=== PATIENT | female | born 1990 | race Caucasian/White ===

== ENCOUNTER 2018-05-17 14:36 | Inpatient (IN) ==
--- NOTE | 2018-05-17 14:59 | Emergency Department Note ---
ED Disposition Clinical Impression: Dental infection, Facial cellulitis Disposition: Still a Patient Condition on Discharge: Fair Referrals: Mathew Cisneros MD [Primary Care Provider] - - Critical Care Critical Care Time: No Attestation: On , the high probability of a clinically significant, sudden or life threatening deterioration of the following system(s) required my full and direct attention, intervention and personal management. The time I documented below is in addition to time spent performing reported procedures but includes the following listed in this critical care notation. Medical Decision Making - Brad Inquiry Pt receiving controlled substance: Yes Brad was queried for this patient: Yes Reference #:: [id number] Risks and benefits of using a controlled substance: were not discussed with pt by me Comment: 0 rxs. Vital Signs: 05/17/18 14:40 05/17/18 14:49 05/17/18 15:07 Temperature 99.4 F 99.4 F Temperature Source Oral Oral Pulse Rate [Right Brachial] 67 67 68 Respiratory Rate 20 20 18 Blood Pressure [Right Arm] 135/83 135/83 131/82 Blood Pressure Mean [Right Arm] 100 100 98 Blood Pressure Source [Right Arm] Automatic Cuff Automatic Cuff Automatic Cuff Blood Pressure Position [Right Arm] Sitting Supine Supine 02 Sat by Pulse Oximetry 96 96 96 Oxygen Delivery Method Room Air Room Air Room Air 05/17/18 15:53 05/17/18 16:00 05/17/18 16:47 Temperature Temperature Source Pulse Rate [Right Brachial] 72 72 82 Respiratory Rate 18 18 18 Blood Pressure [Right Arm] 129/77 127/78 135/74 Blood Pressure Mean [Right Arm] 94 94 94 Blood Pressure Source [Right Arm] Manual Cuff/ Auscultation Automatic Cuff Automatic Cuff Blood Pressure Position [Right Arm] Supine Supine Supine 02 Sat by Pulse Oximetry 97 97 98 Oxygen Delivery Method Room Air Room Air 05/17/18 17:30 Temperature Temperature Source Pulse Rate [Right Brachial] 96 H Respiratory Rate 18 Blood Pressure [Right Arm] 142/88 Blood Pressure Mean [Right Arm] 106 Blood Pressure Source [Right Arm] Automatic Cuff Blood Pressure Position [Right Arm] Sitting 02 Sat by Pulse Oximetry 97 Oxygen Delivery Method Room Air - Lab Data Lab Results 05/17/18 15:15: WBC 23.5 H*, RBC 4.98, Hgb 14.6, Hct 44.3, MCV 89.0, MCH 29.3, MCHC 32.9, RDW 13.2, Plt Count 400, MPV 7.3 L, Neut % (Auto) 80.5 H, Lymph % ( Auto) 13.9, [place] % (Auto) 4.5, Eos % (Auto) 0.9, Baso % (Auto) 0.2, Neut # (Auto ) 18.9 H, Lymph # (Auto) 3.3, [place] # (Auto) 1.0, Eos # (Auto) 0.2, Baso # (Auto ) 0.1, Total Counted 100, Neutrophils % (Manual) 87 H, Lymphocytes % (Manual) 8 L, Monocytes % (Manual) 5, Platelet Estimate Normal, RBC Morphology Normal 05/17/18 15:15: Sodium 140, Potassium 3.5, Chloride 105, Carbon Dioxide 26, Anion Gap 12.5, BUN 7, Creatinine 0.76, Estimated Creat Clear 178, Estimated GFR 91, Est GFR ( Amer) 110, Glucose 119 H, Calcium 8.7 05/17/18 15:20: Lactic Acid 0.9 Result diagrams: 05/17/18 15:15 05/17/18 15:15 Orders (Tests/Meds): ED MEDICATIONS Generic Name Dose Route Start Last Admin Trade Name Freq PRN Reason Stop Dose Admin Clindamycin Phosphate 900 mg/ 106 mls @ 100 mls/hr 05/17/18 15:15 05/17/18 15 :38 Sodium Chloride IV 05/31/18 15:14 100 mls/hr Q6H AMALIA Administration Protocol Discontinued Medications Generic Name Dose Route Start Last Admin Trade Name Freq PRN Reason Stop Dose Admin Hydromorphone HCl 1 mg 05/17/18 15:06 05/17/18 15:31 Dilaudid 2mg/Ml Syringe IV 05/17/18 15:07 1 mg ONCE ONE Administration Iopamidol 75 ml 05/17/18 16:39 05/17/18 16:43 [id number]; 50ml Vial IV 05/17/18 16:40 75 ml ONCE ONE Administration Iopamidol 75 ml 05/17/18 16:39 05/17/18 16:43 [id number]; 50ml Vial IV 05/17/18 16:40 75 ml ONCE ONE Administration Ketorolac Tromethamine 30 mg 05/17/18 15:07 05/17/18 15:31 Toradol 30mg/Ml Vial IV 05/17/18 15:08 30 mg ONCE ONE Administration Ondansetron HCl 4 mg 05/17/18 15:06 05/17/18 15:31 Zofran 4mg/2ml Vial IV 05/17/18 15:07 4 mg ONCE ONE Administration Sodium Chloride 10 ml 05/17/18 16:39 05/17/18 16:43 Rad-Saline Flush 10ml Syringe IV 05/17/18 16:40 10 ml ONCE ONE Administration ORDERS Category Date Time Status CT sinus w con Stat Cat Scan 05/17/18 16:00 Taken Blood Culture Stat Micro 05/17/18 15:15 Received - CT Data CT Scan: Sinus Time Received: 17:[address] Reviewed: Yes: I have viewed the radiologist's interpretation Findings Narrative: CT scan interpreted by [facility] radiologist. Faxed report received and reviewed: Some right anterior and donovan-lateral maxillary/buccal soft tissue cellulitis is present. Possible contiguous extension of the inflammatory process into the anterior right parotid salivary gland with associated sialadenitis. - Physician Consults Physician Consulted: jj Time: 17:46 Reason -: Admission Comment/Response: Agrees to admit the patient to the hospital. We discussed the patient's clinical information, including history, exam, laboratory and radiology results and ED course. Per hospital procedure, I will write temporary bridge inpatient orders on the patient. Specific orders requested by the admitting physician: Continue clindamycin. 1 dose of Decadron. General Adult HPI - General Chief complaint: Dental/Oral Stated complaint: Infected tooth, swollen face Time Seen by Provider: 05/17/18 14:59 Mode of Arrival: Family Vehicle Limitations: No Limitations Description of Symptoms (Recalled from ER Triage Doc. by RN): C/O DENTAL INFECTION WITH PAIN AND FACIAL EDEMA. DR KEENAN SENT HER HERE FOR INJECTABLE ANTIBIOTICS. SEEN BY YOSELIN THIS AM AND STARTED ON CLINDAMYCIN 150 MG PO QID AND HYDROCODONE 7.5 MG PO Q 4-6 HOURS PRN. MORE SWELLING OF FACE NOTED AFTER MEDICATIONS STARTED. RETURNED TO DENTIST OFFICE AND WAS INSTRUCTED TO COME TO ER - History of Present Illness HPI narrative: Complains of toothache and facial swelling that began yesterday. Pain started in the right maxillary first premolar. Pain and swelling has worsened today. She saw her dentist today and was started on Clindamycin and Percocet. Afterwards the swelling and pain increased and she was sent to the emergency room for intravenous antibiotics. Denies fever. Able to swallow and breathe well. - Related Data Home Medications Medication Instructions Recorded Confirmed Clindamycin HCl [Cleocin HCl] 150 mg PO QID 05/17/18 05/17/18 Hydrocodone/Acetaminophen 1 each PO Q4HP PRN 05/17/18 05/17/18 [Hydrocodon-Acetaminoph 7.5-325] Allergies Allergy/AdvReac Type Severity Reaction Status Date / Time No Known Allergies Allergy Verified 02/25/18 15:14 [facility] History I have reviewed the patient's past medical history: Yes Medical History: Denies:: Cancer, Diabetes Mellitus Type 1, Diabetes Mellitus Type 2, MRSA Laterality Cases: Left: Other Other Surgeries: Yes: Cholecystectomy Amputation: No Fractures: No - Social History Smoking Status: Current every day smoker Tobacco Type: cigarettes Alcohol Intake: never Household Members: family - Psychiatric History Expresses thoughts of harming self/others: None Suicide Plan Description: No Plan Family Hx:: Cancer, Diabetes, Hypertension ROS Obtained: Yes Systems reviewed as appropriate & no additional complaints - Constitutional Constitutional: Denies fever(s) - Eyes Eyes: Reports other (Swelling of the right eyelids and periorbital tissues) - ENT Ears, Nose, Mouth, and Throat: Reports as per HPI, Reports dental pain, Reports facial pain Physical Exam - General General appearance: alert, in distress (Pain. Tearful.) - Head Head exam: atraumatic, normocephalic - Eye Eye exam: Present: normal appearance, PERRL, EOMI - Expanded ENT Exam Comment: Right facial edema, maxillary and periorbital with moderate edema of right eyelids. Extraocular movements intact. Pupils equal and reactive to light. No proptosis. Tenderness of right maxillary first premolar. No visible dental caries. No visible intraoral abscess or swelling. No sublingual swelling or tongue elevation. Uvula midline. No stridor or drooling. No submandibular swelling. - Neck Neck exam: Present: normal inspection, full ROM, trachea midline. Absent: meningismus, lymphadenopathy - Chest Chest inspection: Present: normal inspection, symmetric chest wall rise. Absent : tenderness - Respiratory Respiratory exam: Present: normal lung sounds bilaterally. Absent: respiratory distress - Cardiovascular Cardiovascular exam: Present: regular rate, normal rhythm. Absent: JVD - Abdominal Exam Abdominal exam: Present: soft, normal bowel sounds. Absent: distention, tenderness, guarding - Extremities Exam Extremities exam: Present: normal inspection - Back Exam Back exam: Absent: tenderness - Neurological Exam Neurological exam: Present: alert, oriented X3, CN II-XII intact - Psychiatric Psychiatric exam: Present: anxious - Skin Skin exam: Present: warm, dry, intact, normal color
[2018-05-17 15:34] LABS: Basophils # 0.1 K/mm3 (0-0.2); Basophils % 0.2 % (0.1-2.0); Eosinophils # 0.2 K/mm3 (0.0-0.4); Eosinophils % 0.9 % (0.1-12.0); Hematocrit 44.3 % (37.0-47.0); Hemoglobin 14.6 g/dL (12.2-16.2); Lymphocytes # 3.3 K/mm3 (0.7-4.5); Lymphocytes % 13.9 K/mm3 (10-50); Mean Corpuscular HGB Conc 32.9 g/dL (31.8-35.4); Mean Corpuscular Hemoglobin 29.3 pg (27.0-31.2); Mean Platelet Volume 7.3 fl (7.4-10.4); Monocytes % 4.5 % (1.7-9.3); Neutrophils # 18.9 K/mm3 (1.8-7.8); Neutrophils % 80.5 % (37.0-80.0); Platelet Count 400 K/mm3 (142-424); Red Blood Count 4.98 M/mm3 (4.20-5.40); Red Cell Distribution Width 13.2 % (11.5-17.5); White Blood Count 23.5 K/mm3 (4.8-10.8)
[2018-05-17 15:38] LABS: Anion Gap 12.5 mEq/L (5-15); Calcium 8.7 mg/dL (8.5-10.1); Potassium 3.5 mmoL/L (3.5-5.1)
[2018-05-17 16:02] LABS: Lymphocytes % 8 % (10-50); Monocytes % 5 % (2-9); Neutrophils % 87 % (42-76); Total Cells Counted 100
[2018-05-17 16:05] LABS: RBC Morphology Normal
[2018-05-18 06:59] LABS: Basophils % 0.1 % (0.1-2.0); Hematocrit 42.6 % (37.0-47.0); Hemoglobin 13.7 g/dL (12.2-16.2); Lymphocytes # 1.2 K/mm3 (0.7-4.5); Lymphocytes % 8.2 K/mm3 (10-50); Mean Corpuscular HGB Conc 32.1 g/dL (31.8-35.4); Mean Corpuscular Volume 90.2 fl (81-99); Mean Platelet Volume 7.6 fl (7.4-10.4); Monocytes # 0.5 K/mm3 (0.1-1.0); Monocytes % 3.1 % (1.7-9.3); Neutrophils # 13.3 K/mm3 (1.8-7.8); Neutrophils % 88.6 % (37.0-80.0); Platelet Count 363 K/mm3 (142-424); Red Blood Count 4.72 M/mm3 (4.20-5.40); Red Cell Distribution Width 13.3 % (11.5-17.5)
--- NOTE | 2018-05-18 07:57 | Pharmacy Consult Notes ---
[facility] Pharmacy VTE Monitoring - Patient Demographics Admission date: 05/17/18 Report Date: 05/18/18 Time: 07:57 Allergies/Adverse Reactions: Patient Allergies No Known Allergies Allergy (Verified 02/25/18 15:14) Height: 1.65 m Weight: 98.94 kg Patient Problems: Current Active Problems Dental infection (Acute) Facial cellulitis (Acute) - VTE Risk Labs: VTE Related Lab Results Hgb 13.7 g/dL (12.2-16.2) 05/18/18 06:15 Hct 42.6 % (37.0-47.0) 05/18/18 06:15 Plt Count 363 K/mm3 (142-424) 05/18/18 06:15 BUN 7 mg/dL (7-18) 05/17/18 15:15 Creatinine 0.76 mg/dL (0.55-1.02) 05/17/18 15:15 Estimated Creat Clear 178 mL/min (0-300) 05/17/18 15:15 Was VTE Risk Assessment Performed: No VTE Score: 1 VTE Risk Level: Very Low Risk Clinical Trial Participant: No - Prophylaxis VTE Prophylaxis Ordered?: Yes Types of VTE Prophylaxis: TEDS Knee High Location of Applied Device: Bilateral Lower Extremeties
--- NOTE | 2018-05-18 09:45 | History & Physical Report ---
*Admission Date: 05/17/18 *Chief complaint: Left facial swelling *History of present illness: 27-year-old white female with no significant visit her dentist a couple times with infected tooth in the right upper molar. She saw her dentist yesterday morning with significant swelling, and was placed on antibiotics which initially seemed to help her along with some ibuprofen swelling return and she reported back to the dentist office who asked her to come to the ER because of possible need for imaging and she reported to the ER on day of admission with swollen maxillary area, significant pain and swelling in the lower right orbital area. CT scan of sinuses was nondiagnostic of her left tissue swelling, patient was given a dose of intravenous clindamycin and felt somewhat better but given the significant swelling, port/or robotics, she admitted to hospital for IV antibiotics and further diagnostic testing. [facility] History I have reviewed the patient's past medical history: Yes Medical History: Denies:: Cancer, Diabetes Mellitus Type 1, Diabetes Mellitus Type 2, MRSA Laterality Cases: Left: Other Other Surgeries: Yes: Cholecystectomy Amputation: No Fractures: No - *Social History Educational Level: Completed High School Smoking Status: Never smoker Tobacco Type: cigarettes Alcohol Intake: never Occupational Status: employed Housing: house Household Members: family - Psychiatric History Expresses thoughts of harming self/others: None Suicide Plan Description: No Plan *Family Hx:: Cancer, Diabetes, Hypertension Review of Systems - Review of Systems Review of systems:: pertinent systems reviewed and negative unless documented below Review of systems negative for cardiac or pulmonary issues as noted below. Negative for GI distress, diarrhea or constipation. Negative for sore throat, ear pain or other issues other than poor dentition/ problems as noted in the HPI. Meds Home Medications Medication Instructions Recorded Confirmed Type Hydrocodone/Acetaminophen 1 each PO Q4HP PRN 05/17/18 05/18/18 History [Hydrocodon-Acetaminoph 7.5-325] Clindamycin HCl 300 mg PO TID 05/18/18 05/18/18 History Allergies Allergy/AdvReac Type Severity Reaction Status Date / Time No Known Allergies Allergy Verified 02/25/18 15:14 Exam Vital signs and Labs for Last 24 Hours: Temp Pulse Resp BP Pulse Ox 98.8 F 74 16 134/86 95 05/18/18 07:49 05/18/18 07:49 05/18/18 07:49 05/18/18 07:49 05/18/18 08:00 Laboratory Results - last 24 hr 05/17/18 15:15: WBC 23.5 H*, RBC 4.98, Hgb 14.6, Hct 44.3, MCV 89.0, MCH 29.3, MCHC 32.9, RDW 13.2, Plt Count 400, MPV 7.3 L, Neut % (Auto) 80.5 H, Lymph % ( Auto) 13.9, [place] % (Auto) 4.5, Eos % (Auto) 0.9, Baso % (Auto) 0.2, Neut # (Auto ) 18.9 H, Lymph # (Auto) 3.3, [place] # (Auto) 1.0, Eos # (Auto) 0.2, Baso # (Auto ) 0.1, Total Counted 100, Neutrophils % (Manual) 87 H, Lymphocytes % (Manual) 8 L, Monocytes % (Manual) 5, Platelet Estimate Normal, RBC Morphology Normal 05/17/18 15:15: Sodium 140, Potassium 3.5, Chloride 105, Carbon Dioxide 26, Anion Gap 12.5, BUN 7, Creatinine 0.76, Estimated Creat Clear 178, Estimated GFR 91, Est GFR ( Amer) 110, Glucose 119 H, Calcium 8.7 05/17/18 15:20: Lactic Acid 0.9 05/18/18 06:15: WBC 15.0 H D, RBC 4.72, Hgb 13.7, Hct 42.6, MCV 90.2, MCH 29.0, MCHC 32.1, RDW 13.3, Plt Count 363, MPV 7.6, Neut % (Auto) 88.6 H, Lymph % (Auto ) 8.2 L, [place] % (Auto) 3.1, Eos % (Auto) 0.0 L, Baso % (Auto) 0.1, Neut # (Auto ) 13.3 H, Lymph # (Auto) 1.2, [place] # (Auto) 0.5, Eos # (Auto) 0.0, Baso # (Auto ) 0.0 I & O for Last 24 hours: Intake & Output 05/15/18 05/16/18 05/17/18 05/18/18 11:59 11:59 11:59 11:59 Intake Total 560 / 560 Balance 560 / 560 Weight 218 lb 2 oz Narrative: Patient is in no distress, obvious just on the right maxillary area extending into the right lower orbital region. Extraocular motions are intact and she reports pain when she was laterally. Pupils are equal and reactive. Tympanic membranes are clear bilaterally. Oropharynx is slightly irritated but no significant drainage or petechiae in the posterior pharynx. There is tenderness and diffuse soft tissue swelling the maxillary region. I cannot palpate any discrete abscess or lymph but her pain limits the accuracy of the examination. She has no cervical lymph node swelling. Lungs have smoker's rhonchi but was clear heart rate regular. Abdomen is soft, she millimeter cyanosis or edema. H&P: Result - Labs Labs: Short CBC 05/17/18 05/18/18 Range/Units 15:15 06:15 WBC 23.5 H* 15.0 H D (4.8-10.8) K/mm3 Hgb 14.6 13.7 (12.2-16.2) g/dL Hct 44.3 42.6 (37.0-47.0) % Plt Count 400 363 (142-424) K/mm3 BMP 05/17/18 15:15 Sodium 140 Potassium 3.5 Chloride 105 Carbon Dioxide 26 BUN 7 Creatinine 0.76 Glucose 119 H Calcium 8.7 Assessment and Plan (1) Dental infection Current visit: Yes Status: Acute Category: Medical Code(s): K04.7 - Periapical abscess without sinus Agree with admission. IV antibiotics Consider change to gram-negative coverage if needed. We will consider further imaging in the future. (2) Facial cellulitis Current visit: Yes Status: Acute Category: Medical Code(s): L03.211 - Cellulitis of face
[2018-05-18 10:16] LABS: Lymphocytes % 8 % (10-50); Monocytes % 3 % (2-9); Neutrophils % 89 % (42-76); Total Cells Counted 100
[2018-05-18 10:17] LABS: RBC Morphology Normal
--- NOTE | 2018-05-18 11:22 | Consult Report ---
*Admission Date: 05/17/18 *Chief complaint: Right facial cellulitis *History of present illness: 27-year-old white female with no significant visit her dentist a couple times with infected tooth in the right upper molar. She saw her dentist yesterday morning with significant swelling, and was placed on antibiotics which initially seemed to help her along with some ibuprofen swelling return and she reported back to the dentist office who asked her to come to the ER because of possible need for imaging and she reported to the ER on day of admission with swollen maxillary area, significant pain and swelling in the lower right orbital area. CT scan of sinuses was nondiagnostic of her left tissue swelling, patient was given a dose of intravenous clindamycin and felt somewhat better but given the significant swelling, port/or robotics, she admitted to hospital for IV antibiotics and further diagnostic testing. Review of Systems - Eyes Reports other Comments: right side ricarda orbital swelling - ENT Reports dental pain, Reports facial pain [facility] History Medical History: Denies:: Cancer, Diabetes Mellitus Type 1, Diabetes Mellitus Type 2, MRSA Laterality Cases: Left: Other Other Surgeries: Yes: Cholecystectomy Amputation: No Fractures: No - *Social History Educational Level: Completed High School Smoking Status: Never smoker Tobacco Type: cigarettes Alcohol Intake: never Occupational Status: employed Housing: house Household Members: family - Psychiatric History Expresses thoughts of harming self/others: None Suicide Plan Description: No Plan *Family Hx:: Cancer, Diabetes, Hypertension Meds Home Medications Medication Instructions Recorded Confirmed Type Hydrocodone/Acetaminophen 1 each PO Q4HP PRN 05/17/18 05/18/18 History [Hydrocodon-Acetaminoph 7.5-325] Clindamycin HCl 300 mg PO TID 05/18/18 05/18/18 History Allergies Allergy/AdvReac Type Severity Reaction Status Date / Time No Known Allergies Allergy Verified 02/25/18 15:14 Exam Vital signs and Labs for Last 24 Hours: Temp Pulse Resp BP Pulse Ox 98.8 F 74 16 134/86 95 05/18/18 07:49 05/18/18 07:49 05/18/18 07:49 05/18/18 07:49 05/18/18 08:00 Laboratory Results - last 24 hr 05/17/18 15:15: WBC 23.5 H*, RBC 4.98, Hgb 14.6, Hct 44.3, MCV 89.0, MCH 29.3, MCHC 32.9, RDW 13.2, Plt Count 400, MPV 7.3 L, Neut % (Auto) 80.5 H, Lymph % ( Auto) 13.9, [place] % (Auto) 4.5, Eos % (Auto) 0.9, Baso % (Auto) 0.2, Neut # (Auto ) 18.9 H, Lymph # (Auto) 3.3, [place] # (Auto) 1.0, Eos # (Auto) 0.2, Baso # (Auto ) 0.1, Total Counted 100, Neutrophils % (Manual) 87 H, Lymphocytes % (Manual) 8 L, Monocytes % (Manual) 5, Platelet Estimate Normal, RBC Morphology Normal 05/17/18 15:15: Sodium 140, Potassium 3.5, Chloride 105, Carbon Dioxide 26, Anion Gap 12.5, BUN 7, Creatinine 0.76, Estimated Creat Clear 178, Estimated GFR 91, Est GFR ( Amer) 110, Glucose 119 H, Calcium 8.7 05/17/18 15:20: Lactic Acid 0.9 05/18/18 06:15: WBC 15.0 H D, RBC 4.72, Hgb 13.7, Hct 42.6, MCV 90.2, MCH 29.0, MCHC 32.1, RDW 13.3, Plt Count 363, MPV 7.6, Neut % (Auto) 88.6 H, Lymph % (Auto ) 8.2 L, [place] % (Auto) 3.1, Eos % (Auto) 0.0 L, Baso % (Auto) 0.1, Neut # (Auto ) 13.3 H, Lymph # (Auto) 1.2, [place] # (Auto) 0.5, Eos # (Auto) 0.0, Baso # (Auto ) 0.0, Total Counted 100, Neutrophils % (Manual) 89 H, Lymphocytes % (Manual) 8 L, Monocytes % (Manual) 3, Platelet Estimate Normal, RBC Morphology Normal I & O for Last 24 hours: Intake & Output 05/15/18 05/16/18 05/17/18 05/18/18 23:59 23:59 23:59 23:59 Intake Total 560 / 560 Balance 560 / 560 Weight 218 lb 2 oz 218 lb 2 oz - *Routine HEENT Exam Eye: Present: periorbital swelling, periorbital tenderness ENT: Present: sinus tenderness, external ear normal Comments: This patient was consulted on May 18, 2018 because of right facial cellulitis which presented about 4 days ago. She does have a carious right maxillary premolar tooth and her dentist did recommend an extraction of that tooth. She was admitted to hospital the right facial cellulitis 24 hours ago and started on clindamycin. When I examined her the swelling was beginning to recede and she was feeling slightly better. She will had been changed to Unasyn, examination confirmed the presence of a right facial cellulitis in the middle third of the right side of the face. There was no abscess. Eye movements were normal. She does have a deviation of the nasal septum to the left and evidence of acute right maxillary sinusitis. That finding was confirmed on the CT scan of the sinuses which showed moderately extensive mucosal thickening of the right maxillary sinus as well as a periapical abscess of the affected carious premolar maxillary to. The remainder of the head and neck examination was normal. What I did recommend is that she continue on the Unasyn and I also added Flagyl 500 mg every 8 hours while she is receiving IV medication. And may be prudent to keep her on the Flagyl for 5 days once she switches over to oral medication. She most likely will need to follow through with the dentist' s recommendations on a tooth extraction, and given the inflammatory process in the right maxillary sinus I would be inclined to keep her on antibiotics for a full 10 days. I would recommend a follow-up at my clinic on June 02, 2018 provided she does not develop a soft tissue facial abscess, but given the fact that she is already responding I think that is highly unlikely. Results - Labs 05/18/18 06:15 05/17/18 15:15 Laboratory Results - last 24 hr 05/17/18 15:15: WBC 23.5 H*, RBC 4.98, Hgb 14.6, Hct 44.3, MCV 89.0, MCH 29.3, MCHC 32.9, RDW 13.2, Plt Count 400, MPV 7.3 L, Neut % (Auto) 80.5 H, Lymph % ( Auto) 13.9, [place] % (Auto) 4.5, Eos % (Auto) 0.9, Baso % (Auto) 0.2, Neut # (Auto ) 18.9 H, Lymph # (Auto) 3.3, [place] # (Auto) 1.0, Eos # (Auto) 0.2, Baso # (Auto ) 0.1, Total Counted 100, Neutrophils % (Manual) 87 H, Lymphocytes % (Manual) 8 L, Monocytes % (Manual) 5, Platelet Estimate Normal, RBC Morphology Normal 05/17/18 15:15: Sodium 140, Potassium 3.5, Chloride 105, Carbon Dioxide 26, Anion Gap 12.5, BUN 7, Creatinine 0.76, Estimated Creat Clear 178, Estimated GFR 91, Est GFR ( Amer) 110, Glucose 119 H, Calcium 8.7 05/17/18 15:20: Lactic Acid 0.9 05/18/18 06:15: WBC 15.0 H D, RBC 4.72, Hgb 13.7, Hct 42.6, MCV 90.2, MCH 29.0, MCHC 32.1, RDW 13.3, Plt Count 363, MPV 7.6, Neut % (Auto) 88.6 H, Lymph % (Auto ) 8.2 L, [place] % (Auto) 3.1, Eos % (Auto) 0.0 L, Baso % (Auto) 0.1, Neut # (Auto ) 13.3 H, Lymph # (Auto) 1.2, [place] # (Auto) 0.5, Eos # (Auto) 0.0, Baso # (Auto ) 0.0, Total Counted 100, Neutrophils % (Manual) 89 H, Lymphocytes % (Manual) 8 L, Monocytes % (Manual) 3, Platelet Estimate Normal, RBC Morphology Normal Assessment and Plan (1) Dental infection Current visit: Yes Status: Acute Category: Medical Code(s): K04.7 - Periapical abscess without sinus (2) Facial cellulitis Current visit: Yes Status: Acute Category: Medical Code(s): L03.211 - Cellulitis of face
--- NOTE | 2018-05-19 07:29 | Progress Note ---
Internal Medicine - PN: Subj *Date: 05/19/18 *Time: 14:22 Interval history: Overnight patient had no acute events, remains afebrile, hemodynamically stable. This morning she complains of increased pain in the right side of her face, swelling prominent, pivoting mouth, tenderness all the way to the parotid. States she is gotten worse over the past day since switching from clindamycin to you. Review of systems: Denies any nausea, vomiting, fevers, chills. Denies headaches, changes in vision Exam Vital signs and Labs for Last 24 Hours: Temp Pulse Resp BP Pulse Ox 97.8 F 60 16 121/61 95 05/19/18 04:00 05/19/18 04:00 05/19/18 04:00 05/19/18 04:00 05/19/18 04:00 Laboratory Results - last 24 hr 05/18/18 06:15: Total Counted 100, Neutrophils % (Manual) 89 H, Lymphocytes % ( Manual) 8 L, Monocytes % (Manual) 3, Platelet Estimate Normal, RBC Morphology Normal I & O for Last 24 hours: Intake & Output 05/16/18 05/17/18 05/18/18 05/19/18 11:59 11:59 11:59 11:59 Intake Total 560 / 560 740 / 740 Balance 560 / 560 740 / 740 Weight 98.94 kg - *Routine HEENT Exam Head: Present: normocephalic, atraumatic, facial swelling (Swelling of her face prominent from parotid to right periorbital region. No significant erythema compared to left side of face. Tender to palpation along entire right maxillary region.) Eye: Present: EOMI, PERRL, periorbital swelling. Absent: conjunctival icterus, scleral injection ENT: Present: mucous membranes moist - *Routine Neck Exam Present: supple. Absent: lymphadenopathy - *Routine Respiratory Exam Present: CTA bilaterally. Absent: wheezes, crackles - *Routine Cardiovascular Exam Present: RRR, Normal S1, Normal S2. Absent: murmur - *Routine Abdominal Exam Present: soft, normoactive bowel sounds Comments: Obese - *Routine Rectal Exam Patient deferred: visual exam - *Routine Exam Patient deferred: external exam - *Routine Extremities Exam Present: normal capillary refill. Absent: clubbing, edema - *Routine Skin Exam Present: intact. Absent: erythema, pallor - *Routine Neurological Exam Present: alert, oriented X3. Absent: sensory deficit Assessment and Plan (1) Dental infection Current visit: Yes Status: Acute Category: Medical Code(s): K04.7 - Periapical abscess without sinus (2) Facial cellulitis Current visit: Yes Status: Acute Category: Medical Code(s): L03.211 - Cellulitis of face - Assessment and plan all Dx Assessment and Plan for all problems:: Patient is in mild distress due to pain. Swelling obvious on the right maxillary area extending into the right lower orbital region, puffiness causing eye to be closed.. Extraocular motions are intact and she reports pain when she looks laterally. Pupils are equal and reactive. Given interval worsening per patient in pain on right side, transition antibiotics. -Discontinue Unasyn -Initiate vancomycin and Zosyn to broaden coverage for staph and oral gildardo -Monitor for clinical improvement -Continue pain control with morphine -If clinically improved in the next 24-36 hrs., transition to oral antibiotics with plan to discharge home and follow-up with dentistry in the outpatient setting
--- NOTE | 2018-05-19 09:12 | Pharmacy Consult Notes ---
- Pharmacy Consult Date: 05/19/18 Time: 09:09 Referring provider: DR. PAIGE Reason for Consult:: VANCOMYCIN DOSING Allergies and ADEs:: Allergies Allergy/AdvReac Type Severity Reaction Status Date / Time No Known Allergies Allergy Verified 02/25/18 15:14 Home Medications:: Home Medications Medication Instructions Recorded Confirmed Type Hydrocodone/Acetaminophen 1 each PO Q4HP PRN 05/17/18 05/18/18 History [Hydrocodon-Acetaminoph 7.5-325] Clindamycin HCl 300 mg PO TID 05/18/18 05/18/18 History Height: 1.65 m Weight: 100.017 kg Laboratory Results:: Laboratory Results - last 24 hr 05/18/18 06:15: Total Counted 100, Neutrophils % (Manual) 89 H, Lymphocytes % ( Manual) 8 L, Monocytes % (Manual) 3, Platelet Estimate Normal, RBC Morphology Normal Medical History: Denies:: Cancer, Diabetes Mellitus Type 1, Diabetes Mellitus Type 2, MRSA Assessment and Plan (1) Dental infection Current visit: Yes Status: Acute Category: Medical Code(s): K04.7 - Periapical abscess without sinus (2) Facial cellulitis Current visit: Yes Status: Acute Category: Medical Code(s): L03.211 - Cellulitis of face - Assessment and plan all Dx Assessment and Plan for all problems:: BASED ON PATIENT FACTORS, RECOMMEND VANCOMYCIN 2 GM IV Q12H. PHARMACY WILL FOLLOW DAILY AND ADJUST APPROPRIATE.
--- NOTE | 2018-05-19 10:26 | Consult Report ---
*Admission Date: 05/17/18 *Chief complaint: right facial cellulitis *History of present illness: 27-year-old white female with no significant visit her dentist a couple times with infected tooth in the right upper molar. She saw her dentist yesterday morning with significant swelling, and was placed on antibiotics which initially seemed to help her along with some ibuprofen swelling return and she reported back to the dentist office who asked her to come to the ER because of possible need for imaging and she reported to the ER on day of admission with swollen maxillary area, significant pain and swelling in the lower right orbital area. CT scan of sinuses was nondiagnostic of her left tissue swelling, patient was given a dose of intravenous clindamycin and felt somewhat better but given the significant swelling, port/or robotics, she admitted to hospital for IV antibiotics and further diagnostic testing. Review of Systems - ENT Reports other Comments: Patient was doing better when examined last on May 19, 2018. The right facial cellulitis was resolving. The patient continued to have pain in her right premolar maxillary tooth which is awaiting excision once the dentist is ready to remove it. The CT scan did show a periapical abscess as well as some mucosal thickening in the right maxillary sinus. I recommended that she continue on IV antibiotics for another day or 2, and then be discharged on oral antibiotics. She will follow-up in my clinic on June 02, 2018. Dr. Edwin Kelsey [facility] History Medical History: Denies:: Cancer, Diabetes Mellitus Type 1, Diabetes Mellitus Type 2, MRSA Laterality Cases: Left: Other Other Surgeries: Yes: Cholecystectomy Amputation: No Fractures: No - *Social History Educational Level: Completed High School Smoking Status: Never smoker Tobacco Type: cigarettes Alcohol Intake: never Occupational Status: employed Housing: house Household Members: family - Psychiatric History Expresses thoughts of harming self/others: None Suicide Plan Description: No Plan *Family Hx:: Cancer, Diabetes, Hypertension Meds Home Medications Medication Instructions Recorded Confirmed Type Hydrocodone/Acetaminophen 1 each PO Q4HP PRN 05/17/18 05/18/18 History [Hydrocodon-Acetaminoph 7.5-325] Clindamycin HCl 300 mg PO TID 05/18/18 05/18/18 History Allergies Allergy/AdvReac Type Severity Reaction Status Date / Time No Known Allergies Allergy Verified 02/25/18 15:14 Exam Vital signs and Labs for Last 24 Hours: Temp Pulse Resp BP Pulse Ox 97.6 F 79 18 113/70 95 05/19/18 07:47 05/19/18 07:47 05/19/18 07:47 05/19/18 07:47 05/19/18 07:47 I & O for Last 24 hours: Intake & Output 05/16/18 05/17/18 05/18/18 05/19/18 23:59 23:59 23:59 23:59 Intake Total 1300 / 1300 380 / 380 Balance 1300 / 1300 380 / 380 Weight 218 lb 2 oz 218 lb 2 oz 220 lb 8 oz - *Routine HEENT Exam Comments: follow up to consult, see above. Results - Labs 05/18/18 06:15 05/17/18 15:15 Assessment and Plan (1) Dental infection Current visit: Yes Status: Acute Category: Medical Code(s): K04.7 - Periapical abscess without sinus (2) Facial cellulitis Current visit: Yes Status: Acute Category: Medical Code(s): L03.211 - Cellulitis of face
--- NOTE | 2018-05-20 12:52 | Progress Note ---
Internal Medicine - PN: Subj *Date: 05/20/18 *Time: 12:49 Interval history: Patient says slight improvement in pain and swelling in face, swelling around eye improving and no longer having pain with movement of I. Still has pain with opening mouth. Has not gotten out of bed since yesterday. Tolerating small amounts of oral intake. Denies fevers, nausea, vomiting, neck pain Still has pain in right side of face, pain with opening mouth Exam Vital signs and Labs for Last 24 Hours: Temp Pulse Resp BP Pulse Ox 98.2 F 68 20 128/83 96 05/20/18 07:59 05/20/18 07:59 05/20/18 07:59 05/20/18 07:59 05/20/18 07:59 I & O for Last 24 hours: Intake & Output 05/17/18 05/18/18 05/19/18 05/20/18 23:59 23:59 23:59 23:59 Intake Total 1300 / 1300 1671 / 1671 605 / 605 Output Total 300 / 300 Balance 1300 / 1300 1371 / 1371 605 / 605 Weight 98.94 kg 98.94 kg 100.017 kg Microbiology Reports for the Last 24 Hours: Microbiology 05/17/18 15:15 Blood Blood Culture - Preliminary NO GROWTH AFTER 48 HOURS 05/17/18 15:15 Blood Blood Culture - Preliminary NO GROWTH AFTER 48 HOURS - *Routine HEENT Exam Comments: Swelling in right side of face tender to palpation from right parotid to right maxilla, decreased swelling periorbital region, will decrease in erythema. - *Routine Neck Exam Present: supple. Absent: lymphadenopathy - *Routine Respiratory Exam Present: CTA bilaterally. Absent: wheezes, crackles - *Routine Cardiovascular Exam Present: RRR, Normal S1, Normal S2. Absent: murmur - *Routine Abdominal Exam Present: soft Comments: Obese, nontender - *Routine Rectal Exam Patient deferred: visual exam - *Routine Exam Patient deferred: external exam - *Routine Extremities Exam Absent: cyanosis, clubbing, edema - *Routine Skin Exam Present: intact. Absent: cyanosis, erythema - *Routine Neurological Exam Present: alert, oriented X3, CN II-XII intact Assessment and Plan (1) Dental infection Current visit: Yes Status: Acute Category: Medical Code(s): K04.7 - Periapical abscess without sinus (2) Facial cellulitis Current visit: Yes Status: Acute Category: Medical Code(s): L03.211 - Cellulitis of face - Assessment and plan all Dx Assessment and Plan for all problems:: Periapical abscess with right-sided cellulitis -Continue vancomycin and Zosyn, interval improvement -Continues to respond well transition to oral antibiotics in the morning -Instructed to get out of bed multiple times today -P.o. as tolerated -Continue pain control with morphine
--- NOTE | 2018-05-21 07:58 | Discharge Summary ---
General - General Admission date:: 05/17/18 Discharge date: 05/21/18 HPI HPI: 27-year-old white female with no significant visit her dentist a couple times with infected tooth in the right upper molar. She saw her dentist yesterday morning with significant swelling, and was placed on antibiotics which initially seemed to help her along with some ibuprofen swelling return and she reported back to the dentist office who asked her to come to the ER because of possible need for imaging and she reported to the ER on day of admission with swollen maxillary area, significant pain and swelling in the lower right orbital area. CT scan of sinuses was nondiagnostic of her left tissue swelling, patient was given a dose of intravenous clindamycin and felt somewhat better but given the significant swelling, port/or robotics, she admitted to hospital for IV antibiotics and further diagnostic testing. Hospital Course Hospital Course: Ms. Nagy was admitted on the for worsening right-sided facial edema, periorbital swelling, and pain. Imaging and exam consistent with preseptal cellulitis. Broad-spectrum antibiotics initiated with vancomycin and Zosyn after receiving an initial dose of clindamycin in the ER. Has had improvement during hospitalization with decreased swelling around her eye and interval decrease in tenderness of the right maxillary region. She is able to tolerate p.o. intake. Transitioned to oral antibiotics to complete 14 day course. Will need to follow-up with dentistry for extraction of tooth with abscess that is suspected to be the cause of her facial cellulitis. Surgery was consulted during admission, no acute intervention recommended. Of note, patient afebrile, hemodynamically stable, feeling improvement in pain and swelling on day of discharge. States she feels able to take oral medication and eat. Denies nausea or vomiting, pain with eye movement, changes in vision. Objective Vital signs: Temp Pulse Resp BP Pulse Ox 98.5 F 83 16 105/67 100 05/21/18 04:00 05/21/18 04:00 05/21/18 04:00 05/21/18 04:00 05/21/18 04:00 - *Routine HEENT Exam Head: Present: atraumatic Eye: Present: EOMI, PERRL. Absent: conjunctival icterus ENT: Present: mucous membranes moist Comments: Interval improvement in right-sided maxillary swelling, decreased tenderness over parotid, minimal swelling of lower eyelid (significantly improved), no appreciable erythema - *Routine Neck Exam Present: supple. Absent: lymphadenopathy - *Routine Respiratory Exam Present: CTA bilaterally. Absent: prolonged expiratory phase, rales, wheezes, crackles - *Routine Cardiovascular Exam Present: RRR, Normal S1, Normal S2. Absent: murmur - *Routine Abdominal Exam Present: soft, normoactive bowel sounds. Absent: tenderness - *Routine Rectal Exam Patient deferred: visual exam - *Routine Exam Patient deferred: external exam - *Routine Extremities Exam Absent: cyanosis, clubbing, edema - *Routine Skin Exam Present: intact. Absent: cyanosis, erythema - *Routine Neurological Exam Present: alert, oriented X3, CN II-XII intact. Absent: sensory deficit - Routine Psychiatric Exam Present: normal affect, normal thought process, cooperative Results Labs on day of discharge: Labs from last 24 hours 05/20/18 21:30 Vancomycin Trough 19.3 Preliminary micro results at discharge 05/17/18 15:15 Blood Culture - Preliminary Blood NO GROWTH AFTER 48 HOURS 05/17/18 15:15 Blood Culture - Preliminary Blood NO GROWTH AFTER 48 HOURS DS: Diagnosis - Discharge Diagnosis (1) Dental infection Status: Acute (2) Facial cellulitis Status: Acute Discharge Plan - Patient Discharge Instructions ACTIVITY: Continue current activity DIET: continue same diet - Follow up Plan Follow up with: Ewdin Kelsey MD [Staff Physician] - 2 weeks (June 02) Unknown provider or service follow up:: 05/21/18 08:17 Dentist Disposition: Home, Self-Longterm Medications: Home Medications Medication Instructions Recorded Confirmed Type Hydrocodone/Acetaminophen 1 each PO Q4HP PRN 05/17/18 05/18/18 History [Hydrocodon-Acetaminoph 7.5-325] Prescriptions/Medication Reconciliation: New Acetaminophen [Acetaminophen 325mg tab] 650 mg PO Q4HP PRN tablet PRN Reason: As Needed For Fever Or Pain Continue Hydrocodone/Acetaminophen [Hydrocodon-Acetaminoph 7.5-325] 1 each PO Q4HP PRN PRN Reason: PAIN Changed Clindamycin HCl 300 mg PO QID 7 Days #28 cap
--- NOTE | 2018-05-21 09:25 | Pharmacy Consult Notes ---
- Pharmacy Consult Date: 05/21/18 Time: 09:23 Referring provider: DR. PAIGE Reason for Consult:: VANCOMYCIN LEVEL Allergies and ADEs:: Allergies Allergy/AdvReac Type Severity Reaction Status Date / Time No Known Allergies Allergy Verified 02/25/18 15:14 Home Medications:: Home Medications Medication Instructions Recorded Confirmed Type Hydrocodone/Acetaminophen 1 each PO Q4HP PRN 05/17/18 05/18/18 History [Hydrocodone-Acetamin 7.5-325] Height: 1.65 m Weight: 100.017 kg Laboratory Results:: Laboratory Results - last 24 hr 05/20/18 21:30: Vancomycin Trough 19.3 Medical History: Denies:: Cancer, Diabetes Mellitus Type 1, Diabetes Mellitus Type 2, MRSA Assessment and Plan (1) Dental infection Current visit: Yes Status: Acute Category: Medical Code(s): K04.7 - Periapical abscess without sinus (2) Facial cellulitis Current visit: Yes Status: Acute Category: Medical Code(s): L03.211 - Cellulitis of face - Assessment and plan all Dx Assessment and Plan for all problems:: BASED ON PATIENT'S VANCOMYCIN TROUGH OF 19.3 MCG/ML OVERNIGHT, RECOMMEND CONTINUING WITH CURRENT DOSE AND INTERVAL OF VANCOMYCIN 2000 MG Q12H AT THIS TIME. PATIENT IS IN THE PROCESS OF D/C AT THIS TIME BUT WILL RECEIVE ONE MORE DOSE PRIOR TO D/C. BALDEMAR MEJIA, PHARMD
== END 2018-05-21 12:30 | disposition home or self-care (01) ==
LOC: ER 14:36 → 2ND 14:36 → OBSVTOIN 18:23 → 2ND 18:24
PROVIDERS: ADMIT Internal Medicine Adolescent Medicine; ATTEND Internal Medicine Adolescent Medicine
CPT/HCPCS: 36415; 70487; 80048; 80202; 83605; 85007; 85025; 87040; 96365; 96366; 99285; J2405; J2543; J3370; Q9967

== ENCOUNTER 2019-08-20 07:48 | Outpatient (RCR) | payer BC, MEDICAID, SELFPAY ==
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
== END 2019-08-20 07:50 | disposition home or self-care (01) ==
LOC: PT 07:48
PROVIDERS: Visit Provider Nurse Practitioner Family
DX: S13.9XXA Sprain of joints and ligaments of unspecified parts of neck, initial encounter (principal)
CPT/HCPCS: 97010; 97014; 97110; 97163; G0283

== ENCOUNTER → 2019-08-20 09:55 | Outpatient (POV) | payer BC, MEDICAID, SELFPAY ==
[2019-08-20 10:37] VITALS: BP 132/81; PULSE 83; RESP 18; O2SAT 98; BMI 33.6
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
== END ==
PROVIDERS: PCP Nurse Practitioner Family; Visit Provider Clinical Nurse Specialist Family Health
DX: M54.81 Occipital neuralgia (principal); V89.2XXA Person injured in unspecified motor-vehicle accident, traffic, initial encounter
CPT/HCPCS: 99202

== ENCOUNTER → 2019-11-06 09:50 | Outpatient (CLI) | payer BC, SELFPAY ==
[2019-11-06 10:47] LABS: Basophils # 0.1 K/mm3 (0-0.2); Basophils % 0.7 % (0.1-2.0); Eosinophils # 0.4 K/mm3 (0.0-0.4); Eosinophils % 2.7 % (0.1-12.0); Hemoglobin 13.7 g/dL (12.2-16.2); Lymphocytes # 4.1 K/mm3 (0.7-4.5); Lymphocytes % 29.9 % (10-50); Mean Corpuscular HGB Conc 31.9 g/dL (31.8-35.4); Mean Corpuscular Volume 90.9 fl (81-99); Mean Platelet Volume 8.1 fl (7.4-10.4); Monocytes # 0.9 K/mm3 (0.1-1.0); Monocytes % 6.6 % (1.7-9.3); Neutrophils # 8.3 K/mm3 (1.8-7.8); Platelet Count 418 K/mm3 (142-424); Red Blood Count 4.73 M/mm3 (4.20-5.40); Red Cell Distribution Width 12.8 % (11.5-17.5); White Blood Count 13.8 K/mm3 (4.8-10.8)
[2019-11-06 13:22] LABS: Alanine Aminotransferase 32 U/L (12-78); Albumin Level 3.9 gm/dL (3.4-5.0); Albumin/Globulin Ratio 1.2 (1.1-1.8); Alkaline Phosphatase 80 U/L (46-116); Anion Gap 12.7 mEq/L (5-15); Aspartate Amino Transferase 17 U/L (15-37); Bilirubin,Total 0.7 mg/dL (0.2-1.0); Blood Urea Nitrogen 8 mg/dL (7-18); Calcium 8.9 mg/dL (8.5-10.1); Carbon Dioxide 28 mmol/L (21.0-32.0); Chloride 102 mmol/L (98-107); Creatinine,Serum 0.68 mg/dL (0.55-1.02); Estimated Glomerular Filt Rate 102 ml/min (>60); GFR (African American) 123 ML/MIN (>60); Globulin 3.2 gm/dl (1.3-3.2); Glucose 80 mg/dL (74-106); HCG,Quantitative 0 mIU/mL; Potassium 4.7 mmoL/L (3.5-5.1); Sodium 138 mmol/L (136-145); Total Protein,Serum 7.1 gm/dL (6.4-8.2)
== END ==
PROVIDERS: Visit Provider Nurse Practitioner Family
DX: R10.30 Lower abdominal pain, unspecified (principal)
CPT/HCPCS: 36415; 80053; 84702; 85025

== ENCOUNTER 2020-07-05 18:13 | Emergency (ER) | payer BC, SELFPAY ==
[2020-07-05 18:21] VITALS: BP 141/89; PULSE 81; RESP 17; TEMP 37.1; O2SAT 98; BMI 28.0
--- NOTE | 2020-07-05 18:36 | HMH.EDHA ---
ED Disposition Clinical Impression: Migraine Qualifiers: Migraine type: without aura Status migrainosus presence: without status migrainosus Intractability: not intractable Qualified Code(s): G43.009 - Migraine without aura, not intractable, without status migrainosus Disposition: Home, Self-Care Condition on Discharge: Good Referrals: Mathew Cisneros MD [Primary Care Provider] - - Critical Care Critical Care Time: No Attestation: On 07/05/20, the high probability of a clinically significant, sudden or life threatening deterioration of the following system(s) required my full and direct attention, intervention and personal management. The time I documented below is in addition to time spent performing reported procedures but includes the following listed in this critical care notation. Medical Decision Making - Medical Records Medical records reviewed: Yes: I reviewed the patient's medical records. - Brad Inquiry Pt receiving controlled substance: No Vital Signs: 07/05/20 18:21 Temperature 98.8 F Temperature Source Oral Pulse Rate [Right Radial] 81 Respiratory Rate 17 Blood Pressure [Right Arm] 141/89 H Blood Pressure Mean [Right Arm] 106 02 Sat by Pulse Oximetry 98 Oxygen Delivery Method Room Air Headache HPI - General Chief Complaint: Headache Stated Complaint: Weakness, vomiting 2 days Time Seen by Provider: 07/05/20 18:30 Mode of Arrival: Ambulatory Source of Information: Patient Limitations: No Limitations Description of Symptoms (Recalled from ER Triage Doc. by RN): pt presents to ed with c/o vomiting and headache that is off and on x 2 weeks. pt states she feels hot all over. - History of Present Illness HPI Narrative: This 30-year-old female that presents with chief complaint of headache. Pain ongoing x4 days and is global and tension-like fashion around the head. Pain is dull and throbbing but does not radiate to the neck. No fever no chills no photophobia or nuchal rigidity. Pain rated at 7 out of 10 in intensity. Patient also reports nausea without vomiting. Patient does have history of migraine headaches in similar fashion. No aura. - Related Data Home Medications Medication Instructions Recorded Confirmed No Known Home Medications 08/09/19 08/21/19 Allergies Allergy/AdvReac Type Severity Reaction Status Date / Time No Known Allergies Allergy Verified 07/05/20 18:25 [facility] History - Hepatitis A Screen Drug use history?: No High risk sexual behaviors?: No History of sexually transmitted infection?: No Currently employed?: No Childcare worker?: No Do you have indoor plumbing?: Yes Do you have electricity?: Yes Attestation statement:: This patient has been screened for Hepatitis A risk factors. I have reviewed the patient's past medical history: Yes Medical History: Reports:: Hypertension Denies:: Cancer, Diabetes Mellitus Type 1, Diabetes Mellitus Type 2, MRSA, Seizures Laterality Cases: Left: Other Other Surgeries: Yes: No Previous Surgery, Cholecystectomy, Amputation: No Fractures: No - Social History Smoking Status: Current every day smoker Tobacco Type: cigarettes # Packs/Day (cigarettes): 1 Alcohol Intake: current Alcohol Intake Frequency:: a few times a month Occupational Status: other Housing: house Household Members: family Family Hx:: Cancer, Diabetes, Hypertension ROS Obtained: Yes All systems reviewed & no additional complaints Physical Exam - General General appearance: alert, in no apparent distress - Head Head exam: atraumatic, normocephalic - Eye Eye exam: Present: normal appearance, PERRL, EOMI - ENT ENT exam: Present: normal exam, normal oropharynx, mucous membranes moist - Neck Neck exam: Present: normal inspection (She has a follow-up with her primary to see about getting an echo at some point time and 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
[2020-07-05 18:53] VITALS: BP 135/74; PULSE 79; RESP 17; TEMP 37.1; O2SAT 98
== END 2020-07-05 19:04 | disposition home or self-care (01) ==
PROVIDERS: Emergency Provider Emergency Medicine; PCP Internal Medicine Adolescent Medicine
DX: G43.009 Migraine without aura, not intractable, without status migrainosus (principal); I10 Essential (primary) hypertension; F17.210 Nicotine dependence, cigarettes, uncomplicated; Z90.49 Acquired absence of other specified parts of digestive tract
CPT/HCPCS: 96374; 96375; 99281

== ENCOUNTER 2020-12-25 14:57 | Emergency (ER) | payer MEDICAID, SELFPAY ==
--- NOTE | 2020-12-25 14:52 | ECG_ITS ---
APPROVED REPORT Exam: Resting ECG HR:96 bpm ECG Measurements Heart Rate 96 AXES PA 134 P 57 QRSd 76 QRS 84 QT 342 T 12 QTc 432 Conclusion Normal sinus rhythm Nonspecific T wave abnormality Abnormal ECG Electronically signed by : Mathew Cisneros, 12/26/2020 20:36:31
[2020-12-25 14:57] VITALS: BP 148/75; PULSE 95; RESP 21; TEMP 37.2; O2SAT 97; BMI 39.8
--- NOTE | 2020-12-25 14:59 | XR_ITS ---
PROCEDURE: XR CHEST PORTABLE CLINICAL HISTORY: CP Chest pain, smoker COMPARISON: CR CXR CHEST(2 VIEWS-NOT PORTABLE) from 04/28/2015 CR CXR CHEST(2 VIEWS-NOT PORTABLE) from 12/07/[address] [address] CHEST W/ CONTRAST from 12/29/2016 CR XR CHEST AP from 08/09/2019 FINDINGS: The cardiomediastinal silhouette and pulmonary vascularity are within normal limits. There is some increased density in the right paratracheal region consistent with calcified paratracheal lymph nodes. No acute bony abnormalities. IMPRESSION: No acute findings. Dictated by: Carlos Garcia MD 12/25/2020 16:47 Carlos Garcia MD in [place] 12/25/2020 16:47
[2020-12-25 15:13] LABS: Basophils # 0.1 K/mm3 (0-0.2); Basophils % 0.6 % (0.1-2.0); Eosinophils # 0.4 K/mm3 (0.0-0.4); Eosinophils % 2.9 % (0.1-12.0); Hematocrit 43.9 % (37.0-47.0); Hemoglobin 14.2 g/dL (12.2-16.2); Lymphocytes # 4.1 K/mm3 (0.7-4.5); Lymphocytes % 27.3 % (10-50); Mean Corpuscular HGB Conc 32.3 g/dL (31.8-35.4); Mean Corpuscular Hemoglobin 29.8 pg (27.0-31.2); Mean Corpuscular Volume 92.3 fl (81-99); Mean Platelet Volume 7.4 fl (7.4-10.4); Monocytes # 0.8 K/mm3 (0.1-1.0); Neutrophils # 9.7 K/mm3 (1.8-7.8); Neutrophils % 64.2 % (37.0-80.0); Platelet Count 396 K/mm3 (142-424); Red Blood Count 4.75 M/mm3 (4.20-5.40); Red Cell Distribution Width 13.6 % (11.5-17.5); White Blood Count 15.1 K/mm3 (4.8-10.8)
[2020-12-25 15:17] LABS: MANUAL DIFFERENTIAL MANUAL DIFFERENTIAL (MANUAL DIFF)
[2020-12-25 15:19] VITALS: BP 123/71; PULSE 97; O2SAT 95
[2020-12-25 15:22] LABS: Eosinophils % 3 % (0-3); Lymphocytes % 36 % (10-50); Monocytes % 4 % (2-9); Neutrophils % 57 % (42-76); Platelet Estimate Normal; RBC Morphology Normal; Total Cells Counted 100
[2020-12-25 15:23] LABS: Chloride 106 mmol/L (98-107); Sodium 142 mmol/L (136-145)
[2020-12-25 15:24] LABS: Potassium 3.7 mmoL/L (3.5-5.1)
[2020-12-25 15:27] LABS: Anion Gap 11.7 mEq/L (5-15); Blood Urea Nitrogen 11 mg/dl (7-17); Calcium 9.6 mg/dl (8.4-10.2); Carbon Dioxide 28 mmol/L (22.0-30.0); Creatinine Clearance Estimated 164 mL/min (50-200); Estimated Glomerular Filt Rate 84 ml/min (>60); GFR (African American) 101 ML/MIN (>60); Glucose 120 mg/dl (74-100)
[2020-12-25 15:32] LABS: D-Dimer 0.88 ug/mL (0.0-0.5)
[2020-12-25 15:40] LABS: Troponin I < 0.01 ng/ml (0.00-0.034)
--- NOTE | 2020-12-25 15:48 | CT_ITS ---
PROCEDURE: CT ANGIO CHEST CLINCIAL INDICATION: chest pain, ddimer elevated COMPARISON: CT [facility] CT CHEST W/ CONTRAST from 12/29/2016 TECHNIQUE: IV Contrast: 70ML Isovue 370 Axial images obtained with sagittal and coronal reformats. All CT scans at the facility use one or more dose reduction, viz: automated exposure control, ma/kV adjustment per patient size (including targeted exams where dose is matched to indication, i.e. head), or iterative reconstruction technique. FINDINGS: HEART AND MEDIASTINAL STRUCTURES: No evidence of pulmonary embolus or aortic aneurysm. No evidence of aortic dissection. No mediastinal or hilar mass LUNGS AND PLEURAL SPACES: There are numerous bilateral pulmonary nodules. The largest is in the right upper lobe centrally measuring 2 cm previously measuring 1.8 cm. 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 Daughter lesions are present anterior laterally. These are approximately 4 mm each. A complex lesion in is present in the superior segment of the right lower lobe measuring 1.6 cm cephalad caudad with a solid component inferiorly and a cystic component superiorly. Previously this measured 1.3 cm. There is some alveolar opacification along the posterior aspect of this lesion. There are scattered calcified nodules as well. Small cystic lesion is present in the right lower lobe anteriorly at 8 mm. A complex cystic and solid lesion is present in the right lower lobe posterior medially at 9 mm. These nodules contains small foci of calcification. BONY STRUCTURES: No acute bony abnormalities apparent. UPPER ABDOMEN: Unremarkable. ADDITIONAL FINDINGS: No other significant abnormalities. IMPRESSION: 1. No evidence of pulmonary embolus or aortic aneurysm or dissection. 2. Numerous complex cavitary lesions as described above with the largest lesion in the right upper lobe at 2 cm. 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 These lesions are slightly larger than when compared to the previous exam. Dictated by: Carlos Garcia MD 12/25/2020 16:38 Carlos Garcia MD in [place] 12/25/2020 16:38
--- NOTE | 2020-12-25 15:49 | HMH.EDCP ---
ED Disposition Clinical Impression: Nonspecific chest pain Disposition: Home, Self-Care Condition on Discharge: Good Instructions: DI for Atypical Chest Pain Referrals: PCP,No [Primary Care Provider] - Justin Canada MD [Physician] - - Critical Care Critical Care Time: No Attestation: On 12/25/20, the high probability of a clinically significant, sudden or life threatening deterioration of the following system(s) required my full and direct attention, intervention and personal management. The time I documented below is in addition to time spent performing reported procedures but includes the following listed in this critical care notation. Medical Decision Making - Medical Records Medical records reviewed: Yes: I reviewed the patient's medical records. - Brad Inquiry Pt receiving controlled substance: No Vital Signs: 12/25/20 14:57 12/25/20 15:19 12/25/20 15:58 Temperature 98.9 F Temperature Source Oral Pulse Rate [Left Radial] 95 H 97 H 91 H Respiratory Rate 21 Blood Pressure [Right Arm] 148/75 H 123/71 122/68 Blood Pressure Mean [Right Arm] 99 88 86 Blood Pressure Source [Right Arm] Automatic Cuff Automatic Cuff Automatic Cuff Blood Pressure Position [Right Arm] Sitting Sitting Sitting 02 Sat by Pulse Oximetry 97 95 96 Oxygen Delivery Method Room Air Room Air Nasal Cannula 12/25/20 16:23 12/25/20 18:04 Temperature Temperature Source Pulse Rate [Left Radial] 87 84 Respiratory Rate Blood Pressure [Right Arm] 132/86 122/98 H Blood Pressure Mean [Right Arm] 101 106 Blood Pressure Source [Right Arm] Automatic Cuff Automatic Cuff Blood Pressure Position [Right Arm] Sitting Sitting 02 Sat by Pulse Oximetry 97 97 Oxygen Delivery Method Room Air Room Air - Lab Data Lab Results 12/25/20 15:05: WBC 15.1 H, RBC 4.75, Hgb 14.2, Hct 43.9, MCV 92.3, MCH 29.8, MCHC 32.3, RDW 13.6, Plt Count 396, MPV 7.4, Neut % (Auto) 64.2, Lymph % (Auto) 27.3, [place] % (Auto) 5.0, Eos % (Auto) 2.9, Baso % (Auto) 0.6, Neut # (Auto) 9.7 H, Lymph # (Auto) 4.1, [place] # (Auto) 0.8, Eos # (Auto) 0.4, Baso # (Auto) 0.1, Total Counted 100, Neutrophils % (Manual) 57, Lymphocytes % (Manual) 36, Monocytes % (Manual) 4, Eosinophils % (Manual) 3, Platelet Estimate Normal, RBC Morphology Normal 12/25/20 15:05: Sodium 142, Potassium 3.7, Chloride 106, Carbon Dioxide 28, Anion Gap 11.7, BUN 11, Creatinine 0.80, Estimated Creat Clear 164, Estimated GFR 84, Est GFR ( Amer) 101, Glucose 120 H, Calcium 9.6, Troponin I < 0.01 12/25/20 15:05: D-Dimer 0.88 H 12/25/20 18:22: Troponin I < 0.01 Result diagrams: 12/25/20 15:05 12/25/20 15:05 Orders (Tests/Meds): ED MEDICATIONS Discontinued Medications Generic Name Dose Route Start Last Admin Trade Name Freq PRN Reason Stop Dose Admin Iopamidol 70 ml 12/25/20 16:13 12/25/20 16:14 Iopamidol-370 (76%);100ml Bottle IV 12/25/20 16:14 70 ml ONCE ONE Administration Sodium Chloride 50 ml 12/25/20 16:13 12/25/20 16:14 0.9 % Sodium Chloride 50 Ml Vial IV 12/25/20 16:14 50 ml ONCE ONE Administration Sodium Chloride 10 ml 12/25/20 16:13 12/25/20 16:14 Sodium Chloride 0.9% 10ml Syr (Rad Only) IV 12/25/20 16:14 10 ml ONCE ONE Administration ORDERS Category Date Time Status Troponin I Q3H Lab 12/25/20 21:15 Ordered - CT Data CT Scan: Chest Time Received: 19:[address] Reviewed: Yes: I have reviewed the patient's CT results, I have viewed the radiologist's interpretation Findings Narrative: IMPRESSION: 1. No evidence of pulmonary embolus or aortic aneurysm or dissection. 2. Numerous complex cavitary lesions as described above with the largest lesion in the right upper lobe at 2 cm. 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 These lesions are slightly larger than when compared to the previous exam. - ECG Data Tracing #1 ECG initial impression date: 12/25
[2020-12-25 15:58] VITALS: BP 122/68; PULSE 91; O2SAT 96
--- NOTE | 2020-12-25 16:20 | PC.NURSE ---
Pt returned from rad
[2020-12-25 16:23] VITALS: BP 132/86; PULSE 87; O2SAT 97
[2020-12-25 18:04] VITALS: BP 122/98; PULSE 84; O2SAT 97
[2020-12-25 18:48] LABS: Troponin I < 0.01 ng/ml (0.00-0.034)
[2020-12-25 19:09] VITALS: BP 124/71; PULSE 80; RESP 20; TEMP 36.7; O2SAT 96
== END 2020-12-25 19:12 | disposition home or self-care (01) ==
PROVIDERS: Emergency Provider Emergency Medicine
DX: R07.89 Other chest pain (principal); I10 Essential (primary) hypertension; F17.210 Nicotine dependence, cigarettes, uncomplicated
CPT/HCPCS: 71045; 71275; 80048; 84484; 85007; 85025; 85378; 93005; 99283; Q9967

== ENCOUNTER → 2021-04-15 18:31 | Outpatient (CLI) | payer MEDICAID, SELFPAY | PROVIDERS: Visit Provider Nurse Practitioner Family | DX: Z20.822 Contact with and (suspected) exposure to COVID-19 (principal) | CPT/HCPCS: U0003 ==

== ENCOUNTER → 2021-05-15 17:28 | Outpatient (CLI) | payer MEDICAID, SELFPAY | PROVIDERS: Visit Provider Nurse Practitioner Family | DX: Z11.52 Encounter for screening for COVID-19 (principal) | CPT/HCPCS: U0003 ==

== ENCOUNTER 2021-06-17 10:54 | Emergency (ER) | payer MEDICAID, SELFPAY ==
[2021-06-17 12:38] VITALS: BP 116/70; PULSE 85; RESP 14; TEMP 36.4; O2SAT 98; BMI 42.0
--- NOTE | 2021-06-17 12:51 | HMH.EDUTC ---
[facility] Disposition Clinical Impression: Viral syndrome, Encounter for laboratory testing for COVID-19 virus Disposition: Home, Self-Care Condition on Discharge: Good Instructions: DI for Viral Syndrome, Nausea and Vomiting-Adult, Ondansetron Additional Instructions: Drink extra fluids with and between meals. If you have difficulty drinking, try very small amounts of water or suck on ice chips. ? Avoid fruit juices, as these do not replace minerals and can actually increase diarrhea. ? Children and adults can use sports drinks to replenish electrolytes. Younger children and infants should use products formulated for children, like oral rehydration solutions. ? Eat food in small amounts and let your stomach recover. ? Get lots of rest. You may feel tired or weak. ? No greasy or fried foods for the next 24-48 hours BRAT diet Bananas Rice Apples and [place] ? Make sure to drink plenty of liquids ? Return if needed ? Straight to ER if any life threatening symptoms ? Zofran as prescribed ? Follow up with family doctor in the next 48-72 hours if no improvement or any worsening of symptoms Prescriptions: Ondansetron [Zofran 4mg ODT] 4 mg PO TIDP PRN #10 tab PRN Reason: Nausea Transmission Status: Pending to [id number] Referrals: Provider,Referral, MD [Primary Care Provider] - As needed Forms: Work/School Release Time of Disposition: 12:58 Medical Decision Making - Brad Inquiry Pt receiving controlled substance: No Brad was queried for this patient: No Vital Signs: 06/17/21 12:38 Temperature 97.6 F Temperature Source Oral Pulse Rate [Left] 85 Respiratory Rate 14 Blood Pressure [Right Arm] 116/70 Blood Pressure Mean [Right Arm] 85 02 Sat by Pulse Oximetry 98 Orders (Tests/Meds): ORDERS Category Date Time Status Covid-19 Nasal PCR ([facility]) Routine Lab 06/17/21 12:41 Ordered [facility] HPI - General Stated complaint: covid test Time Seen by Provider: 06/17/21 12:51 Mode of Arrival: Ambulatory Source of Information: Patient Limitations: No Limitations Description of Symptoms (Recalled from Triage Doc. by RN): pt c/o of severe body aches. 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 and she wanted to get tested for COVID - Related Data Home Medications Medication Instructions Recorded Confirmed ibuprofen 800 mg tablet 800 mg PO tab 04/15/21 05/15/21 tiotropium bromide 2.5 2 puff INHALATION g 04/15/21 05/15/21 mcg/actuation mist for inhalation Previous Rx's Medication Instructions Recorded zifbsqwpwcqwaac-pkehcbmeaefohog-TC 7.5 ml PO Q4-6H PRN 7 Days #118 ml 05/15/21 2 mg-30 mg-10 mg/5 mL oral syrup Ondansetron [Zofran 4mg ODT] 4 mg PO TIDP PRN #10 tab 06/17/21 Allergies Allergy/AdvReac Type Severity Reaction Status Date / Time No Known Allergies Allergy Verified 05/15/21 14:11 - Worker's Comp Is this a Worker's Comp case?: No [facility] History - Hepatitis A Screen Drug use history?: No High risk sexual behaviors?: No History of sexually transmitted infection?: No Currently employed?: No Childcare worker?: No Do you have indoor plumbing?: Yes Do you have electricity?: Yes Attestation statement:: This patient has been screened for Hepatitis A risk factors. I have reviewed the patient's past medical history: Yes Medical History: Reports:: Hypertension Denies:: Cancer, Diabetes Mellitus Type 1, Diabetes Mellitus Type 2, MRSA, Seizures Laterality Cases: Left: Other Other Surgeries: Yes: No Previous Surgery, Cholecystectomy, , Hysterectomy-Total Amputation: No Fractures: No -
[2021-06-17 13:07] VITALS: BP 115/72; PULSE 83; RESP 14; TEMP 36.7
== END 2021-06-17 13:08 | disposition home or self-care (01) ==
PROVIDERS: Emergency Provider Nurse Practitioner
DX: B34.9 Viral infection, unspecified (principal); Z20.822 Contact with and (suspected) exposure to COVID-19; I10 Essential (primary) hypertension; F17.210 Nicotine dependence, cigarettes, uncomplicated
CPT/HCPCS: 99202; G0463; U0003

== ENCOUNTER 2021-12-04 13:47 | Emergency (ER) | payer MEDICAID, SELFPAY ==
[2021-12-04 13:49] VITALS: BP 123/75; PULSE 86; RESP 18; TEMP 36.9; O2SAT 98; BMI 38.2
[2021-12-04 14:42] LABS: Coronavirus 19, PCR Not Detected (NotDetected); Influenza A, PCR Not Detected (NotDetected); Influenza B, PCR Not Detected (NotDetected)
[2021-12-04 14:45] LABS: Chloride 105 mmol/L (98-107); Sodium 137 mmol/L (136-145)
[2021-12-04 14:48] LABS: Alanine Aminotransferase 30 U/L (12-78); Albumin Level 5.1 g/dl (3.5-5.0); Albumin/Globulin Ratio 1.5 (1.1-1.8); Alkaline Phosphatase 84 U/L (38-126); Aspartate Amino Transferase 32 U/L (14-36); Basophils # 0.3 K/mm3 (0-0.2); Basophils % 1.5 % (0.1-2.0); Bilirubin,Total 0.7 mg/dl (0.2-1.3); Blood Urea Nitrogen 8 mg/dl (7-17); Carbon Dioxide 26 mmol/L (22.0-30.0); Creatinine Clearance Estimated 190 mL/min (50-200); Eosinophils # 0.6 K/mm3 (0.0-0.4); Eosinophils % 3.4 % (0.1-12.0); Estimated Glomerular Filt Rate 97 ml/min (>60); GFR (African American) 117 ML/MIN (>60); Globulin 3.3 g/dL (1.3-3.2); Hematocrit 44.2 % (37.0-47.0); Hemoglobin 14.3 g/dL (12.2-16.2); Lymphocytes # 4.9 K/mm3 (0.7-4.5); Lymphocytes % 28.2 % (10-50); Mean Corpuscular HGB Conc 32.3 g/dL (31.8-35.4); Mean Corpuscular Hemoglobin 30.2 pg (27.0-31.2); Mean Corpuscular Volume 93.6 fl (81-99); Mean Platelet Volume 8.8 fl (7.4-10.4); Monocytes # 0.9 K/mm3 (0.1-1.0); Neutrophils # 10.7 K/mm3 (1.8-7.8); Neutrophils % 61.8 % (37.0-80.0); Platelet Count 451 K/mm3 (142-424); Red Blood Count 4.72 M/mm3 (4.20-5.40); Red Cell Distribution Width 13.4 % (11.5-17.5); Total Protein,Serum 8.4 g/dl (6.3-8.2); White Blood Count 17.2 K/mm3 (4.8-10.8)
[2021-12-04 14:49] LABS: Calcium 8.6 mg/dl (8.4-10.2); Glucose 88 mg/dl (74-100)
[2021-12-04 14:54] LABS: Microscopic, Urine URINE MICROSCOPIC (MICROSCOPIC)
[2021-12-04 15:00] VITALS: BP 124/70; PULSE 80; O2SAT 98
[2021-12-04 15:03] LABS: Appearance,Urine CLEAR (Clear); Bilirubin,Urine Negative (Negative); Blood, Urine Negative (Negative); Color,Urine YELLOW (Yellow); Glucose,Urine (UA) Negative (Negative); Ketones,Urine Negative (Negative); Leukocyte Esterase,Urine Negative (Negative); Nitrate,Urine Negative (Negative); PH,Urine 5.5 (5.0-8.5); Protein,Urine Negative (Negative); Specific Gravity, Urine >= 1.030 (1.005-1.030)
[2021-12-04 15:20] LABS: MANUAL DIFFERENTIAL MANUAL DIFFERENTIAL (MANUAL DIFF)
[2021-12-04 15:27] LABS: Bacteria,Urine Trace /lpf
[2021-12-04 15:31] VITALS: BP 114/76; PULSE 60; O2SAT 100
[2021-12-04 15:32] LABS: Eosinophils % 2 % (0-3); Lymphocytes % 26 % (10-50); Monocytes % 6 % (2-9); Neutrophils % 65 % (42-76); Platelet Estimate Normal; RBC Morphology Normal; Total Cells Counted 100
--- NOTE | 2021-12-04 16:00 | HMH.EDGENADL ---
ED Disposition Clinical Impression: Migraine with aura Qualifiers: Status migrainosus presence: without status migrainosus Intractability: not intractable Qualified Code(s): G43.109 - Migraine with aura, not intractable, without status migrainosus Clinical Impression: (Ruled Out): Migraine aura without headache Disposition: Home, Self-Care Condition on Discharge: Good Referrals: Provider,Referral, [Primary Care Provider] - - Critical Care Critical Care Time: No Attestation: On 12/04/21, the high probability of a clinically significant, sudden or life threatening deterioration of the following system(s) required my full and direct attention, intervention and personal management. The time I documented below is in addition to time spent performing reported procedures but includes the following listed in this critical care notation. Medical Decision Making - Medical Records Medical records reviewed: Yes: I reviewed the patient's medical records. - Brad Inquiry Pt receiving controlled substance: No Vital Signs: 12/04/21 13:49 12/04/21 15:00 12/04/21 15:31 Temperature 98.5 F Temperature Source Oral Pulse Rate 80 60 Pulse Rate [Right] 86 Respiratory Rate 18 Blood Pressure 124/70 114/76 Blood Pressure [Right Arm] 123/75 Blood Pressure Mean [Right Arm] 91 Blood Pressure Source [Right Arm] Automatic Cuff Blood Pressure Position [Right Arm] Sitting 02 Sat by Pulse Oximetry 98 98 100 Oxygen Delivery Method Room Air Room Air Room Air - Lab Data Lab Results 12/04/21 14:00: WBC 17.2 H, RBC 4.72, Hgb 14.3, Hct 44.2, MCV 93.6, MCH 30.2, MCHC 32.3, RDW 13.4, Plt Count 451 H, MPV 8.8, Neut % (Auto) 61.8, Lymph % (Auto) 28.2, [place] % (Auto) 5.0, Eos % (Auto) 3.4, Baso % (Auto) 1.5, Neut # (Auto) 10.7 H, Lymph # (Auto) 4.9 H, [place] # (Auto) 0.9, Eos # (Auto) 0.6 H, Baso # (Auto) 0.3 H, Total Counted 100, Neutrophils % (Manual) 65, Lymphocytes % (Manual) 26, Monocytes % (Manual) 6, Eosinophils % (Manual) 2, Basophils % (Manual) 1.0, Platelet Estimate Normal, RBC Morphology Normal 12/04/21 14:00: Sodium 137, Potassium 4.0, Chloride 105, Carbon Dioxide 26, Anion Gap 10.0, BUN 8, Creatinine 0.70, Estimated Creat Clear 190, Estimated GFR 97, Est GFR ( Amer) 117, Glucose 88, Calcium 8.6, Total Bilirubin 0.7, AST 32, ALT 30, Alkaline Phosphatase 84, Total Protein 8.4 H, Albumin 5.1 H, Globulin 3.3 H, Albumin/Globulin Ratio 1.5 12/04/21 14:00: SARS-CoV-2 (PCR) Not detected, Influenza A Untype (PCR) Not detected, Influenza Type B (PCR) Not detected 12/04/21 14:49: Urine Color Yellow, Urine Appearance Clear, Urine pH 5.5, Ur Specific [place] >= 1.030, Urine Protein Negative, Urine Glucose (UA) Negative, Urine Ketones Negative, Urine Blood Negative, Urine Nitrate Negative, Urine Bilirubin Negative, Urine Urobilinogen 1.0, Ur Leukocyte Esterase Negative, Urine RBC None, Urine WBC None, Ur Squamous Epith Cells 5-10, Urine Bacteria Trace Result diagrams: 12/04/21 14:00 12/04/21 14:00 Orders (Tests/Meds): ED MEDICATIONS Discontinued Medications Generic Name Dose Route Start Last Admin Trade Name Darenq PRN Reason Stop Dose Admin Lactated Ringer's 500 mls @ 999 mls/hr 12/04/21 15:00 12/04/21 15:15 Lactated Ringer's 1000 Ml Bag IV 12/04/21 15:30 999 mls/hr .Q31M AMALIA Administration Ketorolac Tromethamine 15 mg 12/04/21 14:57 12/04/21 15:15 Ketorolac 30mg/Ml Vial IV 12/04/21 14:58 15 mg ONCE ONE Administration Prochlorperazine Edisylate 10 mg 12/04/21 14:48 12/04/21 14:49 Prochlorperazine 10mg/2ml Vial IV 12/04/21 14:49 10 mg ONCE ONE Administration Medical Decision Narrative: Patient is a healthy 31-year-old female presenting with a chief complaint of headache, upper respiratory symptoms, nausea and vomiting and increased frequency with hematuria. Differential diagnosis includes, but is not limited to, viral upper respiratory infection, COVID-19, urinary tract infect
[2021-12-04 16:20] VITALS: BP 119/80; PULSE 77; RESP 16; TEMP 36.9; O2SAT 100
== END 2021-12-04 16:27 | disposition home or self-care (01) ==
PROVIDERS: Emergency Provider Emergency Medicine
DX: G43.109 Migraine with aura, not intractable, without status migrainosus (principal); I10 Essential (primary) hypertension; F17.210 Nicotine dependence, cigarettes, uncomplicated
CPT/HCPCS: 80053; 81001; 85007; 85025; 96365; 96375; 99283; C9803; U0003; U0005

== ENCOUNTER 2022-05-04 09:18 | Emergency (ER) | payer MEDICAID, SELFPAY ==
--- NOTE | 2022-05-04 09:51 | HMH.EDUTC ---
[facility] [place] Disposition Clinical Impression: Viral syndrome, Exposure to COVID-19 virus Sinusitis Qualifiers: Sinusitis location: unspecified location Chronicity: acute Recurrence: non-recurrent Qualified Code(s): J01.90 - Acute sinusitis, unspecified Disposition: Home, Self-Care Condition on Discharge: Good Instructions: DI for Sinusitis, DI for COVID-19 (Suspected or Confirmed ), Preventing the Spread of Coronavirus Discharge Instructions Additional Instructions: Drink plenty of fluids. Take tylenol or ibuprofen for pain or fever. Take the medications as directed. Follow up with your regular doctor. GO TO THE ER FOR ANY WORSENING SYMPTOMS Quarantine until you know the results of your covid-19 test. Notify your school or workplace of your results and follow their instructions regarding return to work/school. Prescriptions: Brompheniramine/Pseudoephed/Dm [Bromfed Dm Cough Syrup] 5 ml PO Q6HP PRN #240 ml PRN Reason: Cough Transmission Status: Received by [facility] Ondansetron [Zofran 4mg ODT] 4 mg PO Q8HP PRN #12 tab PRN Reason: Nausea Transmission Status: Received by [facility] methylPREDNISolone [Medrol] 4 mg PO DIRECTED 6 Days #21 packet Transmission Status: Received by [facility] Azithromycin [Z-Skyler 250mg Tab*] 250 mg PO UD DOSE PK #6 tab Transmission Status: Received by [id number] Referrals: Mathew Cisneros MD [Primary Care Provider] - Forms: Work/School Release Time of Disposition: 10:32 Medical Decision Making - Medical Records Medical records reviewed: No: I reviewed the patient's medical records. - Brad Inquiry Pt receiving controlled substance: No Vital Signs: 05/04/22 09:58 05/04/22 10:43 Temperature 98.0 F 98.0 F Temperature Source Oral Pulse Rate 82 Pulse Rate [Left] 82 Respiratory Rate 16 16 Blood Pressure 120/58 L Blood Pressure [Right Arm] 120/58 L Blood Pressure Mean [Right Arm] 78 02 Sat by Pulse Oximetry 95 [facility] [place] HPI - General Stated complaint: vomiting, bodyaches, fever Time Seen by Provider: 05/04/22 09:51 - History of Present Illness Provider Complaint: She states that for the past 2 days she has had sinus congestion, sore throat, cough, chest congestion and chest tightness. She has been coughing up yellowish sputum. - Related Data Home Medications Medication Instructions Recorded Confirmed ibuprofen 800 mg tablet 800 mg PO tab 04/15/21 06/22/21 tiotropium bromide 2.5 2 puff INHALATION g 04/15/21 06/22/21 mcg/actuation mist for inhalation Previous Rx's Medication Instructions Recorded Azithromycin [Z-Skyler 250mg Tab*] 250 mg PO UD DOSE PK #6 tab 05/04/22 Brompheniramine/Pseudoephed/Dm 5 ml PO Q6HP PRN #240 ml 05/04/22 [Bromfed Dm Cough Syrup] Ondansetron [Zofran 4mg ODT] 4 mg PO Q8HP PRN #12 tab 05/04/22 methylPREDNISolone [Medrol] 4 mg PO DIRECTED 6 Days #21 05/04/22 packet Allergies Allergy/AdvReac Type Severity Reaction Status Date / Time No Known Allergies Allergy Verified 05/04/22 10:02 [facility] History - Hepatitis A Screen Attestation statement:: This patient has been screened for Hepatitis A risk factors. I have reviewed the patient's past medical history: Yes Medical History: Reports:: Hypertension Denies:: Cancer, Diabetes Mellitus Type 1, Diabetes Mellitus Type 2, MRSA, Seizures Laterality Cases: Left: Other Other Surgeries: Yes: No Previous Surgery, Cholecystectomy, , Hysterectomy-Total Amputation: No Fractures: No - Social History Smoking Status: Current every day smoker Tobacco Type: cigarettes # Packs/Day (cigarettes): 1 Alcohol Intake: current Alcohol Intake Frequency:: a few times a month Occupational Status: other Housing: house Household Members: family Family Hx:: Cancer, Diabetes, Hypertension ROS Obtained: Yes All systems reviewed & no additional complaints - Constitutional Constitutional: Reports as per HPI
[2022-05-04 09:58] VITALS: BP 120/58; PULSE 82; RESP 16; TEMP 36.7; O2SAT 95; BMI 39.9
[2022-05-04 10:43] VITALS: BP 120/58; PULSE 82; RESP 16; TEMP 36.7
== END 2022-05-04 10:44 | disposition home or self-care (01) ==
PROVIDERS: Emergency Provider Nurse Practitioner Family; PCP Internal Medicine Adolescent Medicine
DX: J01.90 Acute sinusitis, unspecified (principal); J02.9 Acute pharyngitis, unspecified; R11.0 Nausea; I10 Essential (primary) hypertension; M79.10 Myalgia, unspecified site; F17.210 Nicotine dependence, cigarettes, uncomplicated; Z79.1 Long term (current) use of non-steroidal anti-inflammatories (NSAID); Z20.822 Contact with and (suspected) exposure to COVID-19; Z82.49 Family history of ischemic heart disease and other diseases of the circulatory system; Z83.3 Family history of diabetes mellitus; Z80.9 Family history of malignant neoplasm, unspecified
CPT/HCPCS: 99213; C9803; G0463; U0003; U0005

== ENCOUNTER 2022-06-08 16:51 | Emergency (ER) | payer MEDICAID, SELFPAY ==
[2022-06-08 16:51] VITALS: BP 122/78; PULSE 79; RESP 22; TEMP 36.8; O2SAT 99; BMI 34.4
--- NOTE | 2022-06-08 16:51 | ECG_ITS ---
APPROVED REPORT Exam: Resting ECG HR:74 bpm ECG Measurements Heart Rate 74 AXES TN 136 P 50 QRSd 89 QRS 70 QT 374 T 28 QTc 401 Conclusion SINUS RHYTHM NONSPECIFIC T-WAVE ABNORMALITY BORDERLINE ECG UNCONFIRMED REPORT Electronically signed by : Mathew Cisneros MD 06/09/2022 17:36:38
--- NOTE | 2022-06-08 17:06 | XR_ITS ---
PROCEDURE INFORMATION: Exam: XR Chest Exam date and time: 06/08/2022 5:22 PM Age: 32 years old Clinical indication: Left-sided; Patient HX: SOB, left sided chest pain; Additional info: Cp TECHNIQUE: Imaging protocol: Radiologic exam of the chest. Views: 1 view. Portable AP exam 5:26 p.m. COMPARISON: CR XR CHEST PORTABLE 12/25/2020 3:01 PM FINDINGS: Tubes, catheters and devices: Overlying pvc monitor electrodes. Lungs: Calcified granulomas again noted scattered through the lungs. Hazy 1.2 cm nodular opacity projected over the lateral right chest interposed between the anterior 3rd and 4th ribs, and superimposed on posterior right 7th rib, possibly corresponding with residual aspergilloma or granuloma seen on the previous CT from 12/25/2020. Other small cavitary lesions and nodules are not clearly delineated on this exam and may have resolved in the interval, or are just not well seen on this portable exam. No definite consolidation. Normal lung volumes. Pleural spaces: Unremarkable. No significant pleural effusion. No pneumothorax. Heart/Mediastinum: The cardiac silhouette is normal. Chronic calcified mediastinal and hilar lymph nodes. Bones/joints: There are spinal degenerative changes, with multilevel disc narrrowing and spondylosis. IMPRESSION: 1. Chronic granulomatous changes. Ill-defined 1.2 cm right pulmonary nodule which could be residual noncalcified granuloma or aspergilloma as reported on the previous chest CTA from 12/25/2020. Multiple other noncalcified pulmonary nodules and cavitary lesions seen on the prior CT are not well demonstrated today, and may have resolved in the interval, or may be poorly seen due to limited portable exam. 2. Chronic calcified mediastinal and hilar lymphadenopathy. 3. No new, acute findings in the interval.
[2022-06-08 17:30] VITALS: BP 151/87; PULSE 86; O2SAT 99
--- NOTE | 2022-06-08 17:30 | PC.NURSE ---
KENZIE DENNY at for patient eval at this time
--- NOTE | 2022-06-08 17:36 | CT_ITS ---
PROCEDURE INFORMATION: Exam: CTA Chest With Contrast Exam date and time: 06/08/2022 5:54 PM Age: 32 years old Clinical indication: Pain; Angina pectoris; Additional info: Tearing chest pain, lue pain, lle pain TECHNIQUE: Imaging protocol: Computed tomographic angiography of the chest with contrast. 3D rendering (Not supervised by radiologist): MIP and/or 3D reconstructed images were created by the technologist. Radiation optimization: All CT scans at this facility use at least one of these dose optimization techniques: automated exposure control; mA and/or kV adjustment per patient size (includes targeted exams where dose is matched to clinical indication); or iterative reconstruction. Contrast material: ISOVUE 370; Contrast volume: 64 ml; Contrast route: INTRAVENOUS (IV); COMPARISON: CT ANGIO CHEST 12/25/2020 4:09 PM FINDINGS: Pulmonary arteries: Normal. No pulmonary emboli. Aorta: Unremarkable. No aortic aneurysm. No aortic dissection. Lungs: Again noted are several nodular lesions scattered throughout both lungs. The largest lesion is in the right pulmonary apex measuring 2.2 cm. This compares to 2.4 cm on the previous study. All of the other nodules are also slightly smaller compared to the previous study. No new pulmonary nodules or masses. Pleural spaces: Unremarkable. No pneumothorax. No pleural effusion. Heart: Unremarkable. No cardiomegaly. No pericardial effusion. Mediastinal space: Calcified granulomas in the mediastinum measuring up to 1.9 cm again noted. Small calcified hilar granulomas. Lymph nodes: Unremarkable. No enlarged lymph nodes. Bones/joints: Unremarkable. No acute fracture. Soft tissues: Unremarkable. IMPRESSION: 1. Granulomatous process in the chest as described, somewhat improved compared to previously. 2. No other acute changes in the chest. No pulmonary embolus.
--- NOTE | 2022-06-08 17:36 | CT_ITS ---
PROCEDURE INFORMATION: Exam: CTA Head With Contrast, Arteriography Exam date and time: 06/08/2022 5:46 PM Age: 32 years old Clinical indication: Weakness; Additional info: Tearing chest pain, lue pain, lle pain TECHNIQUE: Imaging protocol: Computed tomographic angiography of the head with contrast. Exam focused on the arteries. 3D rendering (Not supervised by radiologist): MIP and/or 3D reconstructed images were created by the technologist. Radiation optimization: All CT scans at this facility use at least one of these dose optimization techniques: automated exposure control; mA and/or kV adjustment per patient size (includes targeted exams where dose is matched to clinical indication); or iterative reconstruction. Contrast material: ISOVUE 370; Contrast volume: 80 ml; Contrast route: INTRAVENOUS (IV); COMPARISON: CT HEAD/BRAIN WO CON 08/09/2019 9:20 PM FINDINGS: ANTERIOR CIRCULATION: Right internal carotid artery: Unremarkable. Intracranial segment is patent with no significant stenosis. No aneurysm. Right middle cerebral artery: Unremarkable. No occlusion or significant stenosis. No aneurysm. Right anterior cerebral artery: Unremarkable. No occlusion or significant stenosis. No aneurysm. Left internal carotid artery: Unremarkable. Intracranial segment is patent with no significant stenosis. No aneurysm. Left middle cerebral artery: Unremarkable. No occlusion or significant stenosis. No aneurysm. Left anterior cerebral artery: Unremarkable. No occlusion or significant stenosis. No aneurysm. POSTERIOR CIRCULATION: Right vertebral artery: Unremarkable. No occlusion or significant stenosis. No aneurysm. Left vertebral artery: Unremarkable. No occlusion or significant stenosis. No aneurysm. Basilar artery: Unremarkable. No occlusion or significant stenosis. No aneurysm. Right posterior cerebral artery: No acute findings. No occlusion or significant stenosis. No aneurysm. The right P1 segment appears developmentally slightly small, and there is a prominent patent right posterior communicating artery partially supplying the right posterior circulation. Left posterior cerebral artery: Unremarkable. No occlusion or significant stenosis. No aneurysm. Brain: No definite mass, mass effect, or midline shift. Cerebral ventricles: No ventriculomegaly. Bones/joints: Unremarkable. No acute fracture. Soft tissues: Unremarkable. IMPRESSION: No large vessel stenosis or occlusion.
--- NOTE | 2022-06-08 17:36 | CT_ITS ---
PROCEDURE INFORMATION: Exam: CTA Neck With Contrast Exam date and time: 06/08/2022 5:46 PM Age: 32 years old Clinical indication: Weakness; Additional info: Tearing chest pain, lue pain, lle pain TECHNIQUE: Imaging protocol: Computed tomographic angiography of the neck with contrast. 3D rendering (Not supervised by radiologist): MIP and/or 3D reconstructed images were created by the technologist. Radiation optimization: All CT scans at this facility use at least one of these dose optimization techniques: automated exposure control; mA and/or kV adjustment per patient size (includes targeted exams where dose is matched to clinical indication); or iterative reconstruction. Contrast material: ISOVUE 370; Contrast volume: 80 ml; Contrast route: INTRAVENOUS (IV); COMPARISON: CT CERVICAL SPINE WO CON 08/09/2019 9:24 PM FINDINGS: Right common carotid artery: No stenosis. No dissection or occlusion. Right internal carotid artery: No stenosis of the extracranial segment. No dissection or occlusion. Right external carotid artery: No occlusion or stenosis of the origin. Left common carotid artery: No stenosis. No dissection or occlusion. Left internal carotid artery: No stenosis of the extracranial segment. No dissection or occlusion. Left external carotid artery: No occlusion or stenosis of the origin. Right vertebral artery: No stenosis. No dissection or occlusion. Relatively small right vertebral artery. Left vertebral artery: No stenosis. No dissection or occlusion. Dominant left vertebral artery. Lymph nodes: Mild cervical lymphadenopathy, a slightly prominent number and size of bilateral internal jugular chain nodes and submandibular nodes visualized. Soft tissues: There are no soft tissue masses or fluid collections. Bones/joints: No acute fracture. Degenerative cervical spondylosis and disc disease greatest C5-C6. Other findings: Note that the left subclavian artery is grossly patent but poorly evaluated due to very dense injected venous contrast in the adjacent subclavian vein, which creates streak artifacts. IMPRESSION: No stenosis or occlusion. REFERENCES: NASCET CRITERIA. The degree of internal carotid artery stenosis is based on NASCET criteria. Normal is no stenosis. Mild is less than 50% stenosis. Moderate is 50-69% stenosis. Severe is 70% to 99% stenosis. Total occlusion is no detectable patent lumen.
--- NOTE | 2022-06-08 17:36 | CT_ITS ---
PROCEDURE INFORMATION: Exam: CTA Abdomen and Pelvis With Contrast Exam date and time: 06/08/2022 5:54 PM Age: 32 years old Clinical indication: Other: Lower extremity pain; Additional info: Tearing chest pain, lue pain, lle pain TECHNIQUE: Imaging protocol: Computed tomographic angiography of the abdomen and pelvis with contrast. 3D rendering (Not supervised by radiologist): MIP and/or 3D reconstructed images were created by the technologist. Radiation optimization: All CT scans at this facility use at least one of these dose optimization techniques: automated exposure control; mA and/or kV adjustment per patient size (includes targeted exams where dose is matched to clinical indication); or iterative reconstruction. Contrast material: ISOVUE 370; Contrast volume: 64 ml; Contrast route: INTRAVENOUS (IV); COMPARISON: ABDPELW CT ABD PELVIS W/ CONTRAST 12/29/2016 8:59 AM FINDINGS: Aorta: No aortic aneurysm. No aortic dissection. Celiac trunk and mesenteric arteries: No occlusion or significant stenosis. Renal arteries: No occlusion or significant stenosis. Right iliac arteries: No occlusion or significant stenosis. Left iliac arteries: No occlusion or significant stenosis. Liver: No mass. Gallbladder and bile ducts: Prior cholecystectomy again noted. Normal bile ducts. Pancreas: Unremarkable. No mass. No ductal dilation. Spleen: Unremarkable. No splenomegaly. Adrenal glands: Unremarkable. No mass. Kidneys and ureters: Unremarkable. No solid mass. No hydronephrosis. Stomach and bowel: Unremarkable. No obstruction. No mucosal thickening. Appendix: No evidence of appendicitis. Intraperitoneal space: Unremarkable. No free air. No significant fluid collection. Lymph nodes: Unremarkable. No enlarged lymph nodes. Urinary bladder: Unremarkable. No mass. Reproductive: The uterus has been removed since the previous study. No adnexal masses or fluid collections. Bones/joints: No acute fracture. Soft tissues: There is enlargement of the right rectus muscle. The enlarged area measures 3.7 cm in the craniocaudad dimension by 5.4 cm transversely by up to 2.7 cm in depth. This compares to 1.1 cm in depth for the normal left rectus muscle. The remaining soft tissues of the body wall are normal. IMPRESSION: 1. Right rectus muscle hematoma. 2. No other acute changes in the abdomen or pelvis.
--- NOTE | 2022-06-08 17:37 | CT_ITS ---
PROCEDURE INFORMATION: Exam: CT Head Without Contrast Exam date and time: 06/08/2022 5:46 PM Age: 32 years old Clinical indication: Weakness, extremity; Left; Additional info: L body pain w/ L neck pain TECHNIQUE: Imaging protocol: Computed tomography of the head without contrast. Radiation optimization: All CT scans at this facility use at least one of these dose optimization techniques: automated exposure control; mA and/or kV adjustment per patient size (includes targeted exams where dose is matched to clinical indication); or iterative reconstruction. COMPARISON: CT HEAD/BRAIN WO CON 08/09/2019 9:20 PM FINDINGS: Brain: No acute intracranial findings. No significant change compared with exam of 08/09/2019. No intracranial hemorrhage. No edema, swelling or mass-effect. No significant white matter disease. Minimal cerebral cortical atrophy/volume loss. Cerebral ventricles: The ventricles are normal for age. No hydrocephalus. Paranasal sinuses: No acute findings in the visualized sinuses. No significant sinus opacification or air-fluid levels. Minimal ethmoid mucosal thickening. The frontal sinuses are developmentally hypoplastic. Mastoid air cells: Mastoids are unremarkable as visualized, no effusions. Bones/joints: No acute skull fracture. No lytic lesions. Soft tissues: There are no soft tissue masses or fluid collections. IMPRESSION: 1. No acute findings. 2. There is no CT evidence of intracranial mass, intracranial hemorrhage, or acute infarct. 3. Additional nonemergency and chronic findings as above.
--- NOTE | 2022-06-08 17:39 | HMH.EDGENADL ---
ED Disposition Clinical Impression: Diffuse pain in left upper extremity, Acute pain of left lower extremity Disposition: Home, Self-Care Condition on Discharge: Good Additional Instructions: At this time was felt you are safe to be discharged home. If new or worsening symptoms please do not hesitate to return to the emergency department. Please follow-up with your primary care doctor for your lung nodules and continued evaluation of your left upper extremity left lower extremity pain. Please call orthopedics for continued evaluation. Referrals: Teresita De Leon [Primary Care Provider] - Bipin Manzanares MD [Staff Physician] - - Critical Care Critical Care Time: No Attestation: On , the high probability of a clinically significant, sudden or life threatening deterioration of the following system(s) required my full and direct attention, intervention and personal management. The time I documented below is in addition to time spent performing reported procedures but includes the following listed in this critical care notation. Medical Decision Making - Brad Inquiry Pt receiving controlled substance: No Vital Signs: 06/08/22 16:51 06/08/22 17:30 Temperature 98.3 F Temperature Source Oral Pulse Rate 86 Pulse Rate [Right Radial] 79 Respiratory Rate 22 Blood Pressure 151/87 H Blood Pressure [Right Arm] 122/78 Blood Pressure Mean [Right Arm] 92 Blood Pressure Source Automatic Cuff Blood Pressure Source [Right Arm] Automatic Cuff Blood Pressure Position Sitting Blood Pressure Position [Right Arm] Sitting 02 Sat by Pulse Oximetry 99 99 Oxygen Delivery Method Room Air Room Air - Lab Data Lab Results 06/08/22 17:45: WBC 18.6 H, RBC 4.80, Hgb 14.5, Hct 45.1, MCV 93.9, MCH 30.1, MCHC 32.1, RDW 13.6, Plt Count 385, MPV 8.3, Neut % (Auto) 62.8, Lymph % (Auto) 23.8, Flagler % (Auto) 6.2, Eos % (Auto) 5.4, Baso % (Auto) 1.8, Neut # (Auto) 11.7 H, Lymph # (Auto) 4.4, Flagler # (Auto) 1.2 H, Eos # (Auto) 1.0 H, Baso # (Auto) 0.3 H, Total Counted 100, Neutrophils % (Manual) 69, Lymphocytes % (Manual) 29, Monocytes % (Manual) 1 L, Eosinophils % (Manual) 1, Platelet Estimate Normal, Tear Drop Cells 1+ 06/08/22 17:45: Sodium 140, Potassium 4.1, Chloride 106, Carbon Dioxide 30, Anion Gap 8.1, BUN 13, Creatinine 0.70, Estimated Creat Clear 169, Estimated GFR 96, Est GFR ( Amer) 117, Glucose 109 H, Calcium 9.2, Troponin I < 0.01 06/08/22 17:45: Serum HCG, Qual Negative Result diagrams: 06/08/22 17:45 06/08/22 17:45 Orders (Tests/Meds): ED MEDICATIONS Generic Name Dose Route Start Last Admin Trade Name Freq PRN Reason Stop Dose Admin Sodium Chloride 10 ml 06/08/22 17:06 Sodium Chloride 0.9% 10ml Flush Syringe IV 07/08/22 17:05 NEEDED PRN Maintain IV Site Discontinued Medications Generic Name Dose Route Start Last Admin Trade Name Freq PRN Reason Stop Dose Admin Acetaminophen 1,000 mg 06/08/22 17:38 06/08/22 18:10 Acetaminophen 500mg Tab PO 06/08/22 17:39 1,000 mg ONCE ONE Administration Iopamidol 143 ml 06/08/22 18:05 06/08/22 18:06 Iopamidol-370 (76%);100ml Bottle IV 06/08/22 18:06 143 ml ONCE ONE Administration Morphine Sulfate 4 mg 06/08/22 17:38 06/08/22 18:10 Morphine 4mg/Ml Syringe IV 06/08/22 17:39 4 mg ONCE ONE Administration Ondansetron HCl 4 mg 06/08/22 17:52 06/08/22 18:10 Ondansetron 4mg/2ml Vial IV 06/08/22 17:53 4 mg ONCE ONE Administration Sodium Chloride 10 ml 06/08/22 18:05 06/08/22 18:06 Sodium Chloride 0.9% 10ml Syr (Rad Only) IV 06/08/22 18:06 10 ml ONCE ONE Administration Sodium Chloride 50 ml 06/08/22 18:05 06/08/22 18:06 0.9 % Sodium Chloride 50 Ml Vial IV 06/08/22 18:06 50 ml ONCE ONE Administration ORDERS Category Date Time Status Troponin I Q3H Lab 06/08/22 20:15 Ordered Troponin I Q3H Lab 06/08/22 23:15 Ordered - ECG Data Tracing #1 Independently interpreted b
--- NOTE | 2022-06-08 17:45 | PC.NURSE ---
pt to CT with [employer] dean via [facility]
[2022-06-08 17:59] LABS: Basophils # 0.3 K/mm3 (0-0.2); Basophils % 1.8 % (0.1-2.0); Eosinophils % 5.4 % (0.1-12.0); Hematocrit 45.1 % (37.0-47.0); Hemoglobin 14.5 g/dL (12.2-16.2); Lymphocytes # 4.4 K/mm3 (0.7-4.5); Lymphocytes % 23.8 % (10-50); Mean Corpuscular HGB Conc 32.1 g/dL (31.8-35.4); Mean Corpuscular Hemoglobin 30.1 pg (27.0-31.2); Mean Corpuscular Volume 93.9 fl (81-99); Mean Platelet Volume 8.3 fl (7.4-10.4); Monocytes # 1.2 K/mm3 (0.1-1.0); Monocytes % 6.2 % (1.7-9.3); Neutrophils # 11.7 K/mm3 (1.8-7.8); Neutrophils % 62.8 % (37.0-80.0); Platelet Count 385 K/mm3 (142-424); Red Cell Distribution Width 13.6 % (11.5-17.5); White Blood Count 18.6 K/mm3 (4.8-10.8)
[2022-06-08 18:00] LABS: MANUAL DIFFERENTIAL MANUAL DIFFERENTIAL (MANUAL DIFF)
--- NOTE | 2022-06-08 18:05 | PC.NURSE ---
pt returned from radiology via
--- NOTE | 2022-06-08 18:11 | PC.NURSE ---
pt back from CT , pain meds given pt resting with no new needs , i explained to her we now was waitrng on ct readings and labs
[2022-06-08 18:12] LABS: Chloride 106 mmol/L (98-107)
[2022-06-08 18:13] LABS: Potassium 4.1 mmoL/L (3.5-5.1); Sodium 140 mmol/L (136-145)
[2022-06-08 18:15] LABS: Blood Urea Nitrogen 13 mg/dl (7-17); Creatinine Clearance Estimated 169 mL/min (50-200); Estimated Glomerular Filt Rate 96 ml/min (>60); GFR (African American) 117 ML/MIN (>60)
[2022-06-08 18:16] LABS: Anion Gap 8.1 mEq/L (5-15); Calcium 9.2 mg/dl (8.4-10.2); Carbon Dioxide 30 mmol/L (22.0-30.0); Glucose 109 mg/dl (74-100)
[2022-06-08 18:17] LABS: Eosinophils % 1 % (0-3); Lymphocytes % 29 % (10-50); Monocytes % 1 % (2-9); Neutrophils % 69 % (42-76); Tear Drop Cells 1+; Total Cells Counted 100
[2022-06-08 18:18] LABS: Platelet Estimate Normal
[2022-06-08 18:28] LABS: Troponin I < 0.01 ng/ml (0.00-0.034)
[2022-06-08 18:31] LABS: HCG Qualitative, Serum Negative (Negative)
[2022-06-08 20:28] VITALS: BP 150/85; PULSE 85; RESP 16; TEMP 36.6; O2SAT 99
== END 2022-06-08 20:31 | disposition home or self-care (01) ==
PROVIDERS: Emergency Provider Emergency Medicine; PCP Family Medicine
DX: M79.602 Pain in left arm (principal); M79.605 Pain in left leg; R07.9 Chest pain, unspecified; Z72.0 Tobacco use; I10 Essential (primary) hypertension
CPT/HCPCS: 70450; 70496; 70498; 71045; 71275; 74174; 80048; 84484; 84703; 85007; 85025; 93005; 96374; 96375; 99285; J2405; Q9967

== ENCOUNTER → 2022-06-11 14:03 | Outpatient (CLI) | payer MEDICAID, SELFPAY ==
--- NOTE | 2022-06-11 14:09 | XR_ITS ---
FINAL REPORT CLINICAL HISTORY: shoulder pain since last ..shielded FINDINGS: LEFT SHOULDER Two views demonstrate no acute fracture or dislocation. There is mild acromioclavicular joint degenerative change. The visualized bony structures are well aligned. No soft tissue abnormality is seen. IMPRESSION: Degenerative changes with no acute bony abnormality. Reviewed, Interpreted and Dictated by Duane El III, MD Transcribed by Damari Gomez Authenticated and [facility]
== END ==
PROVIDERS: PCP Family Medicine; Visit Provider Orthopaedic Surgery
DX: M25.512 Pain in left shoulder (principal)
CPT/HCPCS: 73030

== ENCOUNTER → 2022-07-20 09:55 | Outpatient (CLI) | payer MEDICAID, SELFPAY ==
--- NOTE | 2022-07-20 09:57 | CA_ITS ---
APPROVED REPORT EXAM: Comprehensive 2D, Doppler, and color-flow Echocardiogram Facilities Maintenance Worker: Tracie Mcdonald CRT Ht: 5 ft 5 in Wt: 213lbs BSA: 2.03 BP: 130/90 mmHg Indications: Abnormal ECG, Chest Pain, Shortness of Breath, Hypertension/HDD 2D Dimensions LVOT 2.06 cm (M/F) 1.5-2.5 LA Volume 32.00 mL LA Volume Index 15.80 mL/m2 (M/F) 16-34 M-Mode Dimensions RVDd 2.72 cm (0.9-2.6) LA Diam 3.01 cm (1.9-4.0) LVDd 4.12 cm (3.5-5.7) Ao Diam 3.45 cm (2.0-3.7) LVDs 2.75 cm (3.5-5.7) IVSd 1.09 cm (0.6-1.1) PWd 1.22 cm (0.6-1.1) EF (Teich) 62.30% FS 33.30% EDV (Teich) 75.10 mL TAPSE 1.60 (<1.7) ESV (Teich) 28.30 mL LV Diastology E Decel Time 213.00 (160-240 msec) E/A Ratio 1.09 MED E' 9.10 (< 7 cm/sec) MED A' 7.40 cm/s E'/MED E' Ratio 7.56 (>14) LAT E' 11.20 (<10 cm/sec) LAT A' 7.30 cm/s E/LAT E' Ratio 6.14 (>14) Aortic Valve AO Peak GR. 4.40 mmHg Mitral Valve MV A Velocity 63.00 (40-130 cm/s) E/A Ratio 1.09 MV Decel. Time 213.00 (160-240 ms) Pulmonary Valve PV Peak Velocity 114.00 (50-150 cm/s) Tricuspid Valve TR P. Velocity 147.00 cm/s RAP Estimate 10.00 mmHg RVSP 18.70 mmHg Left Ventricle Left atrium normal size, left ventricle normal size, there is no concentric left ventricular hypertrophy, estimated ejection fraction 55% with no regional wall motion abnormality, diastolic parameters are within normal range. Right Ventricle Right atrium and right ventricle are normal size and contractility. Aortic Valve Aortic valve is grossly normal there is no aortic stenosis or aortic insufficiency. Mitral Valve Mitral valve is grossly normal, there is no significant mitral regurgitation. Tricuspid Valve Tricuspid valve grossly normal, there is no significant tricuspid regurgitation. Pulmonic Valve Pulmonic valve is poorly visualized. Great Vessels Aortic root is normal size. Inferior vena cava is normal size with normal inspiratory collapse. Pericardium No significant pericardial effusion noted. Conclusion 1. Normal left ventricular size, preserved left ventricular systolic function, estimated ejection fraction 55% with no regional wall motion abnormality, diastolic parameters are within normal range. 2. No significant pericardial effusion noted. 3. Inferior vena cava is normal size with normal inspiratory collapse. Electronically signed by : Matthew Flynn MD 07/21/2022 07:11:59
== END ==
PROVIDERS: PCP Family Medicine; Visit Provider Internal Medicine
DX: R06.09 Other forms of dyspnea (principal); R07.9 Chest pain, unspecified; R20.0 Anesthesia of skin; R94.31 Abnormal electrocardiogram [ECG] [EKG]; F17.200 Nicotine dependence, unspecified, uncomplicated
CPT/HCPCS: 93306

== ENCOUNTER → 2022-07-23 09:42 | Outpatient (CLI) | payer MEDICAID, SELFPAY ==
--- NOTE | 2022-07-23 09:47 | XR_ITS ---
FINAL REPORT TECHNIQUE: 5 views CLINICAL HISTORY: pain FINDINGS: There is no fracture present. There is no malalignment. There are no significant degenerative changes. IMPRESSION: No acute process. Reviewed, Interpreted and Dictated by Danielle Montano MD Transcribed by Darryl Hardy Authenticated and [facility]
--- NOTE | 2022-07-23 09:47 | XR_ITS ---
FINAL REPORT CLINICAL HISTORY: lt shoulder pain FINDINGS: 3 views of the left shoulder were obtained. There is no acute fracture or dislocation. The joint spaces are intact. There are no soft tissue abnormalities. IMPRESSION: No acute process. Reviewed, Interpreted and Dictated by Danielle Montano MD Transcribed by Darryl Hardy Authenticated and [facility]
== END ==
PROVIDERS: Visit Provider Orthopaedic Surgery
DX: S16.1XXA Strain of muscle, fascia and tendon at neck level, initial encounter (principal); M25.512 Pain in left shoulder
CPT/HCPCS: 72050; 73030

== ENCOUNTER → 2022-07-27 07:17 | Outpatient (CLI) | payer MEDICAID, SELFPAY ==
--- NOTE | 2022-07-27 | CA_ITS ---
APPROVED REPORT Exam: Exercise Treadmill Technologist: Rosaura Wiseman Ht: 5 ft 5 in Wt: 211 lbs BSA: 2.02 m2 HR: 64 bpm BP: 109/62 mmHg Indications: Shortness of Breath, CHest pain, Ischemia Medical History Medications: Omeprazole,,,,, Tiotropium [place],,,,, ONdansetron,,,,, Stress Test Details Test: Ejre HR Resting HR: 88 bpm Max Heart Rate (APMHR): 187.136125 bpm Max HR Achieved: 165 bpm Target HR (85% APMHR): 158.011465 bpm % of APMHR: 88.24 Recovery HR: 87 bpm BP Resting BP: 109.0/62.0 mmHg Max BP: 146.0/80.0 mmHg Recovery BP: 122.0/78.0 mmHg ECG Resting ECG: Sinus arrhythmia, otherwise normal Clinical Exercise duration: 07:30 min Highest Stage Achieved: Exercise capacity: 10.1 METs Stress ECG Conclusion Patient exercised 7:30 into stage 3 of Jere Protocol. Test stopped due to shortness of air. Symptoms: Dyspnea, mild chest tightness. Arrhythmias/Ectopy: None ST-T Changes: Normal ST response to exercise Conclusion: Normal GXT. Myoview images reported separately. Test Summary REST . . . . . . . Sitting REST . . . . . . . Standing REST 03:25 0.0 0.0 88 . 109/ 62 . . Stage 1 01:00 10.0 1.7 114 . . . . Stage 1 02:00 10.0 1.7 138 . . . . Stage 1 03:00 10.0 1.7 134 . 146/ 80 . . Stage 2 01:00 12.0 2.5 144 . . . . Stage 2 02:00 12.0 2.5 144 . . . . Stage 2 . . . . . . . Myoview Injected Stage 2 03:00 12.0 2.5 152 . 146/ 78 . . Stage 3 01:00 14.0 3.4 161 . . . . Stage 3 01:30 14.0 3.4 164 . . . Stop exercise at 07:30 RECOVERY 01:00 0.0 0.0 130 . . . . RECOVERY 02:00 0.0 0.0 112 . . . . RECOVERY 03:00 0.0 0.0 97 . 133/ 78 . . RECOVERY 04:00 0.0 0.0 87 . 145/ 73 . . RECOVERY 05:00 0.0 0.0 87 . 122/ 78 . . RECOVERY 05:18 0.0 0.0 86 . 122/ 78 . . Electronically signed by : Matthew Flynn MD 07/28/2022 06:39:04
--- NOTE | 2022-07-27 07:17 | NM_ITS ---
APPROVED REPORT Exam: Nuclear Stress Test Indication: Chest pain, SOB, Palpitations, Syncope, Fatigue, Tobacco use, Family history Patient Location: Outpatient Stress Tech: Rosaura Wiseman OR Tech:Lenore Mitchell, ARRT, RT (R)(N) Ht: 5 ft 5 in Wt: 211 lbs Bra Size: D HR: 88 bpm BP: 109/62 mmHg BSA: 2.02 m2 TID: 1.33 BMI: 35.1 History: Chest pain, SOB, Palpitations, Syncope, Fatigue, Tobacco use, Family history Procedure: Patient exercised on Ejre protocol 7:30 minutes and sec, resting heart rate 88 bpm, resting blood pressure 109/62 mmHg, with exercise maximum heart rate achived was 165 bpm which is 88 % of the maximum predicted heart rate and blood pressure was 146/80 mmHg. Test was stopped due to SOB. Patient denied any complaint of chest pain. Patient has good exercise capacity, achieved 10.1 METs of workload on treadmill, the blood pressure response to exercise was Adequate. Electrocardiogram Resting electrocardiogram showed sinus rhythm, with exercise there is less than 1.[address] segment depression noted from the baseline EKG. The EKG portion of the exercise Myoview is negative for ischemia. Cardiac Stress and Resting SPECT Images: Cardiac Stress and Resting SPECT images were obtained using technetium 99m Myoview 32.7 mCi stress and 10.92 mCi at rest. Gated SPECT analysis of segmental wall motion and calculation of the ejection fraction also done. Prone images were also obtained. Cardiac stress and rest SPECT may show uniform myocardial activity without segmental perfusion abnormality, computer derived ejection fraction is 59% with no regional wall motion abnormality, right ventricle is normal size and contractility. Conclusion: 1. The EKG portion of the exercise Myoview is negative for ischemia, patient has good exercise capacity achieved 10.1 METs of workload on treadmill, the blood pressure response to exercise was adequate, there was no exercise-induced chest discomfort. 2. No scintigraphic evidence of reversible ischemia seen, computer derived ejection fraction 59% with no regional wall motion abnormality, right ventricle is normal size and contractility. 3. Normal exercise Myoview study. Electronically signed by : Matthew Flynn MD 07/28/2022 06:41:43
--- NOTE | 2022-07-27 09:15 | HMH.ITSHM ---
Current Home Medications as stated by this patient Shawnee Nagy or self pay representative. []TIOTROPIUM ONDANSETRON OMEPRAZOLE
== END ==
PROVIDERS: Visit Provider Internal Medicine Cardiovascular Disease
DX: R06.09 Other forms of dyspnea (principal)
CPT/HCPCS: 78452; 93017; A9502

== ENCOUNTER 2022-07-30 09:35 | Emergency (ER) | payer MEDICAID, SELFPAY ==
--- NOTE | 2022-07-30 09:59 | EXP.UTC ---
Discharge Plan Disposition Patient Disposition: Home, Self-Care Condition: Good Prescriptions Prescriptions: New azithromycin [Zithromax] 250 mg tablet 250 mg PO UD DOSE PK Qty: 6 0RF Rx Instructions: Take two (2) tablets today, then one (1) tablet days #2 thru #5 benzonatate [benzonatate] 100 mg capsule 100 mg PO TIDP PRN (Reason: Cough) Qty: 30 0RF methylprednisolone 4 mg Tablets,Dose Pack 4 mg PO DIRECTED Qty: 21 0RF No Action omeprazole 20 mg capsule,delayed release(DR/EC) 20 mg PO DAILY Qty: 30 2RF tiotropium bromide 2.5 mcg/actuation mist 2 puff INHALATION Label Comments: inhale 2 puffs by MOUTH EVERY DAY ondansetron 4 MG tablet,disintegrating 4 mg PO Q8HP PRN (Reason: Nausea) Qty: 12 0RF Referrals Follow up/Referrals: Provider,Referral, MD [Primary Care Provider] - See instructions Activity Restrictions/Add. Instructions Additional Instructions/Restrictions: Drink plenty of fluids. Take tylenol or ibuprofen for pain or fever. Take the medications as directed. Follow up with your regular doctor. GO TO THE ER FOR ANY WORSENING SYMPTOMS Quarantine until you know the results of your covid-19 test. Notify your school or workplace of your results and follow their instructions regarding return to work/school. Clinical Impressions Clinical Impression: Acute bronchitis Stand Alone Forms Stand Alone Forms: Work/School Release Instructions Patient Instructions: DI for Acute Bronchitis, Preventing the Spread of Coronavirus Discharge Instructions Discharge ED Provider: Jadiel Whitten [facility] General Stated complaint: Congestion, loss of voice, lung pain Time Seen by Provider: 07/30/22 09:59 History of Present Illness Provider Complaint: She states that for the past 3 days she has had chest congestion, chills, low grade fever and scratchy sore throat. Related Data Home Medications Medication Instructions Recorded Confirmed tiotropium bromide 2.5 2 puff inhalation 04/15/21 07/23/22 mcg/actuation mist for inhalation Previous Rx's Medication Instructions Recorded ondansetron 4 mg disintegrating 4 mg PO Q8HP PRN Nausea #12 tabs 05/04/22 tablet omeprazole 20 mg capsule,delayed 20 mg PO DAILY #30 caps 07/22/22 release azithromycin 250 mg tablet 250 mg PO UD DOSE PK #6 tabs 07/30/22 (Zithromax) benzonatate 100 mg capsule 100 mg PO TIDP PRN Cough #30 caps 07/30/22 methylprednisolone 4 mg tablets in 4 mg PO DIRECTED #21 tabs 07/30/22 a dose pack Allergies Allergy/AdvReac Type Severity Reaction Status Date / Time No Known Allergies Allergy Verified 07/30/22 10:07 [facility] Medical History Abnormal electrocardiography Dyspnea Left arm numbness Tobacco dependence syndrome Social History Smoking Status: Current every day smoker tobacco type: cigarettes packs per day: 1 alcohol intake: current current occupational status: other Travel in the last 8 weeks: None household members: family housing: house current occupational exposures/hazards: No caffeine: No ROS Obtained: Yes All systems reviewed & no additional complaints except as documented Constitutional Constitutional: Reports chills and Reports fever(s) Eyes Eyes: Denies eye discharge ENT Ears, Nose, Mouth, and Throat: Reports as per HPI Cardiovascular Cardiovascular: Denies chest pain Respiratory Respiratory: Denies chest congestion and Reports cough Gastrointestinal Gastrointestingal: Reports nausea; Denies abdominal pain, constipation, cramping, diarrhea or vomiting Musculoskeletal Musculoskeletal: Denies arthralgias Integumentary/Breasts Skin/Breast: Denies rash Neurologic Neurologic: Denies paresthesias Physical Exam General General appearance: alert and in no apparent distress Head Head exam: atraumatic, normocephalic
[2022-07-30 10:03] VITALS: BP 127/72; PULSE 89; RESP 16; TEMP 37.1; O2SAT 99; BMI 35.1
[2022-07-30 10:11] LABS: UTC Strep Screen (Rapid) Negative (Negative)
[2022-07-30 10:40] VITALS: BP 127/72; PULSE 89; RESP 16; TEMP 37.1
== END 2022-07-30 10:41 | disposition home or self-care (01) ==
PROVIDERS: Emergency Provider Nurse Practitioner Family
DX: J20.9 Acute bronchitis, unspecified (principal)
CPT/HCPCS: 87880; 99212; C9803; G0463; U0003; U0005

== ENCOUNTER 2022-09-25 08:31 | Emergency (ER) | payer MEDICAID, SELFPAY ==
[2022-09-25] VITALS (9 sets, daily range): BP systolic 112–139; BP diastolic 61–82; PULSE 67–86; RESP 18; TEMP 36.7–36.8; O2SAT 96–99; BMI 33.9
[2022-09-25 08:47] LABS: Coronavirus 19, PCR Not Detected (NotDetected); Influenza A, PCR Not Detected (NotDetected); Influenza B, PCR Not Detected (NotDetected)
--- NOTE | 2022-09-25 09:00 | HMH.EDGENADL ---
Discharge Plan Disposition Patient Disposition: Home, Self-Care Condition: Good Chief Complaint: Upper Respiratory Infection Prescriptions Prescriptions: No Action omeprazole 20 mg capsule,delayed release(DR/EC) 20 mg PO DAILY Qty: 30 2RF tiotropium bromide 2.5 mcg/actuation mist 2 puff INHALATION Label Comments: inhale 2 puffs by MOUTH EVERY DAY ondansetron 4 MG tablet,disintegrating 4 mg PO Q8HP PRN (Reason: Nausea) Qty: 12 0RF Referrals Follow up/Referrals: Mathew Cisneros MD [Primary Care Provider] - See instructions Justin Canada MD [Physician] - See instructions (Concern for chronic aspergillosis. Repeat evaluation needed) Clinical Impressions Clinical Impression: Shortness of breath, Pulmonary nodule Discharge ED Provider: Hansel Fernandez General Adult HPI General Chief complaint: Upper Respiratory Infection Stated complaint: Cough,Sore throat,Fever,Chills Time Seen by Provider: 09/25/22 08:35 Mode of Arrival: Ambulatory Source of Information: Patient Limitations: No Limitations Description of Symptoms (Recalled from ER Triage Doc. by RN): PT REPORTS COUGH, FEVER, CONGESTION, BODYACHES AND HEADACHE THAT STARTED ON TUESDAY. 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 Patient states that she has also had associated shortness of breath and nonbloody diarrhea. Symptoms started 2 days prior to arrival. She has taken Motrin with mild symptomatic relief. Fevers T-max 104 ?F. Multiple sick contacts. No chest pain, cough, vomiting, abdominal pain, flank pain, dysuria, hematuria, or any other concerning history. Denies any other relevant history concerning for PE. Related Data Home Medications Medication Instructions Recorded Confirmed tiotropium bromide 2.5 2 puff inhalation 04/15/21 08/12/22 mcg/actuation mist for inhalation Previous Rx's Medication Instructions Recorded ondansetron 4 mg disintegrating 4 mg PO Q8HP PRN Nausea #12 tabs 05/04/22 tablet omeprazole 20 mg capsule,delayed 20 mg PO DAILY #30 caps 07/22/22 release Allergies Allergy/AdvReac Type Severity Reaction Status Date / Time No Known Allergies Allergy Verified 08/12/22 11:20 [facility] Disclaimer: The information contained in this section may have been updated after the patient was seen, as this information can be updated by other users. Medical History (Updated 09/25/22 @ 12:34 by Hansel Fernandez MD) Abnormal electrocardiography Dyspnea Left arm numbness Tobacco dependence syndrome Surgical History (Updated 09/25/22 @ 08:48 by Queenie Lacey RN) H/O section H/O wisdom tooth extraction History of foot surgery History of hysterectomy Hx of cholecystectomy Family History (Updated 09/25/22 @ 08:48 by Queenie Lacey RN) Other No significant family history Social History (Updated 09/25/22 @ 08:48 by Queenie Lacey RN) Smoking Status: Current every day smoker tobacco type: cigarettes packs per day: 1 alcohol intake: current current occupational status: other Travel in the last 8 weeks: None household members: family housing: house current occupational exposures/hazards: No caffeine: No ROS Obtained: Yes All systems reviewed & no additional complaints except as documented Physical Exam General General appearance: alert and in no apparent distress Head Head exam: atraumatic, normocephalic and normal inspection Eye Eye exam: Present normal appearance, PERRL and EOMI ENT ENT exam: Present normal exam, normal oropharynx, mucous membranes moist, TM's normal bilaterally and normal external ear exam Neck Neck exam: Present normal inspection, full ROM and trachea midline; Absent meningismus or lymphadenopathy Chest Chest inspection: Present no
[2022-09-25 09:33] LABS: Basophils # 0.2 K/mm3 (0-0.2); Basophils % 1.5 % (0.1-2.0); Eosinophils # 0.7 K/mm3 (0.0-0.4); Eosinophils % 6.3 % (0.1-12.0); Hematocrit 41.2 % (37.0-47.0); Hemoglobin 13.5 g/dL (12.2-16.2); Lymphocytes % 34.3 % (10-50); Mean Corpuscular HGB Conc 32.8 g/dL (31.8-35.4); Mean Corpuscular Hemoglobin 30.3 pg (27.0-31.2); Mean Corpuscular Volume 92.5 fl (81-99); Mean Platelet Volume 8.3 fl (7.4-10.4); Monocytes # 0.7 K/mm3 (0.1-1.0); Monocytes % 5.7 % (1.7-9.3); Neutrophils % 52.3 % (37.0-80.0); Platelet Count 365 K/mm3 (142-424); Red Blood Count 4.46 M/mm3 (4.20-5.40); Red Cell Distribution Width 13.4 % (11.5-17.5); White Blood Count 11.6 K/mm3 (4.8-10.8)
[2022-09-25 09:47] LABS: Anion Gap 9.3 mEq/L (5-15); Blood Urea Nitrogen 17 mg/dl (7-17); Calcium 9.3 mg/dl (8.4-10.2); Carbon Dioxide 27 mmol/L (22.0-30.0); Chloride 109 mmol/L (98-107); Creatinine Clearance Estimated 201 mL/min (50-200); Estimated Glomerular Filt Rate 115 ml/min (>60); GFR (African American) 139 ML/MIN (>60); Glucose 115 mg/dl (74-100); Potassium 3.3 mmoL/L (3.5-5.1); Sodium 142 mmol/L (136-145)
[2022-09-25 09:52] LABS: D-Dimer 0.74 ug/mL (0.0-0.5)
--- NOTE | 2022-09-25 10:05 | PC.NURSE ---
Lydia Bennett rounded on patient and patient reports no needs at this time. Call light within reach.
--- NOTE | 2022-09-25 10:13 | PC.NURSE ---
DR. ROGERS AT BEDSIDE TO REEVALUATE PT
--- NOTE | 2022-09-25 10:15 | CT_ITS ---
PROCEDURE INFORMATION: Exam: CTA Chest With Contrast Exam date and time: 09/25/2022 11:01 AM Age: 32 years old Clinical indication: Shortness of breath; Additional info: SOB, fever, elevated dimer and negative swab TECHNIQUE: Imaging protocol: Computed tomographic angiography of the chest with contrast. 3D rendering (Not supervised by radiologist): MIP and/or 3D reconstructed images were created by the technologist. Radiation optimization: All CT scans at this facility use at least one of these dose optimization techniques: automated exposure control; mA and/or kV adjustment per patient size (includes targeted exams where dose is matched to clinical indication); or iterative reconstruction. Contrast material: ISOVUE; Contrast volume: 70 ml; Contrast route: INTRAVENOUS (IV); COMPARISON: CT ANGIO CHEST 06/08/2022 5:54 PM, 12/25/2020 CT angio chest FINDINGS: Pulmonary arteries: There is suboptimal opacification of pulmonary arteries due to contrast bolus timing. There is no large or central pulmonary embolus. Evaluation of the peripheral pulmonary arteries is limited. Aorta: Unremarkable. No aortic aneurysm. No aortic dissection. Lungs: Persistent 2.2 cm nodule right lung apex with solitary dense focus of calcification . Findings stable dating back to available study dated 12/25/2020. Persistent nodular focus with associated calcification within a focus of cystic change posteriorly in the right upper lobe. Findings suggestive of aspergilloma. Findings stable since 12/25/2020 . Pleural spaces: Unremarkable. No pneumothorax. No pleural effusion. Heart: No evidence of coronary artery calcification. Lymph nodes: Calcified prominent mediastinal and hilar lymph nodes. Bones/joints: Unremarkable. No acute fracture. Soft tissues: Unremarkable. Other findings: Calcified granulomas again demonstrated bilaterally. . IMPRESSION: 1. Evidence of prior granulomatous disease with persistent stable 2.2 cm pulmonary nodule right lung apex. 2. No evidence of large or central pulmonary embolus. Interpretation limited secondary to suboptimal contrast bolus timing. 3. Persistent nodular focus with associated calcification within a focus of cystic change posteriorly in the right upper lobe. Findings suggestive of aspergilloma. Clinically correlate. Findings stable since .
--- NOTE | 2022-09-25 11:00 | PC.NURSE ---
PT TO CT AT THIS TIME
--- NOTE | 2022-09-25 11:07 | PC.NURSE ---
PT RETURNED FROM CT
--- NOTE | 2022-09-25 12:39 | PC.NURSE ---
DR. ROGERS AT BEDSIDE TO UPDATE PT ON POC
== END 2022-09-25 12:55 | disposition home or self-care (01) ==
PROVIDERS: Emergency Provider Emergency Medicine; PCP Internal Medicine Adolescent Medicine
DX: J02.9 Acute pharyngitis, unspecified (principal); R50.9 Fever, unspecified; R06.02 Shortness of breath; M79.10 Myalgia, unspecified site; R94.31 Abnormal electrocardiogram [ECG] [EKG]; R20.2 Paresthesia of skin; Z20.822 Contact with and (suspected) exposure to COVID-19; R11.0 Nausea; R19.7 Diarrhea, unspecified; R91.1 Solitary pulmonary nodule; R51.9 Headache, unspecified; F17.210 Nicotine dependence, cigarettes, uncomplicated; Z79.52 Long term (current) use of systemic steroids; Z79.899 Other long term (current) drug therapy
CPT/HCPCS: 71275; 80048; 85025; 85378; 99285; C9803; Q9967; U0003; U0005

== ENCOUNTER 2022-09-30 12:14 | Emergency (ER) | payer MEDICAID, SELFPAY ==
--- NOTE | 2022-09-30 12:16 | ECG_ITS ---
APPROVED REPORT Exam: Resting ECG HR:92 bpm ECG Measurements Heart Rate 92 AXES [place] 151 P 62 QRSd 88 QRS 76 QT 340 T 36 QTc 390 Conclusion SINUS RHYTHM NORMAL ECG UNCONFIRMED REPORT Electronically signed by : Mathew Cisneros MD 09/30/2022 20:15:45
[2022-09-30 12:22] VITALS: BMI 33.9
--- NOTE | 2022-09-30 12:22 | XR_ITS ---
FINAL REPORT TECHNIQUE: Chest PA & Lateral CLINICAL HISTORY: chest pain, left sided, smoker COMPARISON: September 25, 2022 CT semi: Chest x-ray May 2022 FINDINGS: 2 views of the chest were performed. The heart size is normal. Right paratracheal fullness is consistent with calcified lymph nodes seen on the recent CT. There are multiple bilateral nodules with the largest measuring 19 mm in the right upper lobe corresponding to a nodule seen on the recent CT. There are no pleural effusions. There is no pneumothorax. The bony thorax appears intact. IMPRESSION: Bilateral pulmonary nodules. Recommend follow-up radiographs or [address] Reviewed, Interpreted and Dictated by Duane El III, MD Transcribed by Darryl Hardy Authenticated and [facility]
--- NOTE | 2022-09-30 12:25 | HMH.EDGENADL ---
Discharge Plan Disposition Patient Disposition: Home, Self-Care Condition: Good Prescriptions Prescriptions: No Action omeprazole 20 mg capsule,delayed release(DR/EC) 20 mg PO DAILY Qty: 30 2RF tiotropium bromide 2.5 mcg/actuation mist 2 puff INHALATION Label Comments: inhale 2 puffs by MOUTH EVERY DAY ondansetron 4 MG tablet,disintegrating 4 mg PO Q8HP PRN (Reason: Nausea) Qty: 12 0RF Referrals Follow up/Referrals: Provider,Referral, [Primary Care Provider] - See instructions Activity Restrictions/Add. Instructions Additional Instructions/Restrictions: Tylenol s needed for pain. You may return to work tomorrow. Follow-up with primary care provider, call for appointment. A pulmonary nodule (spot on the lung) was discovered during your evaluation today. It is recommended that you follow-up with a primary care provider for further evaluation. Radiologist recommends follow-up x-ray or CT scan in 6 months. See your primary care provider to schedule this. Clinical Impressions Clinical Impression: Influenza A, Atypical chest pain Instructions Patient Instructions: DI for Atypical Chest Pain, DI for Influenza -- Adult Discharge ED Provider: Marvin Ashford General Adult HPI General Chief complaint: Chest Pain Stated complaint: chest pain Time Seen by Provider: 09/30/22 12:40 History of Present Illness HPI narrative: Patient states that she feels congested in the chest for 1 week, and also has chest pain in her anterior chest that feels like it thousand needles for the past 2 to 3 days. However, states that the real reason she is here is because she has been passing blood in her stool and had in her urine for the past couple of days and then last night vomited blood as well. States she has had some diarrhea. No history of hemoptysis, hematemesis, melena or hematochezia, or hematuria in the past. She is not on any blood thinners. She is a nondrinker, non-smoker, denies drug use. Denies prior history of any gastrointestinal problems such as gastrointestinal bleeding, ulcer disease. States she has never had an upper endoscopy or colonoscopy. Related Data Home Medications Medication Instructions Recorded Confirmed tiotropium bromide 2.5 2 puff inhalation 04/15/21 08/12/22 mcg/actuation mist for inhalation Previous Rx's Medication Instructions Recorded ondansetron 4 mg disintegrating 4 mg PO Q8HP PRN Nausea #12 tabs 05/04/22 tablet omeprazole 20 mg capsule,delayed 20 mg PO DAILY #30 caps 07/22/22 release Allergies Allergy/AdvReac Type Severity Reaction Status Date / Time No Known Allergies Allergy Verified 08/12/22 11:20 [facility] Disclaimer: The information contained in this section may have been updated after the patient was seen, as this information can be updated by other users. Medical History (Updated 09/30/22 @ 14:01 by Marvin Ashford MD) Abnormal electrocardiography Dyspnea Left arm numbness Tobacco dependence syndrome Surgical History (Updated 09/25/22 @ 08:48 by Queenie Lacey RN) H/O section H/O wisdom tooth extraction History of foot surgery History of hysterectomy Hx of cholecystectomy Family History (Updated 09/25/22 @ 08:48 by Queenie Lacey RN) Other No significant family history Social History (Updated 09/25/22 @ 08:48 by Queenie Lacey RN) Smoking Status: Never smoker alcohol intake: current current occupational status: other Travel in the last 8 weeks: None household members: family housing: house current occupational exposures/hazards: No caffeine: No ROS Obtained: Yes Systems reviewed as appropriate & no additional complaints except as documented Constitutional Constitutional: Denies fever(s), Denies headache(s) and Denies weakness ENT Ears, Nose, Mouth, and Throat: Denies headache(s), Denies nasal discharge and Denies sore throat Cardiovascular Cardiovascular: Rep
[2022-09-30 12:26] VITALS: BP 121/75; PULSE 100; RESP 23; TEMP 36.8; O2SAT 100; BMI 33.9
[2022-09-30 12:30] VITALS: BP 132/84; PULSE 89; RESP 20; O2SAT 100
--- NOTE | 2022-09-30 12:30 | PC.NURSE ---
Pt returned from radiology via wheelchair.
[2022-09-30 12:32] LABS: Basophils # 0.1 K/mm3 (0-0.2); Basophils % 1.2 % (0.1-2.0); Eosinophils # 0.3 K/mm3 (0.0-0.4); Eosinophils % 3.7 % (0.1-12.0); Hematocrit 42.6 % (37.0-47.0); Hemoglobin 13.6 g/dL (12.2-16.2); Lymphocytes # 1.1 K/mm3 (0.7-4.5); Lymphocytes % 12.8 % (10-50); Mean Corpuscular Hemoglobin 29.8 pg (27.0-31.2); Mean Corpuscular Volume 93.1 fl (81-99); Mean Platelet Volume 7.9 fl (7.4-10.4); Monocytes # 0.8 K/mm3 (0.1-1.0); Monocytes % 8.7 % (1.7-9.3); Neutrophils # 6.6 K/mm3 (1.8-7.8); Neutrophils % 73.7 % (37.0-80.0); Platelet Count 374 K/mm3 (142-424); Red Blood Count 4.58 M/mm3 (4.20-5.40); Red Cell Distribution Width 13.4 % (11.5-17.5); White Blood Count 8.9 K/mm3 (4.8-10.8)
[2022-09-30 12:34] LABS: Chloride 105 mmol/L (98-107)
[2022-09-30 12:35] LABS: Coronavirus 19, PCR Not Detected (NotDetected); Influenza B, PCR Not Detected (NotDetected); Potassium 3.7 mmoL/L (3.5-5.1); Sodium 141 mmol/L (136-145)
[2022-09-30 12:37] LABS: Blood Urea Nitrogen 9 mg/dl (7-17); Creatinine Clearance Estimated 172 mL/min (50-200); Estimated Glomerular Filt Rate 96 ml/min (>60); GFR (African American) 117 ML/MIN (>60)
[2022-09-30 12:38] LABS: Anion Gap 11.7 mEq/L (5-15); Calcium 9.3 mg/dl (8.4-10.2); Carbon Dioxide 28 mmol/L (22.0-30.0); Glucose 63 mg/dl (74-100)
[2022-09-30 12:52] LABS: Troponin I < 0.01 ng/ml (0.00-0.034)
[2022-09-30 13:00] VITALS: BP 128/72; PULSE 82; RESP 20; O2SAT 100
[2022-09-30 13:02] LABS: Influenza A, PCR Detected (NotDetected)
--- NOTE | 2022-09-30 13:12 | PC.NURSE ---
chaperoned at the bedside for rectal exam
[2022-09-30 13:24] VITALS: BP 122/86; PULSE 80; O2SAT 100
--- NOTE | 2022-09-30 13:26 | PC.NURSE ---
Pt updated on care. Pt resting in bed. Provided with warm blanket. Call light within reach. No questions or concerns voiced.
--- NOTE | 2022-09-30 13:27 | PC.NURSE ---
Pt aware of need for urine and stool sample. States she doesn't need to go at this time.
[2022-09-30 13:28] LABS: Activated Partial Thrombo Time 26.5 seconds (22.8-30.6); INR 0.94 (0.9-1.1); Prothrombin Time 10.2 seconds (10.1-12.5)
[2022-09-30 13:28] LABS: Occult Blood,Stool Negative (Negative)
[2022-09-30 13:45] LABS: Microscopic, Urine URINE MICROSCOPIC (MICROSCOPIC)
[2022-09-30 13:46] LABS: Appearance,Urine CLEAR (Clear); Bilirubin,Urine Negative (Negative); Blood, Urine Negative (Negative); Color,Urine YELLOW (Yellow); Glucose,Urine (UA) Negative (Negative); Ketones,Urine Negative (Negative); Leukocyte Esterase,Urine Negative (Negative); Nitrate,Urine Negative (Negative); Protein,Urine Negative (Negative); Specific Gravity, Urine 1.015 (1.005-1.030); Urobilinogen,Urine 0.2 EU/dl (0.2)
[2022-09-30 14:07] VITALS: BP 124/84; PULSE 80; RESP 20; TEMP 36.8; O2SAT 100
[2022-09-30 14:08] LABS: Bacteria,Urine Trace /lpf; WBC,Urine Occasional #/hpf (0-3)
== END 2022-09-30 14:14 | disposition home or self-care (01) ==
PROVIDERS: Emergency Provider Emergency Medicine
DX: J10.1 Influenza due to other identified influenza virus with other respiratory manifestations (principal); R07.9 Chest pain, unspecified; R94.31 Abnormal electrocardiogram [ECG] [EKG]; R20.2 Paresthesia of skin; K92.1 Melena; R19.7 Diarrhea, unspecified; Z20.822 Contact with and (suspected) exposure to COVID-19; R11.0 Nausea; F17.200 Nicotine dependence, unspecified, uncomplicated; Z79.52 Long term (current) use of systemic steroids; Z79.899 Other long term (current) drug therapy
CPT/HCPCS: 71046; 80048; 81001; 82272; 84484; 85025; 85610; 85730; 93005; 99284; C9803; G0328; U0003; U0005

== ENCOUNTER 2022-10-04 15:49 | Emergency (ER) | payer MEDICAID, SELFPAY ==
--- NOTE | 2022-10-04 17:44 | EXP.UTC ---
Discharge Plan Disposition Patient Disposition: Home, Self-Care Condition: Good Prescriptions Prescriptions: New nwwiiphisqxyfpo-pukimbmuw-GA [Bromfed DM] 2-30-10 mg/5 mL Syrup 5 ml PO Q6H PRN (Reason: Cough) Qty: 240 0RF methylprednisolone 4 mg Tablets,Dose Pack 4 mg PO DIRECTED Qty: 21 0RF amoxicillin-pot clavulanate 875-125 mg Tablet 1 tab PO Q12H Qty: 20 0RF No Action omeprazole 20 mg capsule,delayed release(DR/EC) 20 mg PO DAILY Qty: 30 2RF tiotropium bromide 2.5 mcg/actuation mist 2 puff INHALATION Label Comments: inhale 2 puffs by MOUTH EVERY DAY ondansetron 4 MG tablet,disintegrating 4 mg PO Q8HP PRN (Reason: Nausea) Qty: 12 0RF Referrals Follow up/Referrals: Provider,Referral, MD [Primary Care Provider] - See instructions Activity Restrictions/Add. Instructions Additional Instructions/Restrictions: Drink plenty of fluids. Take tylenol or ibuprofen for pain or fever. Take the medications as directed. Follow up with your regular doctor. GO TO THE ER FOR ANY WORSENING SYMPTOMS Don't start the oral steroids until tomorrow, since you had the shot here today. Clinical Impressions Clinical Impression: Acute bronchitis Stand Alone Forms Stand Alone Forms: Work/School Release Instructions Patient Instructions: DI for Acute Bronchitis Discharge ED Provider: Jadiel Whitten [facility] General Stated complaint: flu pos 09/30, body aches, soa, cough Time Seen by Provider: 10/04/22 17:44 History of Present Illness Provider Complaint: She tested positive for influenza A on 09/30. Since then she states that she feels like she is getting better, but her cough and sinus congestion is getting worse instead of better. She is no longer running a fever for the past 2 days. Related Data Home Medications Medication Instructions Recorded Confirmed tiotropium bromide 2.5 2 puff inhalation 04/15/21 08/12/22 mcg/actuation mist for inhalation Previous Rx's Medication Instructions Recorded ondansetron 4 mg disintegrating 4 mg PO Q8HP PRN Nausea #12 tabs 05/04/22 tablet omeprazole 20 mg capsule,delayed 20 mg PO DAILY #30 caps 07/22/22 release amoxicillin 875 mg-potassium 1 tab PO Q12H #20 tabs 10/04/22 clavulanate 125 mg tablet mcachmkvfyjpgqj-dkzjaiasodjdask-DJ 5 ml PO Q6H PRN Cough #240 mL 10/04/22 2 mg-30 mg-10 mg/5 mL oral syrup (Bromfed DM) methylprednisolone 4 mg tablets in 4 mg PO DIRECTED #21 tabs 10/04/22 a dose pack Allergies Allergy/AdvReac Type Severity Reaction Status Date / Time No Known Allergies Allergy Verified 10/04/22 17:59 PFSH PFS Disclaimer: The information contained in this section may have been updated after the patient was seen, as this information can be updated by other users. Medical History Abnormal electrocardiography Dyspnea Left arm numbness Tobacco dependence syndrome Surgical History H/O section H/O wisdom tooth extraction History of foot surgery History of hysterectomy Hx of cholecystectomy Family History Other No significant family history Social History Smoking Status: Never smoker alcohol intake: current current occupational status: other Travel in the last 8 weeks: None household members: family housing: house current occupational exposures/hazards: No caffeine: No ROS Obtained: Yes All systems reviewed & no additional complaints except as documented Constitutional Constitutional: Reports chills and Denies fever(s) Eyes Eyes: Denies eye discharge ENT Ears, Nose, Mouth, and Throat: Reports as per HPI Cardiovascular Cardiovascular: Denies chest pain Respiratory Respiratory: Denies chest congestion and Reports cough Gastrointest
--- NOTE | 2022-10-04 17:46 | XR_ITS ---
PROCEDURE INFORMATION: Exam: XR Chest Exam date and time: 10/04/2022 5:44 PM Age: 32 years old Clinical indication: Condition or disease; Patient HX: Flu, positive swab in utc; Additional info: Cough TECHNIQUE: Imaging protocol: Radiologic exam of the chest. Views: 2 views. COMPARISON: CR XR CHEST 2V 09/30/2022 12:19 PM FINDINGS: Lungs: There are multiple small pulmonary nodules both lung muniz and numerous mediastinal, hilar calcifications again noted consistent with prior granulomatous disease. There are no infiltrates or significant interval changes detected. Pleural spaces: Unremarkable. No pleural effusion. No pneumothorax. Heart/Mediastinum: Cardiac silhouette is not enlarged. Bones/joints: Unremarkable. IMPRESSION: Stable chronic granulomatous changes. No active disease.
[2022-10-04 17:55] VITALS: BP 115/77; PULSE 95; RESP 16; TEMP 37.2; O2SAT 97; BMI 33.9
[2022-10-04 18:51] VITALS: BP 115/77; PULSE 95; RESP 16; TEMP 37.2
== END 2022-10-04 18:58 | disposition home or self-care (01) ==
PROVIDERS: Emergency Provider Nurse Practitioner Family
DX: J20.9 Acute bronchitis, unspecified (principal)
CPT/HCPCS: 71046; 96372; 99212; G0463; J0696

== ENCOUNTER 2024-02-13 18:00 | Outpatient (CLI) | payer MEDICAID, SELFPAY ==
[2024-02-13 17:56] LABS: Adenovirus,PCR Not Detected (NotDetected); Coronavirus 19, PCR Not Detected (NotDetected); Coronavirus 229E Not Detected (NotDetected); Coronavirus NL63 Not Detected (NotDetected); Coronavirus OC43 Not Detected (NotDetected); Coronovirus HKU1,PCR Not Detected (NotDetected); Human Metapneumovirus Not Detected (NotDetected); Influenza A, PCR Not Detected (NotDetected); Influenza AH1, 2009 Not Detected (NotDetected); Influenza AH1, PCR Not Detected (NotDetected); Influenza AH3,PCR Not Detected (NotDetected); Influenza B, PCR Not Detected (NotDetected); Parainfluenza 1, PCR Not Detected (NotDetected); Parainfluenza 2, PCR Not Detected (NotDetected); Parainfluenza 3, PCR Not Detected (NotDetected); Parainfluenza 4, PCR Not Detected (NotDetected); Respiratory Syncytial Virus Not Detected (NotDetected); Rhinovirus/Enterovirus Not Detected (NotDetected)
== END 2024-02-13 23:59 | disposition home or self-care (01) ==
LOC: LAB.DROPOF 02-14 10:43
PROVIDERS: PCP Student in an Organized Health Care Education/Training Program; Visit Provider Student in an Organized Health Care Education/Training Program
DX: J02.9 Acute pharyngitis, unspecified (principal); R05.9 Cough, unspecified; R09.89 Other specified symptoms and signs involving the circulatory and respiratory systems; Z20.828 Contact with and (suspected) exposure to other viral communicable diseases
CPT/HCPCS: 87581; 87632; 87635; 87798

== ENCOUNTER 2024-03-31 21:44 | Emergency (ER) | payer SELFPAY ==
[2024-03-31 21:44] VITALS: BP 125/60; PULSE 87; RESP 20; TEMP 36.5; O2SAT 100; BMI 39.4
--- NOTE | 2024-03-31 21:45 | ECG_ITS ---
APPROVED REPORT Exam: Resting ECG HR:82 bpm ECG Measurements Heart Rate 82 AXES WI 146 P 70 QRSd 91 QRS 84 QT 365 T 54 QTc 403 Conclusion SINUS RHYTHM NORMAL ECG Electronically signed by : MARCO MEDINA, 04/01/2024 12:23:52
[2024-03-31 22:01] VITALS: BP 115/66; PULSE 81; O2SAT 96
[2024-03-31 22:30] VITALS: BP 114/69; PULSE 85; O2SAT 97
--- NOTE | 2024-03-31 22:35 | XR_ITS ---
PROCEDURE INFORMATION: Exam: XR Chest Exam date and time: 03/31/2024 11:03 PM Age: 33 years old Clinical indication: Shortness of breath; Additional info: SOA, cp to L shoulder TECHNIQUE: Imaging protocol: Radiologic exam of the chest. Views: 1 view. COMPARISON: CR XR CHEST 2V 10/04/2022 5:44 PM FINDINGS: Lungs: No consolidation. Stable pulmonary nodules and calcified granulomas. Pleural spaces: No pleural effusion. No pneumothorax. Heart/Mediastinum: No cardiomegaly. Calcified mediastinal and hilar lymph nodes. Bones/joints: Unremarkable. IMPRESSION: No acute pulmonary findings.
[2024-03-31 22:41] LABS: Basophils # 0.2 K/mm3 (0-0.2); Eosinophils # 0.7 K/mm3 (0.0-0.4); Eosinophils % 3.9 % (0.1-12.0); Hematocrit 41.4 % (37.0-47.0); Hemoglobin 13.6 g/dL (12.2-16.2); Lymphocytes # 5.6 K/mm3 (0.7-4.5); Lymphocytes % 30.5 % (10-50); Mean Corpuscular HGB Conc 32.9 g/dL (31.8-35.4); Mean Corpuscular Hemoglobin 30.4 pg (27.0-31.2); Mean Corpuscular Volume 92.4 fl (81-99); Mean Platelet Volume 8.3 fl (7.4-10.4); Monocytes # 1.2 K/mm3 (0.1-1.0); Monocytes % 6.5 % (1.7-9.3); Neutrophils # 10.7 K/mm3 (1.8-7.8); Neutrophils % 58.1 % (37.0-80.0); Platelet Count 383 K/mm3 (142-424); Red Blood Count 4.48 M/mm3 (4.20-5.40); Red Cell Distribution Width 13.6 % (11.5-17.5); White Blood Count 18.4 K/mm3 (4.8-10.8)
[2024-03-31 22:46] LABS: MANUAL DIFFERENTIAL MANUAL DIFFERENTIAL (MANUAL DIFF)
[2024-03-31 22:48] LABS: Chloride 106 mmol/L (98-107)
[2024-03-31 22:49] LABS: Sodium 139 mmol/L (136-145)
[2024-03-31 22:51] LABS: Alanine Aminotransferase 28 U/L (12-78); Alkaline Phosphatase 74 U/L (38-126); Aspartate Amino Transferase 30 U/L (14-36); Bilirubin,Total 0.3 mg/dl (0.2-1.3); Blood Urea Nitrogen 13 mg/dl (7-17); Carbon Dioxide 26 mmol/L (22.0-30.0); Creatinine Clearance Estimated 187 mL/min (50-200); Estimated Glomerular Filt Rate 96 ml/min (>60); GFR (African American) 116 ML/MIN (>60)
[2024-03-31 22:52] LABS: Albumin Level 4.1 g/dl (3.5-5.0); Albumin/Globulin Ratio 1.2 (1.1-1.8); Calcium 9.3 mg/dl (8.4-10.2); Globulin 3.3 g/dL (1.3-3.2); Glucose 122 mg/dl (74-100); Lipase 86 U/L (23-300); Total Protein,Serum 7.4 g/dl (6.3-8.2)
[2024-03-31 22:54] LABS: Eosinophils % 7 % (0-3); Lymphocytes % 34 % (10-50); Monocytes % 8 % (2-9); Neutrophils % 51 % (42-76); Platelet Estimate Normal; RBC Morphology Normal; Total Cells Counted 100
[2024-03-31 23:00] VITALS: BP 98/64; PULSE 83; O2SAT 96
[2024-03-31] MEDS: BELLADONNA ALKALOIDS 60 ML ML PO (23:00)
[2024-03-31 23:01] VITALS: BP 98/64; PULSE 81; RESP 20; O2SAT 96
[2024-03-31 23:05] LABS: Troponin I < 0.01 ng/ml (0.00-0.034)
--- NOTE | 2024-03-31 23:07 | [facility].EDCP ---
Discharge Plan Disposition Patient Disposition: Home, Self-Care Prescriptions Prescriptions: New prazosin 1 mg capsule 1 mg PO DAILY Qty: 7 0RF sertraline 150 mg capsule 150 mg PO .nightly Qty: 7 0RF No Action omeprazole 20 mg capsule,delayed release(DR/EC) 20 mg PO DAILY Qty: 30 2RF tiotropium bromide 2.5 mcg/actuation mist 2 puff INHALATION Patient Comments: inhale 2 puffs by MOUTH EVERY DAY hydroxyzine HCl 25 mg tablet 25 mg PO Patient Comments: TAKE 1 TABLET BY MOUTH EVERY 12 HOURS NEEDED FOR ANXIETY prazosin 1 mg capsule 1 mg PO HS Patient Comments: TAKE 1 CAPSULE BY MOUTH AT BEDTIME sertraline 100 mg tablet 100 mg PO Patient Comments: TAKE 1 TABLET BY MOUTH ONCE DAILY DIRECTED FOR ANXIETY/DEPRESSION ibuprofen 600 mg tablet 600 mg PO PRN Patient Comments: TAKE 1 TABLET BY MOUTH EVERY 8 HOURS NEEDED FOR MIGRAINE HEADACHE fluticasone propionate [Allergy Relief (fluticasone)] 50 mcg/actuation spray,suspension 1 spray intranasal DAILY Qty: 16 2RF Rx Instructions: administer into each nostril methylprednisolone 4 mg tablets,dose pack See Rx Instructions PO PER PKG DIR Qty: 21 0RF Rx Instructions: PO PER PKG DIR pvvcpiluuturdqx-jmkgcbmqw-JU [Bromfed DM] 2-30-10 mg/5 mL syrup 5 ml PO Q4-6H PRN (Reason: cold symptoms) Qty: 118 0RF albuterol sulfate 90 mcg/actuation HFA aerosol inhaler 1 inh inhalation QID Qty: 6.7 2RF Referrals Follow up/Referrals: Judy Dasilva APRN [Primary Care Provider] - See instructions Activity Restrictions/Add. Instructions Additional Instructions/Restrictions: Please follow-up with your primary care provider. Please return to the emergency department if you develop any new or worsening symptoms or become concerned for your health. Clinical Impressions Clinical Impression: Chest pain Discharge ED Provider: Sherwin Oquendo <Hansel Fernandez MD - Last Filed: 03/31/24 23:54> General Chief Complaint: Chest Pain Stated Complaint: Chest pain Time Seen by Provider: 03/31/24 21:56 Mode of Arrival: Ambulatory Source of Information: Patient Limitations: No Limitations Description of Symptoms (Recalled from ER Triage Doc. by RN): Pt. presented to ED with c/o chest pain and shortness of breath. Symptoms started this afternoon around 1300. started with shorness of breath than had some chest pain and numbness to left arm. Pt. has a history of anxiety and panic attacks. History of Present Illness HPI narrative: Please note that above description of symptoms, in this electronic medical record under categorization of recalled from ER triage doctor by RN are reflective of an initial nursing assessment, however, is not reflective of my full history and physical exam that was personally taken and clarified. Consequentially, this preceding description of symptoms, which may include the patient's categorized chief complaint in the EMR, do not reflect my personal clinical impression, and the ultimate description of history of present illness and patient stated complaints should be deferred to this section of the note. Unless stated otherwise or congruent with this section of the note, additional signs, symptoms, or incongruence should be interpreted as inaccurate with my clinical impression. Related Data Home Medications Medication Instructions Recorded Confirmed tiotropium bromide 2.5 2 puff inhalation 04/15/21 02/13/24 mcg/actuation mist for inhalation hydroxyzine HCl 25 mg tablet 25 mg PO 02/13/24 02/13/24 ibuprofen 600 mg tablet 600 mg PO PRN 02/13/24 02/13/24 prazosin 1 mg capsule 1 mg PO HS 02/13/24 02/13/24 sertraline 100 mg tablet 100 mg PO 02/13/24 02/13/24 Previous Rx's Medication Instructions Recorded omeprazole 20 mg capsule,delayed 20 mg PO DAILY #30 caps 07/22/22 release albuterol sulfate 90 mcg/actuation 1 inh inhalation QID #6.7 grams 02/13/24 aerosol inhaler odkbpuluasdfmlz-djjqexnevnodiwn-SB 5 ml PO Q4-6H PRN cold symptoms 02/13/24 2 mg-30 mg-10 mg/5 mL oral syrup #118 mL (Bromfed DM) fluticasone propionate 50 1 spray intranasal DAILY #16 grams 02/13/24 mcg/actuation nasal spray,suspension (Allergy Relief (fluticasone)) methylprednisolone 4 mg tablets in See Rx Instructions PO PER PKG DIR 02/13/24 a dose pack #21 tabs prazosin 1 mg capsule 1 mg PO DAILY #7 caps 03/31/24 sertraline 150 mg capsule 150 mg PO .nightly #7 caps 03/31/24 Allergies Allergy/AdvReac Type Severity Reaction Status Date / Time No Known Allergies Allergy Verified 02/13/24 10:16 [facility] <Hansel Fernandez MD - Last Filed: 03/31/24 23:54> [facility] Disclaimer: The information contained in this section may have been updated after the patient was seen, as this information can be updated by other users. Medical History Tobacco dependence syndrome Dyspnea Abnormal electrocardiography Left arm numbness Surgical History History of hysterectomy Hx of cholecystectomy History of foot surgery H/O wisdom tooth extraction H/O section Family History Other No significant family history Social History Smoking Status: Current every day smoker tobacco type: cigarettes packs per day: 1 alcohol intake: current alcohol intake frequency: a few times a month current occupational status: other Travel in the last 8 weeks: None household members: family housing: house current occupational exposures/hazards: No caffeine: No <Hansel Fernandez MD - Last Filed: 03/31/24 23:54> ROS Obtained: Yes All systems reviewed & no additional complaints except as documented Physical Exam <Hansel Fernandez MD - Last Filed: 03/31/24 23:54> General General appearance: alert Neck Neck exam: Present trachea midline Chest Chest inspection: Present normal inspection and symmetric chest wall rise Respiratory Respiratory exam: Present normal lung sounds bilaterally; Absent respiratory distress, wheezes, stridor, accessory muscle use or prolonged expiratory phase Cardiovascular Cardiovascular exam: Present regular rate and normal rhythm Extremities Exam Extremities exam: Absent edema Neurological Exam Neurological exam: Present alert, oriented X3 and CN II-XII intact Skin Skin exam: Present warm and dry; Absent cyanosis, diaphoresis or pallor HEART Score <Hansel Fernandez MD - Last Filed: 03/31/24 23:54> HEART Score HEART Score assessment performed?: Yes HEART Score: 0 <Sherwin Oquendo MD - Last Filed: 04/01/24 00:53> HEART Score History (anamnesis): Slightly suspicious ECG: Normal Age: <45 years Risk factors: No known risk factors Troponin: </= normal limit HEART Score: 0 Critical Care <Hansel Fernandez MD - Last Filed: 03/31/24 23:54> Critical Care Time Critical Care Time: No Medical Decision Making <Hansel Fernandez MD - Last Filed: 03/31/24 23:54> Medical Records Medical records reviewed: Yes I reviewed the patient's medical records. Brad Inquiry Pt receiving controlled substance: No Brad was queried for this patient: No Vital Signs Vital Signs: 03/31/24 21:44 03/31/24 22:01 03/31/24 22:30 Temperature 97.7 F Temperature Source Oral Pulse Rate 81 85 Pulse Rate [Right Radial] 87 Respiratory Rate 20 Blood Pressure 115/66 114/69 Blood Pressure [Right Arm] 125/60 Blood Pressure Mean 80 80 Blood Pressure Mean [Right Arm] 81 Blood Pressure Source Blood Pressure Source [Right Arm] Automatic Cuff Blood Pressure Position Blood Pressure Position [Right Arm] Sitting 02 Sat by Pulse Oximetry 100 96 97 Oxygen Delivery Method Room Air Room Air Room Air 03/31/24 23:00 03/31/24 23:01 03/31/24 23:30 Temperature Temperature Source Pulse Rate 83 81 83 Pulse Rate [Right Radial] Respiratory Rate 20 Blood Pressure 98/64 L 98/64 L 111/63 Blood Pressure [Right Arm] Blood Pressure Mean 74 78 Blood Pressure Mean [Right Arm] Blood Pressure Source Automatic Cuff Blood Pressure Source [Right Arm] Blood Pressure Position Sitting Blood Pressure Position [Right Arm] 02 Sat by Pulse Oximetry 96 96 96 Oxygen Delivery Method Room Air Room Air Room Air Lab Data Labs: Lab Results 03/31/24 21:48: WBC 18.4 H, RBC 4.48, Hgb 13.6, Hct 41.4, MCV 92.4, MCH 30.4, MCHC 32.9, RDW 13.6, Plt Count 383, MPV 8.3, Neut % (Auto) 58.1, Lymph % (Auto) 30.5, Hodgeman % (Auto) 6.5, Eos % (Auto) 3.9, Baso % (Auto) 1.0, Neut # (Auto) 10.7 H, Lymph # (Auto) 5.6 H, Hodgeman # (Auto) 1.2 H, Eos # (Auto) 0.7 H, Baso # (Auto) 0.2, Total Counted 100, Neutrophils % (Manual) 51, Lymphocytes % (Manual) 34, Monocytes % (Manual) 8, Eosinophils % (Manual) 7 H, Platelet Estimate Normal, RBC Morphology Normal, Sodium 139, Potassium 4.0, Chloride 106, Carbon Dioxide 26, Anion Gap 11.0, BUN 13, Creatinine 0.70, Estimated Creat Clear 187, Estimated GFR 96, Est GFR ( Amer) 116, Glucose 122 H, Calcium 9.3, Total Bilirubin 0.3, AST 30, ALT 28, Alkaline Phosphatase 74, Troponin I < 0.01, Total Protein 7.4, Albumin 4.1, Globulin 3.3 H, Albumin/Globulin Ratio 1.2, Lipase 86 04/01/24 00:13: Troponin I < 0.01 03/31/24 21:48 03/31/24 21:48 Response Orders (Tests/Meds): ED MEDICATIONS Discontinued Medications Generic Name Dose Route Start Last Admin Trade Name Freq PRN Reason Stop Dose Admin Belladonna Alkaloids 60 ml 03/31/24 22:35 03/31/24 23:00 Belladonna Alkaloids 60 Ml Ml PO 03/31/24 22:36 60 ml ONCE ONE Administration ORDERS Category Date Time Status CXR --portable [XR chest portable] Stat Exams 03/31/24 22:35 Completed CBC w/Auto Diff [Complete Blood Count Auto Diff] Stat Lab 03/31/24 21:48 Completed CMP [Comprehensive Metabolic Panel] Stat Lab 03/31/24 21:48 Completed Lipase Stat Lab 03/31/24 21:48 Completed Trop I [Troponin I] Stat Lab 03/31/24 21:48 Completed Troponin I Q3H Lab 04/01/24 00:13 Completed Troponin I Q3H Lab 04/01/24 00:45 Received MDM Narrative Medical Decision Narrative: 33-year-old female history of anxiety, panic, PTSD, smoking 1/2 pack/day presenting with chest pain and shortness of breath. States that it started just before arrival. Substernal, did not radiate, associated left upper extremity numbness. Never had anything like this in the past before. Family at bedside stating that patient has strong history of anxiety and panic attacks. Both of them state that this was similar, but worse. They also state the patient has not had a prazosin or her sertraline in about 2 weeks and has been unable to get follow-up with mental health provider because they have been on vacation. Patient denies shortness of breath, nausea, vomiting, syncope, abdominal pain, urinary symptoms, sick symptoms, or any other concerns. History was obtained via conversation with patient and family. On arrival, patient hemodynamically stable, alert, oriented x4, appropriate, GCS 15, moving all extremities spontaneously, pupils equal and reactive to light. Full physical exam performed and significant for anxious appearing female no acute distress. Cardiopulmonary exam within normal limits. Lower extremities nonedematous. Pulses are equal and symmetric.. Differential includes gastritis, esophagitis, pancreatitis, anxiety, panic, pneumothorax, patient is, [place], among others. Patient was given GI cocktail for symptomatic management and correction of underlying abnormalities. Workup independently interpreted and significant for leukocytosis 18.4 with neutrophilia. Nonactionable chemistry. Initial troponin negative. Low risk Wells, PERC negative. EKG independently interpreted 82 bpm sinus rhythm without ST or T wave changes concerning for acute ischemia. MS 146, QRS 91, QTc 4 3. Arnegard normal. Chest x-ray without acute cardiopulmonary airspace disease. Patient was placed in observation beginning at 10 PM in order to minimize delta troponins and determine need for admission versus home-going. The patient was provided serial exams, cardiac monitoring, meds while awaiting results. Independent interpretation of results demonstrated findings as above. Final troponin disposition pending at time of handoff to oncoming physician. Patient also on medications, has follow-up appointment this coming week, medications until that time were sent to patient's pharmacy of choice. Sales Service Technician disclaimer Much of this encounter note is an electronic special systems technician spoken language to printed text. Electronic special systems technician of the spoken language may permit errors. Although I have reviewed the note, some errors may still exist. <Sherwin Oquendo MD - Last Filed: 04/01/24 00:53> Vital Signs Vital Signs: 03/31/24 21:44 03/31/24 22:01 03/31/24 22:30 Temperature 97.7 F Temperature Source Oral Pulse Rate 81 85 Pulse Rate [Right Radial] 87 Respiratory Rate 20 Blood Pressure 115/66 114/69 Blood Pressure [Right Arm] 125/60 Blood Pressure Mean 80 80 Blood Pressure Mean [Right Arm] 81 Blood Pressure Source Blood Pressure Source [Right Arm] Automatic Cuff Blood Pressure Position Blood Pressure Position [Right Arm] Sitting 02 Sat by Pulse Oximetry 100 96 97 Oxygen Delivery Method Room Air Room Air Room Air 03/31/24 23:00 03/31/24 23:01 03/31/24 23:30 Temperature Temperature Source Pulse Rate 83 81 83 Pulse Rate [Right Radial] Respiratory Rate 20 Blood Pressure 98/64 L 98/64 L 111/63 Blood Pressure [Right Arm] Blood Pressure Mean 74 78 Blood Pressure Mean [Right Arm] Blood Pressure Source Automatic Cuff Blood Pressure Source [Right Arm] Blood Pressure Position Sitting Blood Pressure Position [Right Arm] 02 Sat by Pulse Oximetry 96 96 96 Oxygen Delivery Method Room Air Room Air Room Air Lab Data Labs: Lab Results 03/31/24 21:48: WBC 18.4 H, RBC 4.48, Hgb 13.6, Hct 41.4, MCV 92.4, MCH 30.4, MCHC 32.9, RDW 13.6, Plt Count 383, MPV 8.3, Neut % (Auto) 58.1, Lymph % (Auto) 30.5, Hodgeman % (Auto) 6.5, Eos % (Auto) 3.9, Baso % (Auto) 1.0, Neut # (Auto) 10.7 H, Lymph # (Auto) 5.6 H, Hodgeman # (Auto) 1.2 H, Eos # (Auto) 0.7 H, Baso # (Auto) 0.2, Total Counted 100, Neutrophils % (Manual) 51, Lymphocytes % (Manual) 34, Monocytes % (Manual) 8, Eosinophils % (Manual) 7 H, Platelet Estimate Normal, RBC Morphology Normal, Sodium 139, Potassium 4.0, Chloride 106, Carbon Dioxide 26, Anion Gap 11.0, BUN 13, Creatinine 0.70, Estimated Creat Clear 187, Estimated GFR 96, Est GFR ( Amer) 116, Glucose 122 H, Calcium 9.3, Total Bilirubin 0.3, AST 30, ALT 28, Alkaline Phosphatase 74, Troponin I < 0.01, Total Protein 7.4, Albumin 4.1, Globulin 3.3 H, Albumin/Globulin Ratio 1.2, Lipase 86 04/01/24 00:13: Troponin I < 0.01 Response Orders (Tests/Meds): ED MEDICATIONS Discontinued Medications Generic Name Dose Route Start Last Admin Trade Name Freq PRN Reason Stop Dose Admin Belladonna Alkaloids 60 ml 03/31/24 22:35 03/31/24 23:00 Belladonna Alkaloids 60 Ml Ml PO 03/31/24 22:36 60 ml ONCE ONE Administration ORDERS Category Date Time Status CXR --portable [XR chest portable] Stat Exams 03/31/24 22:35 Completed CBC w/Auto Diff [Complete Blood Count Auto Diff] Stat Lab 03/31/24 21:48 Completed CMP [Comprehensive Metabolic Panel] Stat Lab 03/31/24 21:48 Completed Lipase Stat Lab 03/31/24 21:48 Completed Trop I [Troponin I] Stat Lab 03/31/24 21:48 Completed Troponin I Q3H Lab 04/01/24 00:13 Completed Troponin I Q3H Lab 04/01/24 00:45 Received MDM Narrative Medical Decision Narrative: 33-year-old female history of anxiety, panic, PTSD, smoking 1/2 pack/day presenting with chest pain and shortness of breath. States that it started just before arrival. Substernal, did not radiate, associated left upper extremity numbness. Never had anything like this in the past before. Family at bedside stating that patient has strong history of anxiety and panic attacks. Both of them state that this was similar, but worse. They also state the patient has not had a prazosin or her sertraline in about 2 weeks and has been unable to get follow-up with mental health provider because they have been on vacation. Patient denies shortness of breath, nausea, vomiting, syncope, abdominal pain, urinary symptoms, sick symptoms, or any other concerns. History was obtained via conversation with patient and family. On arrival, patient hemodynamically stable, alert, oriented x4, appropriate, GCS 15, moving all extremities spontaneously, pupils equal and reactive to light. Full physical exam performed and significant for anxious appearing female no acute distress. Cardiopulmonary exam within normal limits. Lower extremities nonedematous. Pulses are equal and symmetric.. Differential includes gastritis, esophagitis, pancreatitis, anxiety, panic, pneumothorax, patient is, [place], among others. Patient was given GI cocktail for symptomatic management and correction of underlying abnormalities. Workup independently interpreted and significant for leukocytosis 18.4 with neutrophilia. Nonactionable chemistry. Initial troponin negative. Low risk Wells, PERC negative. EKG independently interpreted 82 bpm sinus rhythm without ST or T wave changes concerning for acute ischemia. MS 146, QRS 91, QTc 4 3. Arnegard normal. Chest x-ray without acute cardiopulmonary airspace disease. Patient was placed in observation beginning at 10 PM in order to minimize delta troponins and determine need for admission versus home-going. The patient was provided serial exams, cardiac monitoring, meds while awaiting results. Independent interpretation of results demonstrated findings as above. Final troponin disposition pending at time of handoff to oncoming physician. Patient also on medications, has follow-up appointment this coming week, medications until that time were sent to patient's pharmacy of choice. Sales Service Technician disclaimer Much of this encounter note is an electronic special systems technician spoken language to printed text. Electronic special systems technician of the spoken language may permit errors. Although I have reviewed the note, some errors may still exist. Azra DENNY: I assumed care of the patient at the time of handoff from the prior provider. On reassessment patient zane hemodynamically stable. Reports symptomatic resolution. Second troponin returns undetectably low. At this time no evidence of emergent pathology. These findings were communicated to patient and she was discharged in stable condition with return precautions.
[2024-03-31 23:30] VITALS: BP 111/63; PULSE 83; O2SAT 96
--- NOTE | 2024-03-31 23:47 | PC.NURSE ---
Pt family at bedside, pt states GI Cocktail has decreased her pain
--- NOTE | 2024-04-01 00:02 | PC.NURSE ---
First Troponin level normal, will do a repeat Troponin at 0100.
[2024-04-01 00:42] LABS: Troponin I < 0.01 ng/ml (0.00-0.034)
--- NOTE | 2024-04-01 00:47 | PC.NURSE ---
2nd trop sent to lab, pt provided drink, no other needs at this time
[2024-04-01 01:00] VITALS: BP 120/70; PULSE 76; RESP 20; TEMP 36.6; O2SAT 99
[2024-04-01 01:11] LABS: Troponin I < 0.01 ng/ml (0.00-0.034)
== END 2024-04-01 01:04 | disposition home or self-care (01) ==
PROVIDERS: Emergency Medicine; Emergency Provider Emergency Medicine; PCP Nurse Practitioner Family
DX: R07.9 Chest pain, unspecified (principal); R06.02 Shortness of breath; F41.1 Generalized anxiety disorder; F17.210 Nicotine dependence, cigarettes, uncomplicated; D72.829 Elevated white blood cell count, unspecified
CPT/HCPCS: 71045; 80053; 83690; 84484; 85007; 85025; 93005; 99284

== ENCOUNTER 2024-11-16 16:38 | Observation (INO) | payer SELFPAY ==
[2024-11-16 16:39] VITALS: BP 126/73; PULSE 83; RESP 16; TEMP 36.7; O2SAT 95; BMI 39.4
--- NOTE | 2024-11-16 16:54 | ED_ITS ---
<Statement entered by Jolene Burton DO - 11/16/24 23:02> I was consulted by the FINESSE, and we discussed the complexity of the problems being addressed. I approved the treatment and management plan for this patient's care in the emergency department, thus performing a substantive portion of the medical decision making. Jolene Burton DO Discharge Plan Disposition Patient Disposition: Admitted Condition: Fair Prescriptions Prescriptions: No Action omeprazole 20 mg capsule,delayed release(DR/EC) 20 mg PO DAILY Qty: 30 2RF tiotropium bromide 2.5 mcg/actuation mist 2 puff INHALATION Patient Comments: inhale 2 puffs by MOUTH EVERY DAY hydroxyzine HCl 25 mg tablet 25 mg PO Patient Comments: TAKE 1 TABLET BY MOUTH EVERY 12 HOURS NEEDED FOR ANXIETY prazosin 1 mg capsule 1 mg PO HS Patient Comments: TAKE 1 CAPSULE BY MOUTH AT BEDTIME sertraline 100 mg tablet 100 mg PO Patient Comments: TAKE 1 TABLET BY MOUTH ONCE DAILY DIRECTED FOR ANXIETY/DEPRESSION ibuprofen 600 mg tablet 600 mg PO PRN Patient Comments: TAKE 1 TABLET BY MOUTH EVERY 8 HOURS NEEDED FOR MIGRAINE HEADACHE fluticasone propionate [Allergy Relief (fluticasone)] 50 mcg/actuation spray,suspension 1 spray intranasal DAILY Qty: 16 2RF Rx Instructions: administer into each nostril methylprednisolone 4 mg tablets,dose pack See Rx Instructions PO PER PKG DIR Qty: 21 0RF Rx Instructions: PO PER PKG DIR [id number] [Bromfed DM] 2-30-10 mg/5 mL syrup 5 ml PO Q4-6H PRN (Reason: cold symptoms) Qty: 118 0RF albuterol sulfate 90 mcg/actuation HFA aerosol inhaler 1 inh inhalation QID Qty: 6.7 2RF prazosin 1 mg capsule 1 mg PO DAILY Qty: 7 0RF sertraline 150 mg capsule 150 mg PO .nightly Qty: 7 0RF Referrals Follow up/Referrals: Judy Dasilva APRN [Primary Care Provider] - See instructions Clinical Impressions Clinical Impression: Hematemesis Qualifiers: Nausea presence: with nausea Qualified Code(s): K92.0 - Hematemesis UTI (urinary tract infection) Qualifiers: Urinary tract infection type: site unspecified Hematuria presence: with hematuria Qualified Code(s): N39.0 - Urinary tract infection, site not specified Instructions Patient Instructions: DI for Acute Abdominal Pain Print Language Print Language: Irish Discharge ED Provider: Jolene Burton General Adult HPI General Chief complaint: Abdominal Pain Stated complaint: vomiting blood Time Seen by Provider: 11/16/24 18:54 Mode of Arrival: Ambulatory Source of Information: Patient Limitations: No Limitations Description of Symptoms (Recalled from ER Triage Doc. by RN): PT REPORTS INTERMITTENT BLOODY EMESIS X 4 DAYS, REPORTS HEARTBURN AND RELUX WITH LOWER ABDOMINAL PAIN History of Present Illness HPI narrative: Patient presents for evaluation of hematemesis and nausea. Patient gives a history of 4 days of emesis that has had intermittent blood associated. She denies any fever chills hemoptysis hematochezia melena. She denies any chest pain shortness of breath. She denies dysuria or vaginal discharge. She is still able to tolerate oral intake and still having bowel movements and passing flatus. She does report that she takes Aleve frequently at least once a day for body aches. Related Data Home Medications ?Medication ?Instructions ?Recorded ?Confirmed tiotropium bromide 2.5 2 puff inhalation 04/15/21 02/13/24 mcg/actuation mist for inhalation hydroxyzine HCl 25 mg tablet 25 mg PO 02/13/24 02/13/24 ibuprofen 600 mg tablet 600 mg PO PRN 02/13/24 02/13/24 prazosin 1 mg capsule 1 mg PO HS 02/13/24 02/13/24 sertraline 100 mg tablet 100 mg PO 02/13/24 02/13/24 Previous Rx's ?Medication ?Instructions ?Recorded omeprazole 20 mg capsule,delayed 20 mg PO DAILY #30 caps 07/22/22 release albuterol sulfate 90 mcg/actuation 1 inh inhalation QID #6.7 grams 02/13/24 aerosol inhaler zrapvyhqnfazayc-jrfzhvrbdhyrqmp-JK 5 ml PO Q4-6H PRN cold symptoms 02/13/24 2 mg-30 mg-10 mg/5 mL oral syrup #118 mL (Bromfed DM) fluticasone propionate 50 1 spray intranasal DAILY #16 grams 02/13/24 mcg/actuation nasal spray,suspension (Allergy Relief (fluticasone)) methylprednisolone 4 mg tablets in See Rx Instructions PO PER PKG DIR 02/13/24 a dose pack #21 tabs prazosin 1 mg capsule 1 mg PO DAILY #7 caps 03/31/24 sertraline 150 mg capsule 150 mg PO .nightly #7 caps 03/31/24 Allergies Allergy/AdvReac Type Severity Reaction Status Date / Time No Known Allergies Allergy Verified 02/13/24 10:16 [facility] Disclaimer: The information contained in this section may have been updated after the patient was seen, as this information can be updated by other users. Medical History Tobacco dependence syndrome Dyspnea Abnormal electrocardiography Left arm numbness Surgical History History of hysterectomy Hx of cholecystectomy History of foot surgery H/O wisdom tooth extraction H/O section Family History Other No significant family history Social History Smoking Status: Current every day smoker tobacco type: cigarettes packs per day: 1 alcohol intake: current alcohol intake frequency: a few times a month current occupational status: other Travel in the last 8 weeks: None household members: family housing: house current occupational exposures/hazards: No caffeine: No Have you lived/traveled outside [place] in past 30 days?: No Contact w/someone who lives/traveled outside US past 30 days?: No Exposure to someone with infectious disease in past 14 days?: No Do you have a fever (greater than 100.4 F or 38 C)?: No Have you tested positive for COVID-19: No Exposed to someone with COVID-19 in past 14 days?: No Do you have a sore throat?: No Do you have a cough?: No Do you have any weakness?: No Do you have any diarrhea?: No Are you experiencing any unusual bleeding?: No Do you have any muscle aches/pain?: No Do you have any abdominal pain?: No Are you experiencing loss of taste or smell?: No Other Medical History Have you received the Flu Vaccine for this season: No Have you received the Pneumonia Vaccine: No ROS Obtained: Yes Systems reviewed as appropriate & no additional complaints except as documented Physical Exam General General appearance: alert and in no apparent distress Respiratory Respiratory exam: Present normal lung sounds bilaterally Cardiovascular Cardiovascular exam: Present regular rate Neurological Exam Neurological exam: Present alert and oriented X3 Medical Decision Making Medical Records Medical records reviewed: Yes I reviewed the patient's medical records. Screening: Per USPSTF and CDC recommendations, given the prevalence of disease in our region, it is our hospital?s policy to screen for HIV and viral Hepatitis for all patients aged 18 and over and those with ongoing risk factors. Brad Inquiry Pt receiving controlled substance: No Vital Signs: 11/16/24 16:39 11/16/24 19:15 Temperature 98.0 F Temperature Source Oral Pulse Rate 83 Pulse Rate [Radial] 83 Respiratory Rate 16 Blood Pressure 133/83 Blood Pressure [Left Arm] 126/73 Blood Pressure Mean [Left Arm] 90 Blood Pressure Source [Left Arm] Automatic Cuff Blood Pressure Position [Left Arm] Sitting 02 Sat by Pulse Oximetry 95 97 Oxygen Delivery Method Room Air Lab Data Lab results reviewed: Yes I reviewed the patient's lab results. Lab Results 11/16/24 16:47: Urine Color Dark yellow, Urine Appearance Clear, Urine pH 6.0, Ur Specific [place] >= 1.030, Urine Protein Negative, Urine Glucose (UA) Negative, Urine Ketones Negative, Urine Blood Negative, Urine Nitrate Negative, Urine Bilirubin Negative, Urine Urobilinogen 1.0, Ur Leukocyte Esterase Negative, Urine RBC 3-5, Urine WBC Occasional, Ur Squamous Epith Cells 20-50, Calcium Oxalate Crystal 2+, Urine Bacteria 3+, Urine Mucus 3+ 11/16/24 18:54: WBC 18.0 H, RBC 4.85, Hgb 13.7, Hct 41.8, MCV 86.2, MCH 28.2, MCHC 32.8, RDW 13.5, Plt Count 461 H, MPV 10.1, Neut % (Auto) 57.5, Lymph % (Auto) 30.8, Gordon % (Auto) 6.6, Eos % (Auto) 4.0, Baso % (Auto) 0.6, Neut # (Auto) 10.3 H, Lymph # (Auto) 5.5 H, Gordon # (Auto) 1.2 H, Eos # (Auto) 0.7 H, Baso # (Auto) 0.1, PT 9.8, INR 0.88 L, APTT 27.0, Sodium 140, Potassium 3.9, Chloride 105, Carbon Dioxide 26, Anion Gap 12.9, BUN 13, Creatinine 0.80, Estimated Creat Clear 162, Estimated GFR 82, Est GFR ( Amer) 99, Glucose 104 H, Calcium 8.8, Total Bilirubin 0.3, AST 36, ALT 42, Alkaline Phosphatase 103, Total Protein 7.4, Albumin 4.5, Globulin 2.9, Albumin/Globulin Ratio 1.6, HCV Ab MANJU w/Rflx PCR Qn Negative, HIV Ag/Ab Combo Qual Negative 11/16/24 18:54 11/16/24 18:54 Orders (Tests/Meds): ED MEDICATIONS Generic Name Dose Route Start Last Admin Trade Name Freq PRN Reason Stop Dose Admin Pantoprazole Sodium 80 mg/ 100 mls @ 10 mls/hr 11/16/24 20:45 Sodium Chloride IV 11/19/24 20:44 .Q10H AMALIA Ceftriaxone Sodium 1 gm/ 50 mls @ 100 mls/hr 11/16/24 20:45 Sodium Chloride IV 11/26/24 20:44 Q24H AMALIA Sodium Chloride 10 ml 11/16/24 19:02 11/16/24 19:14 Sodium Chloride 0.9% 10ml Vial IV 12/16/24 19:01 10 ml NEEDED PRN Administration dilute protonix Discontinued Medications Generic Name Dose Route Start Last Admin Trade Name Freq PRN Reason Stop Dose Admin Sodium Chloride 1,000 mls @ 999 mls/hr 11/16/24 19:02 11/16/24 19:14 Sod Chlor 0.9% 1000ml Bag IV 11/16/24 20:02 999 mls/hr .Q1H1M ONE Administration Iopamidol 75 ml 11/16/24 19:42 11/16/24 19:43 Iopamidol-370 (76%);100ml Bottle IV 11/16/24 19:43 75 ml ONCE ONE Administration Ondansetron HCl 4 mg 11/16/24 19:02 11/16/24 19:15 Ondansetron 4mg/2ml Vial IV 11/16/24 19:03 4 mg ONCE ONE Administration Pantoprazole Sodium 40 mg 11/16/24 19:02 11/16/24 19:14 Pantoprazole 40mg Vial IV 11/16/24 19:03 40 mg ONCE ONE Administration Sodium Chloride 10 ml 11/16/24 19:42 11/16/24 19:43 Sodium Chloride 0.9% 10ml Syr (Rad Only) IV 11/16/24 19:43 10 ml ONCE ONE Administration ORDERS Category Date Time Status CT abdomen pelvis w con Stat Cat Scan 11/16/24 19:02 Completed CBC w/Auto Diff [Complete Blood Count Auto Diff] Stat Lab 11/16/24 18:54 Results CMP [Comprehensive Metabolic Panel] Stat Lab 11/16/24 18:54 Completed HIV Combo Stat Lab 11/16/24 18:54 Completed Hepatitis C Ab Qual. W/ RFX Stat Lab 11/16/24 18:54 Completed PT/PTT Stat Lab 11/16/24 18:54 Completed UA [Urinalysis and Microscopic] Stat Lab 11/16/24 16:47 Completed Urine Culture Stat Micro 11/16/24 16:47 Received Medical Decision Narrative: In summary patient is a 34-year-old female who presents to the emergency department for evaluation of nausea and hematemesis for 4 days. Patient is hemodynamically stable with a blood pressure 126/73 pulse 83 breathing 16 times a minute satting at 95% on room air upon arrival, with a temperature of 98.0. Physical exam is remarkable for mild abdominal tenderness in the epigastrium with no rebound or guarding or rigidity. Bowel sounds clear and equal bilaterally to the bases. Patient has no CVA tenderness to percussion.. Differential diagnosis includes Augustina-Pro tear versus gastritis versus ulcer versus gastroenteritis etc. Initial workup will be conducted with hematologic labs urinalysis CT scan abdomen pelvis. Initial interventions include crystalloid bolus Tylenol Zofran. Initial workup reviewed by me shows a white count of 18 with a normal H&H and absolute neutrophil count of 10.3 and the remainder of her hematologic labs nonactionable urinalysis shows however that it is negative for blood negative for nitrite leukocyte Estrace negative but microscopic exam shows 3-5 red cells with occasional white cells 3+ bacteria which indicates likely contamination but could be consistent with a urinary tract infection. My informal reputation of her CT scan abdomen pelvis shows no acute processes prior to radiology read. Given the possibility of possible ulcer versus worsening bleeding I had interact discussion with hospital medicine regarding patient CONNELL and findings and she will be admitted for further evaluation and care. She has been given a dose of Rocephin IV as well as started on a Protonix drip. Critical Care Critical Care Time Critical Care Time: Yes Attestation: On 11/16/24, the high probability of a clinically significant, sudden or life threatening deterioration of the following systems cardiovascular, gastrointestinal; required my full and direct attention, intervention and personal management. The time I documented below is in addition to time spent performing reported procedures but includes the following listed in this critical care notation. Total Time Total Critical Care Time: 35
[2024-11-16 18:01] LABS: Microscopic, Urine URINE MICROSCOPIC (MICROSCOPIC)
[2024-11-16 18:04] LABS: Appearance,Urine CLEAR (Clear); Blood, Urine Negative (Negative); Color,Urine DARK YELLOW (Yellow); Glucose,Urine (UA) Negative (Negative); Ketones,Urine Negative (Negative); Leukocyte Esterase,Urine Negative (Negative); Nitrate,Urine Negative (Negative); Protein,Urine Negative (Negative); Specific Gravity, Urine >= 1.030 (1.005-1.030)
[2024-11-16 18:18] LABS: Bilirubin,Urine Negative (Negative)
--- NOTE | 2024-11-16 19:02 | CT_ITS ---
PROCEDURE INFORMATION: Exam: CT Abdomen And Pelvis With Contrast Exam date and time: 11/16/2024 7:40 PM Age: 34 years old Clinical indication: Other: Hematemesis TECHNIQUE: Imaging protocol: Computed tomography of the abdomen and pelvis with contrast. Radiation optimization: All CT scans at this facility use at least one of these dose optimization techniques: automated exposure control; mA and/or kV adjustment per patient size (includes targeted exams where dose is matched to clinical indication); or iterative reconstruction. Contrast material: ISOVUE; Contrast volume: 75 ml; Contrast route: IV; COMPARISON: CT ANGIO ABDOMEN PELVIS 06/08/2022 5:54 PM FINDINGS: Lungs: Chronic granulomatous calcifications present within the mediastinum and visualized lung muniz unchanged. Lung bases otherwise aerated and clear. Liver: Liver is borderline enlarged with mild fatty infiltration. Gallbladder and biliary ducts: Gallbladder has been removed. Bile ducts are not appreciably dilated. Pancreas: Unremarkable. Main pancreatic duct is not significantly dilated. Spleen: Normal. No splenomegaly. Adrenal glands: Normal. No mass. Kidneys and ureters: Kidneys are unremarkable. No calculi or hydronephrosis detected. Stomach and bowel: Few scattered diverticuli large bowel.. No obstruction. No mucosal thickening. Appendix: No evidence of appendicitis. Intraperitoneal space: Unremarkable. No free air. No significant fluid collection. Vasculature: Unremarkable. No abdominal aortic aneurysm. Lymph nodes: Unremarkable. No enlarged lymph nodes. Urinary bladder: Unremarkable as visualized. Reproductive: Uterus has been removed. Bones/joints: Unremarkable. No acute fracture. Soft tissues: There is focal masslike enlargement within the lower aspect of the right rectus abdominis muscle just above the pubic symphysis with suggestion of a 3 cm isodense intramuscular mass best seen in the coronal plane similar in appearance to previous exam. It is unclear if this represents a recurrent intramuscular hematoma or stable benign intramuscular tumor such as a desmoid tumor or endometrioma. IMPRESSION: 1. No acute findings within the abdomen or pelvis. 2. Small intramuscular mass right lower rectus abdominis musculature similar in appearance to prior study as discussed above.
[2024-11-16 19:04] LABS: Bacteria,Urine 3+ /lpf; Calcium Oxalate Crystals,Urine 2+ /lpf; Mucus,Urine 3+ /lpf; Squamous Epithelial Cell,Urine 20-50 #/hpf (0-5); WBC,Urine Occasional #/hpf (0-3)
[2024-11-16 19:10] LABS: Basophils # 0.1 K/mm3 (0-0.2); Basophils % 0.6 % (0.1-2.0); Eosinophils # 0.7 K/mm3 (0.0-0.4); Hematocrit 41.8 % (37.0-47.0); Hemoglobin 13.7 g/dL (12.2-16.2); Lymphocytes # 5.5 K/mm3 (0.7-4.5); Lymphocytes % 30.8 % (10-50); Mean Corpuscular HGB Conc 32.8 g/dL (31.8-35.4); Mean Corpuscular Hemoglobin 28.2 pg (27.0-31.2); Mean Corpuscular Volume 86.2 fl (81-99); Mean Platelet Volume 10.1 fl (7.4-10.4); Monocytes # 1.2 K/mm3 (0.1-1.0); Monocytes % 6.6 % (1.7-9.3); Neutrophils # 10.3 K/mm3 (1.8-7.8); Neutrophils % 57.5 % (37.0-80.0); Platelet Count 461 K/mm3 (142-424); Red Blood Count 4.85 M/mm3 (4.20-5.40); Red Cell Distribution Width 13.5 % (11.5-17.5)
[2024-11-16] MEDS: SODIUM CHLORIDE 0.9% 10ML VIAL 10 ML IV (19:14)
[2024-11-16] MEDS: PANTOPRAZOLE 40MG VIAL 40 MG IV (19:14)
[2024-11-16] MEDS: 0.9 % SODIUM CHLORIDE 1000ML 1,000 ML 999 ML IV (19:14)
[2024-11-16 19:15] VITALS: BP 133/83; PULSE 83; O2SAT 97
[2024-11-16] MEDS: ONDANSETRON 4MG/2ML VIAL 4 MG IV (19:15)
[2024-11-16 19:18] LABS: Albumin Level 4.5 g/dl (3.5-5.0); Chloride 105 mmol/L (98-107); Potassium 3.9 mmoL/L (3.5-5.1); Sodium 140 mmol/L (136-145)
[2024-11-16 19:21] LABS: Alanine Aminotransferase 42 U/L (12-78); Albumin/Globulin Ratio 1.6 (1.1-1.8); Alkaline Phosphatase 103 U/L (38-126); Anion Gap 12.9 mEq/L (5-15); Aspartate Amino Transferase 36 U/L (14-36); Bilirubin,Total 0.3 mg/dl (0.2-1.3); Blood Urea Nitrogen 13 mg/dl (7-17); Calcium 8.8 mg/dl (8.4-10.2); Carbon Dioxide 26 mmol/L (22.0-30.0); Creatinine Clearance Estimated 162 mL/min (50-200); Estimated Glomerular Filt Rate 82 ml/min (>60); GFR (African American) 99 ML/MIN (>60); Globulin 2.9 g/dL (1.3-3.2); Glucose 104 mg/dl (74-100); Total Protein,Serum 7.4 g/dl (6.3-8.2)
[2024-11-16 19:22] LABS: MANUAL DIFFERENTIAL MANUAL DIFFERENTIAL (MANUAL DIFF)
[2024-11-16 19:25] LABS: INR 0.88 (0.9-1.1); Prothrombin Time 9.8 seconds (9.2-12.1)
--- NOTE | 2024-11-16 19:28 | PC.NURSE ---
Report received from Siddharth ROBERSON Pt awake and alert Skin pink warm and dry Resp full and easy Speech clear and appropriate.
[2024-11-16] MEDS: SODIUM CHLORIDE 0.9% 10ML SYR (RAD ONLY) 10 ML IV (19:43)
[2024-11-16] MEDS: IOPAMIDOL-370 (76%);100ML BOTTLE 75 ML IV (19:43)
[2024-11-16 19:56] LABS: HIV Combo NEGATIVE (Negative)
--- NOTE | 2024-11-16 20:00 | PC.NURSE ---
Pt back from CT scan
[2024-11-16 20:04] LABS: Hepatitis C Ab Qual. W/ RFX NEGATIVE (Negative)
[2024-11-16] MEDS: PANTOPRAZOLE SODIUM 80 MG in 0.9 % SODIUM CHLORIDE 100 ML 10 MG IV (20:39)
[2024-11-16] MEDS: CEFTRIAXONE 1 GM 1 GM in 0.9 % SODIUM CHLORIDE 50 ML IV (20:39)
[2024-11-16 20:41] LABS: Eosinophils % 5 % (0-3); Lymphocytes % 33 % (10-50); Microcytosis 2+; Monocytes % 7 % (2-9); Neutrophils % 55 % (42-76); Platelet Estimate Normal; Total Cells Counted 100
--- NOTE | 2024-11-16 20:46 | PC.NURSE ---
Pt aware of plans for admission
[2024-11-16 20:54] VITALS: BP 123/87; PULSE 78; RESP 16; TEMP 37; O2SAT 99
--- NOTE | 2024-11-16 20:58 | PC.NURSE ---
Patient arrived to floor via wheelchair from ED at 20:56.
[2024-11-16 21:00] VITALS: BP 131/88; PULSE 79; RESP 18; TEMP 36.4; O2SAT 99; BMI 39.4
[2024-11-16] MEDS: ACETAMINOPHEN 325MG TAB 650 MG PO (22:22)
[2024-11-16] MEDS: NICOTINE 21MG/24HR PATCH 21 MG TD (22:22)
--- NOTE | 2024-11-17 00:52 | P.HP_ITS ---
History of Present Illness *Admission Date: 11/16/24 *Reason for visit:: Hematemesis/abdominal pain *History of present illness: The patient is a 34-year-old female presenting with hematemesis and nausea for the past four days. She reports intermittent blood in her vomit during this time but denies fever, chills, hemoptysis, hematochezia, or melena. She denies chest pain, shortness of breath, dysuria, or vaginal discharge. She states that she has been able to tolerate oral intake and is still having bowel movements and passing flatus. However, she does endorse several weeks of dark, tarry stools and a history of frequent use of Aleve and ibuprofen, taking them at least once daily for body aches. 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 Upon arrival, the patient was hemodynamically stable with a blood pressure of 126/73 mmHg, a pulse of 83 beats per minute, a respiratory rate of 16 breaths per minute, oxygen saturation of 95% on room air, and a temperature of 98.0?F. On physical examination, she exhibited mild abdominal tenderness in the epigastrium without rebound, guarding, or rigidity. Bowel sounds were clear and equal bilaterally. There was no CVA tenderness to percussion. Given her symptoms and history, the differential diagnosis includes a [place]-Pro tear, gastritis, peptic ulcer disease, and gastroenteritis, among others. Initial laboratory evaluation revealed leukocytosis with a white blood cell count of 18, a normal hemoglobin and hematocrit, and an absolute neutrophil count of 10.3. Urinalysis was negative for blood, nitrites, and leukocyte esterase but showed 3-5 red blood cells, occasional white blood cells, and 3+ bacteria, suggestive of possible contamination but not ruling out a urinary tract infection. A CT scan of the abdomen and pelvis showed no acute findings. The patient was managed initially with a crystalloid bolus, Tylenol, and Zofran. Given her presentation and the possibility of an ulcer or worsening bleeding, she was admitted for further evaluation and management. She received a dose of Rocephin intravenously and was started on a proton pump inhibitor to address the potential for gastrointestinal bleeding. Further diagnostic evaluation and monitoring will be conducted during admission. [facility] Disclaimer: The information contained in this section may have been updated after the patient was seen, as this information can be updated by other users. Medical History Tobacco dependence syndrome Dyspnea Abnormal electrocardiography Left arm numbness Surgical History History of hysterectomy Hx of cholecystectomy History of foot surgery H/O wisdom tooth extraction H/O section Family History Other COPD (chronic obstructive pulmonary disease) Diabetes Diabetes 1.5, managed as type 2 Heart failure No significant family history Social History Smoking Status: Current every day smoker tobacco type: cigarettes packs per day: 1 alcohol intake: never current occupational status: disabled and other Travel in the last 8 weeks: None household members: family housing: house current occupational exposures/hazards: No caffeine: No Have you lived/traveled outside [place] in past 30 days?: No Contact w/someone who lives/traveled outside US past 30 days?: No Exposure to someone with infectious disease in past 14 days?: No Do you have a fever (greater than 100.4 F or 38 C)?: No Have you tested positive for COVID-19: No Exposed to someone with COVID-19 in past 14 days?: No Do you have a sore throat?: No Do you have a cough?: No Do you have any weakness?: No Are you experiencing any nausea/vomitting?: No Do you have any diarrhea?: No Are you experiencing any unusual bleeding?: No Do you have any muscle aches/pain?: No Do you have any abdominal pain?: No Are you experiencing loss of taste or smell?: No Other Medical History Have you received the Flu Vaccine for this season: No Have you received the Pneumonia Vaccine: No Review of Systems Review of Systems Review of systems (narrative): 14 point review of systems negative outside of [facility] Meds Home Medications and Allergies Home Medications ?Medication ?Instructions ?Recorded ?Confirmed ?Type albuterol sulfate 90 mcg/actuation 1 inh inhalation QID #6.7 grams 02/13/24 11/16/24 Rx aerosol inhaler prazosin 1 mg capsule 1 mg PO HS 02/13/24 11/16/24 History trazodone 50 mg tablet 50 mg PO HS 11/16/24 11/16/24 History cefdinir 300 mg capsule 300 mg PO BID 5 days #10 caps 11/17/24 Rx pantoprazole 40 mg tablet,delayed 40 mg PO DAILY #30 tabs 11/17/24 Rx release sertraline 150 mg capsule 150 mg PO HS 11/17/24 11/17/24 History New Prescriptions to Start Prescriptions: cefdinir Jadiel Bledsoe pantoprazole Jadiel Bledsoe Allergies Allergy/AdvReac Type Severity Reaction Status Date / Time No Known Allergies Allergy Verified 02/13/24 10:16 Exam Data for Last 24 hours Vital signs and Labs for Last 24 Hours: Temp Pulse Resp BP Pulse Ox O2 Del Method 97.6 F 79 18 131/88 99 Room Air 11/16/24 21:00 11/16/24 21:00 11/16/24 21:00 11/16/24 21:00 11/16/24 21:00 11/16/24 22:35 Laboratory Results - last 24 hr 11/16/24 16:47: Urine Color Dark yellow, Urine Appearance Clear, Urine pH 6.0, Ur Specific [place] >= 1.030, Urine Protein Negative, Urine Glucose (UA) Negative, Urine Ketones Negative, Urine Blood Negative, Urine Nitrate Negative, Urine Bilirubin Negative, Urine Urobilinogen 1.0, Ur Leukocyte Esterase Negative, Urine RBC 3-5, Urine WBC Occasional, Ur Squamous Epith Cells 20-50, Calcium Oxalate Crystal 2+, Urine Bacteria 3+, Urine Mucus 3+ 11/16/24 18:54: WBC 18.0 H, RBC 4.85, Hgb 13.7, Hct 41.8, MCV 86.2, MCH 28.2, MCHC 32.8, RDW 13.5, Plt Count 461 H, MPV 10.1, Neut % (Auto) 57.5, Lymph % (Auto) 30.8, [place] % (Auto) 6.6, Eos % (Auto) 4.0, Baso % (Auto) 0.6, Neut # (Auto) 10.3 H, Lymph # (Auto) 5.5 H, [place] # (Auto) 1.2 H, Eos # (Auto) 0.7 H, Baso # (Auto) 0.1, Total Counted 100, Neutrophils % (Manual) 55, Lymphocytes % (Manual) 33, Monocytes % (Manual) 7, Eosinophils % (Manual) 5 H, Platelet Estimate Normal, Microcytosis 2+, PT 9.8, INR 0.88 L, APTT 27.0, Sodium 140, Potassium 3.9, Chloride 105, Carbon Dioxide 26, Anion Gap 12.9, BUN 13, Creatinine 0.80, Estimated Creat Clear 162, Estimated GFR 82, Est GFR ( Amer) 99, Glucose 104 H, Calcium 8.8, Total Bilirubin 0.3, AST 36, ALT 42, Alkaline Phosphatase 103, Total Protein 7.4, Albumin 4.5, Globulin 2.9, Albumin/Globulin Ratio 1.6, HCV Ab MANJU w/Rflx PCR Qn Negative, HIV Ag/Ab Combo Qual Negative I & O for Last 24 hours: Intake & Output 11/14/24 11/15/24 11/16/24 11/17/24 23:59 23:59 23:59 23:59 Weight 104.326 kg Constitutional Constitutional: no acute distress *Routine HEENT Exam Head: Present normocephalic Eye: Present EOMI and PERRL ENT: Present mucous membranes moist *Routine Neck Exam Neck: Present supple; Absent lymphadenopathy *Routine Respiratory Exam Respiratory: Present CTA bilaterally *Routine Cardiovascular Exam Cardiovascular: Present RRR *Routine Abdominal Exam Abdominal: Present soft and normoactive bowel sounds; Absent tenderness *Routine Rectal Exam Rectal:: deferred *Routine Genitalia Exam Genitalia:: deferred *Routine Extremities Exam Extremities: Absent cyanosis, clubbing or edema *Routine Skin Exam Skin: Present warm; Absent rash *Routine Neurological Exam Neurological: Present alert and oriented X3 Assessment and Plan *Assessment and plan (1) Hematemesis: Status: Acute Qualifiers: Nausea presence: with nausea Qualified Code(s): K92.0 - Hematemesis Category: Medical Code(s): K92.0 - Hematemesis (2) UTI (urinary tract infection): Status: Acute Qualifiers: Hematuria presence: with hematuria Urinary tract infection type: site unspecified Qualified Code(s): N39.0 - Urinary tract infection, site not specified; R31.9 - Hematuria, unspecified Category: Medical Code(s): N39.0 - Urinary tract infection, site not specified (3) Tobacco dependence syndrome: Status: Acute Category: Medical Code(s): F17.200 - Nicotine dependence, unspecified, uncomplicated (4) Abdominal pain: Status: Acute Category: Medical Code(s): R10.9 - Unspecified abdominal pain Plan Medical Decision Making: The patient is a 34-year-old female presenting with hematemesis and nausea for four days, with a history of frequent NSAID use and weeks of dark, tarry stools, raising suspicion for a gastrointestinal bleed, likely due to an ulcer or NSAID- induced gastritis. Initial evaluation revealed leukocytosis without anemia and a normal abdominal CT scan. The urinalysis findings suggest possible contamination but no clear evidence of infection. Given her symptoms and risk factors, she was admitted for further evaluation, monitoring, and treatment, including IV proton pump inhibitors to address potential bleeding and prevent progression. Empiric antibiotic therapy was initiated to cover possible secondary infection. * Hematemesis and Possible Gastrointestinal Bleed (K92.0): * IV pantoprazole 40 mg twice daily * Zofran as needed * Test for occult blood if vomiting occurs or stool presents * Will likely need gastroenterology consultation for possible upper endoscopy to evaluate for peptic ulcer or gastritis. * Monitor hemoglobin and hematocrit trends closely. * Clear liquid diet no reds * NSAID-Induced Gastritis (K29.40): * Educate patient to avoid NSAID use moving forward. * Continue pantoprazole as part of management. * Leukocytosis (R82.1): * Monitor white blood cell count and differential daily to assess for resolution. * Continue IV Rocephin empirically * Has history of elevated white blood cell count * Rule out infection as a contributing factor. * Urinalysis with Bacteria and RBCs (R82.99): * Consider repeat urinalysis or urine culture to clarify findings. * No specific intervention unless clinical signs of infection develop. Follow-Up: * Serial CBCs to monitor for worsening anemia or active bleeding. * Coordinate with gastroenterology for diagnostic endoscopy. * Reassess symptoms and clinical status daily during admission. * GI prophylaxis with pantoprazole * Hold anticoagulant due to GI bleed * Recommend smoking cessation, continue nicotine patch Rounded on patient after nurse practitioner. Personally examined and interviewed patient. Agree with exam findings and care plan as documented.
[2024-11-17 04:00] VITALS: BP 104/59; PULSE 71; RESP 20; TEMP 36.5; O2SAT 100; BMI 42.5
[2024-11-17 07:21] LABS: Basophils # 0.1 K/mm3 (0-0.2); Basophils % 0.6 % (0.1-2.0); Eosinophils # 0.6 K/mm3 (0.0-0.4); Eosinophils % 4.2 % (0.1-12.0); Hematocrit 39.6 % (37.0-47.0); Hemoglobin 12.7 g/dL (12.2-16.2); Lymphocytes # 3.7 K/mm3 (0.7-4.5); Lymphocytes % 26.9 % (10-50); Mean Corpuscular HGB Conc 32.1 g/dL (31.8-35.4); Mean Corpuscular Hemoglobin 28.2 pg (27.0-31.2); Mean Corpuscular Volume 87.8 fl (81-99); Mean Platelet Volume 10.1 fl (7.4-10.4); Monocytes % 7.3 % (1.7-9.3); Neutrophils # 8.4 K/mm3 (1.8-7.8); Neutrophils % 60.7 % (37.0-80.0); Platelet Count 409 K/mm3 (142-424); Red Blood Count 4.51 M/mm3 (4.20-5.40); Red Cell Distribution Width 13.3 % (11.5-17.5); White Blood Count 13.9 K/mm3 (4.8-10.8)
[2024-11-17 07:26] LABS: Anion Gap 8.9 mEq/L (5-15); Blood Urea Nitrogen 9 mg/dl (7-17); Calcium 8.6 mg/dl (8.4-10.2); Carbon Dioxide 27 mmol/L (22.0-30.0); Chloride 107 mmol/L (98-107); Creatinine Clearance Estimated 85 mL/min (50-200); Estimated Glomerular Filt Rate 82 ml/min (>60); GFR (African American) 99 ML/MIN (>60); Glucose 101 mg/dl (74-100); Potassium 3.9 mmoL/L (3.5-5.1); Sodium 139 mmol/L (136-145)
--- NOTE | 2024-11-17 07:46 | P.DS_ITS ---
General Admission date:: 11/16/24 Discharge date: 11/17/24 HPI HPI HPI: The patient is a 34-year-old female presenting with hematemesis and nausea for the past four days. She reports intermittent blood in her vomit during this time but denies fever, chills, hemoptysis, hematochezia, or melena. She denies chest pain, shortness of breath, dysuria, or vaginal discharge. She states that she has been able to tolerate oral intake and is still having bowel movements and passing flatus. However, she does endorse several weeks of dark, tarry stools and a history of frequent use of Aleve and ibuprofen, taking them at least once daily for body aches. 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 Upon arrival, the patient was hemodynamically stable with a blood pressure of 126/73 mmHg, a pulse of 83 beats per minute, a respiratory rate of 16 breaths per minute, oxygen saturation of 95% on room air, and a temperature of 98.0?F. On physical examination, she exhibited mild abdominal tenderness in the epigastrium without rebound, guarding, or rigidity. Bowel sounds were clear and equal bilaterally. There was no CVA tenderness to percussion. Given her symptoms and history, the differential diagnosis includes a Augustina- Pro tear, gastritis, peptic ulcer disease, and gastroenteritis, among others. Initial laboratory evaluation revealed leukocytosis with a white blood cell count of 18, a normal hemoglobin and hematocrit, and an absolute neutrophil count of 10.3. Urinalysis was negative for blood, nitrites, and leukocyte esterase but showed 3-5 red blood cells, occasional white blood cells, and 3+ bacteria, suggestive of possible contamination but not ruling out a urinary tract infection. A CT scan of the abdomen and pelvis showed no acute findings. The patient was managed initially with a crystalloid bolus, Tylenol, and Zofran. Given her presentation and the possibility of an ulcer or worsening bleeding, she was admitted for further evaluation and management. She received a dose of Rocephin intravenously and was started on a proton pump inhibitor to address the potential for gastrointestinal bleeding. Further diagnostic evaluation and monitoring will be conducted during admission. Hospital Course Hospital Course Hospital Course: The patient is a 34-year-old female presenting with hematemesis and nausea for four days, with a history of frequent NSAID use and weeks of dark, tarry stools, raising suspicion for a gastrointestinal bleed, likely due to an ulcer or NSAID-induced gastritis. Initial evaluation revealed leukocytosis without anemia and a normal abdominal CT scan. The urinalysis findings suggest possible contamination but no clear evidence of infection. Given her symptoms and risk factors, she was admitted for further evaluation, monitoring, and treatment, including IV proton pump inhibitors to address potential bleeding and prevent progression. Empiric antibiotic therapy was initiated to cover possible secondary infection. Patient did well. Hemoglobin remained stable. No further hematemesis after admission. Tolerating p.o. intake. Found to have UTI. Initiate oral antibiotics. Stable to discharge home with further management as an outpatient. Problems addressed as follows: Hematemesis and Possible Gastrointestinal Bleed NSAID induced gastritis -Presented with complaint of hematemesis. Started on IV pantoprazole 40 mg twice daily. No further vomiting during admission. Hemoglobin remained stable. Approximately 13. No indication for transfusion. Tolerating p.o. intake without difficulty. Recommend continuing pantoprazole for GERD, advance to regular diet. Would benefit from outpatient eval. Referred to GI for further management. -Recommend discontinuing NSAIDs UTI Leukocytosis -Urine abnormal, white count elevated on admission. Improved by morning to 14. Patient remains afebrile. Initiate empiric antibiotics, transition to oral with cefdinir 300 mg twice daily to complete 5 days of antibiotic therapy. Continue to follow urine culture after discharge. Morbid obesity complicates all aspects of her care Continue home meds for mood disorder including Zoloft 150 mg nightly, trazodone 50 mg nightly, prazosin 1 mg nightly Total time spent on discharge 32 minutes in counseling, documentation, chart review, and direct care with patient. Exam Data for Last 24 hours Vital signs and Labs for Last 24 Hours: Temp Pulse Resp BP Pulse Ox O2 Del Method 97.7 F 71 20 104/59 L 100 Room Air 11/17/24 04:00 11/17/24 04:00 11/17/24 04:00 11/17/24 04:00 11/17/24 04:00 11/17/24 06:48 Laboratory Results - last 24 hr 11/16/24 16:47: Urine Color Dark yellow, Urine Appearance Clear, Urine pH 6.0, Ur Specific [place] >= 1.030, Urine Protein Negative, Urine Glucose (UA) Negative, Urine Ketones Negative, Urine Blood Negative, Urine Nitrate Negative, Urine Bilirubin Negative, Urine Urobilinogen 1.0, Ur Leukocyte Esterase Negative, Urine RBC 3-5, Urine WBC Occasional, Ur Squamous Epith Cells 20-50, Calcium Oxalate Crystal 2+, Urine Bacteria 3+, Urine Mucus 3+ 11/16/24 18:54: WBC 18.0 H, RBC 4.85, Hgb 13.7, Hct 41.8, MCV 86.2, MCH 28.2, MCHC 32.8, RDW 13.5, Plt Count 461 H, MPV 10.1, Neut % (Auto) 57.5, Lymph % (Auto) 30.8, [place] % (Auto) 6.6, Eos % (Auto) 4.0, Baso % (Auto) 0.6, Neut # (Auto) 10.3 H, Lymph # (Auto) 5.5 H, [place] # (Auto) 1.2 H, Eos # (Auto) 0.7 H, Baso # (Auto) 0.1, Total Counted 100, Neutrophils % (Manual) 55, Lymphocytes % (Manual) 33, Monocytes % (Manual) 7, Eosinophils % (Manual) 5 H, Platelet Estimate Normal, Microcytosis 2+, PT 9.8, INR 0.88 L, APTT 27.0, Sodium 140, Potassium 3.9, Chloride 105, Carbon Dioxide 26, Anion Gap 12.9, BUN 13, Creatinine 0.80, Estimated Creat Clear 162, Estimated GFR 82, Est GFR ( Amer) 99, Glucose 104 H, Calcium 8.8, Total Bilirubin 0.3, AST 36, ALT 42, Alkaline Phosphatase 103, Total Protein 7.4, Albumin 4.5, Globulin 2.9, Albumin/Globulin Ratio 1.6, HCV Ab MANJU w/Rflx PCR Qn Negative, HIV Ag/Ab Combo Qual Negative 11/17/24 06:33: WBC 13.9 H, RBC 4.51, Hgb 12.7, Hct 39.6, MCV 87.8, MCH 28.2, MCHC 32.1, RDW 13.3, Plt Count 409, MPV 10.1, Neut % (Auto) 60.7, Lymph % (Auto) 26.9, [place] % (Auto) 7.3, Eos % (Auto) 4.2, Baso % (Auto) 0.6, Neut # (Auto) 8.4 H, Lymph # (Auto) 3.7, [place] # (Auto) 1.0, Eos # (Auto) 0.6 H, Baso # (Auto) 0.1, Sodium 139, Potassium 3.9, Chloride 107, Carbon Dioxide 27, Anion Gap 8.9, BUN 9 D, Creatinine 0.80, Estimated Creat Clear 85, Estimated GFR 82, Est GFR ( Amer) 99, Glucose 101 H, Calcium 8.6, Magnesium 2.0 I & O for Last 24 hours: Intake & Output 11/14/24 11/15/24 11/16/24 11/17/24 23:59 23:59 23:59 23:59 Intake Total 480 / 480 Output Total 0 / 0 Balance 480 / 480 Weight 104.326 kg 113.081 kg Constitutional Constitutional: no acute distress, morbidly obese, disheveled and cooperative *Routine HEENT Exam Head: Present normocephalic Eye: Present EOMI and PERRL ENT: Present mucous membranes moist *Routine Neck Exam Neck: Present supple; Absent lymphadenopathy *Routine Respiratory Exam Respiratory: Present CTA bilaterally; Absent rhonchi, wheezes or crackles *Routine Cardiovascular Exam Cardiovascular: Present RRR *Routine Abdominal Exam Abdominal: Present soft, normoactive bowel sounds and tenderness (Mild epigastric) *Routine Rectal Exam Patient deferred: visual exam *Routine Exam Patient deferred: external exam *Routine Extremities Exam Extremities: Absent cyanosis, clubbing or edema *Routine Skin Exam Skin: Present intact and warm; Absent rash *Routine Neurological Exam Neurological: Present alert, oriented X3 and moving all extremities; Absent altered mental status Results Data Completed and Pending Labs on day of discharge: Labs from last 24 hours 11/17/24 11/16/24 11/16/24 06:33 18:54 16:47 WBC 13.9 H 18.0 H RBC 4.51 4.85 Hgb 12.7 13.7 Hct 39.6 41.8 MCV 87.8 86.2 MCH 28.2 28.2 MCHC 32.1 32.8 RDW 13.3 13.5 Plt Count 409 461 H MPV 10.1 10.1 Neut % (Auto) 60.7 57.5 Lymph % (Auto) 26.9 30.8 [place] % (Auto) 7.3 6.6 Eos % (Auto) 4.2 4.0 Baso % (Auto) 0.6 0.6 Neut # (Auto) 8.4 H 10.3 H Lymph # (Auto) 3.7 5.5 H [place] # (Auto) 1.0 1.2 H Eos # (Auto) 0.6 H 0.7 H Baso # (Auto) 0.1 0.1 Total Counted 100 Neutrophils % (Manual) 55 Lymphocytes % (Manual) 33 Monocytes % (Manual) 7 Eosinophils % (Manual) 5 H Platelet Estimate Normal Microcytosis 2+ PT 9.8 INR 0.88 L APTT 27.0 Sodium 139 140 Potassium 3.9 3.9 Chloride 107 105 Carbon Dioxide 27 26 Anion Gap 8.9 12.9 BUN 9 D 13 Creatinine 0.80 0.80 Estimated Creat Clear 85 162 Estimated GFR 82 82 Est GFR ( Amer) 99 99 Glucose 101 H 104 H Calcium 8.6 8.8 Magnesium 2.0 Total Bilirubin 0.3 AST 36 ALT 42 Alkaline Phosphatase 103 Total Protein 7.4 Albumin 4.5 Globulin 2.9 Albumin/Globulin Ratio 1.6 Urine Color Dark yellow Urine Appearance Clear Urine pH 6.0 Ur Specific [place] >= 1.030 Urine Protein Negative Urine Glucose (UA) Negative Urine Ketones Negative Urine Blood Negative Urine Nitrate Negative Urine Bilirubin Negative Urine Urobilinogen 1.0 Ur Leukocyte Esterase Negative Urine RBC 3-5 Urine WBC Occasional Ur Squamous Epith Cells 20-50 Calcium Oxalate Crystal 2+ Urine Bacteria 3+ Urine Mucus 3+ HCV Ab MANJU w/Rflx PCR Qn Negative HIV Ag/Ab Combo Qual Negative DS: Diagnosis Discharge Diagnosis (1) Hematemesis: Status: Acute Code(s): K92.0 - Hematemesis Qualifiers: Nausea presence: with nausea Qualified Code(s): K92.0 - Hematemesis (2) UTI (urinary tract infection): Status: Acute Code(s): N39.0 - Urinary tract infection, site not specified Qualifiers: Hematuria presence: with hematuria Urinary tract infection type: site unspecified Qualified Code(s): N39.0 - Urinary tract infection, site not specified; R31.9 - Hematuria, unspecified (3) Tobacco dependence syndrome: Status: Acute Code(s): F17.200 - Nicotine dependence, unspecified, uncomplicated (4) Abdominal pain: Status: Acute Code(s): R10.9 - Unspecified abdominal pain Meds Home Medications and Allergies Home Medications ?Medication ?Instructions ?Recorded ?Confirmed ?Type albuterol sulfate 90 mcg/actuation 1 inh inhalation QID #6.7 grams 02/13/24 11/16/24 Rx aerosol inhaler prazosin 1 mg capsule 1 mg PO HS 02/13/24 11/16/24 History trazodone 50 mg tablet 50 mg PO HS 11/16/24 11/16/24 History cefdinir 300 mg capsule 300 mg PO BID 5 days #10 caps 11/17/24 Rx pantoprazole 40 mg tablet,delayed 40 mg PO DAILY #30 tabs 11/17/24 Rx release sertraline 150 mg capsule 150 mg PO HS 11/17/24 11/17/24 History New Prescriptions to Start Prescriptions: Jadiel Sherwood James Allergies Allergy/AdvReac Type Severity Reaction Status Date / Time No Known Allergies Allergy Verified 02/13/24 10:16 Discharge Plan Disposition Patient Disposition: Home, Self-Care Condition: Fair Follow up Plan Follow up with: Judy Dasilva APRN [Primary Care Provider] - Enter time for follow up (Please call office for follow up.) Chasidy Miller APRN [Nurse Practitioner] - Enter time for follow up Prescriptions/Medication Reconciliation: New pantoprazole 40 mg tablet,delayed release (DR/EC) 40 mg PO DAILY Qty: 30 0RF cefdinir 300 mg capsule 300 mg PO BID 5 Days Qty: 10 0RF Continued prazosin 1 mg capsule 1 mg PO HS Patient Comments: TAKE 1 CAPSULE BY MOUTH AT BEDTIME albuterol sulfate 90 mcg/actuation HFA aerosol inhaler 1 inh inhalation QID Qty: 6.7 2RF trazodone 50 mg tablet 50 mg PO HS sertraline 150 mg capsule 150 mg PO HS Discontinued ibuprofen 600 mg tablet 600 mg PO NEEDED PRN (Reason: Migraine Headache) Patient Comments: TAKE 1 TABLET BY MOUTH EVERY 8 HOURS NEEDED FOR MIGRAINE HEADACHE Problem Reconciliation Problems Reviewed?: Yes Patient Discharge Instructions ACTIVITY: Continue current activity DIET: continue same diet Patient Instructions: DI for Urinary Tract Infection (UTI), DI for Abdominal Pain-Adult Print Language: [place] Providers Primary Care Provider: Judy Dasilva Admit Provider: Jadiel Bledsoe Attending Provider: Jadiel Bledsoe
[2024-11-17 08:00] VITALS: BP 127/84; PULSE 73; RESP 17; TEMP 36.5; O2SAT 99
[2024-11-17] MEDS: PANTOPRAZOLE 40MG VIAL 40 MG IV (09:27)
[2024-11-17] MEDS: CEFTRIAXONE SODIUM 1 GM in 0.9 % SODIUM CHLORIDE 50 ML IV (09:28)
[2024-11-17] MEDS: SODIUM CHLORIDE 0.9% 10ML VIAL 10 ML IV (09:28)
--- NOTE | 2024-11-20 10:26 | SW/DCPLANNER ---
Phoned patient x2. Patient phone has calling restrictions. Oumou Seth
== END 2024-11-17 14:43 | disposition home or self-care (01) ==
LOC: ER 20:31 → 2ND 21:13
PROVIDERS: Nurse Practitioner Family; Physician Assistant; Admitting Provider Internal Medicine Adolescent Medicine; Emergency Provider Emergency Medicine; PCP Nurse Practitioner Family; Visit Provider Internal Medicine Adolescent Medicine
DX: K29.01 Acute gastritis with bleeding (principal); K92.0 Hematemesis; F17.210 Nicotine dependence, cigarettes, uncomplicated; K21.9 Gastro-esophageal reflux disease without esophagitis; E66.01 Morbid (severe) obesity due to excess calories; Z68.41 Body mass index [BMI] 40.0-44.9, adult; Z71.6 Tobacco abuse counseling; Z79.1 Long term (current) use of non-steroidal anti-inflammatories (NSAID); Z79.51 Long term (current) use of inhaled steroids; Z79.899 Other long term (current) drug therapy; Z90.49 Acquired absence of other specified parts of digestive tract
CPT/HCPCS: 74177; 80048; 80053; 81001; 83735; 85007; 85025; 85610; 85730; 86803; 87086; 87389; 99291; G0378; J0696; J2405; J7030; Q9967

== ENCOUNTER 2025-03-05 08:47 | Emergency (ER) | payer MEDICAID, SELFPAY ==
--- NOTE | 2025-03-05 08:57 | ECG_ITS ---
APPROVED REPORT Exam: Resting ECG HR:85 bpm ECG Measurements Heart Rate 85 AXES IN 149 P 53 QRSd 78 QRS 65 QT 340 T 29 QTc 382 Conclusion Sinus rhythm Electronically signed by : ROCAEL ROGERS, 03/07/2025 11:40:47
[2025-03-05 08:58] VITALS: BP 137/85; PULSE 93; RESP 19; TEMP 36.5; O2SAT 97; BMI 36.8
--- NOTE | 2025-03-05 08:59 | XR_ITS ---
FINAL REPORT CLINICAL HISTORY: .PALPITATIONS, NEAR SYNCOPE COMPARISON: 03/31/2024 FINDINGS: The heart size is normal. Calcified right paratracheal lymph nodes are noted. There are mild chronic changes in the lung bases. There is no focal infiltrate or edema. There are no pleural effusions. There is no pneumothorax. There is no osseous abnormality. IMPRESSION: Chronic changes without acute cardiopulmonary process Reviewed, Interpreted and Dictated by Mariano Chan MD Transcribed by Yoon Koo Authenticated and [facility]
[2025-03-05 09:01] VITALS: BP 129/93; PULSE 91; O2SAT 97
--- OUTSIDE RECORDS SUMMARY | 2025-03-05 09:04 | XMS_ITS | Data Portability ---
Author Organization [facility] & JOSE M James ADMIN Address [address] [place] [id number] Care Team Providers Care General Office Dispatcher Name Role Phone CLAIRE BLAIR Primary Care Provider Assessment No assessment recorded. Plan of Treatment Reminders Order Date Submit Date Provider Last Modified By Organization Details Last Modified Time Details Appointments None recorded. Lab None recorded. Referral None recorded. Procedures None recorded. Surgeries None recorded. Imaging electroence phalogram 2023 024 [facility] (Centralized Scheduling), [address] [place], [address], 4 10:46:08 Medication Orders None recorded. Patient TargetsNo targets recorded. Patient InstructionsNo instructions recorded. Reason for Referral None Reported. Results Created Date Observation Date Name Description Value Unit Range Abnormal Flag Note LastModifiedBy Organization Detail LastModifiedTime 02/27/20 24 elect jake francisl ogram No observ ation record ed. [facility] (Centralized Scheduling) [address] [place], [address], 02/27/2024 10:46:08 Result Notes None recorded. Problems Name Problem SNOMED Code Status Onset Date Resolution Date Notes Provider Name and Address Organization Details Recorded Time Chronic obstructive pulmonary disease 66007754 Active Leigh Amandaa null, [place] - [facility] & [place] 4 11:44:32 Smoker 02965815 Active Leigh Dalla null, [place] - [facility] & [place] 4 11:44:32 Obstructive sleep apnea syndrome 04745594 Active Leigh Dalla null, TAMMY - [facility] - [place] & [place] 4 11:44:32 Syncope 253344102 Active 2023 TAMMY Faith - [facility] - [place] & [place] 11:46:11 Collapse 659251644 Active 2023 TAMMY Faith - [facility] - [place] & [place] 11:46:19 Problem Notes None recorded. Procedures Surgical History Date Name Laterality Status Provider Name and Address Organization Details Recorded Time Cholecystectomy completed Leigh MUNOZ - [facility] - [place] & [place] 02/14/2024 11:13:27 Hysterectomy completed Leigh MUNOZ - L [facility] - [place] & [place] 02/14/2024 11:14:08 Imaging Results Imaging Date Name Status LastModified by Organization Details LastModified Time 02/27/2024 electroencephalogram completed [facility] (Centralized Scheduling) [address] [facility], [place], [address], 02/27/2024 10:46:08 Procedure Notes None recorded. Medical Equipment None Reported. Medications Name Sig Start Date Stop Date Status Note LastModified by Organization Details LastModified Time azithromyci n 250 mg tablet TAKE 2 TABLETS BY MOUTH ON DAY 1, AND THEN TAKE 1 TABLET BY MOUTH ONCE A DAY ON DAY 2 THROUGH DAY 5 02/12 completed Not Available Not Available Not Available ibuprofen 800 mg tablet TAKE ONE TABLET BY MOUTH THREE TIMES DAILY NEEDED --TAKE WITH FOOD-- 02/12 completed Not Available Not Available Not Available prazosin 1 mg capsule TAKE 1 CAPSULE BY MOUTH AT BEDTIME 2023 active Not Available Not Available Not Avai lable sertraline 100 mg tablet Take 1 tablet every day by oral route. active Not Available Not Available No t Available metronidazo le 500 mg tablet TAKE ONE TABLET BY MOUTH TWICE DAILY FOR 7 DAYS --AVOID ANY PRODUCT(S ) CONTAININ G ALCOHOL WHILE TAKING THIS MEDICATIO N-- -- FINISH ALL MEDICINE -- 02/12 completed Not Available Not Available Not Available sulfamethox azole 800 mg-trimetho prim 160 mg tablet TAKE 1 TABLET BY MOUTH TWICE A DAY FOR 7 DAYS 02/12 completed Not Available Not Available Not Available cephalexin 500 mg capsule TAKE (1) CAPSULE BY MOUTH EVERY SIX HOURS. 02/12 completed Not Available Not Available Not Available naproxen sodium 550 mg tablet TAKE 1 TABLET BY MOUTH EVERY 12 HOURS NEEDED 2023 active Not Available Not Available Not Avai lable nicotine 21 mg/24 hr daily transdermal patch apply 1 PATCH topically EVERY DAY 02/13 completed Not Available Not Available Not Available omeprazole 20 mg capsule,del ayed release Take 1 capsule every day by oral route. 02/13 completed Not Available Not Available Not Available aspirin 81 mg chewable tablet Chew 1 {tablet} by oral route as needed. 2023 active Not Available Not Available Not Avai lable hydroxyzine HCl 25 mg tablet TAKE 1 TABLET BY MOUTH EVERY 12 HOURS NEEDED FOR ANXIETY 2023 active Not Available Not Available Not Avai lable ibuprofen 600 mg tablet TAKE 1 TABLET BY MOUTH EVERY 8 HOURS NEEDED FOR MIGRAINE HEADACHE 2023 active Not Available Not Available Not Avai lable methylpredn isolone 4 mg tablets in a dose pack TAKE BY MOUTH DIRECTED ON INSIDE OF PACKAGE FOR 6 DAYS 02/13 completed Not Available Not Available Not Available bromphenira mine-pseudo ephedrine-D M 2 mg-30 mg-10 mg/5 mL oral syrup TAKE 5 ML BY MOUTH EVERY 6 HOURS NEEDED FOR COUGH 02/13 completed Not Available Not Available Not Available ondansetron 4 mg disintegrat ing tablet DISSOLVE 1 TABLET IN MOUTH EVERY 8 HOURS NEEDED FOR NAUSEA 02/13 completed Not Available Not Available Not Available fluticasone propionate 50 mcg/actuati on nasal spray,suspe nsion [place] by nasal route as needed for 60 days. 2023 active Not Available Not Available Not Avai lable sertraline 50 mg tablet Take 1 mg every day by oral route. 2023 active Not Available Not Available Not Avai lable Ventolin HFA 90 mcg/actuati on aerosol inhaler 2023 active Not Available Not Available Not Avai lable Lo-Zumandim ine (28) 3 mg-0.02 mg tablet TAKE ONE TABLET BY MOUTH EVERY DAY 02/12 completed Not Available Not Available Not Available Vitals Date Recorded Body height Body mass index (BMI) Body weight Oxygen saturation Oxygen saturation in Arterial blood by Pulse oximetry Heart rate Systolic blood pressure Diastolic blood pressure Provider Name and Address Organization Details Last Updated DateTime 162.56 cm 40.7 kg/m2 555467. 11 g 97 % 97 % 85 /min 118 mm[Hg] 76 mm[Hg] Leigh MUNOZ [facility] & [place] 11:17:41 Social History Question Answer Notes LastModified by Organizat ion Details LastModified Time Tobacco Smoking Status Current Every Day Smoker Leigh stern, [facility] [place] 02/14/2024 11:12:03 What Is Your Level Of Caffeine Consumption? Occasional Information not available 02/14/2024 What Is Your Relationship Status? Lives With Fiance In A Mobile And 2 Kids Information not available 02/14/2024 How Much Tobacco Do You Smoke? 1 PPW Information not available 02/14/2024 How Many Years Have You Smoked Tobacco? 21 Information not available 02/14/2024 Are You Currently In School? No Diploma Information not available 02/14/2024 Sex: Unknown Functional Status Question Answer Note LastModified by Organizat ion Details LastModified Time Do you use any illicit or recreational drugs? No Information not available 02/14/2024 What is your level of alcohol consumption? None Information not available 02/14/2024 Are you currently employed? No Information not available 02/14/2024 Mental Status None recorded. Family History Relationship Description Onset Age of this Age Resolved Age Notes LastModified by Organization Details LastModified Time Mother Chronic obstructive pulmonary disease ldalla Not available 2023 11:10:27 Mother Hypertensive disorder ldalla Not available 2023 11:10:37 Mother Hyperlipidem ia ldalla Not available 2023 11:10:46 Father Chronic obstructive pulmonary disease ldalla Not available 2023 11:11:05 Medical History Condition Response Depression Y Obstructive Sleep Apnea Y Vision or Eye Problems Y PTSD Y Asthma Y Reflux/GERD Y Gynecological HistoryNo gynecological history recorded. Obstetrics History GPAL:G 0 P 0 0 0 0 Past Encounters Encounter ID Performer Location Encounter Start Date Encounter Closed Date Diagnosis/Indication Diagnosis SNOMED-CT Code Diagnosis ICD10 Code Diagnosis Note [id number] Sandi Bruno, DO ZZ [facility] [address] [place] [address] 02/14/2024 10:59:42 02/14/2024 12:05:48 Syncope [id number] R55 Recurrent syncopal episodes of unknown etiology. She has had associated urinary incontinen ce and observer reports of body jerks concerning for possible seizures.W ill order EEG. She is given a seizure log book to keep track of these events.Sei zure precaution s. She should not drive,oper ate heavy/be erous equipment, swim, climb heights. Health Concerns Section Related Observation LastModified by Organization Detai ls LastModified Time None Recorded Concern Status LastModified by Organization Details LastModified Time None Recorded Advance Directives Directive None Recorded Payers Insurance Date Sequence Insurance Name Policy Number Policy Valdes Covered Member ID Valdes Member ID Guarantor Name 02/29/2024 1 [employer] (MEDICAID REPLACEMENT - HMO) [id number] Shawnee Nagy [id number] Shawnee Nagy Notes Date Note Type Note Provider Name and Address Organization Details Recorded Time 02/14/2024 text/html 33 y/o right handed female here for neurologic consultation requested by Judy Dasilva regarding blacking out episodes. Shawnee is the primary historian for today's visit. Shawnee reports recently having episodes of passing out. She began noticing this about a year ago. She describes having an episode almost daily.She can have these occur when she is lying down or standing. She does feel funny just before. She will get very sweaty and then she will start feeling like the room spins. She will black out for seconds to up to a couple hours at a time. She has never sought medical attention for these spells.Observers have told her that they see her eyes roll back in her head and she shakes. She has had some associated incontinence. She feels tired afterwards. She reports a family history of seizures on her dad's side of the family. She denies any history of seizures as a child. She has no hx of any significant head injuries. Sandi Bruno, [address], [place], [address], [place] - [facility] - [place] & [place] 02/14/2024 11:44:15 OBGyn Episode No OBEpisode recorded.
--- NOTE | 2025-03-05 09:20 | ED_ITS ---
Discharge Plan Disposition Patient Disposition: Home, Self-Care Chief Complaint: Shortness of Breath/Dyspnea Prescriptions Prescriptions: No Action prazosin 1 mg capsule 1 mg PO HS Patient Comments: TAKE 1 CAPSULE BY MOUTH AT BEDTIME albuterol sulfate 90 mcg/actuation HFA aerosol inhaler 1 inh inhalation QID Qty: 6.7 2RF trazodone 50 mg tablet 50 mg PO HS pantoprazole 40 mg tablet,delayed release (DR/EC) 40 mg PO DAILY Qty: 30 0RF cefdinir 300 mg capsule 300 mg PO BID 5 Days Qty: 10 0RF sertraline 150 mg capsule 150 mg PO HS Referrals Follow up/Referrals: Provider,MD Messi [Primary Care Provider] - See instructions Bin Camara MD [Staff Physician] - See instructions Activity Restrictions/Add. Instructions Additional Instructions/Restrictions: Call your family doctor to establish care for this visit to the emergency department and schedule follow-up within 48 hours to ensure improvement. If you have any worsening of your condition or any other concerning signs or symptoms, return to the emergency department or your primary care doctor for further evaluation. Call cardiology to follow-up for them to evaluate Holter monitor. Be sure to record when you are having symptoms and keep a log so that they can further evaluate these times while looking at the monitor Clinical Impressions Clinical Impression: Near syncope Print Language Print Language: Turkmen Discharge ED Provider: Hansel Fernandez General Adult HPI General Chief complaint: Shortness of Breath/Dyspnea Stated complaint: soa sweats/chills L ear pain vomiting Time Seen by Provider: 03/05/25 08:52 Mode of Arrival: Ambulatory Source of Information: Patient Description of Symptoms (Recalled from ER Triage Doc. by RN): pt presents to ED with c/o shortness of breath, chills, fever, vomitting, dizziness, sweats. pt reports dizziness ongoing for the past 2 months. other symptoms began last night. History of Present Illness HPI narrative: Please note that above description of symptoms, in this electronic medical record under categorization of recalled from ER triage doctor by RN are reflective of an initial nursing assessment, however, is not reflective of my full history and physical exam that was personally taken and clarified. Consequentially, this preceding description of symptoms, which may include the patient's categorized chief complaint in the EMR, do not reflect my personal clinical impression, and the ultimate description of history of present illness and patient stated complaints should be deferred to this section of the note. Unless stated otherwise or congruent with this section of the note, additional signs, symptoms, or incongruence should be interpreted as inaccurate with my clinical impression. Related Data Home Medications ?Medication ?Instructions ?Recorded ?Confirmed prazosin 1 mg capsule 1 mg PO HS 02/13/24 11/16/24 trazodone 50 mg tablet 50 mg PO HS 11/16/24 11/16/24 sertraline 150 mg capsule 150 mg PO HS 11/17/24 11/17/24 Previous Rx's ?Medication ?Instructions ?Recorded albuterol sulfate 90 mcg/actuation 1 inh inhalation QID #6.7 grams 02/13/24 aerosol inhaler cefdinir 300 mg capsule 300 mg PO BID 5 days #10 caps 11/17/24 pantoprazole 40 mg tablet,delayed 40 mg PO DAILY #30 tabs 11/17/24 release Allergies Allergy/AdvReac Type Severity Reaction Status Date / Time No Known Allergies Allergy Verified 02/13/24 10:16 [facility] Disclaimer: The information contained in this section may have been updated after the patient was seen, as this information can be updated by other users. Medical History Tobacco dependence syndrome Dyspnea Abnormal electrocardiography Left arm numbness Surgical History History of hysterectomy Hx of cholecystectomy History of foot surgery H/O wisdom tooth extraction H/O section Family History Other COPD (chronic obstructive pulmonary disease) Diabetes Diabetes 1.5, managed as type 2 Heart failure No significant family history Social History Smoking Status: Current every day smoker tobacco type: cigarettes packs per day: 1 alcohol intake: never current occupational status: disabled and other Travel in the last 8 weeks?: None household members: family housing: house current occupational exposures/hazards: No caffeine: No Have you lived/traveled outside [place] in past 30 days?: No Contact w/someone who lives/traveled outside US past 30 days?: No Exposure to someone with infectious disease in past 14 days?: No Do you have a fever (greater than 100.4 F or 38 C)?: No Have you tested positive for COVID-19?: No Exposed to someone with COVID-19 in past 14 days?: No Do you have a sore throat?: No Do you have a cough?: No Do you have any weakness?: No Do you have any diarrhea?: No Are you experiencing any unusual bleeding?: No Do you have any muscle aches/pain?: No Do you have any abdominal pain?: No Are you experiencing loss of taste or smell?: No Other Medical History Have you received the Flu Vaccine for this season: No Have you received the Pneumonia Vaccine: No ROS Obtained: Yes All systems reviewed & no additional complaints except as documented Physical Exam General General appearance: alert, anxious and obese Head Head exam: atraumatic and normocephalic Eye Eye exam: Present normal appearance, PERRL and EOMI Neck Neck exam: Present normal inspection, full ROM and trachea midline Respiratory Respiratory exam: Absent respiratory distress, wheezes, stridor, accessory muscle use or prolonged expiratory phase Cardiovascular Cardiovascular exam: Present other (Pulses equal symmetric in upper and lower extremities) Abdominal Exam Abdominal exam: Present soft; Absent distention, tenderness or pulsatile mass Extremities Exam Extremities exam: Absent edema Neurological Exam Neurological exam: Present alert, oriented X3 and CN II-XII intact; Absent motor sensory deficit Skin Skin exam: Present warm and dry; Absent diaphoresis or erythema Medical Decision Making Medical Records Medical records reviewed: Yes I reviewed the patient's medical records. Screening: Per USPSTF and CDC recommendations, given the prevalence of disease in our region, it is our hospital?s policy to screen for HIV and viral Hepatitis for all patients aged 18 and over and those with ongoing risk factors. Brad Inquiry Pt receiving controlled substance: No Brad was queried for this patient: No Vital Signs: 03/05/25 08:58 03/05/25 09:01 03/05/25 09:35 Temperature 97.7 F Temperature Source Oral Pulse Rate 91 H Pulse Rate [Left Radial] 93 H Respiratory Rate 19 Blood Pressure 129/93 H Blood Pressure [Right Arm] 137/85 Blood Pressure Mean [Right Arm] 102 Blood Pressure Source [Right Arm] Automatic Cuff Blood Pressure Position [Right Arm] Supine 02 Sat by Pulse Oximetry 97 97 96 Oxygen Delivery Method Room Air Room Air Room Air 03/05/25 10:19 Temperature Temperature Source Pulse Rate 75 Pulse Rate [Left Radial] Respiratory Rate 21 Blood Pressure 124/80 Blood Pressure [Right Arm] Blood Pressure Mean [Right Arm] Blood Pressure Source [Right Arm] Blood Pressure Position [Right Arm] 02 Sat by Pulse Oximetry 97 Oxygen Delivery Method Room Air Lab Data Lab Results 03/05/25 09:15: WBC 14.8 H, RBC 5.07, Hgb 14.4, Hct 43.5, MCV 85.8, MCH 28.4, MCHC 33.1, RDW 13.8, Plt Count 407, MPV 10.0, Neut % (Auto) 60.1, Lymph % (Auto) 24.9, Routt % (Auto) 8.9, Eos % (Auto) 5.1, Baso % (Auto) 0.5, Neut # (Auto) 8.9 H, Lymph # (Auto) 3.7, Routt # (Auto) 1.3 H, Eos # (Auto) 0.8 H, Baso # (Auto) 0.1, APTT 28.2, Sodium 138, Potassium 4.0, Chloride 107, Carbon Dioxide 25, Anion Gap 10.0, BUN 10, Creatinine 0.60, Estimated Creat Clear 201, Estimated GFR 114, Est GFR ( Amer) 138, Glucose 109 H, Hemoglobin A1c 5.5, Calcium 9.3, Magnesium 2.0, Total Bilirubin 0.7, AST 32, ALT 34, Alkaline Phosphatase 102, Troponin I < 0.01, Total Protein 7.4, Albumin 4.4, Globulin 3.0, Albumin/Globulin Ratio 1.5, TSH 2.04, Thyroxine (T4) 10.5, HCG, Quant < 2 03/05/25 09:15 03/05/25 09:15 Orders (Tests/Meds): ED MEDICATIONS Discontinued Medications Generic Name Dose Route Start Last Admin Trade Name Freq PRN Reason Stop Dose Admin Sodium Chloride 1,000 mls @ 999 mls/hr 03/05/25 08:59 03/05/25 09:26 Sod Chlor 0.9% 1000ml Bag IV 03/05/25 09:59 999 mls/hr .Q1H1M ONE Administration ORDERS Category Date Time Status XR chest portable Stat Exams 03/05/25 08:59 Taken Complete Blood Count Auto Diff Stat Lab 03/05/25 09:15 Completed Comprehensive Metabolic Panel Stat Lab 03/05/25 09:15 Completed HCG,Quantitative Stat Lab 03/05/25 09:15 Completed Hemoglobin A1C Stat Lab 03/05/25 09:15 Completed Magnesium Stat Lab 03/05/25 09:15 Completed PTT [Activated Partial Thrombo Time] Stat Lab 03/05/25 09:15 Completed T4 (Thyroxine) Stat Lab 03/05/25 09:15 Completed TSH [Thyroid Stimulating Hormone] Stat Lab 03/05/25 09:15 Completed Troponin I Q3H Lab 03/05/25 12:00 Ordered Troponin I Q3H Lab 03/05/25 15:00 Ordered Troponin I Stat Lab 03/05/25 09:15 Completed Holter Monitor Req by Grabiel/ Stat Y 03/05/25 10:39 Ordered Medical Decision Narrative: 34-year-old female history of anxiety, depression, pseudoseizures presenting with multiple complaints, main complaint is dizziness. She states that she has been dizzy on and off for the past few months, gotten more more frequent over the past month. No nausea or vomiting, no syncopal episodes, but feels like she will probably syncopized. Made worse with changes in position including sitting to standing. She states that sometimes she is standing and walking and feels lightheaded, needs to sit down, this makes it better. No palpitations, nausea, vomiting, chest pain, abdominal pain, vomiting, diaphoresis, shortness of breath, or any other associated symptoms. No lower extremity swelling. Says that in the past she has worn loop recorder, but this was before these presyncopal symptoms started a couple years ago. History was obtained via conversation with patient. On arrival, patient hemodynamically stable, alert, oriented x4, appropriate, GCS 15, moving all extremities spontaneously, pupils equal and reactive to light. Full physical exam performed and significant for well-appearing female no acute distress. She is anxious, has bilateral upper extremity tics versus nervous tremor. Lungs are clear with no adventitious sounds. Cardiac exam with no murmurs, gallops, rubs. Pulses equal and symmetric in the extremities, no lower extremity swelling. She is grossly neurologically intact and ambulatory. Differential includes metabolic abnormality, hyperthyroidism, hypothyroidism, other endocrinologic abnormality, arrhythmia, dehydration, orthostatic versus vasovagal, among others. Patient placed on continuous cardiac monitoring and continuous pulse ox with initial blood pressure 137/85, heart rate 91, oxygen saturation 97% on room air. Independent interpretation of EKG shows sinus rhythm 85 bpm with no acute ischemic change. ND interval 149, QRS 78, QTc 382. Normal axis. Patient was given saline fluid bolus for symptomatic management and correction of underlying abnormalities. Workup independently interpreted and significant for nonactionable CBC or chemistry. LFTs normal, troponin negative, hCG and thyroid studies normal. On independent interpretation of imaging, no acute cardiopulmonary space disease on chest x-ray. See radiology read for full review of final results. Heart score 0. On reevaluation, patient resting comfortably. Given patient presentation, workup, history, this most likely represents orthostatic presyncope. Because they have been increasing in frequency, Holter monitor to be placed and cardiology follow-up recommended. She voiced understanding. Because patient at baseline without signs or symptoms of clinical decompensation, deemed appropriate for discharge. Results were relayed to patient who voiced understanding and were agreeable to outpatient management and follow up. I discussed my clinical impression with patient and answered all questions. At this time, the evidence for any other entities in the differential is insufficient to warrant any further testing or ED observation. This was explained as well. Advisory was given that persistent or worsening symptoms require further evaluation. I confirmed the understanding of this discussion. [employer] disclaimer Much of this encounter note is an electronic construction accountant spoken language to printed text. Electronic construction accountant of the spoken language may permit errors. Although I have reviewed the note, some errors may still exist. Critical Care Critical Care Time Critical Care Time: No
[2025-03-05 09:26] LABS: Basophils # 0.1 K/mm3 (0-0.2); Basophils % 0.5 % (0.1-2.0); Eosinophils # 0.8 Kmm3 (0.0-0.4); Eosinophils % 5.1 % (0.1-12.0); Hematocrit 43.5 % (37.0-47.0); Hemoglobin 14.4 g/dL (12.2-16.2); Immature Granulocytes # 0.07 10^3uL; Immature Granulocytes % 0.5 %; Lymphocytes # 3.7 K/mm3 (0.7-4.5); Lymphocytes % 24.9 % (10-50); Mean Corpuscular HGB Conc 33.1 g/dL (31.8-35.4); Mean Corpuscular Hemoglobin 28.4 pg (27.0-31.2); Mean Corpuscular Volume 85.8 fl (81-99); Monocytes # 1.3 K/mm3 (0.1-1.0); Monocytes % 8.9 % (1.7-9.3); Neutrophils # 8.9 K/mm3 (1.8-7.8); Neutrophils % 60.1 % (37.0-80.0); Nucleated Red Blood Cells # 0 10^3/uL; Nucleated Red Blood Cells % 0 %; Platelet Count 407 K/mm3 (142-424); Red Blood Count 5.07 M/mm3 (4.20-5.40); Red Cell Distribution Width 13.8 % (11.5-17.5); Red Cell Distribution Width-SD 42.9 fL; White Blood Count 14.8 K/mm3 (4.8-10.8)
[2025-03-05] MEDS: 0.9 % SODIUM CHLORIDE 1000ML 1,000 ML 999 ML IV (09:26)
--- NOTE | 2025-03-05 09:32 | PC.NURSE ---
Gave pt warm blanket.
[2025-03-05 09:35] VITALS: O2SAT 96
[2025-03-05 09:42] LABS: Albumin Level 4.4 g/dl (3.5-5.0); Chloride 107 mmol/L (98-107)
[2025-03-05 09:43] LABS: Sodium 138 mmol/L (136-145)
[2025-03-05 09:44] LABS: Activated Partial Thrombo Time 28.2 seconds (22.8-30.6)
[2025-03-05 09:45] LABS: Alanine Aminotransferase 34 U/L (12-78); Albumin/Globulin Ratio 1.5 (1.1-1.8); Aspartate Amino Transferase 32 U/L (14-36); Blood Urea Nitrogen 10 mg/dl (7-17); Carbon Dioxide 25 mmol/L (22.0-30.0); Creatinine Clearance Estimated 201 mL/min (50-200); Estimated Glomerular Filt Rate 114 ml/min (>60); GFR (African American) 138 ML/MIN (>60); Total Protein,Serum 7.4 g/dl (6.3-8.2)
[2025-03-05 09:46] LABS: Alkaline Phosphatase 102 U/L (38-126); Bilirubin,Total 0.7 mg/dl (0.2-1.3); Calcium 9.3 mg/dl (8.4-10.2); Glucose 109 mg/dl (74-100)
[2025-03-05 10:04] LABS: T4 (Thyroxine) 10.5 ug/dl (5.53-11.0)
[2025-03-05 10:08] LABS: HCG,Quantitative < 2 mIU/ml (0-5.42); Hemoglobin A1C 5.5 % (4.0-6.0); Troponin I < 0.01 ng/ml (0.00-0.034)
[2025-03-05 10:17] LABS: Thyroid Stimulating Hormone 2.04 uIU/mL (0.465-4.68)
[2025-03-05 10:19] VITALS: BP 124/80; PULSE 75; RESP 21; O2SAT 97
--- NOTE | 2025-03-05 10:39 | PC.NURSE ---
call made to resp for 48 hr holter monitor placement
[2025-03-05 10:57] VITALS: BP 132/87; PULSE 81; RESP 19; TEMP 37.1; O2SAT 97
== END 2025-03-05 10:58 | disposition home or self-care (01) ==
PROVIDERS: Emergency Provider Emergency Medicine
DX: R55 Syncope and collapse (principal); R06.02 Shortness of breath; R42 Dizziness and giddiness; R50.9 Fever, unspecified; R11.2 Nausea with vomiting, unspecified; F17.210 Nicotine dependence, cigarettes, uncomplicated
CPT/HCPCS: 71045; 80053; 83036; 83735; 84436; 84443; 84484; 84702; 85025; 85730; 93005; 93225; 93227; 96360; 99284; J7030

== ENCOUNTER 2025-03-31 00:24 | Observation (INO) | payer MEDICAID, SELFPAY ==
[2025-03-31] VITALS (13 sets, daily range): BP systolic 106–136; BP diastolic 52–84; PULSE 69–90; RESP 15–18; TEMP 36.5–36.7; O2SAT 96–98; BMI 39.4
--- NOTE | 2025-03-31 00:52 | CT_ITS ---
PROCEDURE INFORMATION: Exam: CT Abdomen And Pelvis With Contrast Exam date and time: 03/31/2025 2:46 AM Age: 34 years old Clinical indication: Pain; Other: Pelvic; Additional info: Pelvic pain TECHNIQUE: Imaging protocol: Computed tomography of the abdomen and pelvis with contrast. Total images: 354 Radiation optimization: All CT scans at this facility use at least one of these dose optimization techniques: automated exposure control; mA and/or kV adjustment per patient size (includes targeted exams where dose is matched to clinical indication); or iterative reconstruction. Contrast material: ISOVUE; Contrast volume: 75 ml; Contrast route: IV; COMPARISON: CT ABDOMEN PELVIS W CON 11/16/2024 7:40 PM FINDINGS: Lungs: Calcified bibasilar pulmonary granuloma. Heart: Normal heart size. Liver: Slight decreased liver attenuation from phase of contrast versus steatosis. Elongated left hepatic lobe is a normal variant. No liver mass. Gallbladder and biliary ducts: Status post cholecystectomy. No biliary ductal dilatation. Pancreas: Normal. No ductal dilation. Spleen: Calcified splenic granuloma. No splenomegaly. Adrenal glands: Normal. No mass. Kidneys and ureters: No hydronephrosis, nephrolithiasis, or renal mass. No perinephric fluid. Stomach and bowel: Unremarkable stomach and duodenum. No ileus or bowel obstruction. Small bowel appears within normal limits. Unremarkable terminal ileum. Fluid-filled nondilated loops of distal small bowel. Unremarkable colon and rectum. Appendix: Normal appendix. Intraperitoneal space: Unremarkable. No free air. No significant fluid collection. Vasculature: Nonaneurysmal abdominal aorta. Major abdominal vessels enhance appropriately. Lymph nodes: Calcified distal paraesophageal lymph nodes. Urinary bladder: Collapsed bladder. Reproductive: Status post hysterectomy. Unremarkable bilateral ovaries. Small right hydrosalpinx, unchanged. Air in the vagina is presumed physiologic. Bones/joints: Unremarkable. No acute fracture. Soft tissues: Extremely tiny fat containing umbilical hernia. Other findings: 4.5 cm macrolobulated enhancing mass in the inferior right rectus muscle, above the pelvis, increased in size from the prior study. IMPRESSION: 1. 4.5 cm enlarging macrolobulated mass in the inferior right rectus muscle, just above the pelvis. Leading differential of abdominal wall desmoid tumor or endometriosis. 2. Fluid-filled small bowel is likely physiologic. Could consider a nonspecific enteritis, however no bowel wall thickening. 3. Chronic small right hydrosalpinx. Status post hysterectomy. 4. Additional chronic and incidental findings.
--- NOTE | 2025-03-31 01:01 | PC.NURSE ---
pt ambulates with slow steady gait to restroom to attempt to provide urine for testing, pt also given gown and asked to change prior to pelvic exam.
[2025-03-31 01:07] LABS: Basophils # 0.1 K/mm3 (0-0.2); Basophils % 0.5 % (0.1-2.0); Eosinophils # 0.8 Kmm3 (0.0-0.4); Eosinophils % 3.9 % (0.1-12.0); Hematocrit 43.4 % (37.0-47.0); Hemoglobin 14.4 g/dL (12.2-16.2); Immature Granulocytes # 0.08 10^3uL; Immature Granulocytes % 0.4 %; Lymphocytes # 6.8 K/mm3 (0.7-4.5); Lymphocytes % 33.7 % (10-50); Mean Corpuscular HGB Conc 33.2 g/dL (31.8-35.4); Mean Corpuscular Hemoglobin 28.9 pg (27.0-31.2); Mean Platelet Volume 10.1 fl (7.4-10.4); Monocytes # 1.4 K/mm3 (0.1-1.0); Neutrophils % 54.5 % (37.0-80.0); Nucleated Red Blood Cells # 0 10^3/uL; Nucleated Red Blood Cells % 0 %; Platelet Count 468 K/mm3 (142-424); Red Blood Count 4.99 M/mm3 (4.20-5.40); Red Cell Distribution Width 13.7 % (11.5-17.5); Red Cell Distribution Width-SD 43.5 fL; White Blood Count 20.2 K/mm3 (4.8-10.8)
[2025-03-31] MEDS: KETOROLAC 30MG/ML VIAL 30 MG IV (01:07)
[2025-03-31 01:11] LABS: MANUAL DIFFERENTIAL MANUAL DIFFERENTIAL (MANUAL DIFF)
--- OUTSIDE RECORDS SUMMARY | 2025-03-31 01:11 | XMS_ITS | Data Portability ---
Author Organization [facility] Address [address] [place] [address] Assessment No assessment recorded. Plan of Treatment Reminders Order Date Submit Date Provider Last Modified By Organization Details Last Modified Time Details Appointments None recorded. Lab None recorded. Referral neurologist referral 2023 024 [place] Not available 4 05:01:20 city superintendent of schools referral 2023 024 [place] [address] Bear Adler OD, [address] , [place], [address], 4 09:24:21 psychiatris t referral [address], [address] [place] [address], [facility], [place], [address], 4 09:15:56 counseling referral 2022 023 [place] [address] [facility], [address] [facility], [place], [address], 4 17:03:38 Procedures None recorded. Surgeries None recorded. Imaging US, transvagina l 2021 022 [facility] Tax [employer]raiser, [address] [place] [address] , [place], [address], 2 10:10:53 Medication Orders ibuprofen 600 mg tablet [address] [facility], [address] [place], [address], 4 13:26:25 sertraline 100 mg tablet 2023 024 [facility], [address] [place], [address], 4 14:41:42 hydroxyzine HCl 25 mg tablet 2023 024 [facility], [address] [place], [address], 4 14:42:25 hydroxyzine HCl 25 mg tablet [address] [facility], [address] [place], [address], 4 14:35:03 sertraline 100 mg tablet 2023 024 [facility], [address] [place], [address], 4 14:24:30 ibuprofen 600 mg tablet 2023 024 [place] [facility], [address] [place], [address], 4 11:11:29 sertraline 50 mg tablet 2023 024 [email or web address] [facility], [address] [place], [address], 4 14:18:27 hydroxyzine HCl 25 mg tablet 2023 024 [place] [facility], [address] [place], [address], 4 12:06:23 ibuprofen 600 mg tablet 2022 023 [place] [facility], [address] [place], [address], 3 14:04:22 sertraline 50 mg tablet 2022 023 [email or web address] [facility], [address] [place], [address], 4 14:18:27 hydroxyzine HCl 25 mg tablet 2022 023 ED [facility], [address] [place], [address], 3 14:04:24 Medrol (Skyler) 4 mg tablets in a dose pack [email or web address] [facility] [address] [facility] [address], [id number], 3 12:54:11 Patient TargetsNo targets recorded. Patient Instructions Encounter Date Encounter Id Patient Instructions Last Modified By Organization Details Last Modified Time 08/30/2023 [id number] Follow up as needed. The patient will report any new or worsening symptoms. The patient will return to clinic if new or worsening symptoms are noted, or if if the symptoms do not resolve. If marked worsening of the symptoms is noted the patient will go to the emergency department of their choice. Not available 08/30/2023 13:25:27 10/27/2023 [id number] Follow up as needed. The patient will report any new or worsening symptoms. The patient will return to clinic if new or worsening symptoms are noted, or if if the symptoms do not resolve. If marked worsening of the symptoms is noted the patient will go to the emergency department of their choice. Not available 10/27/2023 11:11:28 11/28/2023 [id number] learning about healthy weight Not available 11/28/2023 14:24:24 body mass index: care instructions Not available 11/28/2023 14:24:24 Follow up as needed. The patient will report any new or worsening symptoms. The patient will return to clinic if new or worsening symptoms are noted, or if if the symptoms do not resolve. If marked worsening of the symptoms is noted the patient will go to the emergency department of their choice. Not available 11/28/2023 14:24:22 12/29/2023 [id number] Follow up as needed. The patient will report any new or worsening symptoms. The patient will return to clinic if new or worsening symptoms are noted, or if if the symptoms do not resolve. If marked worsening of the symptoms is noted the patient will go to the emergency department of their choice. Not available 12/30/2023 13:27:26 Reason for Referral Counseling Referral for Mixe d anxiety and depressive disorder Referring Physician: Judy Dasilva [facility], Encounter Date: 08/30/2023 Neurologist Referral for Syn cope Referring Physician: Judy Dasilva [facility], Encounter Date: 12/29/2023 Psychiatrist Referral for [place] xed anxiety and depressive disorder Referring Physician: Judy Dasilva [facility], Encounter Date: 12/29/2023 Financial Auditor Referral for Ext ernal chalazion Referring Physician: Judy Dasilva [facility], Encounter Date: 12/29/2023 Results Created Date Observation Date Name Description Value Unit Range Abnormal Flag Note LastModifiedBy Organization Detail LastModifiedTime 11/16/19 22 11/16/2021 , hailey gutierrez No observ ation record ed. osmani Napoles Tax [employer]raiser [address] [place] [address] , [place], [address], 11/27/2021 12:28:04 11/16/19 [place], hailey gutierrez No observ ation record edAbdelrahman keen Not Available 2021 20:59:11 12/08/19 22 11/16/2021 [place], trans andressa gutierrez No observ ation record ed. [email or web address] [place] [employer] [address] [place] [address] , [place], [address], 12/08/2021 10:10:53 04/01/20 24 03/31/2024 XR, chest , 1 view No observ ation record ed. [facility] [address], [place], [address], 04/02/2024 10:11:19 04/01/20 24 03/31/2024 elect gallito vernon am No observ ation record ed. [facility] [address], [place], [address], 04/02/2024 10:00:58 11/16/19 25 11/16/2024 CT, abdom en + pelvi s, w/ contr ast No observ ation record ed. [facility] [address], [place], [address], 11/19/2024 14:59:03 Result Notes None recorded. Problems Name Problem SNOMED Code Status Onset Date Resolution Date Notes Provider Name and Address Organization Details Recorded Time Asthma 366439312 Active 2019 Tavares Weiner null, [place] - [facility] 15:22:51 Hyperten sive disorder 30431414 Active 2019 Tavares We[place] - [facility] 15:22:51 Migraine 01210228 Active 2019 Tavares We[place] - [facility] 15:22:51 Sleep disorder 38245423 Active 2019 Tavares We[place] [facility] 15:22:51 Cyst of right ovary 31192271349 074017 Active 2020 Tavares We[place] [facility] 15:22:51 Pain in pelvis 60474702 Active 2020 Lou Sevilla [place] - [facility] 15:38:47 Dysmenor keshav 563496366 Completed 202003/02/2021 Jenniferfrancia Rogers null, [place] - [facility] 10:19:01 Menorrha oralia 910298450 Completed 202003/02/2021 Jennifer Stears [place] - [facility] 10:18:50 Leiomyom a 49631773477 9103 Active Tavares Weiner [place] - [facility] 15:22:51 Dyspareu ernesto 10610667 Active Tavares Husam [place] - [facility] 15:22:51 History of total hysterec brian 810594083 Active 2020 Total laparosc opic hysterec brian, bilatera l salpinge ctomy with ovarian conserva tion, cystosco py Jennifer Parrishs null[place] - [facility] 09:22:12 Mixed anxiety and depressi ve disorder 726672280 Active 2023 Jolene Anitasmiley null, [place] - [facility] 4 10:37:05 External chalazio n 342340932 Active 2023 Judy Dasilva, DOOR FITTER [address], [place], [address], [place] - [facility] 4 13:38:30 Syncope 851074038 Active 2023 Judy Dasilva, DOOR FITTER [address], [place], [address], [place] - [facility] 4 13:38:31 Problem Notes None recorded. Procedures Surgical History Date Name Laterality Status Provider Name and Address Organization Details Recorded Time 01/21/20 21 Hysterectomy, Total laparoscopic completed Jennifer Stears [place] - [facility] 03/02/2021 09:19:38 01/21/20 21 salpingectomy completed Jennifer Stears [place] - [facility] 03/02/2021 09:20:00 11/05/19 21 Date of Last Pap Smear completed Sandi Anton, DOOR [employer]TER [address], [place], [address], [place] - [facility] 11/10/2020 08:29:09 03/03/20 15 Caesarean Section completed Alexandra Webb [place] - [facility] 11/05/2020 10:55:00 03/03/20 15 Tubal Ligation completed Alexandra Webb [place] - [facility] 10:55:22 01/08/20 14 delivery completed Alexandra Webb [place] - [facility] 11/05/2020 10:54:42 04/01/20 09 delivery only completed Sandi Anton, DOOR FITTER [address], [place], [address], [place] [facility] 11/05/2020 11:34:23 Unlisted px foot/toes completed Kieran Mitchell [place] - [facility] 08/25/2020 09:59:59 Imaging Results None recorded. Procedure Notes None recorded. Medical Equipment None Reported. Allergies No known drug allergies Medications Name Sig Start Date Stop Date Status Note LastModified by Organization Details LastModified Time amoxicill in 500 mg capsule TAKE 1 CAPSULE BY MOUTH EVERY 12 HOURS FOR 10 DAYS FOR OTITIS MEDIA 08/13 completed Not Available Not Available Not Available Mirena 21 mcg/24 hr (up to 8 years) 52 mg intrauter ine device place 1 device by intraute rine route As needed q 5 yrs 06/21 completed Mirena Intraute rine IUD 20 mcg/24 hr;Recor ded Status: Recorded on: 05/14/20 09 9:04AM;D iscontin ued Status: Disconti nued on: 06/21/20 13 9:48AM;U ser: [email or web address]; Printed: 05/14/20 09 Not Available Not Available Not Available azithromy marlene 250 mg tablet TAKE TWO (2) TABLETS BY MOUTH THE FIRST DAY THEN TAKE ONE (1) TABLET DAILY FOR FOUR (4) DAYS 12/23 completed Not Available Not Available Not Available ibuprofen 800 mg tablet TAKE ONE TABLET BY MOUTH THREE TIMES DAILY NEEDED --TAKE WITH FOOD-- 11/16 completed Not Available Not Available Not Available prazosin 1 mg capsule TAKE 1 CAPSULE BY MOUTH AT BEDTIME active Not Available Not Available No t Available ondansetr on HCl 4 mg tablet TAKE 1 TABLET ONCE DAILY. 11/25 completed Not Available Not Available Not Available prednison e 20 mg tablet TAKE THREE (3) TABLETS BY ORAL ROUTE ONCE DAILY FOR FIVE (5) DAYS 12/23 completed Not Available Not Available Not Available sertralin e 100 mg tablet TAKE 1 TABLET BY MOUTH ONCE DAILY DIRECTED FOR ANXIETY/ DEPRESSI ON active Not Available Not Available No t Available metronida zole 500 mg tablet 1 po BID x 7 days 08/24 completed Not Available Not Available Not Available sulfameth oxazole 800 mg-trimet hoprim 160 mg tablet TAKE 1 TABLET BY MOUTH TWICE A DAY FOR 7 DAYS 08/30 completed Not Available Not Available Not Available ketorolac 10 mg tablet TAKE 1 TABLET BY ORAL ROUTE EVERY 4 HOURS NEEDED NOT TO EXCEED 40MG IN 24HRS-MA X 5 DAYS TOTAL USE 08/30 completed Not Available Not Available Not Available oxycodone -acetamin ophen 5 mg-325 mg tablet TAKE 1 TO 2 TABLET(S ) BY MOUTH EVERY 6 HOURS NEEDED FOR PAIN. max daily DOSE of 6 tablets PER DAY. MAY CAUSE DROWSINE SS 03/02 completed Not Available Not Available Not Available DOK 100 mg capsule TAKE ONE CAPSULE BY MOUTH TWICE DAILY. take with AT least 8 ounces of water. 08/13 completed Not Available Not Available Not Available gentamici n 0.3 % eye drops instill 1 TO 2 drops into LEFT eye EVERY TWELVE HOURS 08/13 completed Not Available Not Available Not Available cephalexi n 500 mg capsule TAKE (1) CAPSULE BY MOUTH EVERY SIX HOURS. 08/30 completed Not Available Not Available Not Available naproxen sodium 550 mg tablet TAKE 1 TABLET BY MOUTH EVERY 12 HOURS NEEDED active Not Available Not Available No t Available ferrous sulfate 325 mg (65 mg iron) tablet take 1 tablet by oral route daily for 30 days 05/13 completed Ferrous Sulfate Oral Tablet 325 mg (65 Iron);Re corded Status: Recorded on: 01/10/20 09 9:49AM;D iscontin ued Status: Disconti nued on: 05/13/20 09 2:27PM;U ser: [email or web address] Not Available Not Available Not Available promethaz ine 25 mg tablet TAKE ONE TABLET BY MOUTH EVERY 4 TO 6 HOURS 03/02 completed Not Available Not Available Not Available nicotine 21 mg/24 hr daily transderm al patch apply 1 PATCH topicall y EVERY DAY 11/16 completed Not Available Not Available Not Available omeprazol e 20 mg capsule,d elayed release TAKE ONE CAPSULE BY MOUTH EVERY DAY 03/02 completed Not Available Not Available Not Available hydroxyzi ne HCl 25 mg tablet TAKE 1 TABLET BY MOUTH EVERY 12 HOURS NEEDED FOR ANXIETY 2023 active Not Available Not Available Not Avai lable ibuprofen 600 mg tablet TAKE 1 TABLET BY MOUTH EVERY 8 HOURS NEEDED FOR MIGRAINE HEADACHE active Not Available Not Available No t Available methylpre dnisolone 4 mg tablets in a dose pack TAKE BY MOUTH DIRECTED ON INSIDE OF PACKAGE active Not Available Not Available No t Available brompheni ramine-ps eudoephed rine-DM 2 mg-30 mg-10 mg/5 mL oral syrup active Not Available Not Available Not Available ondansetr on 4 mg disintegr ating tablet TAKE 1 TABLET BY MOUTH EVERY 6 TO 8 HOURS NEEDED 08/30 completed Not Available Not Available Not Available fluticaso ne propionat e 50 mcg/actua tion nasal spray,dolores pension active Not Available Not Available Not Available sertralin e 50 mg tablet TAKE 1 & 1/2 (ONE & ONE-HALF ) TABLETS BY MOUTH ONCE DAILY FOR ANXIETY/ DEPRESSI ON 12/28 completed Not Available Not Available Not Available doxycycli ne hyclate 100 mg tablet 1 po bid x 1 week 09/02 completed Doxycycl ine Hyclate Oral Tablet 100 mg;Recor ded Status: Recorded on: 05/19/20 09 11:11AM; Disconti nued Status: Disconti nued on: 09/02/20 09 10:55AM; User: [email or web address] ;EstAbdelrahman Completjim on: 05/26/20 09;Print ed: 05/19/20 09 Not Available Not Available Not Available amoxicill in 875 mg-potass ium clavulana te 125 mg tablet TAKE 1 TABLET BY MOUTH EVERY 12 HOURS 08/30 completed Not Available Not Available Not Available Ventolin HFA 90 mcg/actua tion aerosol inhaler Inhale 2 puffs every 4 hours by inhalati on route for 30 days. active Not Available Not Available No t Available Vandazole 0.75 % (37.5 mg/5 gram) vaginal gel Insert 1 applicat orful every day by vaginal route. 03/02 completed Not Available Not Available Not Available Prenate DHA 27 mg iron-1 mg-300 mg-50 mg capsule take 1 capsule by oral route once daily for 30 days 05/13 completed Prenate DHA Oral Capsule 27-1-300 -50 mg;Recor ded Status: Recorded on: 01/10/20 09 9:49AM;D iscontin ued Status: Disconti nued on: 05/13/20 09 2:27PM;U ser: [email or web address];I ndicatio n: Pregnanc y - (18.V222 00) Not Available Not Available Not Available One Daily For Women daily active Not Available Not Available No t Available Spiriva Respimat 2.5 mcg/actua tion solution for inhalatio n 08/30 completed Not Available Not Available Not Available Larissia 0.1 mg-20 mcg tablet TAKE ONE (1) TABLET(S ) EVERY DAY BY ORAL ROUTE. 12/23 completed Not Available Not Available Not Available Lo-Zumand imine (28) 3 mg-0.02 mg tablet TAKE ONE TABLET BY MOUTH EVERY DAY active Not Available Not Available No t Available Vitals Date Recorded Body weight Respiratory rate Heart rate Oxygen saturation Oxygen saturation in Arterial blood by Pulse oximetry Systolic blood pressure Diastolic blood pressure Provider Name and Address Organization Details Last Updated DateTime 4 85753.5 4 g 18 /min 81 /min 98 % 98 % 122 mm[Hg] 86 mm[Hg] Jolene [place]itt [place] - [facility] 4 10:40:13 Date Recorded Body height Body mass index (BMI) Body weight Systolic blood pressure Diastolic blood pressure Provider Name and Address Organization Details Last Updated DateTime 11/16/2021 165.1 cm 38.6 kg/m2 919657.4 3 g 122 mm[Hg] 80 mm[Hg] Yanira [place] - [facility] 2 13:08:30 Date Recorded Heart rate Oxygen saturation Oxygen saturation in Arterial blood by Pulse oximetry Respiratory rate Body temperature Body weight Body mass index (BMI) Body height Systolic blood pressure Diastolic blood pressure Provider Name and Address Organization Details Last Updated DateTime 4 76 /min 97 % 97 % 18 /min 98.2 [degF] 20459.1 4 g 36.3 kg/m2 165.1 cm 118 mm[Hg] 76 mm[Hg] Jolene Howarditt [place] - [facility] 4 14:14:06 Date Recorded Body height Body mass index (BMI) Body weight Body temperature Respiratory rate Oxygen saturation Oxygen saturation in Arterial blood by Pulse oximetry Heart rate Systolic blood pressure Diastolic blood pressure Provider Name and Address Organization Details Last Updated DateTime 4 165.1 cm 38.3 kg/m2 848983. 35 g 98.7 [degF] 17 /min 98 % 98 % 95 /min 120 mm[Hg] 78 mm[Hg] Cristina Garcia [place] - [facility] 4 14:21:45 Date Recorded Body weight Respiratory rate Body temperature Heart rate Oxygen saturation Oxygen saturation in Arterial blood by Pulse oximetry Systolic blood pressure Diastolic blood pressure Provider Name and Address Organization Details Last Updated DateTime 3 57799.4 4 g 18 /min 98.2 [degF] 84 /min 98 % 98 % 120 mm[Hg] 86 mm[Hg] Jolene Diaz [place] - [facility] 3 13:04:13 Social History Question Answer Notes LastModified by MyNextRunat ion Details LastModified Time Tobacco Smoking Status Current Every Day Smoker Kieran stern [place] - [facility] 08/25/2020 09:59:22 Do You Have An Advance Directive? Yes Information not available 08/25/2020 Are You Blind Or Do You Have Difficulty Seeing? No [email or web address] Information not available 11/05/2020 Is Blood Transfusion Acceptable In An Emergency? Yes [email or web address] Information not available 11/05/2020 What Is Your Level Of Caffeine Consumption? Moderate Information not available 08/25/2020 How Much Tobacco Do You Chew? None [email or web address] Information not available 11/05/2020 Have You Been To An Area Known To Be High Risk For COVID-19? No Information not available 08/30/2023 Are You Deaf Or Do You Have Serious Difficulty Hearing? No [email or web address] Information not available 11/05/2020 What Type Of Diet Are You Following? REGULAR Information not available 08/25/2020 Which Illicit Or Recreational Drugs Have You Used? None Information not available 08/25/2020 What Is The Highest Grade Or Level Of School You Have Completed Or The Highest Degree You Have Received? [id number] [email or web address] Information not available 11/05/2020 How Many Days Of Moderate To Strenuous Exercise, Like A Brisk Walk, Did You Do In The Last 7 Days? 0 [email or web address] Information not available 11/05/2020 On Those Days That You Engage In Moderate To Strenuous Exercise, How Many Minutes, On Average, Do You Exercise? 0 Information not available 11/05/2020 Have There Been Any Changes To Your Family Or Social Situation? No Information not available 08/30/2023 How Hard Is It For You To Pay For The Very Basics Like Food, Housing, Medical Care, And Heating? [id number] [email or web address] Information not available 11/05/2020 What Is The Fluoride Status Of Your Home? Fluoridated Information not available 08/30/2023 Live Alone Or With Others? With Others Information not available 08/25/2020 Last Menstrual Period? 10/02/2020 [email or web address] Information not available 11/05/2020 What Was The Date Of Your Most Recent Tobacco Screening? 08/30/2023 Information not available 08/30/2023 How Many Children Do You Have? 3 [email or web address] Information not available 11/05/2020 Performs Monthly Self-breast Exam? Yes [email or web address] Information not available 11/05/2020 Do You Use Protection During Sex? Always [email or web address] Information not available 11/05/2020 What Is Your Relationship Status? [email or web address] Information not available 11/05/2020 Seat Belts Used Routinely Yes Information not available 11/05/2020 Are You Sexually Active? Yes [email or web address] Information not available 11/05/2020 Do You Have Smoke And Carbon Monoxide Detectors In Your Home? Yes Information not available 08/30/2023 Are You Passively Exposed To Smoke? No Information not available 08/30/2023 How Much Tobacco Do You Smoke? 1 PPW Information not available 08/25/2020 General Stress Level High Information not available 11/05/2020 Do You Use Sunscreen Routinely? Yes Information not available 11/05/2020 Has Tobacco Cessation Counseling Been Provided? Yes Information not available 08/30/2023 On What Date Was Tobacco Cessation Counseling Provided? 08/30/2023 Information not available 08/30/2023 Do You Have Difficulty Walking Or Climbing Stairs? No [email or web address] Information not available 11/05/2020 Sex: Female Functional Status Question Answer Note LastModified by Organizat ion Details LastModified Time Do you use any illicit or recreational drugs? No Information not available 08/30/2023 Do you or have you ever used any other forms of tobacco or nicotine? No Information not available 08/30/2023 What is your level of alcohol consumption? None Information not available 08/25/2020 Do you or have you ever used smokeless tobacco? Never used smokeless tobacco Information not available 08/25/2020 Are you currently employed? No Information not available 11/05/2020 Do you have transportation difficulties? No Information not available 08/30/2023 Are you able to walk? YESWOREST [email or web address] Information not available 11/05/2020 Do you have difficulty doing errands alone? No [email or web address] Information not available 11/05/2020 Are you able to care for yourself? Yes Information n ot available 08/30/2023 Do you have difficulty dressing or bathing? No [email or web address] Information not available 11/05/2020 Do you or have you ever used e-cigarettes or vape? Never used electronic cigarettes Information not available 08/25/2020 What is your exercise level? Occasional Information not available 11/05/2020 Mental Status Question Answer Note LastModified by Organizat ion Details LastModified Time Do you feel stressed (tense, restless, nervous, or anxious, or unable to sleep at night)? [id number] [email or web address] Information not available 11/05/2020 Do you have difficulty concentrating, remembering or making decisions? No [email or web address] Information no t available 11/05/2020 Family History Relationship Description Onset Age of this Age Resolved Age Notes LastModified by Organization Details LastModified Time Mother Diabetes mellitus Not available 2019 09:59:00 Mother Chronic obstructive pulmonary disease Not available 2019 09:59:06 Mother Hypertensive disorder Not available 2019 09:59:14 Medical History No medical history recorded. Gynecological History Statement/Question Response Abnormal Pap N Flow Heavy Date of LMP 12/07/2020 On BCP's at Conception? N STIs/STDs N Duration of Flow (days) Current Control Method Tubal Ligat ion Age at Menarche 11 Age at First Child 18 Last Annual Exam/Provider 11-05-20 Frequency of Cycle (Q days) 30 Sexually Active? N Menses Monthly N Date of Last Pap Smear 11/05/2020 Sexual Problems? N LMP Definite Obstetrics History GPAL:G 6 P 3 0 3 3 Type Value Full Term 3 Spontaneous 3 Living 3 Total 6 Past Encounters Encounter ID Performer Location Encounter Start Date Encounter Closed Date Diagnosis/Indication Diagnosis SNOMED-CT Code Diagnosis ICD10 Code Diagnosis Note [id number] BENJY Crowjames [facility] [address] [place] [address] 08/25/2020 09:43:11 08/25/2020 10:43:19 Body mass index 30+ - obesity 413415271 Z68.36 Cough 17805708 R05 Asthma 937305845 J45.90 9 Acute maxi llary sinusitis 35978579 J01.00 Nicotine dependence 5629 4008 F17.200 Upper resp iratory infection 17640968 J06.9 [id number] [facility] [address] [place] [address] 11/05/2020 10:39:22 11/05/2020 11:37:44 Pain in female pelvis 696346909 R10.2 Screening for malignant neoplasm of cervix 049755436 Z12.4 R87.619 Dysmenorrhea 177003281 N 94.6 History of tubal ligation 085796863 Z98.51 Cyst of right ovary 1223 802859 5063479 N83.201 1.5 cm Previous u terine surgical scar 010118086 N85.8 Cigarette smoker 2750448 7 F17.956 [id number] DO Yesika Breen GERMINATION WORKER [address] [facility] [place] [id number] 11/25/2020 15:27:10 11/25/2020 16:01:15 Pain in pelvis 63698353 R10.2 Dysmenorrhea 441302434 N 94.6 Menorrhagia 949704676 N9 2.0 [id number] DO Maryam [place] GERMINATION WORKER [address] [place] [address] [place] [id number] 12/23/2020 12:43:10 12/23/2020 14:33:08 Dysmenorrhea 010766142 N94.6 Menorrhagia 036692075 N9 2.0 Pain in pelvis 45038738 R10.2 Nausea and vomiting 1693 2000 R11.2 [id number] DO Maryam [place] GERMINATION WORKER [address] [place] [address] [place] [id number] 01/13/2021 10:03:01 01/13/2021 11:04:02 Pre-surgery evaluation 664723640 Z01.818 Dysmenorrhea 454638028 N 94.6 Hypertensive disorder 38 868847 I10 Pain in pelvis 21663906 R10.2 Uterine leiomyoma 531233 05 D25.9 [id number] DO Yesika Breen [employer] [address] [place] [address] B[place] Rodriguez 80341-260 7 01/26/2021 10:59:51 01/26/2021 11:58:34 Surgical follow-up [id number] Z09 [id number] DO Maryam [place] [employer]MINATION WORK[employer] [address] [place] [address] B[place] Rodriguez 14925-956 7 02/03/2021 14:15:36 02/03/2021 14:55:07 Surgical follow-up [id number] Z09 Given precaution s Vaginal discharge 954844 006 N89.8 Prophylact ically treating. Malodorous urine 5312692 01 R82.998 Encouraged to increase water intake [id number] DO Yesika Breen [employer]ERMINATION WORK[employer] [address] [place] [address] B[place] Rodriguez 57836-410 7 03/02/2021 10:10:18 03/02/2021 10:29:35 Surgical follow-up 063020244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
--- OUTSIDE RECORDS SUMMARY | 2025-03-31 01:11 | XMS_ITS | Data Portability ---
Author Organization [facility] & JOSE M James ADMIN Address [address] [place] [address] Care Team Providers Care Buncher Hand Name Role Phone CLAIRE BLAIR Primary Care Provider Assessment No assessment recorded. Plan of Treatment Reminders Order Date Submit Date Provider Last Modified By Organization Details Last Modified Time Details Appointments None recorded. Lab None recorded. Referral None recorded. Procedures None recorded. Surgeries None recorded. Imaging electroence phalogram 2023 024 [facility] (Centralized Scheduling), [address] [place], [address], 4 10:46:08 Medication Orders None recorded. Patient TargetsNo targets recorded. Patient InstructionsNo instructions recorded. Reason for Referral None Reported. Results Created Date Observation Date Name Description Value Unit Range Abnormal Flag Note LastModifiedBy Organization Detail LastModifiedTime 02/27/20 24 elect jake francisl ogram No observ ation record ed. [facility] (Centralized Scheduling) [address] [place], [address], 02/27/2024 10:46:08 Result Notes None recorded. Problems Name Problem SNOMED Code Status Onset Date Resolution Date Notes Provider Name and Address Organization Details Recorded Time Chronic obstructive pulmonary disease 24307489 Active Leigh Amandaa null, [facility] & [place] 4 11:44:32 Smoker 30567756 Active Leigh Dalla null, [facility] & [place] 4 11:44:32 Obstructive sleep apnea syndrome 31326758 Active Leigh Dalla null, TAMMY - [facility] - [place] & [place] 4 11:44:32 Syncope 606565325 Active 2023 TAMMY Faith - [facility] - [place] & [place] 11:46:11 Collapse 410896002 Active 2023 TAMMY Faith [facility] - [place] & [place] 11:46:19 Problem Notes None recorded. Procedures Surgical History Date Name Laterality Status Provider Name and Address Organization Details Recorded Time Cholecystectomy completed Leigh MUNOZ - [facility] - [place] & [place] 02/14/2024 11:13:27 Hysterectomy completed Leigh Thorpe L [facility] - [place] & [place] 02/14/2024 11:14:08 Imaging Results None recorded. Procedure Notes None [...] propionate 50 mcg/actuati on nasal spray,suspe nsion Irmo by nasal route as needed for 60 [...] Address Organization Details Last Updated DateTime 4 162.56 cm 40.7 kg/m2 403970. 11 g 97 % 97 % 85 /min 118 mm[Hg] 76 mm[Hg] Leigh MUNOZ [facility] & [place] 11:17:41 Social History Question Answer Notes LastModified by Organizat ion Details LastModified Time Tobacco Smoking Status Current Every Day Smoker [facility] [place] 02/14/2024 11:12:03 What Is Your [...] SNOMED-CT Code Diagnosis ICD10 Code Diagnosis Note [id number] DO MARCEL Aragon Neu[facility] [address] [facility],[address] [place] [address] 02/14/2024 10:59:42 02/14/2024 12:05:48 Syncope 319193670 R55 Recurrent syncopal episodes of unknown etiology. She has had associated urinary incontinen ce and observer reports of body jerks concerning for possible seizures.W ill order EEG. She is given a seizure log book to keep track of these events.Boris karimi precaution s. She should not drive,oper ate [...] ID Guarantor Name 02/29/2024 1 PASSPORT BY [employer] (MEDICAID REPLACEMENT - HMO) [id number] Shawnee Figueroa Lilo [id number] Shawnee Nagy Notes Date Note Type Note [...] of any significant head injuries. Sandi Bruno, DO [address], [place], [address], [facility] - NT - [place] & [place] 02/14/2024 11:44:15 OBGyn Episode No OBEpisode recorded.
--- OUTSIDE RECORDS SUMMARY | 2025-03-31 01:11 | XMS_ITS | Clinical Summary ---
Author Organization [facility] Address [facility] [place] [address] Phone Care Team Providers Care Mother Tester Name Role Phone Unavailable Primary Care Provider Unavailabl e Allergies No known active allergies Medications No known medications Surgical History Surgery Date Site/Laterality Comments CHOLECYSTECTOMY SECTION x 3 DENTAL SURGERY wisdom teeth extracted TUBAL LIGATION FOOT TENDON SURGERY 12/05/2019 Right POSTERIOR TIBIAL TENDON REPAIR WITH EXCISION BONE SPUR RIGHT ANKLE; Surgeon: Hernesto Winston DPM; Location: [facility] MAIN OR; Service: Podiatry Medical devices from this surgery are in the Medical Devices section. UT HALLUX RIGIDUS W/CHEILECT LORENZA 1ST MP JT W/O IMPLT 12/05/2019 Right Right Surgeon: Hernesto Winston DPM; Location: [facility] MAIN OR; Service: Podiatry Medical devices from this surgery are in the Medical Devices section. Medical History Medical History Date Comments Sleep apnea does not use cpa p Family History Medical History Relation Name Comments Anesth Problems Mother hard to wake Relation Name Status Comments Mother Social History Tobacco Use Types Packs/Day Years Used Date Smoking Tobacco: Every Day Cigarettes 0.3 4 Smokeless Tobacco: Never Alcohol Use Standard Drinks/Week Comments Never 0 (1 standard drink = 0.6 oz pur e alcohol) AUDIT-C Answer Date Recorded Frequency of Alcohol Consumption Never 12/05/2019 Average Number of Drinks Not on file 020 Frequency of Binge Drinking Not on file 11/24 Comments No Sex and Gender Information Value Date Recorded Sex Assigned at Not on file Legal Sex Female 3:15 PM EST Gender Identity Not on file Sexual Orientation Not on file Obstetrics History Last Filed Vital Signs Vital Sign Reading Time Taken Comments Blood Pressure 109/74 12/05/2019 3:07 PM EST Pulse 67 12/05/2019 3:07 PM EST Temperature 36.1 C (97 F) 12/05/2019 3:07 PM EST Respiratory Rate 16 12/05/2019 3:07 PM EST Oxygen Saturation 99% 12/05/2019 3:07 PM EST Inhaled Oxygen Concentration - - Weight 96.6 kg (213 lb) 12/05/2019 10:52 AM EST Height 167.6 cm (5' 6 ) 12/05/2019 10:52 AM EST Body Mass Index 34.38 12/05/2019 10:52 AM EST Plan of Treatment Health Maintenance Due Date Last Done Comments Annual Wellness Exam 1992 DTaP/TDaP/Td (1 - Tdap) 2008 Hepatitis B Vaccine (1 of 3 - 19+ 3-dose series) 2008 Cervical Cancer Screening 2010 Pap Smear 2010 HPV/Pap Cotest 2019 COVID-19 Vaccine ( - 2023-2 5 season) 2024 Influenza Vaccine (Season Ended) 2025 Meningococcal B Vaccine Aged Out No l onger eligible based on patient's age to complete this topic Pneumococcal Vaccine 0-49 Aged Out No longer eligible based on patient's age to complete this topic Medical Devices Implanted Type Area Trestleman Device Identifier Shelf Expiration Date Model / Serial / Lot Nellis Reelx Stt 4.5mm Knotless - [id number] Implanted:Qty: 1 on 12/05/2019 by Hernesto Winston DPM at [facility] Right: Foot NAVYA:ENDOSCO PY [id number] 02/01/2021 [id number] / / [id number] Graft Allogen Liquid Large 1.00ml - [id number] Implanted:Qty: 1 on 12/05/2019 by Hernesto Winston DPM at [facility] Right: [facility]:TISSUE BANK 12/19/2020 [id number] / / [id number] Graft Bone Intergro Demineralized Bone Matrix 5 Cc Paste - [id number] Implanted:Qty: 1 on 12/05/2019 by Hernesto Winston DPM at [facility] Right: [facility]:TISSUE BANK 07/30/2021 [id number] / / [id number] Insurance O
[2025-03-31 01:13] LABS: Microscopic, Urine URINE MICROSCOPIC (MICROSCOPIC)
[2025-03-31 01:13] LABS: Alanine Aminotransferase 28 U/L (12-78); Albumin Level 4.6 g/dl (3.5-5.0); Albumin/Globulin Ratio 1.3 (1.1-1.8); Alkaline Phosphatase 108 U/L (38-126); Anion Gap 9.8 mEq/L (5-15); Aspartate Amino Transferase 30 U/L (14-36); Bilirubin,Total 0.7 mg/dl (0.2-1.3); Blood Urea Nitrogen 15 mg/dl (7-17); Calcium 9.1 mg/dl (8.4-10.2); Carbon Dioxide 26 mmol/L (22.0-30.0); Chloride 104 mmol/L (98-107); Creatinine Clearance Estimated 162 mL/min (50-200); Estimated Glomerular Filt Rate 82 ml/min (>60); GFR (African American) 99 ML/MIN (>60); Globulin 3.5 g/dL (1.3-3.2); Glucose 109 mg/dl (74-100); Potassium 3.8 mmoL/L (3.5-5.1); Sodium 136 mmol/L (136-145); Total Protein,Serum 8.1 g/dl (6.3-8.2)
[2025-03-31 01:20] LABS: Appearance,Urine CLEAR (Clear); Blood, Urine Negative (Negative); Color,Urine YELLOW (Yellow); Glucose,Urine (UA) Negative (Negative); Ketones,Urine TRACE (Negative); Leukocyte Esterase,Urine Negative (Negative); Nitrate,Urine Negative (Negative); PH,Urine 6.5 (5.0-8.5); Protein,Urine Negative (Negative); Specific Gravity, Urine 1.025 (1.005-1.030)
[2025-03-31 01:36] LABS: Bilirubin,Urine 1+ (Negative)
[2025-03-31 01:41] LABS: Eosinophils % 4 % (0-3); Lymphocytes % 44 % (10-50); Monocytes % 1 % (2-9); Neutrophils % 51 % (42-76); Total Cells Counted 100
[2025-03-31 01:43] LABS: Platelet Estimate Slight Increase; RBC Morphology Normal
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
[2025-03-31] MEDS: ONDANSETRON 4MG/2ML VIAL 4 MG IV (01:59)
[2025-03-31] MEDS: MORPHINE 4MG/ML SYRINGE 4 MG IV ×3 (02:00→08:02)
[2025-03-31 02:25] LABS: Bacteria,Urine Trace /lpf; Mucus,Urine 2+ /lpf
[2025-03-31] MEDS: SODIUM CHLORIDE 0.9% 10ML SYR (RAD ONLY) 10 ML IV (02:47)
[2025-03-31] MEDS: IOPAMIDOL-370 (76%);100ML BOTTLE 75 ML IV (02:48)
[2025-03-31 03:32] LABS: Chlamydia trachomatis Negative (Negative); Neisseria gonorrhoeae Negative (Negative); Trichomonas vaginalis Negative (Negative)
--- NOTE | 2025-03-31 04:47 | EXP.HP ---
History of Present Illness *Admission Date: 03/31/25 *Reason for visit:: abdominal pain *History of present illness: 34-year-old female presents to the ER with complaints of low pelvic pain ongoing for the last 3 months without vaginal bleeding or abnormal discharge, no dysuria or hematuria. Patient saw Janine Tatykumar earlier this week and was going to get follow-up with OB but it has not yet been scheduled. She reports pain and demonstrates to her very low abdomen/anterior pelvic area. She states she has pain with intercourse and therefore is unable to have intercourse, no pain with defecation or urination. No nausea, vomiting, diarrhea, or constipation. She has had partial hysterectomy as well as 3 prior C-sections. CT abdomen pelvis says desmoid tumor or possible endometriosis. ER called OB on-call and general surgery on-call. Recommend higher level of care with surgical oncology availability due to uncertainty of the mass. Patient has been accepted at multiple facilities including [facility] and [facility] and she is waitlisted because there is a lack of availability. Due to persistent pain requiring IV analgesia patient was admitted to hospitalist service Independently interpreted diagnostics. Independently obtained history. Reviewed prior records. Discussed case with ER physician. [facility] Disclaimer: The information contained in this section may have been updated after the patient was seen, as this information can be updated by other users. Medical History Tobacco dependence syndrome Dyspnea Abnormal electrocardiography Left arm numbness Surgical History History of hysterectomy Hx of cholecystectomy History of foot surgery H/O wisdom tooth extraction H/O section Family History Other COPD (chronic obstructive pulmonary disease) Diabetes Diabetes 1.5, managed as type 2 Heart failure No significant family history Social History Smoking Status: Current every day smoker tobacco type: cigarettes packs per day: 1 alcohol intake: never current occupational status: disabled and other Travel in the last 8 weeks?: None household members: family housing: house current occupational exposures/hazards: No caffeine: No Have you lived/traveled outside US in past 30 days?: No Contact w/someone who lives/traveled outside US past 30 days?: No Exposure to someone with infectious disease in past 14 days?: No Do you have a fever (greater than 100.4 F or 38 C)?: No Have you tested positive for COVID-19?: No Exposed to someone with COVID-19 in past 14 days?: No Do you have a sore throat?: No Do you have a cough?: No Do you have any weakness?: No Do you have any diarrhea?: No Are you experiencing any unusual bleeding?: No Do you have any muscle aches/pain?: No Do you have any abdominal pain?: No Are you experiencing loss of taste or smell?: No Other Medical History Have you received the Flu Vaccine for this season: No Have you received the Pneumonia Vaccine: No Review of Systems Review of Systems Review of systems:: pertinent systems reviewed and negative unless documented below Meds Home Medications and Allergies Home Medications ?Medication ?Instructions ?Recorded ?Confirmed ?Type albuterol sulfate 90 mcg/actuation 1 inh inhalation QID #6.7 grams 02/13/24 11/16/24 Rx aerosol inhaler prazosin 1 mg capsule 1 mg PO HS 02/13/24 11/16/24 History trazodone 50 mg tablet 50 mg PO HS 11/16/24 11/16/24 History cefdinir 300 mg capsule 300 mg PO BID 5 days #10 caps 11/17/24 Rx pantoprazole 40 mg tablet,delayed 40 mg PO DAILY #30 tabs 11/17/24 Rx release sertraline 150 mg capsule 150 mg PO HS 11/17/24 11/17/24 History New Prescriptions to Start Prescriptions: Allergies Allergy/AdvReac Type Severity Reaction Status Date / Time No Known Allergies Allergy Verified 02/13/24 10:16 Exam Data for Last 24 hours Vital signs and Labs for Last 24 Hours: Temp Pulse Resp BP Pulse Ox O2 Del Method 98.1 F 69 16 106/77 L 98 Room Air 03/31/25 00:51 03/31/25 04:00 03/31/25 00:51 03/31/25 04:00 03/31/25 04:00 03/31/25 00:51 Laboratory Results - last 24 hr 03/31/25 00:53: WBC 20.2 H*, RBC 4.99, Hgb 14.4, Hct 43.4, MCV 87.0, MCH 28.9, MCHC 33.2, RDW 13.7, Plt Count 468 H, MPV 10.1, Neut % (Auto) 54.5, Lymph % (Auto) 33.7, [place] % (Auto) 7.0, Eos % (Auto) 3.9, Baso % (Auto) 0.5, Neut # (Auto) 11.0 H, Lymph # (Auto) 6.8 H, [place] # (Auto) 1.4 H, Eos # (Auto) 0.8 H, Baso # (Auto) 0.1, Total Counted 100, Neutrophils % (Manual) 51, Lymphocytes % (Manual) 44, Monocytes % (Manual) 1 L, Eosinophils % (Manual) 4 H, Platelet Estimate Slight increase, RBC Morphology Normal, Sodium 136, Potassium 3.8, Chloride 104, Carbon Dioxide 26, Anion Gap 9.8, BUN 15, Creatinine 0.80, Estimated Creat Clear 162, Estimated GFR 82, Est GFR ( Amer) 99, Glucose 109 H, Calcium 9.1, Total Bilirubin 0.7, AST 30, ALT 28, Alkaline Phosphatase 108, Total Protein 8.1, Albumin 4.6, Globulin 3.5 H, Albumin/Globulin Ratio 1.3 03/31/25 01:08: Urine Color Yellow, Urine Appearance Clear, Urine pH 6.5, Ur Specific [place] 1.025, Urine Protein Negative, Urine Glucose (UA) Negative, Urine Ketones Trace, Urine Blood Negative, Urine Nitrate Negative, Urine Bilirubin 1+ A, Urine Urobilinogen 1.0, Ur Leukocyte Esterase Negative, Urine RBC None, Urine WBC 3-5, Ur Squamous Epith Cells 5-10, Urine Bacteria Trace, Urine Mucus 2+, Ur C. trach DNA (PCR) Negative, U N.gonorrhoeae DNA PCR Negative, T. vaginalis (PCR) Negative I & O for Last 24 hours: Intake & Output 03/28/25 03/29/25 03/30/25 03/31/25 23:59 23:59 23:59 23:59 Weight 104.326 kg Constitutional Constitutional: no acute distress *Routine HEENT Exam Head: Present normocephalic Eye: Present EOMI and PERRL ENT: Present mucous membranes moist *Routine Neck Exam Neck: Present supple; Absent lymphadenopathy *Routine Respiratory Exam Respiratory: Present CTA bilaterally *Routine Cardiovascular Exam Cardiovascular: Present RRR *Routine Abdominal Exam Abdominal: Present soft and normoactive bowel sounds; Absent tenderness *Routine Rectal Exam Rectal:: deferred *Routine Genitalia Exam Genitalia:: deferred *Routine Extremities Exam Extremities: Absent cyanosis, clubbing or edema *Routine Skin Exam Skin: Present warm; Absent rash *Routine Neurological Exam Neurological: Present alert and oriented X3 Assessment and Plan *Assessment and plan (1) Leukocytosis: Status: Acute Category: Medical Code(s): D72.829 - Elevated white blood cell count, unspecified (2) Abdominal wall mass of suprapubic region: Status: Acute Category: Medical Code(s): R19.09 - Other intra-abdominal and pelvic swelling, mass and lump (3) Pelvic pain: Status: Acute Category: Medical Code(s): R10.2 - Pelvic and perineal pain Plan Pain management secondary to intra muscular mass -Undetermined etiology, possible desmoid tumor or endometriosis - Awaiting bed to transfer for evaluation by surgical oncology - No infectious symptoms or concern for abscess - Supportive management, increase analgesia and support as needed Anxiety depression - Home medications 4.5 cm enlarging macrolobulated mass in the inferior right rectus muscle, just above the pelvis. Leading differential of abdominal wall desmoid tumor or endometriosis.
--- NOTE | 2025-03-31 04:49 | PC.NURSE ---
repeat trop drawn and sent to the lab
--- NOTE | 2025-03-31 05:08 | PC.NURSE ---
Report received from Queenie (RN in the ED)
--- NOTE | 2025-03-31 05:12 | PC.NURSE ---
report called to Ashely ROBERSON
--- NOTE | 2025-03-31 05:19 | PC.NURSE ---
Pt arrived to the unit to room 279 via wheelchair at this time. pt A&Ox4, she denies any current pain. IV #20G to right AC flushed with saline at this time. Pt ambulates steady and denies any dizziness or weakness. Pt reports voiding WNL and has regular BMs. Pt has nurse call light within reach and is oriented to the room. Pt given water and crackers at this time.
[2025-03-31] MEDS: NICOTINE 21MG/24HR PATCH 21 MG TD (06:07)
--- NOTE | 2025-03-31 06:25 | INFXCTL.NOTE ---
Lucero from [facility] called at this time to inform us that the pt has a bed [address] Marcum is the accepting MD.
[2025-03-31 06:44] LABS: Albumin Level 4.2 g/dl (3.5-5.0); Chloride 106 mmol/L (98-107); Potassium 3.3 mmoL/L (3.5-5.1); Sodium 136 mmol/L (136-145)
[2025-03-31 06:46] LABS: Blood Urea Nitrogen 15 mg/dl (7-17); Creatinine Clearance Estimated 162 mL/min (50-200); Estimated Glomerular Filt Rate 82 ml/min (>60); GFR (African American) 99 ML/MIN (>60)
[2025-03-31 06:47] LABS: Alanine Aminotransferase 77 U/L (12-78); Albumin/Globulin Ratio 1.4 (1.1-1.8); Alkaline Phosphatase 116 U/L (38-126); Anion Gap 8.3 mEq/L (5-15); Aspartate Amino Transferase 158 U/L (14-36); Bilirubin,Total 1.3 mg/dl (0.2-1.3); Calcium 8.8 mg/dl (8.4-10.2); Carbon Dioxide 25 mmol/L (22.0-30.0); Globulin 2.9 g/dL (1.3-3.2); Glucose 137 mg/dl (74-100); Phosphorous 3.9 mg/dl (2.5-4.5); Total Protein,Serum 7.1 g/dl (6.3-8.2)
--- NOTE | 2025-03-31 06:50 | PC.NURSE ---
This RN attempted to call report to [facility] and was asked to call back in about 30 minutes to give report.
[2025-03-31 07:00] LABS: Basophils # 0.1 K/mm3 (0-0.2); Basophils % 0.6 % (0.1-2.0); Eosinophils # 0.6 Kmm3 (0.0-0.4); Eosinophils % 4.3 % (0.1-12.0); Hematocrit 40.8 % (37.0-47.0); Hemoglobin 13.2 g/dL (12.2-16.2); Immature Granulocytes # 0.06 10^3uL; Immature Granulocytes % 0.4 %; Lymphocytes # 4.7 K/mm3 (0.7-4.5); Lymphocytes % 32.7 % (10-50); Mean Corpuscular HGB Conc 32.4 g/dL (31.8-35.4); Mean Corpuscular Hemoglobin 28.3 pg (27.0-31.2); Mean Corpuscular Volume 87.4 fl (81-99); Mean Platelet Volume 10.1 fl (7.4-10.4); Monocytes # 1.5 K/mm3 (0.1-1.0); Monocytes % 10.2 % (1.7-9.3); Neutrophils # 7.4 K/mm3 (1.8-7.8); Neutrophils % 51.8 % (37.0-80.0); Nucleated Red Blood Cells # 0 10^3/uL; Nucleated Red Blood Cells % 0 %; Platelet Count 375 K/mm3 (142-424); Red Blood Count 4.67 M/mm3 (4.20-5.40); Red Cell Distribution Width 13.6 % (11.5-17.5); Red Cell Distribution Width-SD 43.3 fL; White Blood Count 14.3 K/mm3 (4.8-10.8)
--- NOTE | 2025-03-31 07:00 | PC.NURSE ---
Report given to Haylie Dickens RN. Pt also notified that she has a bed on [address] in [facility], pt reports mild pain and does request pain medication when she can.
--- NOTE | 2025-03-31 07:35 | PC.NURSE ---
ED MEDICATIONS Generic Name Dose Route Start Last Admin Trade Name Terrance PRN Reason Stop Dose Admin Acetaminophen 650 mg 03/31/25 04:45 Acetaminophen 325mg Tab PO 04/30/25 04:44 Q4HP PRN Fever or Mild Pain (1-3) Hydrocodone Bitart/Acetaminophen 1 tab 03/31/25 04:45 Hydrocodone/Apap 5/325 Mg Tablet PO 04/30/25 04:44 Q4HP PRN Mild to Moderate Pain (1-6) Enoxaparin Sodium 40 mg 03/31/25 09:00 Enoxaparin 40mg/0.4ml Syringe SUBCUT 04/30/25 08:59 DAILY AMALIA Morphine Sulfate 4 mg 03/31/25 04:45 Morphine 4mg/Ml Syringe IV 04/30/25 04:44 Q4HP PRN Severe Pain (7-10) Nicotine 21 mg 03/31/25 06:00 03/31/25 06:07 Nicotine 21mg/24hr Patch TD 04/30/25 05:59 21 mg DAILY AMALIA Administration Ondansetron HCl 4 mg 03/31/25 04:45 Ondansetron 4mg/2ml Vial IV 04/30/25 04:44 Q8HP PRN Nausea Discontinued Medications Generic Name Dose Route Start Last Admin Trade Name Terrance PRN Reason Stop Dose Admin Iopamidol 75 ml 03/31/25 02:46 03/31/25 02:48 Iopamidol-370 (76%);100ml Bottle IV 03/31/25 02:47 75 ml ONCE ONE Administration Ketorolac Tromethamine 30 mg 03/31/25 00:52 03/31/25 01:07 Ketorolac 30mg/Ml Vial IV 03/31/25 00:53 30 mg ONCE ONE Administration Morphine Sulfate 4 mg 03/31/25 01:51 03/31/25 02:00 Morphine 4mg/Ml Syringe IV 03/31/25 01:52 4 mg ONCE ONE Administration Morphine Sulfate 4 mg 03/31/25 04:35 03/31/25 04:44 Morphine 4mg/Ml Syringe IV 03/31/25 04:36 4 mg ONCE ONE Administration Ondansetron HCl 4 mg 03/31/25 01:51 03/31/25 01:59 Ondansetron 4mg/2ml Vial IV 03/31/25 01:52 4 mg ONCE ONE Administration Sodium Chloride 10 ml 03/31/25 02:46 03/31/25 02:47 Sodium Chloride 0.9% 10ml Syr (Rad Only) IV 03/31/25 02:47 10 ml ONCE ONE Administration ORDERS Category Date Time Status CT abdomen pelvis w con Stat Cat Scan 03/31/25 00:52 Completed CBC w/Auto Diff [Complete Blood Count Auto Diff] Stat Lab 03/31/25 00:53 Completed CMP [Comprehensive Metabolic Panel] Stat Lab 03/31/25 00:53 Completed Complete Blood Count Auto Diff AMLAB Lab 03/31/25 06:30 Completed Comprehensive Metabolic Panel [facility] Lab 03/31/25 06:30 Completed Magnesium [facility] Lab 03/31/25 06:30 Completed Phosphorous [facility] Lab 03/31/25 06:30 Completed Urinalysis and Microscopic Stat Lab 03/31/25 01:08 Completed Urine Chlam/Gono/Trich, ROXANA Stat Lab 03/31/25 01:08 Completed
[2025-03-31] MEDS: ENOXAPARIN 40MG/0.4ML SYRINGE 40 MG SUBCUT (08:04)
--- NOTE | 2025-03-31 08:09 | PC.NURSE ---
Spoke with [facility] at this time. [facility] called to ensure everyone was on the same page.
--- NOTE | 2025-03-31 08:23 | PC.NURSE ---
[facility] notified of transfer. ETA 20 minutes.
--- NOTE | 2025-03-31 08:39 | PC.NURSE ---
Active Medications Generic Name Dose Route Start Last Admin Trade Name Freq PRN Reason Stop Dose Admin Acetaminophen 650 mg 03/31/25 04:45 Acetaminophen 325mg Tab PO 04/30/25 04:44 Q4HP PRN Fever or Mild Pain (1-3) Hydrocodone Bitart/Acetaminophen 1 tab 03/31/25 04:45 Hydrocodone/Apap 5/325 Mg Tablet PO 04/30/25 04:44 Q4HP PRN Mild to Moderate Pain (1-6) Enoxaparin Sodium 40 mg 03/31/25 09:00 03/31/25 08:04 Enoxaparin 40mg/0.4ml Syringe SUBCUT 04/30/25 08:59 40 mg DAILY AMALIA Administration Morphine Sulfate 4 mg 03/31/25 04:45 03/31/25 08:02 Morphine 4mg/Ml Syringe IV 04/30/25 04:44 4 mg Q4HP PRN Administration Severe Pain (7-10) Nicotine 21 mg 03/31/25 06:00 03/31/25 06:07 Nicotine 21mg/24hr Patch TD 04/30/25 05:59 21 mg DAILY AMALIA Administration Ondansetron HCl 4 mg 03/31/25 04:45 Ondansetron 4mg/2ml Vial IV 04/30/25 04:44 Q8HP PRN Nausea
--- NOTE | 2025-03-31 09:21 | EXP.DC.SUM ---
General Admission date:: 03/31/25 HPI HPI HPI: 34-year-old female presents to the ER with complaints of low pelvic pain ongoing for the last 3 months without vaginal bleeding or abnormal discharge, no dysuria or hematuria. Patient saw Janine Muller earlier this week and was going to get follow-up with OB but it has not yet been scheduled. She reports pain and demonstrates to her very low abdomen/anterior pelvic area. She states she has pain with intercourse and therefore is unable to have intercourse, no pain with defecation or urination. No nausea, vomiting, diarrhea, or constipation. She has had partial hysterectomy as well as 3 prior C-sections. CT abdomen pelvis says desmoid tumor or possible endometriosis. ER called OB on-call and general surgery on-call. Recommend higher level of care with surgical oncology availability due to uncertainty of the mass. Patient has been accepted at multiple facilities including [facility] and [facility] and she is waitlisted because there is a lack of availability. Due to persistent pain requiring IV analgesia patient was admitted to hospitalist service Independently interpreted diagnostics. Independently obtained history. Reviewed prior records. Discussed case with ER physician. Hospital Course Hospital Course Hospital Course: Shawnee Ch is a 34-year-old female presents to the ER with complaints of low pelvic pain ongoing for the last 3 months without vaginal bleeding or abnormal discharge, no dysuria or hematuria. Found to have a large 4.5 cm right rectal mass just above the pelvis. Highly concerning for malignancy. Initiated transfer process, waitlisted at multiple facilities including [facility], [facility]. Ultimately patient was transferred to [facility] in [place] in stable condition. Pain management secondary to intra muscular mass -Undetermined etiology, possible desmoid tumor or endometriosis - Awaiting bed to transfer for evaluation by surgical oncology - No infectious symptoms or concern for abscess - Supportive management, increase analgesia and support as needed Anxiety depression - Home medications 4.5 cm enlarging macrolobulated mass in the inferior right rectus muscle, just above the pelvis. Leading differential of abdominal wall desmoid tumor or endometriosis. Exam Data for Last 24 hours Vital signs and Labs for Last 24 Hours: Temp Pulse Resp BP Pulse Ox O2 Del Method 97.7 F 74 15 115/52 L 96 Room Air 03/31/25 07:57 03/31/25 07:57 03/31/25 07:57 03/31/25 07:57 03/31/25 08:10 03/31/25 08:30 Laboratory Results - last 24 hr 03/31/25 00:53: WBC 20.2 H*, RBC 4.99, Hgb 14.4, Hct 43.4, MCV 87.0, MCH 28.9, MCHC 33.2, RDW 13.7, Plt Count 468 H, MPV 10.1, Neut % (Auto) 54.5, Lymph % (Auto) 33.7, Victoria % (Auto) 7.0, Eos % (Auto) 3.9, Baso % (Auto) 0.5, Neut # (Auto) 11.0 H, Lymph # (Auto) 6.8 H, Victoria # (Auto) 1.4 H, Eos # (Auto) 0.8 H, Baso # (Auto) 0.1, Total Counted 100, Neutrophils % (Manual) 51, Lymphocytes % (Manual) 44, Monocytes % (Manual) 1 L, Eosinophils % (Manual) 4 H, Platelet Estimate Slight increase, RBC Morphology Normal, Sodium 136, Potassium 3.8, Chloride 104, Carbon Dioxide 26, Anion Gap 9.8, BUN 15, Creatinine 0.80, Estimated Creat Clear 162, Estimated GFR 82, Est GFR ( Amer) 99, Glucose 109 H, Calcium 9.1, Total Bilirubin 0.7, AST 30, ALT 28, Alkaline Phosphatase 108, Total Protein 8.1, Albumin 4.6, Globulin 3.5 H, Albumin/Globulin Ratio 1.3 03/31/25 01:08: Urine Color Yellow, Urine Appearance Clear, Urine pH 6.5, Ur Specific Kensal 1.025, Urine Protein Negative, Urine Glucose (UA) Negative, Urine Ketones Trace, Urine Blood Negative, Urine Nitrate Negative, Urine Bilirubin 1+ A, Urine Urobilinogen 1.0, Ur Leukocyte Esterase Negative, Urine RBC None, Urine WBC 3-5, Ur Squamous Epith Cells 5-10, Urine Bacteria Trace, Urine Mucus 2+, Ur C. trach DNA (PCR) Negative, U N.gonorrhoeae DNA PCR Negative, T. vaginalis (PCR) Negative 03/31/25 06:30: WBC 14.3 H D, RBC 4.67, Hgb 13.2, Hct 40.8, MCV 87.4, MCH 28.3, MCHC 32.4, RDW 13.6, Plt Count 375, MPV 10.1, Neut % (Auto) 51.8, Lymph % (Auto) 32.7, Victoria % (Auto) 10.2 H, Eos % (Auto) 4.3, Baso % (Auto) 0.6, Neut # (Auto) 7.4, Lymph # (Auto) 4.7 H, Victoria # (Auto) 1.5 H, Eos # (Auto) 0.6 H, Baso # (Auto) 0.1, Sodium 136, Potassium 3.3 L, Chloride 106, Carbon Dioxide 25, Anion Gap 8.3, BUN 15, Creatinine 0.80, Estimated Creat Clear 162, Estimated GFR 82, Est GFR ( Amer) 99, Glucose 137 H D, Calcium 8.8, Phosphorus 3.9, Magnesium 2.0, Total Bilirubin 1.3, AST 158 H D, ALT 77 D, Alkaline Phosphatase 116, Total Protein 7.1, Albumin 4.2, Globulin 2.9, Albumin/Globulin Ratio 1.4 I & O for Last 24 hours: Intake & Output 03/28/25 03/29/25 03/30/25 03/31/25 23:59 23:59 23:59 23:59 Weight 104.326 kg Results Data Completed and Pending Labs on day of discharge: Labs from last 24 hours 03/31/25 03/31/25 03/31/25 06:30 01:08 00:53 WBC 14.3 H D 20.2 H* RBC 4.67 4.99 Hgb 13.2 14.4 Hct 40.8 43.4 MCV 87.4 87.0 MCH 28.3 28.9 MCHC 32.4 33.2 RDW 13.6 13.7 Plt Count 375 468 H MPV 10.1 10.1 Neut % (Auto) 51.8 54.5 Lymph % (Auto) 32.7 33.7 Victoria % (Auto) 10.2 H 7.0 Eos % (Auto) 4.3 3.9 Baso % (Auto) 0.6 0.5 Neut # (Auto) 7.4 11.0 H Lymph # (Auto) 4.7 H 6.8 H Victoria # (Auto) 1.5 H 1.4 H Eos # (Auto) 0.6 H 0.8 H Baso # (Auto) 0.1 0.1 Total Counted 100 Neutrophils % (Manual) 51 Lymphocytes % (Manual) 44 Monocytes % (Manual) 1 L Eosinophils % (Manual) 4 H Platelet Estimate Slight increase RBC Morphology Normal Sodium 136 136 Potassium 3.3 L 3.8 Chloride 106 104 Carbon Dioxide 25 26 Anion Gap 8.3 9.8 BUN 15 15 Creatinine 0.80 0.80 Estimated Creat Clear 162 162 Estimated GFR 82 82 Est GFR ( Amer) 99 99 Glucose 137 H D 109 H Calcium 8.8 9.1 Phosphorus 3.9 Magnesium 2.0 Total Bilirubin 1.3 0.7 AST 158 H D 30 ALT 77 D 28 Alkaline Phosphatase 116 108 Total Protein 7.1 8.1 Albumin 4.2 4.6 Globulin 2.9 3.5 H Albumin/Globulin Ratio 1.4 1.3 Urine Color Yellow Urine Appearance Clear Urine pH 6.5 Ur Specific Kensal 1.025 Urine Protein Negative Urine Glucose (UA) Negative Urine Ketones Trace Urine Blood Negative Urine Nitrate Negative Urine Bilirubin 1+ A Urine Urobilinogen 1.0 Ur Leukocyte Esterase Negative Urine RBC None Urine WBC 3-5 Ur Squamous Epith Cells 5-10 Urine Bacteria Trace Urine Mucus 2+ Ur C. trach DNA (PCR) Negative U N.gonorrhoeae DNA PCR Negative T. vaginalis (PCR) Negative DS: Diagnosis Discharge Diagnosis (1) Leukocytosis: Status: Acute Code(s): D72.829 - Elevated white blood cell count, unspecified (2) Abdominal wall mass of suprapubic region: Status: Acute Code(s): R19.09 - Other intra-abdominal and pelvic swelling, mass and lump (3) Pelvic pain: Status: Acute Code(s): R10.2 - Pelvic and perineal pain Meds Home Medications and Allergies Home Medications ?Medication ?Instructions ?Recorded ?Confirmed ?Type trazodone 50 mg tablet 50 mg PO HS 11/16/24 03/31/25 History albuterol sulfate 90 mcg/actuation 1 inh inhalation Q4RT 03/31/25 03/31/25 History aerosol inhaler lamotrigine 25 mg tablet 25 mg PO HS 03/31/25 03/31/25 History montelukast 10 mg tablet 10 mg PO PM 03/31/25 03/31/25 History New Prescriptions to Start Prescriptions: Allergies Allergy/AdvReac Type Severity Reaction Status Date / Time No Known Allergies Allergy Verified 02/13/24 10:16 Discharge Plan Disposition Patient Disposition: Xfer Short-Term Hosp Condition: Fair Discharge Order Discharge Orders: Discharge Order (Routine); Ordered 03/31/25 Ordered By: Vickey Valle Follow up Plan Prescriptions/Medication Reconciliation: No Action lamotrigine 25 mg tablet 25 mg PO HS Patient Comments: TAKE 1 TABLET BY MOUTH AT BEDTIME FOR 14 DAYS THEN INCREASE TO 2 TABLETS AT BEDTIME montelukast 10 mg tablet 10 mg PO PM Patient Comments: TAKE 1 TABLET BY MOUTH ONCE A DAY albuterol sulfate 90 mcg/actuation HFA aerosol inhaler 1 inh inhalation Q4RT trazodone 50 mg tablet 50 mg PO HS Problem Reconciliation Problems Reviewed?: Yes Patient Discharge Instructions Stand Alone Forms: Transfer Record Print Language: American Providers Primary Care Provider: Janine Wheatley Admit Provider: Vickey Valle Attending Provider: Vickey Valle
== END 2025-03-31 08:51 | disposition short-term general hospital (02) ==
LOC: ER 04:43 → OB 05:31
PROVIDERS: Student in an Organized Health Care Education/Training Program; Admitting Provider Student in an Organized Health Care Education/Training Program; Emergency Provider Emergency Medicine; PCP Nurse Practitioner; Visit Provider Student in an Organized Health Care Education/Training Program
DX: R10.2 Pelvic and perineal pain (principal); D72.829 Elevated white blood cell count, unspecified; R19.09 Other intra-abdominal and pelvic swelling, mass and lump; F41.8 Other specified anxiety disorders; F17.210 Nicotine dependence, cigarettes, uncomplicated; E66.9 Obesity, unspecified; J45.909 Unspecified asthma, uncomplicated; Z79.899 Other long term (current) drug therapy; Z90.710 Acquired absence of both cervix and uterus; Z68.39 Body mass index [BMI] 39.0-39.9, adult; Z90.49 Acquired absence of other specified parts of digestive tract
CPT/HCPCS: 96374; 96375; 96376; 36415; 74177; 80053; 81001; 83735; 84100; 85007; 85025; 85027; 87491; 87591; 87661; G0378; J1650; J1885; J2270; J2405; Q9967

== ENCOUNTER 2025-04-17 16:14 | Emergency (ER) | payer MEDICAID, SELFPAY ==
--- OUTSIDE RECORDS SUMMARY | 2025-03-31 09:50 | XMS_ITS | Encounter Summary ---
Author Organization [employer] Address [address] [place] [address] Care Team Providers Care Safety Instruction Police Officer Name Role Phone Unavailable Primary Care Provider Unavailabl e Reason for Visit * Auth/Cert (Routine) Specialty Diagnoses / Procedures Referred By Emely cisneros Referred To Contact Diagnoses Abdominal mass RECTUS MUSCLE TUMOR [facility] Cardiac Telemetry 1 [place] [address] Phone: tel: fax: [facility] Cardiac Telemetry 1 [place] [address] Phone: tel: fax: Referral ID Status Reason Start Date Expiration Date Visits Re quested Visits Authorized [id number] 1 1 Encounter Details Date Type Department Care Team (Late st Contact Info) Description 03/31/2025 9:50 AM EDT - 04/02/2025 3:29 PM EDT Hospital Encounter [facility] Cardiac Telemetry 1 [place] [address] Chiqui Marcum MD [address] [facility] [place] [address] Marvin Ordaz PA-Abdiaziz [address] [place] [address] Aden Nickerson MD [address] [facility] [address] [address] Danial Campbell DO [address] [facility] [address] [place], [place] [id number] Mass in the abdomen Discharge Disposition: Home [...] 04/02/2025 3:29 PM EDT Patient Name: Shawnee Becerra : 1990 Date of Admission: 03/31/2025 Date [...] Your Medications These medications were sent to [facility] at [address] [facility] [address], [facility] [id number] HYDROcodone-acetaminophen 5-325 mg per tablet nicotine 14 [...] System MD Sol Relationship: PCP - General [place] [id number] Next Steps: Follow up in 3 day(s) Instructions: Hosp F/U Heather Rosas DO Specialty: General Surgery [address] [facility] [address] [place] [address] Next Steps: Follow up in 3 week(s) Instructions: Hosp F/U Time Spent: 25 minutes Electronically signed by Aden Nickerson MD, 04/02/25, 6:43 PM EDT documented in this encounter Discharge Instructions * Attachments The following attachments cannot be sent through Care Everywhere. * Pelvic Mass Female (Indonesian) * Acetaminophen; Hydrocodone Capsules or Tablets (Indonesian) * Nicotine Patches (Indonesian) * Needle Biopsy Care After [id number] (Indonesian) documented in this encounter Medications at Time of Discharge albuterol 90 mcg/actuation inhaler Inhale 1 puff by mouth every 4 (four) hours as needed for shortness of breath. 03/26/2025 lamoTRIgine (LaMICtal) 25 MG tablet Take 1 tablet (25 mg total) by mouth nightly. 03/26/2025 montelukast (SINGULAIR) 10 mg tablet Take 1 tablet (10 mg total) by mouth daily. 03/26/2025 nicotine (NICODERM CQ) 14 mg/[address] 1 patch on the skin daily as needed (nicotine withdrawal) for up to 30 days. 28 patch 04/02/2025 HYDROcodone-acet aminophen (NORCO) 5-325 mg per tablet Take 1 tablet by mouth every 6 (six) hours as needed for up to 3 days. Max Daily Amount: 4 tablets 12 tablet 04/02/2025 5 documented as of this encounter Progress Notes [...] Independent Signed by: Edgar Mendosa RN * Lisy Lanier OTR/Malu - 04/01/2025 3:02 PM EDT Images from the original note were not included. Inpatient Occupational Therapy Screen Patient Name: Shawnee Becerra Birthday: 1990 Date of OT Screen: 04/01/2025 [...] spent in room: 1:44-1:57. Electronically signed by Lisy Lanier OTR/Malu - 04/01/2025 - 3:02 PM EDT * Marvin Ordaz PA-C - 04/01/2025 12:00 PM EDT [facility] Progress Note Patient: Shawnee Becerra Subjective Chief Complaint / Reason for Follow-Up Shawnee Becerra is a 34 y.o. female on hospital [...] Night Marvin Ordaz PA-C 1 mg at 03/31/25 2120 promethazine (PHENERGAN) 12.5 mg in sodium chloride [...] discharge disposition (home, SNF/Rehab, etc): TBD Signed: [facility] Hospitalist * Godfrey Lee, PT - 04/01/2025 11:36 AM EDT Images from the original note were not included. Inpatient Physical Therapy Initial Evaluation Patient Name: Shawnee Becerra Date of : 1990 Date of Evaluation: [...] Score Raw score=20 t-Scale score=47.67 Standard error=4.06 CMS 0-100%=35.83% MDC=4.72 A raw score of >= [...] patient's discharge summary. Electronically signed by Godfrey Lee PT - 04/01/25 - 12:39 PM EDT [...] Ordaz PA-C - 03/31/2025 10:48 AM EDT [facility] Physician History & Physical Patient Name: Shawnee Becerra : 1990 Primary Care Physician: Provider Not [...] gotten larger since October. Subsequently transferred to [facility] for higher level of care. Patient states she has been aware of her lower abdominal mass for several months. She states that 2days ago she was walking around [facility] when she developed severe sharp stabbing lower abdominal pain that prevented her from walking. She separately presented to the outside hospital emergency department. CT scan done with results as above. Patient reports sharp stabbing pain and points toher suprapubic region. States that the pain at its worst is 7/10 and morphine brings it down 3-5/10. Patient states pain is antagonized by movement. Pain does not radiate. She denied any fever or chills. No coughing wheezing or shortness of air. States that she does have history of asthma and uses albuterol inhaler as needed. No chest pain. Patient describes her CVA as blacking out . States thatthe only sequela from her stroke is difficulty [...] this encounter Consult Notes * Heather Rosas, DO - 03/31/2025 1:41 PM EDTAssociated Order(s): [id number]_IP [...] As per medication orders on (03/31, 04/02) CDS/Care Transition Mgr Signature: Gela Fish Email ID #: [email or web address] Date/Time: 04/04/2025 10:08 AM This is a permanent part of the Medical Record 2021 [facility] Reviewed: 11/2023 * Plan of Care - [...] rectus muscle tumor and subsequent transferred to [facility] for higher level of care. Prior [...] documented in this encounter Plan of Treatment Not on file documented as of this encounter Procedures Procedure Name Priority Date/Time Associated Diagnosis Comments CT BIOPSY SITE ABDOMEN Routine 04/02/2025 9:15 AM EDT TISSUE EXAM [facility] AP Routine 04/02/2025 8:24 AM EDT Mass in the abdomen CBC [...] wall mass. ATTENDING PHYSICIAN: Dr. Montano PHYSICIAN CLEANING CREW MEMBER: Candido Camacho PA-C PROCEDURE: This study was [...] wall mass. ATTENDING PHYSICIAN: Dr. Montano PHYSICIAN CLEANING CREW MEMBER: Candido Camacho PA-C PROCEDURE: This study was [...] CYTOLOGY LABORATORY Comment: [facility] [address] [place] [address] or [phone] Sheldon Navarrete M.D., Invoice Checker PATIENT NAME LABORATORY NO. 1702 SHAWNEE BECERRA [id number] AGE SEX SSN CLIENT REF # [facility] 34 1990 F [id number] 1 [facility] REQUESTING Kristopher [place] [address] ALLA CEDILLO JOSHUA DATE COLLECTED DATE RECEIVED [...] rendered by Tena Waldrop M.D., F.C.A.P. at [facility], [address] [place] [address]. GROSS DESCRIPTION: Received in formalin labeled abdominal wall biopsy are multiple core biopsies of núñez-white soft tissue averaging 1.9 cm in length and 0.1 cm in diameter, submitted entirely in blocks A1-2. MTS Immediate evaluation: Not adequate. The patient ID is verified, stain good, verbal to DAYAMI Rey by JACINDA Marroquin at [facility] REVIEWED, DIAGNOSED AND ELECTRONICALLY SIGNED BY: Tena Waldrop M.D., F.C.A.P. CPT CODES: 26004, [id number] Tissue ABDOMEN / Unknown 04/02/2025 8:24 AM EDT us Alla Cedillo PA-C PATHOLOGY/CYTOLOGY ORDERABL ES Final Result [facility] [address] [place] [address] * Hepatitis panel, acute (04/02/2025 4:40 AM EDT) Hep A IgM Nonreactive Nonreactive 04/02/2025 2:04 PM EDT [facility] Hep B C IgM Nonreactive Nonreactive 04/02/2025 2:04 PM EDT [facility] Hepatitis B surface antigen Nonreactive Nonreactive 04/02/2025 2:04 PM EDT [facility] Hepatitis C Ab Nonreactive Nonreactive 04/02/20 2:04 PM EDT [facility] Comment: Lubrication Equipment Servicer recommends confirmatory testing on all reactives and equivocals. Blood Venipuncture / Unknown 04/02/2025 4:40 AM EDT 04/02/2025 5:05 AM EDT us Aden Nickerson MD LAB BLOOD ORDERABLES Final R esult [facility] [address] [phone] * (ABNORMAL) Comprehensive metabolic panel (04/02/2025 4:40 AM EDT) Sodium 142 136 - 145 meq/L 04/02/2025 5:46 AM EDT [facility] Potassium 4.1 3.4 - 5.1 meq/L 04/02/2025 5:46 AM EDT [facility] Chloride 109 98 - 112 meq/L 04/02/2025 5:46 AM EDT [facility] CO2 26 22 - 29 meq/L 04/02/2025 5:46 AM EDT [facility] Calcium 8.4 8.4 - 10.2 mg/dL 04/02/2025 5:46 AM EDT [facility] Glucose 86 74 - 100 mg/dL 04/02/2025 5:46 AM EDT [facility] BUN 9.0 7.0 - 18.7 mg/dL 04/02/2025 5:46 AM EDT [facility] Creatinine 0.80 0.57 - 1.11 mg/dL 04/02/2025 5:46 AM EDT [facility] BUN/Creatinine 11 8 - 20 04/02/2025 5:46 AM EDT [facility] eGFR (mL/min/1.73m2) 99 >=60 mL/min/1. 73m2 04/02/2025 5:46 AM EDT [facility] Albumin 3.1(L) 3.5 - 5.0 g/dL 04/02/2025 5:46 AM EDT [facility] Alkaline Phosphatase 91 40 - 150 U/L 04/02/2025 5:46 AM EDT [facility] ALT 48(H) <=34 U/L 04/02/2025 5:46 AM EDT [facility] Comment: ALT2 reagent used for testing does not contain P5P supplementation and therefore may miss ALT elevations in patients with B6 deficiency. This population may be as high as 10% in the [place], with risk factors including malabsorption, drug interactions, and alcoholic hepatitis. AST 31 11 - 34 U/L 04/02/2025 5:46 AM EDT [facility] Comment: AST2 reagent used for testing does not contain P5P supplementation and therefore may miss AST elevations in patients with B6 deficiency. This population may be as high as 10% in the [place], with risk factors including malabsorption, drug interactions, and alcoholic hepatitis. Total Bilirubin 0.2 0.2 - 1.2 mg/dL 04/02/2025 5:46 AM EDT [facility] Protein, Total 6.4 6.4 - 8.3 g/dL 04/02/2025 5:46 AM EDT [facility] Globulin 3.3 2.5 - 4.1 g/dL 04/02/2025 5:46 AM EDT [facility] Anion Gap 11 4 - 12 04/02/2025 5:46 AM EDT [facility] A/G Ratio 0.9 0.7 - 1.9 04/02/2025 5:46 AM EDT [facility] Osmolality Calc 281.1 mOsm/kg 5:46 AM EDT [facility] Blood Venipuncture / Unknown 04/02/2025 4:40 AM EDT 04/02/2025 5:05 AM EDT Marvin Ordaz PA-C LAB BLOOD ORDERABLES Final Re sult [facility] [address] [phone] * (ABNORMAL) CBC - Hemogram (SJ-BKR) (04/02/2025 4:40 AM EDT) WBC 12.0(H) 4.0 - 10.0 K/ L 04/02/2025 5:19 AM EDT [facility] RBC 4.22 3.93 - 5.22 M/ L 04/02/2025 5:19 AM EDT [facility] Hemoglobin 12.1 11.2 - 15.7 GM/DL 04/02/2025 5:19 AM EDT [facility] Hematocrit 37.9 34.1 - 44.9 % 04/02/2025 5:19 AM EDT [facility] MCV 90 79 - 95 fL 04/02/2025 5:19 AM EDT [facility] MCH 28.7 25.6 - 32.2 pg 04/02/2025 5:19 AM EDT [facility] MCHC 31.9(L) 32.2 - 35.5 GM/DL 04/02/2025 5:19 AM EDT [facility] RDW 13.3 11.7 - 14.4 % 04/02/2025 5:19 AM EDT [facility] Platelets 347 140 - 375 K/CU MM 04/02/2025 5:19 AM EDT [facility] MPV 10.2 9.4 - 12.3 fL 04/02/2025 5:19 AM EDT [facility] Blood Venipuncture / Unknown 04/02/2025 4:40 AM EDT 04/02/2025 5:07 AM EDT Marvin Ordaz PA-C LAB BLOOD ORDERABLES Final Re sult [facility] [address] [phone] * Magnesium (04/02/2025 4:40 AM EDT) Magnesium 1.8 1.6 - 2.6 mg/dL 04/02/2025 5:42 AM EDT [facility] Blood Venipuncture / Unknown 04/02/2025 4:40 AM EDT 04/02/2025 5:05 AM EDT us Marvin Ordaz PA-C LAB BLOOD ORDERABLES Final Re sult [facility] [address] [phone] * (ABNORMAL) Comprehensive metabolic panel (04/01/2025 3:50 AM EDT) Sodium 136 136 - 145 meq/L 04/01/2025 5:31 AM EDT [facility] Potassium 4.0 3.4 - 5.1 meq/L 04/01/2025 5:31 AM EDT [facility] Chloride 107 98 - 112 meq/L 04/01/2025 5:31 AM EDT [facility] CO2 23 22 - 29 meq/L 04/01/2025 5:31 AM EDT [facility] Calcium 8.3(L) 8.4 - 10.2 mg/dL 04/01/2025 5:31 AM EDT [facility] Glucose 103(H) 74 - 100 mg/dL 04/01/2025 5:31 AM EDT [facility] BUN 12.2 7.0 - 18.7 mg/dL 04/01/2025 5:31 AM EDT [facility] Creatinine 0.68 0.57 - 1.11 mg/dL 04/01/2025 5:31 AM EDT [facility] BUN/Creatinine 18 8 - 20 04/01/2025 5:31 AM EDT [facility] eGFR (mL/min/1.73m2) 117 >=60 mL/min/1. 73m2 04/01/2025 5:31 AM EDT [facility] Albumin 3.3(L) 3.5 - 5.0 g/dL 04/01/2025 5:31 AM EDT [facility] Alkaline Phosphatase 100 40 - 150 U/L 04/01/2025 5:31 AM EDT [facility] ALT 76(H) <=34 U/L 04/01/2025 5:31 AM EDT [facility] Comment: ALT2 reagent used for testing does not contain P5P supplementation and therefore may miss ALT elevations in patients with B6 deficiency. This population may be as high as 10% in the [place], with risk factors including malabsorption, drug interactions, and alcoholic hepatitis. AST 69(H) 11 - 34 U/L 04/01/2025 5:31 AM EDT [facility] Comment: AST2 reagent used for testing does not contain P5P supplementation and therefore may miss AST elevations in patients with B6 deficiency. This population may be as high as 10% in the [place], with risk factors including malabsorption, drug interactions, and alcoholic hepatitis. Total Bilirubin 0.5 0.2 - 1.2 mg/dL 04/01/2025 5:31 AM EDT [facility] Protein, Total 6.6 6.4 - 8.3 g/dL 04/01/2025 5:31 AM EDT [facility] Globulin 3.3 2.5 - 4.1 g/dL 04/01/2025 5:31 AM EDT [facility] Anion Gap 10 4 - 12 04/01/2025 5:31 AM [facility] A/G Ratio 1.0 0.7 - 1.9 04/01/2025 5:31 AM EDT [facility] Osmolality Calc 272.0 mOsm/kg 5:31 AM T [facility] Blood Venipuncture / Unknown 04/01/2025 3:50 AM EDT 04/01/2025 4:24 AM EDT Marvin Ordaz PA-C LAB BLOOD ORDERABLES Final Re sult [facility] [address] [place] [id number] [phone] * (ABNORMAL) CBC - Hemogram (SJ-BKR) (04/01/2025 3:50 AM EDT) WBC 11.4(H) 4.0 - 10.0 K/ L 04/01/2025 4:31 AM EDT [facility] RBC 4.47 3.93 - 5.22 M/ L 04/01/2025 4:31 AM EDT [facility] Hemoglobin 12.7 11.2 - 15.7 GM/DL 04/01/2025 4:31 AM EDT [facility] Hematocrit 39.5 34.1 - 44.9 % 04/01/2025 4:31 AM EDT [facility] MCV 88 79 - 95 fL 04/01/2025 4:31 AM EDT [facility] MCH 28.4 25.6 - 32.2 pg 04/01/2025 4:31 AM EDT [facility] MCHC 32.2 32.2 - 35.5 GM/DL 04/01/2025 4:31 AM EDT [facility] RDW 13.2 11.7 - 14.4 % 04/01/2025 4:31 AM EDT [facility] Platelets 351 140 - 375 K/CU MM 04/01/2025 4:31 AM EDT [facility] MPV 10.2 9.4 - 12.3 fL 04/01/2025 4:31 AM EDT [facility] Blood Venipuncture / Unknown 04/01/2025 3:50 AM EDT 04/01/2025 4:22 AM EDT us Marvin Ordaz PA-C LAB BLOOD ORDERABLES Final Re sult [facility] [address] [phone] * Magnesium (04/01/2025 3:50 AM EDT) Magnesium 1.9 1.6 - 2.6 mg/dL 04/01/2025 5:13 AM EDT [facility] Blood Venipuncture / Unknown 04/01/2025 3:50 AM EDT 04/01/2025 4:24 AM EDT us Marvin Ordaz PA-C LAB BLOOD ORDERABLES Final Re sult [facility] [address] [place] [address], [facility] [phone] * (ABNORMAL) Comprehensive metabolic panel (03/31/2025 12:06 PM EDT) Sodium 136 136 - 145 meq/L 03/31/2025 12:46 PM EDT [facility] Potassium 3.8 3.4 - 5.1 meq/L 03/31/2025 12:46 PM EDT [facility] Chloride 104 98 - 112 meq/L 03/31/2025 12:46 PM EDT [facility] CO2 25 22 - 29 meq/L 03/31/2025 12:46 PM EDT [facility] Calcium 8.7 8.4 - 10.2 mg/dL 03/31/2025 12:46 PM EDT [facility] Glucose 104(H) 74 - 100 mg/dL 03/31/2025 12:46 PM EDT [facility] BUN 14.8 7.0 - 18.7 mg/dL 03/31/2025 12:46 PM EDT [facility] Creatinine 0.82 0.57 - 1.11 mg/dL 03/31/2025 12:46 PM EDT [facility] BUN/Creatinine 18 8 - 20 03/31/2025 12:46 PM EDT [facility] eGFR (mL/min/1.73m2) 96 >=60 mL/min/1. 73m2 03/31/2025 12:46 PM EDT [facility] Albumin 3.6 3.5 - 5.0 g/dL 03/31/2025 12:46 PM EDT [facility] Alkaline Phosphatase 113 40 - 150 U/L 03/31/2025 12:46 PM EDT [facility] ALT 99(H) <=34 U/L 03/31/2025 12:46 PM EDT [facility] Comment: ALT2 reagent used for testing does not contain P5P supplementation and therefore may miss ALT elevations in patients with B6 deficiency. This population may be as high as 10% in the [place], with risk factors including malabsorption, drug interactions, and alcoholic hepatitis. AST 148(H) 11 - 34 U/L 03/31/2025 12:46 PM EDT [facility] Comment: AST2 reagent used for testing does not contain P5P supplementation and therefore may miss AST elevations in patients with B6 deficiency. This population may be as high as 10% in the [place], with risk factors including malabsorption, drug interactions, and alcoholic hepatitis. Total Bilirubin 0.8 0.2 - 1.2 mg/dL 03/31/2025 12:46 PM EDT [facility] Protein, Total 7.3 6.4 - 8.3 g/dL 03/31/2025 12:46 PM EDT [facility] Globulin 3.7 2.5 - 4.1 g/dL 03/31/2025 12:46 PM EDT [facility] Anion Gap 11 4 - 12 03/31/2025 12:46 PM EDT [facility] A/G Ratio 1.0 0.7 - 1.9 03/31/2025 12:46 PM EDT [facility] Osmolality Calc 273.0 mOsm/kg 12:46 PM EDT [facility] Blood Venipuncture / Unknown 03/31/2025 12:06 PM EDT 03/31/2025 12:23 PM EDT Marvin Ordaz PA-C LAB BLOOD ORDERABLES Final Re sult [facility] [address] [phone] * (ABNORMAL) CBC with automated diff (03/31/2025 12:06 PM EDT) WBC 12.8(H) 4.0 - 10.0 K/ L 03/31/2025 12:26 PM EDT [facility] RBC 4.67 3.93 - 5.22 M/ L 03/31/2025 12:26 PM EDT [facility] Hemoglobin 13.4 11.2 - 15.7 GM/DL 03/31/2025 12:26 PM EDT [facility] Hematocrit 40.3 34.1 - 44.9 % 03/31/2025 12:26 PM EDT [facility] MCV 86 79 - 95 fL 03/31/2025 12:26 PM EDT [facility] MCH 28.7 25.6 - 32.2 pg 03/31/2025 12:26 PM EDT [facility] MCHC 33.3 32.2 - 35.5 GM/DL 03/31/2025 12:26 PM EDT [facility] RDW 13.5 11.7 - 14.4 % 03/31/2025 12:26 PM EDT [facility] Platelets 396(H) 140 - 375 K/CU MM 03/31/2025 12:26 PM EDT [facility] MPV 10.1 9.4 - 12.3 fL 03/31/2025 12:26 PM EDT [facility] % Neutros 59 34 - 71 % 03/31/2025 12:26 PM EDT [facility] % Lymphs 26 19 - 52 % 03/31/2025 12:26 PM EDT [facility] % Monos 10 5 - 13 % 03/31/2025 12:26 PM EDT [facility] % Eos 5 1 - 6 % 03/31/2025 12:26 PM EDT [facility] % Baso 1 0 - 1 % 03/31/2025 12:26 PM EDT [facility] NRBC Absolute <0.01 0 - 0.012 K/ul 03/31/2025 12:26 PM EDT [facility] # Neutros 7.50(H) 1.56 - 6.13 K/ L 03/31/2025 12:26 PM EDT [facility] # Lymphs 3.29 1.18 - 3.74 K/ L 03/31/2025 12:26 PM EDT [facility] # Monos 1.24(H) 0.24 - 0.86 K/ L 03/31/2025 12:26 PM EDT [facility] # Eos 0.61(H) 0.04 - 0.36 K/ L 03/31/2025 12:26 PM EDT [facility] # Baso 0.08 0.01 - 0.08 K/ L 03/31/2025 12:26 PM EDT [facility] Immature Granulocytes-Re lative 0.50(H) 0.01 - 0.43 % 03/31/2025 12:26 PM EDT [facility] # IG 0.06(H) 0.00 - 0.03 K/uL 03/31/2025 12:26 PM EDT [facility] Blood Venipuncture / Unknown 03/31/2025 12:06 PM EDT 03/31/2025 12:23 PM EDT Narrative [facility] - 03/31/2025 12:26 PM EDT When [...] PA-C LAB BLOOD ORDERABLES Final Re sult [facility] [address] [phone] documented in this encounter Visit Diagnoses Diagnosis [...] (1-3), and severe pain (7-10), Starting on 03/31/25 at 1020, Recommended maximum dose of acetaminophen is 4000 mg from all sources in 24 hours albuterol 2.5 mg /3 mL (0.083 %) nebulizer solution 2.5 mg 2.5 mg Every 4 hours PRN, nebulization, wheezing, shortness of breath, Starting on 6/8/25 at 1048, RESPIRATORY THERAPY TREATMENT , What [...] oral, First dose on Tue03/31/25 at 2100 Given 04/01/2025 9:13 PM EDT [...] intravenous, opioid reversal, respiratory depression,, Starting on 03/31/25 at 1020, Give for respiratory rate less than 10 breaths/min or if patient is difficult to arouse. Max dose = 10mg. Call provider. nicotine (NICODERM CQ) 14 mg/24 hr patch 1 patch 1 patch Daily as needed, transdermal, Administer over 24 Hours, nicotine withdrawal, Starting on 03/31/25 at 1020, For 14 days Patch Applied [...] since Tue04/01/2025 at 1204 until manually unheld Given 03/31/2025 [...] oral, First dose on Tue03/31/25 at 2100 Given 04/01/2025 9:13 PM EDT 50 mg Given 03/31/2025 8:23 PM EDT 50 mg documented in this encounter Active and Recently Administered Medications Times are shown in EDT. Scheduled Medication Order 03/31/2025 04/01/2025 04/02/2025 heparin injection 5,000 Units 5,000 Units Every 8 hours scheduled, subcutaneous, First dose on Tue03/31/25 at 1300 1815 (Given - Provider: Kristy Carvajal RN) 0129 (Not Given - Provider: Peyton Torres - Reason: Patient/family refused)0413 (Not Given - Provider: Peyton Torres - Reason: Patient/family refused)1318 (Given - Provider: Kya Domínguez RN)2112 (Given - Provider: Edgar Mendosa RN) 0549 (Given - Provider: Edgar Mendosa RN)131 (Given - Provider: Tayla Jackson, KAROL) melatonin tablet 3 mg 3 mg Every Night, oral, First dose on 03/31/25 at 2099 2022 (Given - Provider: Peyton Torres) 2112 [...] at 1130 1147 (Given - Provider: Kristy Carvajal RN) 0816 (Given - Provider: Kya Domínguez RN) 0819 (Given - Provider: Tayla Jackson RN) traZODone (DESYREL) tablet 50 mg 50 mg Every Night, oral, First dose on 03/31/25 at 2099 2022 (Given - Provider: Peyton Torres) 2112 (Given - Provider: Edgar Mendosa RN) Continuous Medication Order 03/31/2025 04/01/2025 04/02/2025 sodium chloride 0.9 % infusion (CANCELED) 100 mL/hr Continuous, intravenous, Starting on Tue03/31/25 at 1100 1144 (New Bag - Provider: Kristy Carvajal, RN) 1404 (New Bag - Provider: Kya Domínguez, KAROL) 0820 (New Bag - Provider: Tayla Jackson [...] Peyton Torres) 0947 (Given - Provider: Kya Domínguez, KAROL)1735 (Given - Provider: Kya Domínguez, KAROL) 1019 (Given - Provider: Tayla Jackson RN) HYDROmorphone (DILAUDID) injection 0.5 mg 0.5 mg [...] Intra-op 0903 (Given - Provider: Roel Tomas, RN) naloxone (NARCAN) injection 0.2 mg 0.2 mg [...] on Tue03/31/25 at 1020, For 14 days 181 (Patch Applied - Provider: Kristy Carvajal RN) 174 (Patch Removed - Provider: Kya Domínguez, KAROL) nicotine polacrilex (NICORETTE) gum 4 mg 4 [...] hours PRN, oral, nausea, vomiting, Starting on Tue04/01/25 at 1118 1137 (Given - Provider: Kya Domínguez, KAROL)1735 (Given - Provider: Kya Domínguez, KAROL) polyethylene glycol (GLYCOLAX) packet 17 g 17 [...]
--- OUTSIDE RECORDS SUMMARY | 2025-04-08 15:16 | XMS_ITS | Encounter Summary ---
Author Organization [employer] Address [address] [place] [address] Care Team Providers Care Recoater Name Role Phone [facility], Provider Not In The System Primary Care Provider Unavailable Reason for Visit * Reason Comments Abdominal Pain Pt c/o lower abdomin al pain and nausea x 6-7 years ago after her partial hysterectomy. Pt seen here recently and Dx w/ abdominal mass and to F/U with surgery. Encounter Details Date Type Department Care Team (Late st Contact Info) Description 04/08/2025 3:16 PM EDT - 04/08/2025 6:38 PM EDT Emergency [facility] Emergency Department [address] [place] [phone] Joaquim Perdomo MD [address] [place] [address] Lower abdominal pain (Primary Dx); Endometriosis of anterior abdominal wall; Leukocytosis, unspecified type; Abdominal wall hematoma, initial encounter Discharge Disposition: Home or Self Care Social History Tobacco Use Types Packs/Day Years Used Date Smoking Tobacco: Every Day Cigarettes Smokeless Tobacco: Never Tobacco Cessation:Ready to Q uit: Not Asked; Counseling Given: Not Answered Alcohol Use Standard Drinks/Week Comments Never 0 (1 standard drink = 0.6 oz pur e alcohol) Comments No Sex and Gender Information Value Date Recorded Sex Assigned at Not on file Legal Sex Female 1:58 PM CDT Gender Identity Not on file Sexual Orientation Not on file documented as of this encounter Last Filed Vital Signs Vital Sign Reading Time Taken Comments Blood Pressure 122/84 04/08/2025 6:36 PM EDT Pulse 83 04/08/2025 2:55 PM EDT Temperature 36.6 C (97.8 F) 04/08/2025 2:55 PM EDT Respiratory Rate 20 04/08/2025 2:55 PM EDT Oxygen Saturation 96% 04/08/2025 6:36 PM EDT Inhaled Oxygen Concentration - - Weight 104.3 kg (230 lb) 04/08/2025 2:55 PM EDT Height 162.6 cm (5' 4 ) 04/08/2025 2:55 PM EDT Body Mass Index 39.48 04/08/2025 2:55 PM EDT documented in this encounter Discharge Instructions * Discharge Instructions* Joaquim Perdomo MD - 04/08/2025 6:31 PM EDT Today on the repeat abdominal CAT scan, there is no evidence of abscess. You do have a small hematoma within the musculature of the abdominal wall. I did send in 2 medicines to your pharmacy. 1 is for pain medicine the other 1 is for inflammation.Both will help control your pain. You may also utilize ice packs to the area for 15 to 20 minutes every 2-3 hours while awake. Please follow-up with your surgeon as currently directed on Thank you for coming to our emergency department today for evaluation. We are happy to see you at any time should your symptoms change or fail to improve. Unless otherwise specified, please follow-up with your primary care within 1 to 3 days or for repeat evaluation. If you receive a work note today, it will be on the last page of this packet. If you do not have a physician, [facility] has a referral service called [facility]. You may call the number during business hours at [phone] for assistance in finding a primary care physician. At discharge from the emergency department, you may have pending final laboratory information and/or radiography interpretations. This may include laboratory values such as blood cultures, urine cultures, other outstanding laboratory tests. If any of these tests are positive and are immediately pert inent to emergency care, we will notify you by phone. If we need to change the antibiotic therapy for example, we will notify you by phone and electronically resend the medication to your pharmacy ofrecord. If you do not hear from us, please finish the therapy initiated at the time of discharge from the emergency department. As noted above, you may also have some final xray interpretations from the radiologist pending at the time of discharge from the emergency department. If there are discrepancies, we will notify you by phone and discuss any change in treatment plan at that time. * Attachments The following attachments cannot be sent through Care Everywhere. * Hematoma (Tristanian) documented in this encounter Medications at Time [...] up to 30 days. 28 patch 04/02/2025 5 HYDROcodone-aceta minophen (NORCO) 5-325 mg per tablet Take 1 tablet by mouth every 6 (six) hours as needed for pain for up to 3 days. Max Daily Amount: 4 tablets 10 tablet 04/08/2025 5 ibuprofen (MOTRIN) 800 MG tabletIndications :Abdominal mass, unspecified abdominal location Take 1 tablet (800 mg total) by mouth every 8 (eight) hours as needed for pain for up to 5 days. 15 tablet 04/04/2025 5 meloxicam (MOBIC) 15 MG tablet Take 1 tablet (15 mg total) by mouth daily for 7 days. 7 tablet 04/08/2025 5 documented as of this encounter ED Notes * Nahum Silva RN - 04/08/2025 6:37 PM EDT Discharge instructions reviewed with patient. No further questions at this time. Patient advised tofollow up with surgeon as scheduled and return to the ED with any new or worsening symptoms. Patient ambulated out of the ED without distress. Nahum Silva RN 04/08/25 [id number] * Joaquim Perdomo MD - 04/08/2025 2:57 PM EDT Subjective Chief Complaint: Abdominal Pain (Pt c/o lower abdominal pain and nausea x 6-7 years ago after her partial hysterectomy. Pt seen here recently and Dx w/ abdominal mass and to F/U with surgery.) Patient is a 34-year-old female here today with abdominal pain. She reports being admitted here recently for abdominal pain and having a biopsy of a mass found within her abdomen. She was discharged home awaiting biopsy results and other follow-up care. She reports a return and worsening of her abdominal pain along with nausea. Patient is a very poor historian and states that she has had pain forapproximately 6 to 7 years after she had a hysterectomy. Patient did undergo abdominal wall mass biopsy on 1624. The pathology reveals fibromuscular tissue containing deposits of endometriosis. Negative for malignancy. Patient History No past medical history on file. Past Surgical History: Procedure Laterality Date PARTIAL HYSTERECTOMY No family history on file. Social History Tobacco Use Smoking status: Every Day Types: Cigarettes Smokeless tobacco: Never Substance Use Topics Alcohol use: Never I reviewed the HPI, ROS and PFSH documentation recorded by others in the medical record and supplemented my note as needed. Review of Systems Review of Systems All other systems reviewed and are negative. Physical Exam ED Triage Vitals 04/08/25 1455 Encounter Vitals Group BP 127/80 Systolic BP Percentile Diastolic BP Percentile Pulse 83 Resp 20 Temp 97.8 ??F (36.6 ??C) Temp src Oral SpO2 98 % Weight 104.3 kg (230 lb) Height 1.626 m (5' 4 ) Head Circumference Peak Flow Pain Score Eight Pain Loc Pain Education Exclude from Growth Chart Physical Exam Vitals and nursing note reviewed. Constitutional: General: She is not in acute distress. Appearance: Normal appearance. She is normal weight. She is not ill-appearing or toxic-appearing. Cardiovascular: Rate and Rhythm: Normal rate and regular rhythm. Pulses: Normal pulses. Heart sounds: Normal heart sounds. Pulmonary: Effort: Pulmonary effort is normal. Breath sounds: Normal breath sounds. Abdominal: General: Abdomen is flat and protuberant. Bowel sounds are normal. There is no distension. Palpations: Abdomen is soft. Tenderness: There is generalized abdominal tenderness. Musculoskeletal: General: Normal range of motion. Cervical back: Neck supple. No tenderness. Skin: General: Skin is warm and dry. Capillary Refill: Capillary refill takes less than 2 seconds. Neurological: General: No focal deficit present. Mental Status: She is alert and oriented to person, place, and time. Psychiatric: Mood and Affect: Mood normal. Behavior: Behavior normal. Neurological Exam Mental Status Alert. Oriented to person, place, and time. Ortho Exam ED Course & MDM Medications ondansetron (ZOFRAN) injection 4 mg (has no administration in time range) HYDROmorphone (DILAUDID) injection 0.5 mg (has no administration in time range) ondansetron (ZOFRAN) injection 4 mg (has no administration in time range) sodium chloride 0.9% (NS) bolus (0 mLs intravenous Stopped 04/08/25 1558) morphine injection 4 mg (4 mg intravenous Given 04/08/25 1528) iopamidoL (ISOVUE-370) 370 mg iodine /mL (76 %) injection 75 mL (75 mLs intravenous Given 04/08/25 1716) Results for orders placed or performed during the hospital encounter of 04/08/25 Comprehensive metabolic panel Result Value Ref Range Sodium 140 136 - 145 meq/L Potassium 4.6 3.4 - 5.1 meq/L Chloride 106 98 - 112 meq/L CO2 23 22 - 29 meq/L Calcium 9.4 8.4 - 10.2 mg/dL Glucose 94 74 - 100 mg/dL BUN 12.2 7.0 - 18.7 mg/dL Creatinine 0.80 0.57 - 1.11 mg/dL BUN/Creatinine 15 8 - 20 eGFR (mL/min/1.73m2) 99 >=60 mL/min/1.73m2 Albumin 4.0 3.5 - 5.0 g/dL Alkaline Phosphatase 101 40 - 150 U/L ALT 24 <=34 U/L AST 23 11 - 34 U/L Total Bilirubin 0.4 0.2 - 1.2 mg/dL Protein, Total 8.2 6.4 - 8.3 g/dL Globulin 4.2 (H) 2.5 - 4.1 g/dL Anion Gap 16 (H) 4 - 12 A/G Ratio 1.0 0.7 - 1.9 Osmolality Calc 279.0 mOsm/kg CBC with automated diff Result Value Ref Range WBC 20.7 (H) 4.0 - 10.0 K/??L RBC 5.02 3.93 - 5.22 M/??L Hemoglobin 14.6 11.2 - 15.7 GM/DL Hematocrit 44.1 34.1 - 44.9 % MCV 88 79 - 95 fL MCH 29.1 25.6 - 32.2 pg MCHC 33.1 32.2 - 35.5 GM/DL RDW 13.6 11.7 - 14.4 % Platelets 418 (H) 140 - 375 K/CU MM MPV 10.3 9.4 - 12.3 fL NRBC Absolute <0.01 0 - 0.012 K/ul Manual Differential Result Value Ref Range Total Counted 100 % Neutros (manual) 60 50 - 65 % % Lymphs (manual) 29 24 - 44 % % Monos (manual) 5 4 - 5 % % Eos (manual) 5 (H) 0 - 3 % % Baso (manual) 1 0 - 1 % RBC Morphology abnormal (A) Normal Platelet Estimate Increased (A) Adequate Hypochromia 1+ ANC# 12.42 K/??L CT ABDOMEN/PELVIS WITH IV CONTRAST Standard Protocol Preliminary Result There is a small area of asymmetry in the lower right rectus abdominis musculature, that may reflect the presence of an intramuscular hematoma. No other acute abnormality is identified in the abdomen or pelvis. Images personally reviewed, interpreted and dictated by Heri Vizcarra M.D. Transcribed by Zoila James ED Course as of 04/08/251831Apr 08, 2025 1523 Abdominal examination: The site of percutaneous CT-guided biopsy in the right lower quadrant is clean dry with no secondary cellulitis. No palpable hematoma or mass noted. There is generalized moderate tenderness to palpation in bilateral lower quadrants without guardingor rebound [TC] 1703 Patient is hemodynamically stable. She has developed significant leukocytosis. Will need to proceed to CT abdomen pelvis IV contrast to evaluate possibility of iatrogenic abscess formation. H&H is stable [TC] 1828 Patient now resting much more comfortably. Will be discharged home with some pain control and Mobic [TC] ED Course User Index [TC] Joaquim Perdomo MD MEDICAL DECISION MAKING Number and Complexity of Problems Differential Diagnosis: including but not limited to abscess, postoperative pain, postoperative bleeding, abdominal wall endometriosis MDM Data (x) External documents reviewed: Old chart reviewed () EKG interpretation: noted on chart if performed (x) Radiology interpretation, if performed, including but not limited to CT, xray, ultrasound: CT abdomen pelvis IV contrast () Tests considered but not ordered: () Decision rules/scores evaluated: () Discussed with: n/a (x) Labs obtained and reviewed: Labs Reviewed COMPREHENSIVE METABOLIC PANEL - Abnormal; Notable for the following components: Result Value Globulin 4.2 (*) Anion Gap 16 (*) All other components within normal limits CBC W/ AUTO DIFF - Abnormal; Notable for the following components: WBC 20.7 (*) Platelets 418 (*) All other components within normal limits Narrative: When CBC w/ Auto Diff is ordered the lab will add a Manual Differential as a quality check at no additional charge if: Lymphocytes greater than seventy five percent with normal or increased WBC Monocytes greater than Fifteen percent Basophil greater than four percent Bands >10% or several immature myeloids are seen on scan Blast? Flag noted Atypical Lymph flag noted MANUAL DIFFERENTIAL - Abnormal; Notable for the following components: % Eos (manual) 5 (*) RBC Morphology abnormal (*) Platelet Estimate Increased (*) All other components within normal limits Treatment and Disposition ED Course: [Initial exam was performed. Patient is hemodynamic stable with moderate tenderness bilateral lower quadrants. Abdominal wall on the right lower quadrant is clean and dry in the area of the previous CT-guided abdominal wall biopsy. Her H&H is completely stable but she is developed significant leukocytosis. Will proceed to CT abdomen pelvis to rule out possibility of abscess formation, hematoma CT reveals small abdominal wall hematoma. No abscess. Patient will be discharged home. She is hemodynamically stable Social Determinants of Health that impact treatment or disposition: Pt has no adverse social determinants that impact treatment or disposition. Shared decision making: Treatment plan and return precautions (if applicable) discussed with the patient Prescription Drug Management: New Prescriptions HYDROCODONE-ACETAMINOPHEN (NORCO) 5-325 MG PER TABLET Take 1 tablet by mouth every 6 (six) hours asneeded for pain for up to 3 days. Max Daily Amount: 4 tablets MELOXICAM (MOBIC) 15 MG TABLET Take 1 tablet (15 mg total) by mouth daily for 7 days. Code status and discussion: Patient is currently a full code status Assessment & Plan Clinical Impression Diagnosis Comment Added By Time Added Lower abdominal pain Joaquim Perdomo MD 04/08/2025 5:04 PM Endometriosis of anterior abdominal wall Joaquim Perdomo MD 04/08/2025 5:05 PM Leukocytosis, unspecified type Joaquim Perdomo MD 04/08/2025 5:05 PM Abdominal wall hematoma, initial encounter Joaquim Perdomo MD 04/08/2025 6:29 PM Disposition - New Prescriptions HYDROCODONE-ACETAMINOPHEN (NORCO) 5-325 MG PER TABLET Take 1 tablet by mouth every 6 (six) hours asneeded for pain for up to 3 days. Max Daily Amount: 4 tablets MELOXICAM (MOBIC) 15 MG TABLET Take 1 tablet (15 mg total) by mouth daily for 7 days. Contact information for follow-up General Surgeon Next Steps: Follow up in 3 day(s) Electronically Signed By Joaquim Perdomo MD 04/08/25 1832 documented in this encounter Plan of Treatment Not on file documented as of this encounter Procedures Procedure Name Priority Date/Time Associated Diagnosis Comments CT ABDOMEN/PELVIS WITH IV CONTRAST STAT 04/08/2025 5:20 PM EDT CBC W/ AUTO DIFF STAT 04/08/2025 3:28 PM EDT MANUAL DIFFERENTIAL Routine 04/08/2025 3 :28 PM EDT COMPREHENSIVE METABOLIC PANEL STAT 04/08/2025 3:28 PM EDT documented in this encounter Results * CT ABDOMEN/PELVIS WITH IV CONTRAST Standard Protocol (04/08/2025 5:20 PM EDT) Anatomical Region Laterality Modality Abdomen, Pelvis Computed Tomogra phy (CT) 04/08/2025 6:00 PM EDT Impressions 04/08/2025 7:46 PM EDT There is a small area of asymmetry in the lower right rectus abdominis musculature, that may reflect the presence of an intramuscular hematoma. No other acute abnormality is identified in the abdomen or pelvis. Images personally reviewed, interpreted and dictated by Heri Vizcarra M.D. Transcribed by Zoila Dubose 04/08/2025 7:[address] SCAN OF THE ABDOMEN AND PELVIS WITH CONTRAST 04/08/2025 5:15 PM HISTORY: Leukocytosis, increased abdominal pain PROCEDURE: Axial CT images were obtained from the lung bases to the pubic symphysis following IV contrast administration. Coronal and sagittal reformatted images were generated from the axial data set and provided for interpretation. This study was performed with techniques to keep radiation doses as low as reasonably achievable, (ALARA). Individualized dose reduction techniques using automated exposure control or adjustment of mA and/or kV according to the patient size were employed. COMPARISON: None. FINDINGS: LOWER CHEST: The heart is normal in size. Lung bases are clear. ABDOMEN/PELVIS: Liver, gallbladder and bile ducts: The liver enhances homogenously without suspicious focal hepatic lesion. Hepatic steatosis without suspicious focal hepatic lesion. Unremarkable gallbladder. No significant biliary ductal dilatation. Adrenal glands: The adrenal glands are morphologically unremarkable without suspicious lesion. Kidneys, ureters and urinary bladder: No suspicious renal lesions. No hydronephrosis. Unremarkable urinary bladder. Spleen: The spleen is normal in size. Pancreas: The pancreas is unremarkable. Gastrointestinal system and mesentery: There is no evidence of bowel obstruction. The appendix is visualized and unremarkable. No significant mesenteric inflammation. Lymph nodes: No pathologically enlarged abdominal or pelvic lymph nodes are present. Vessels: The abdominal aorta is normal in caliber. The celiac trunk, superior mesenteric artery, inferior mesenteric artery and their branch vessels appear grossly patent. The superior mesenteric vein, splenic vein and main portal veins are patent. The inferior vena cava and hepatic veins are unremarkable. Peritoneum: No free intraperitoneal fluid or pneumoperitoneum. Pelvic viscera: Prior hysterectomy. Body wall: There is mild swelling and hyperattenuation in the lower rectus abdominis musculature on the right, that may reflect the presence of an intramuscular hematoma. No significant body wall hernias. Bones: No acute fracture. Procedure Note Sheldon Vizcarra MD - 04/08/2025 CT SCAN OF THE ABDOMEN AND PELVIS WITH CONTRAST 04/08/2025 5:15 PM HISTORY: Leukocytosis, increased abdominal pain PROCEDURE: Axial CT images were obtained from the lung bases to the pubic symphysis following IV contrast administration. Coronal and sagittal reformatted images were generated from the axial data set and provided for interpretation. This study was performed with techniques to keep radiation doses as low as reasonably achievable, (ALARA). Individualized dose reduction techniques using automated exposure control or adjustment of mA and/or kV according to the patient size were employed. COMPARISON: None. FINDINGS: LOWER CHEST: The heart is normal in size. Lung bases are clear. ABDOMEN/PELVIS: Liver, gallbladder and bile ducts: The liver enhances homogenously without suspicious focal hepatic lesion. Hepatic steatosis without suspicious focal hepatic lesion. Unremarkable gallbladder. No significant biliary ductal dilatation. Adrenal glands: The adrenal glands are morphologically unremarkable without suspicious lesion. Kidneys, ureters and urinary bladder: No suspicious renal lesions. No hydronephrosis. Unremarkable urinary bladder. Spleen: The spleen is normal in size. Pancreas: The pancreas is unremarkable. Gastrointestinal system and mesentery: There is no evidence of bowel obstruction. The appendix is visualized and unremarkable. No significant mesenteric inflammation. Lymph nodes: No pathologically enlarged abdominal or pelvic lymph nodes are present. Vessels: The abdominal aorta is normal in caliber. The celiac trunk, superior mesenteric artery, inferior mesenteric artery and their branch vessels appear grossly patent. The superior mesenteric vein, splenic vein and main portal veins are patent. The inferior vena cava and hepatic veins are unremarkable. Peritoneum: No free intraperitoneal fluid or pneumoperitoneum. Pelvic viscera: Prior hysterectomy. Body wall: There is mild swelling and hyperattenuation in the lower rectus abdominis musculature on the right, that may reflect the presence of an intramuscular hematoma. No significant body wall hernias. Bones: No acute fracture. IMPRESSION: There is a small area of asymmetry in the lower right rectus abdominis musculature, that may reflect the presence of an intramuscular hematoma. No other acute abnormality is identified in the abdomen or pelvis. Images personally reviewed, interpreted and dictated by Heri Vizcarra M.D. Transcribed by Zoila James us Joaquim Perdomo MD IMG CT ORDERABLES Final Res ult * (ABNORMAL) Manual Differential (04/08/2025 3:28 PM EDT) Total Counted 100 04/08/2025 5:53 PM EDT [facility] % Neutros (manual) 60 50 - 65 % 04/08/2025 5:53 PM EDT [facility] % Lymphs (manual) 29 24 - 44 % 04/08/2025 5:53 PM EDT [facility] % Monos (manual) 5 4 - 5 % 04/08/2025 5:53 PM EDT [facility] % Eos (manual) 5(H) 0 - 3 % 04/08/2025 5:53 PM EDT [facility] % Baso (manual) 1 0 - 1 % 5:53 PM EDT [facility] RBC Morphology abnormal( A) Normal 04/08/2025 5:53 PM EDT [facility] Platelet Estimate Increased (A) Adequate 04/08/2025 5:53 PM EDT [facility] Hypochromia 1+ 04/08/2025 5:53 PM EDT [facility] ANC# 12.42 K/ L 04/08/2025 5:53 PM EDT [facility] Blood Venipuncture / Unknown 04/08/2025 3:28 PM EDT 04/08/2025 3:35 PM EDT us Joaquim Perdomo MD LAB BLOOD ORDERABLES Final Result Performing Organization Address City/State/[facility] Co de Phone Number [facility] [address] [phone] * (ABNORMAL) CBC with automated diff (04/08/2025 3:28 PM EDT) WBC 20.7(H) 4.0 - 10.0 K/ L 04/08/2025 4:00 PM EDT [facility] RBC 5.02 3.93 - 5.22 M/ L 04/08/2025 4:00 PM EDT [facility] Hemoglobin 14.6 11.2 - 15.7 GM/DL 04/08/2025 4:00 PM EDT [facility] Hematocrit 44.1 34.1 - 44.9 % 04/08/2025 4:00 PM EDT [facility] MCV 88 79 - 95 fL 04/08/2025 4:00 PM EDT [facility] MCH 29.1 25.6 - 32.2 pg 04/08/2025 4:00 PM EDT [facility] MCHC 33.1 32.2 - 35.5 GM/DL 04/08/2025 4:00 PM EDT [facility] RDW 13.6 11.7 - 14.4 % 04/08/2025 4:00 PM EDT [facility] Platelets 418(H) 140 - 375 K/CU MM 04/08/2025 4:00 PM EDT [facility] MPV 10.3 9.4 - 12.3 fL 04/08/2025 4:00 PM EDT [facility] NRBC Absolute <0.01 0 - 0.012 K/ul 04/08/2025 4:00 PM EDT [facility] Blood Venipuncture / Unknown 04/08/2025 3:28 PM EDT 04/08/2025 3:35 PM EDT Narrative [facility] - 04/08/2025 4:00 PM EDT When CBC w/ Auto Diff is ordered the lab will add a Manual Differential as a quality check at no additional charge if: Lymphocytes greater than seventy five percent with normal or increased WBC Monocytes greater than Fifteen percent Basophil greater than four percent Bands >10% or several immature myeloids are seen on scan Blast? Flag noted Atypical Lymph flag noted us Joaquim Perdomo MD LAB BLOOD ORDERABLES Final Result [facility] [address] [phone] * (ABNORMAL) Comprehensive metabolic panel (04/08/2025 3:28 PM EDT) Sodium 140 136 - 145 meq/L 04/08/2025 4:09 PM EDT [facility] Potassium 4.6 3.4 - 5.1 meq/L 04/08/2025 4:09 PM EDT [facility] Chloride 106 98 - 112 meq/L 04/08/2025 4:09 PM [facility] CO2 23 22 - 29 meq/L 04/08/2025 4:09 PM [facility] Calcium 9.4 8.4 - 10.2 mg/dL 04/08/2025 4:09 PM [facility] Glucose 94 74 - 100 mg/dL 04/08/2025 4:09 PM [facility] BUN 12.2 7.0 - 18.7 mg/dL 04/08/2025 4:09 PM [facility] Creatinine 0.80 0.57 - 1.11 mg/dL 04/08/2025 4:09 PM [facility] BUN/Creatinine 15 8 - 20 04/08/2025 4:09 PM [facility] eGFR (mL/min/1.73m2) 99 >=60 mL/min/1. 73m2 04/08/2025 4:09 PM [facility] Albumin 4.0 3.5 - 5.0 g/dL 04/08/2025 4:09 PM [facility] Alkaline Phosphatase 101 40 - 150 U/L 04/08/2025 4:09 PM [facility] ALT 24 <=34 U/L 04/08/2025 4:09 PM [facility] Comment: ALT2 reagent used for testing does not contain P5P supplementation and therefore may miss ALT elevations in patients with B6 deficiency. This population may be as high as 10% in the [place], with risk factors including malabsorption, drug interactions, and alcoholic hepatitis. AST 23 11 - 34 U/L 04/08/2025 4:09 PM [facility] Comment: AST2 reagent used for testing does not contain P5P supplementation and therefore may miss AST elevations in patients with B6 deficiency. This population may be as high as 10% in the [place], with risk factors including malabsorption, drug interactions, and alcoholic hepatitis. Total Bilirubin 0.4 0.2 - 1.2 mg/dL 04/08/2025 4:09 PM [facility] Protein, Total 8.2 6.4 - 8.3 g/dL 04/08/2025 4:09 PM [facility] Globulin 4.2(H) 2.5 - 4.1 g/dL 04/08/2025 4:09 PM EDT [facility] Anion Gap 16(H) 4 - 12 04/08/2025 4:09 PM EDT [facility] A/G Ratio 1.0 0.7 - 1.9 04/08/2025 4:09 PM EDT [facility] Osmolality Calc 279.0 mOsm/kg 4:09 PM EDT [facility] Blood Venipuncture / Unknown 04/08/2025 3:28 PM EDT 04/08/2025 3:35 PM EDT us Joaquim Perdomo MD LAB BLOOD ORDERABLES Final Result Performing Organization Address City/State/[facility] Co de Phone Number [facility] [address] [phone] documented in this encounter Visit Diagnoses Diagnosis Lower abdominal pain- Primary Abdominal pain, other specified site Endometriosis of anterior abdominal wall Leukocytosis, unspecified type Abdominal wall hematoma, initial encounter documented in this encounter Administered Medications Inactive Administered Medications - up to 3 most recent administrations Medication Order MAR Action Action Date Dose Rate Site HYDROmorphone (DILAUDID) injection 0.5 mg 0.5 mg Once, intravenous, On Tue04/08/25 at 1815, For 1 dose Given 04/08/2025 6:31 PM EDT 0.5 mg iopamidoL (ISOVUE-370) 370 mg iodine /mL (76 %) injection 75 mL 75 mL IMG once as needed, intravenous, contrast, Starting on Tue04/08/25 at 1716, For 1 dose, Intra-op Given 04/08/2025 5:16 PM EDT 75 mLs morphine injection 4 mg 4 mg Once, intravenous, On Tue04/08/25 at 1530, For 1 dose Given 04/08/2025 3:28 PM EDT 4 mg ondansetron (ZOFRAN) injection 4 mg 4 mg Every 12 hours PRN, intravenous, nausea, vomiting, Starting on Tue04/08/25 at 1525, For IV push, give over 2 - 5 minutes. ondansetron (ZOFRAN) injection 4 mg 4 mg Once, intravenous, On Tue04/08/25 at 1815, For 1 dose, For IV push, give over 2 - 5 minutes. Given 04/08/2025 6:32 PM EDT 4 mg sodium chloride 0.9% (NS) bolus 500 mL Once, intravenous, Administer over 30 Minutes, On Tue04/08/25 at 1530, For 1 dose New Bag 04/08/2025 3:28 PM EDT 500 mLs 1000 mL/hr documented in this encounter Active and Recently Administered Medications Times are shown in EDT. Scheduled Medication Order 04/06/2025 04/07/2025 04/08/2025 HYDROmorphone (DILAUDID) injection 0.5 mg (COMPLETED) 0.5 mg Once, intravenous, On Tue04/08/25 at 1815, For 1 dose 183 (Given - Provid er: Nahum Silva RN) morphine injection 4 mg (COMPLETED) 4 mg Once, intravenous, On Tue04/08/25 at 1530, For 1 dose 1528 (Given - Provid er: Dominga Velásquez RN) ondansetron (ZOFRAN) injection 4 mg (COMPLETED) 4 mg Once, intravenous, On Tue04/08/25 at 1815, For 1 dose, For IV push, give over 2 - 5 minutes. 183 (Given - Provid er: Nahum Silva RN) sodium chloride 0.9% (NS) bolus (COMPLETED) 500 mL Once, intravenous, Administer over 30 Minutes, On Tue04/08/25 at 1530, For 1 dose 1528 (New Bag - Prov ider: Dominga Velásquez RN)1558 (Stopped - Provider: Nahum Silva RN) PRN Medication Order 04/06/2025 04/07/2025 04/08/2025 iopamidoL (ISOVUE-370) 370 mg iodine /mL (76 %) injection 75 mL (COMPLETED) 75 mL IMG once as needed, intravenous, contrast, Starting on Tue04/08/25 at 1716, For 1 dose, Intra-op 1716 (Given - Provid er: Margaux Brown) ondansetron (ZOFRAN) injection 4 mg 4 mg Every 12 hours PRN, intravenous, nausea, vomiting, Starting on Tue04/08/25 at 1525, For IV push, give over 2 - 5 minutes. documented in this encounter Care Teams Recoater Relationship Specialty Start Date End Date [facility], Provider Not In The System, [place] [address] PCP - General 04/08/25 04/10/25 documented as of this encounter
--- OUTSIDE RECORDS SUMMARY | 2025-04-11 09:20 | XMS_ITS | Encounter Summary ---
Author Organization [employer] Address [address] [place] [address] Care Team Providers Care Director Inbound Sales Name Role Phone RosachineduJanine APRN Primary Care Provider [phone] Reason for Visit * Reason Comments New patient New patient here for follow up from the hospital with endometriosis. Patient states that she is having some lower abdominal/pelvic pain, nausea and blood in her stool as of yesterday. Denies vomiting. Encounter Details Date Type Department Care Team (Late st Contact Info) Description 04/11/2025 9:20 AM EDT Office Visit [facility] [address] [place] [address] [address] Heather Rosas DO [address] [facility] [address] [place] [id number] Endometriosis of the anterior abdominal wall, fascia and muscular layers (Primary Dx); Mass of anterior abdominal wall; Endometrioma; Other elevated white blood cell (WBC) count Social History Tobacco Use Types Packs/Day Years Used Date Smoking Tobacco: Every Day Cigarettes Smokeless Tobacco: Never Alcohol Use Standard Drinks/Week [...] Sign Reading Time Taken Comments Blood Pressure 129/86 04/11/2025 9:13 AM EDT Pulse 85 04/11/2025 9:13 AM EDT Temperature - - Respiratory Rate - - Oxygen Saturation - - Inhaled Oxygen Concentration - - Weight 108 kg (238 lb) 04/11/2025 9:13 AM EDT Height 162.6 cm (5' 4 ) 04/11/2025 9:13 AM EDT Body Mass Index 40.85 04/11/2025 9:13 AM EDT documented in this encounter Progress Notes * Heather Rosas, DO - 04/11/2025 9:20 AM EDT Subjective: Chief Complaint Patient presents with New patient New patient here for follow up from the hospital with endometriosis. Patient states that she is having some lower abdominal/pelvic pain, nausea and blood in her stool as of yesterday. Denies vomiting. HPI Shawnee Nagy 34 y.o. female who returns for follow-up secondary to abdominal wall mass. She has continued to have some abdominal pain at the same site. She has been taking [place], ibuprofen, muscle relaxer. This does help some but then her pain returns. She denies other complaints. She does report a history of seizures. served as independent historian for some of her history. I have reviewed the PMH, SH, FH, Meds and allergies. Current Outpatient Medications: albuterol 90 mcg/actuation inhaler, Inhale 1 puff by mouth every 4 (four) hours as needed for shortness of breath., Disp: , Rfl: HYDROcodone-acetaminophen (NORCO) 5-325 mg per tablet, Take 1 tablet by mouth every 6 (six) hours as needed for pain for up to 3 days. Max Daily Amount: 4 tablets, Disp: 10 tablet, Rfl: 0 lamoTRIgine (LaMICtal) 25 MG tablet, Take 1 tablet (25 mg total) by mouth nightly., Disp: , Rfl: meloxicam (MOBIC) 15 MG tablet, Take 1 tablet (15 mg total) by mouth daily for 7 days., Disp: 7 tablet, Rfl: 0 montelukast (SINGULAIR) 10 mg tablet, Take 1 tablet (10 mg total) by mouth daily., Disp: , Rfl: nicotine (NICODERM CQ) 14 mg/24 hr patch, Place 1 patch on the skin daily as needed (nicotine withdrawal) for up to 30 days., Disp: 28 patch, Rfl: 0 No Known Allergies Past Surgical History: Procedure Laterality Date PARTIAL HYSTERECTOMY Patient Active Problem List Diagnosis Abdominal mass Tumor No past medical history on file. Social History Socioeconomic History Marital status: Spouse name: Not on file Number of children: Not on file Years of education: Not on file Highest education level: Not on file Occupational History Not on file Tobacco Use Smoking status: Every Day Types: Cigarettes Smokeless tobacco: Never Substance and Sexual Activity Alcohol use: Never Drug use: Never Sexual activity: Not on file Other Topics Concern Not on file Social History Narrative Not on file Social Drivers of Health Financial Resource Strain: Not on file Food Insecurity: Not on file Transportation Needs: Not on file Physical Activity: Not on file Stress: Not on file Social Connections: Not on file Intimate Partner Violence: Not on file Housing Stability: Not on file No family history on file. Results: Recent Results (from the past 6 weeks) CBC with automated diff Collection Time: 03/31/25 12:06 PM Result Value Ref Range WBC 12.8 (H) 4.0 - 10.0 K/??L RBC 4.67 3.93 - 5.22 M/??L Hemoglobin 13.4 11.2 - 15.7 GM/DL Hematocrit 40.3 34.1 - 44.9 % MCV 86 79 - 95 fL MCH 28.7 25.6 - 32.2 pg MCHC 33.3 32.2 - 35.5 GM/DL RDW 13.5 11.7 - 14.4 % Platelets 396 (H) 140 - 375 K/CU MM MPV 10.1 9.4 - 12.3 fL % Neutros 59 34 - 71 % % Lymphs 26 19 - 52 % % Monos 10 5 - 13 % % Eos 5 1 - 6 % % Baso 1 0 - 1 % NRBC Absolute <0.01 0 - 0.012 K/ul # Neutros 7.50 (H) 1.56 - 6.13 K/??L # Lymphs 3.29 1.18 - 3.74 K/??L # Monos 1.24 (H) 0.24 - 0.86 K/??L # Eos 0.61 (H) 0.04 - 0.36 K/??L # Baso 0.08 0.01 - 0.08 K/??L Immature Granulocytes-Relative 0.50 (H) 0.01 - 0.43 % # IG 0.06 (H) 0.00 - 0.03 K/uL Comprehensive metabolic panel Collection Time: 03/31/25 12:06 PM Result Value Ref Range Sodium 136 136 - 145 meq/L Potassium 3.8 3.4 - 5.1 meq/L Chloride 104 98 - 112 meq/L CO2 25 22 - 29 meq/L Calcium 8.7 8.4 - 10.2 mg/dL Glucose 104 (H) 74 - 100 mg/dL BUN 14.8 7.0 - 18.7 mg/dL Creatinine 0.82 0.57 - 1.11 mg/dL BUN/Creatinine 18 8 - 20 eGFR (mL/min/1.73m2) 96 >=60 mL/min/1.73m2 Albumin 3.6 3.5 - 5.0 g/dL Alkaline Phosphatase 113 40 - 150 U/L ALT 99 (H) <=34 U/L AST 148 (H) 11 - 34 U/L Total Bilirubin 0.8 0.2 - 1.2 mg/dL Protein, Total 7.3 6.4 - 8.3 g/dL Globulin 3.7 2.5 - 4.1 g/dL Anion Gap 11 4 - 12 A/G Ratio 1.0 0.7 - 1.9 Osmolality Calc 273.0 mOsm/kg Magnesium Collection Time: 04/01/25 3:50 AM Result Value Ref Range Magnesium 1.9 1.6 - 2.6 mg/dL CBC - Hemogram (-BKR) Collection Time: 04/01/25 3:50 AM Result Value Ref Range WBC 11.4 (H) 4.0 - 10.0 K/??L RBC 4.47 3.93 - 5.22 M/??L Hemoglobin 12.7 11.2 - 15.7 GM/DL Hematocrit 39.5 34.1 - 44.9 % MCV 88 79 - 95 fL MCH 28.4 25.6 - 32.2 pg MCHC 32.2 32.2 - 35.5 GM/DL RDW 13.2 11.7 - 14.4 % Platelets 351 140 - 375 K/CU MM MPV 10.2 9.4 - 12.3 fL Comprehensive metabolic panel Collection Time: 04/01/25 3:50 AM Result Value Ref Range Sodium 136 136 - 145 meq/L Potassium 4.0 3.4 - 5.1 meq/L Chloride 107 98 - 112 meq/L CO2 23 22 - 29 meq/L Calcium 8.3 (L) 8.4 - 10.2 mg/dL Glucose 103 (H) 74 - 100 mg/dL BUN 12.2 7.0 - 18.7 mg/dL Creatinine 0.68 0.57 - 1.11 mg/dL BUN/Creatinine 18 8 - 20 eGFR (mL/min/1.73m2) 117 >=60 mL/min/1.73m2 Albumin 3.3 (L) 3.5 - 5.0 g/dL Alkaline Phosphatase 100 40 - 150 U/L ALT 76 (H) <=34 U/L AST 69 (H) 11 - 34 U/L Total Bilirubin 0.5 0.2 - 1.2 mg/dL Protein, Total 6.6 6.4 - 8.3 g/dL Globulin 3.3 2.5 - 4.1 g/dL Anion Gap 10 4 - 12 A/G Ratio 1.0 0.7 - 1.9 Osmolality Calc 272.0 mOsm/kg Magnesium Collection Time: 04/02/25 4:40 AM Result Value Ref Range Magnesium 1.8 1.6 - 2.6 mg/dL CBC - Hemogram (-BKR) Collection Time: 04/02/25 4:40 AM Result Value Ref Range WBC 12.0 (H) 4.0 - 10.0 K/??L RBC 4.22 3.93 - 5.22 M/??L Hemoglobin 12.1 11.2 - 15.7 GM/DL Hematocrit 37.9 34.1 - 44.9 % MCV 90 79 - 95 fL MCH 28.7 25.6 - 32.2 pg MCHC 31.9 (L) 32.2 - 35.5 GM/DL RDW 13.3 11.7 - 14.4 % Platelets 347 140 - 375 K/CU MM MPV 10.2 9.4 - 12.3 fL Comprehensive metabolic panel Collection Time: 04/02/25 4:40 AM Result Value Ref Range Sodium 142 136 - 145 meq/L Potassium 4.1 3.4 - 5.1 meq/L Chloride 109 98 - 112 meq/L CO2 26 22 - 29 meq/L Calcium 8.4 8.4 - 10.2 mg/dL Glucose 86 74 - 100 mg/dL BUN 9.0 7.0 - 18.7 mg/dL Creatinine 0.80 0.57 - 1.11 mg/dL BUN/Creatinine 11 8 - 20 eGFR (mL/min/1.73m2) 99 >=60 mL/min/1.73m2 Albumin 3.1 (L) 3.5 - 5.0 g/dL Alkaline Phosphatase 91 40 - 150 U/L ALT 48 (H) <=34 U/L AST 31 11 - 34 U/L Total Bilirubin 0.2 0.2 - 1.2 mg/dL Protein, Total 6.4 6.4 - 8.3 g/dL Globulin 3.3 2.5 - 4.1 g/dL Anion Gap 11 4 - 12 A/G Ratio 0.9 0.7 - 1.9 Osmolality Calc 281.1 mOsm/kg Hepatitis panel, acute Collection Time: 04/02/25 4:40 AM Result Value Ref Range Hep A IgM Nonreactive Nonreactive Hep B C IgM Nonreactive Nonreactive Hepatitis B surface antigen Nonreactive Nonreactive Hepatitis C Ab Nonreactive Nonreactive Tissue Exam Collection Time: 04/02/25 8:24 AM Result Value Ref Range AP RESULT See Note: Comprehensive metabolic panel Collection Time: 04/08/25 3:28 PM Result Value Ref Range Sodium 140 136 [...] Calc 279.0 mOsm/kg CBC with automated diff Collection Time: 04/08/25 3:28 PM Result Value Ref Range WBC 20.7 (H) [...] <0.01 0 - 0.012 K/ul Manual Differential Collection Time: 04/08/25 3:28 PM Result Value Ref Range Total Counted 100 % Neutros (manual) 60 50 - 65 % % Lymphs (manual) 29 24 - 44 % % Monos (manual) 5 4 - 5 % % Eos (manual) 5 (H) 0 - 3 % % Baso (manual) 1 0 - 1 % RBC Morphology abnormal (A) Normal Platelet Estimate Increased (A) Adequate Hypochromia 1+ ANC# 12.42 K/??L Review of Systems Constitutional: Negative. HENT: Negative. Eyes: Negative. Respiratory: Negative. Cardiovascular: Negative. Gastrointestinal: Positive for abdominal pain and nausea. Endocrine: Negative. Genitourinary: Negative. Musculoskeletal: Negative. Skin: Negative. Allergic/Immunologic: Negative. Neurological: Negative. Hematological: Negative. Psychiatric/Behavioral: Negative. Objective: BP 129/86 Pulse 85 Ht 1.626 m (5' 4 ) Wt 108 kg (238 lb) BMI 40.85 kg/m?? Physical Exam Physical exam Constitutional: Pleasant, no acute distress HEENT: PERRL, EOMI CV: Regular rate Lung: Equal rise and fall of chest wall, no distress Abdomen: Soft, nondistended, tenderness to palpation of lower abdomen, slightly firmness suprapubic, morbid obesity Skin: Incision c/d/I Psych: Good thought, judgement Neuro: AAOx3 Assessment: 1. Endometriosis of the anterior abdominal wall, fascia and muscular layers 2. Mass of anterior abdominal wall 3. Endometrioma 4. Other elevated white blood cell (WBC) count Plan: 34-year-old female with abdominal wall mass, likely endometrioma, status post core needle biopsy which notes endometriosis - served as independent historian for some of patients history since hospitalization and before. -Pathology reviewed with patient. This notes endometrioma. No malignancy in the core biopsy. This is not completely exclude a malignancy but as this mass has not grown in over 3 years and core biopsynotes this, low suspicion. - ED note from 04/08/25 reviewed. - 04/08/25 labs - CBC reviewed. RBC morphology abnormal, platelets increased, WBC increased. CMP reviewed. - CT on 04/08 reviewed. Images interpreted. - We did contact patient's primary care provider. Discussed with them regarding potential clearance. Patient is not following with them secondary to her seizures, she has seen a neurologist in [place] but last time was at least 1 year ago and patient not currently taking any medications for seizures - last was 2 months ago. They will reach out for possible follow-up and clearance with neurology/PCP. - Additionally with her WBC elevated and platelets elevated - may need further workup/hematology referral but will defer to PCP if that is warranted and if needed before or after surgery. - We discussed different management for endometriomas including operative and nonoperative approaches. I did discuss with her that I am not an TRAINMAN but a general surgeon, so I recommend that she does follow-up with TRAINMAN for any additional management of endometriosis/endometriomas and she could discuss this surgery with them or continue with myself as this is within the abdominal wall. Patientstated she will follow-up with TRAINMAN in her hometown and proceed with surgery here with our current plan. - At this time, patient like to move forward with an operative approach for removal. We discussed that there are open and minimally invasive options for this. We discussed risk, benefits, alternatives including but not limited to bleeding, infection, injury to surrounding structures, chronic pain, mesh infection, dehiscence, recurrence, etc. We also discussed that surgery may not improve her painas it could be due to another source or could worsen her pain with scar, etc. -Patient like to move forward with open abdominal wall mass excision, possible mesh. Discussed meshmay be needed to close site. -Postoperative restrictions and pain control discussed. -All questions answered. Await clearance. Heather Ralph, DO documented in this encounter Plan of Treatment Not on file documented as of this encounter Visit Diagnoses Diagnosis Endometriosis of the anterior abdominal wall, fascia and muscular layers- Primary Mass of anterior abdominal wall Endometrioma Endometriosis, site unspecified Other elevated white blood cell (WBC) count documented in this encounter Care Teams Director Inbound Sales Relationship Specialty Start Date End Date Janine Wheatley APRN [address] [phone] PCP - General Emergency Medicine 04/11/25 documented as of this encounter
--- OUTSIDE RECORDS SUMMARY | 2025-04-17 16:21 | XMS_ITS | Encounter Summary ---
Author Organization [employer] Address [address] [place] [address] Care Team Providers Care Glass Fitter Name Role Phone Janine Wheatley APRN Primary Care Provider Encounter Details Date Type Department Care Team (Latest Contact Info) Description 04/11/2025 Travel Social History Tobacco Use Types Packs/Day Years [...] on file documented as of this encounter Plan of Treatment Not on file documented as of this encounter Visit Diagnoses Not on filedocumented in this encounter Care Teams Glass Fitter Relationship Specialty Start Date End Date Janine Wheatley APRN [address] [place] [phone] PCP - General Emergency Medicine 04/11/25 documented as of this encounter
--- OUTSIDE RECORDS SUMMARY | 2025-04-17 16:21 | XMS_ITS | Encounter Summary ---
Author Organization [employer] Address [address] [facility] [facility] [place] [address] Care Team Providers Care Editorial Manager Name Role Phone Unavailable Primary Care Provider Unavailabl e Encounter Details Date Type Department Care Team (Late st Contact Info) Description 04/04/2025 Orders Only [facility] [address] [facility] [address] [place] [address] Heather Rosas DO [address] [facility] [address] [place] [id number] Abdominal mass, unspecified abdominal location (Primary Dx) Social History Tobacco Use Types Packs/Day Years Used Date Smoking Tobacco: Never Assessed Comments Unknown Sex and Gender Information Value Date Recorded Sex Assigned at Not on file Legal Sex Female 1:58 PM CDT Gender Identity Not on file Sexual Orientation Not on file documented as of this encounter Plan of Treatment Not on file documented as of this encounter Visit Diagnoses Diagnosis Abdominal mass, unspecified abdominal location- Primary documented in this encounter
--- OUTSIDE RECORDS SUMMARY | 2025-04-17 16:22 | XMS_ITS | Encounter Summary ---
Author Organization [employer] Address [address] [place] [address] Care Team Providers Care Loan Approver Name Role Phone Janine Wheatley APRN Primary Care Provider [phone]- [phone] Encounter Details Date Type Department Care Team (Late st Contact Info) Description 04/12/2025 Orders Only [facility] [address] [facility] [address] [place] [address] Heather Rosas DO [address] [facility] [address] [place], [place] [id number] Social History Tobacco Use Types Packs/Day Years [...] on filedocumented in this encounter Care Teams Loan Approver Relationship Specialty Start Date End Date Janine Wheatley APRN [address] [place] [address] PCP - General Emergency Medicine 04/11/25 documented as of this encounter
--- OUTSIDE RECORDS SUMMARY | 2025-04-17 16:22 | XMS_ITS | Encounter Summary ---
Author Organization [employer] Address [address] [place] [address] Care Team Providers Care Bank Worker Name Role Phone Janine Wheatley APRN Primary Care Provider [phone]- [phone] Encounter Details Date Type Department Care Team (Late st Contact Info) Description 04/11/2025 Orders Only [facility] [address] [facility] [address] [place] [address] Heather Rosas DO [address] [facility] [address] [place], [place] [address] Social History Tobacco Use Types Packs/Day Years [...] on filedocumented in this encounter Care Teams Bank Worker Relationship Specialty Start Date End Date Janine Wheatley APRN [address] [place] [address] PCP - General Emergency Medicine 04/11/25 documented as of this encounter
--- OUTSIDE RECORDS SUMMARY | 2025-04-17 16:22 | XMS_ITS | Data Portability ---
Author Organization [facility] Address [address] [place] [address] Care Team Providers Care Outside Laborer Name Role Phone CLAIRE BLAIR Primary Care Provider Assessment No assessment recorded. Plan of Treatment Reminders Order Date Submit Date Provider Last Modified By Organization Details Last Modified Time Details Appointments None recorded. Lab None recorded. Referral None recorded. Procedures None recorded. Surgeries None recorded. Imaging electroence phalogram 2023 024 [facility] (Centralized Scheduling), [address] [place], [address], 4 10:46:08 Medication Orders None recorded. Patient TargetsNo targets recorded. Patient InstructionsNo instructions recorded. Reason for Referral None Reported. Results Created Date Observation Date Name Description Value Unit Range Abnormal Flag Note LastModifiedBy Organization Detail LastModifiedTime 02/27/20 24 elect roenc ephal ogram No observ ation record ed. [facility] (Centralized Scheduling) [address] [place], [address], 02/27/2024 10:46:08 Result Notes None recorded. Problems Name Problem SNOMED Code Status Onset Date Resolution Date Notes Provider Name and Address Organization Details Recorded Time Chronic obstructive pulmonary disease 03935813 Active TAMMY Faith [facility] [place] 4 11:44:32 Smoker 91587802 Active Leigh TAMMY Mckeon [facility] [place] 4 11:44:32 Obstructive sleep apnea syndrome 29191135 Active Leigh stern [facility] [place] 4 11:44:32 Syncope 167589147 Active 2023 TAMMY Faith [facility] - [place] [facility] [place] 4 11:46:11 Collapse 769297669 Active 2023 TAMMY Faith - [place] [facility] [place] 11:46:19 Problem Notes None recorded. Procedures Surgical History Date Name Laterality Status Provider Name and Address Organization Details Recorded Time Cholecystectomy completed Leigh Thorpe [facility] - [place] [facility] [place] 02/14/2024 11:13:27 Hysterectomy completed Leigh MUNOZ - L [facility] - [place] [facility] [place] 02/14/2024 11:14:08 Imaging Results None [...] propionate 50 mcg/actuati on nasal spray,suspe nsion [place] by nasal route as needed for 60 [...] Last Updated DateTime 162.56 cm 40.7 kg/m2 354797. 11 g 97 % 97 % 85 /min 118 mm[Hg] 76 mm[Hg] Leigh Hyatt [place] - [facility] [place] 11:17:41 Social History Question Answer Notes LastModified by Organizat ion Details LastModified Time Tobacco Smoking Status Current Every Day Smoker Leigh stern, TAMMY - [facility] & [place] 02/14/2024 11:12:03 What Is [...] available 2023 11:11:05 Medical History Condition Response Vision or Eye Problems Y PTSD Y Reflux/GERD Y Obstructive Sleep Apnea Y Depression Y Asthma Y Gynecological HistoryNo gynecological history recorded. Obstetrics History GPAL:G 0 P 0 0 0 0 Past Encounters Encounter ID Performer Location Encounter Start Date Encounter Closed Date Diagnosis/Indication Diagnosis SNOMED-CT Code Diagnosis ICD10 Code Diagnosis Note [id number] DO MARCEL Aragon [facility] [address] [facility] [place] [address] 02/14/2024 10:59:42 02/14/2024 12:05:48 Syncope [id number] R55 Recurrent syncopal episodes of unknown etiology. [...] Date Sequence Insurance Name Policy Number Policy Vadles Covered Member ID Valdes Member ID Guarantor Name 02/29/2024 1 [employer] (MEDICAID REPLACEMENT - HMO) [id number] Shawnee Figueroa Lilo [id number] Shawnee Nagy Notes Date Note Type Note [...] injuries. Sandi Bruno, DO [address], [place], [address], [facility] - [place] - [place] & [place] 02/14/2024 11:44:15 OBGyn Episode No OBEpisode recorded.
--- OUTSIDE RECORDS SUMMARY | 2025-04-17 16:22 | XMS_ITS | Encounter Summary ---
Author Organization [employer] Address [address] [place] [address] Care Team Providers Care Clearance Cutter Name Role Phone Janine Whetaley APRN Primary Care Provider [phone]- [phone] Encounter Details Date Type Department Care Team (Late st Contact Info) Description 04/12/2025 Orders Only [facility] [address] [place] [address] Heather Rosas DO [address] [place], [place] [id number] Social History Tobacco Use Types Packs/Day Years [...] on filedocumented in this encounter Care Teams Clearance Cutter Relationship Specialty Start Date End Date Janine Wheatley APRN [address] [place] [address] PCP - General Emergency Medicine 04/11/25 documented as of this encounter
--- OUTSIDE RECORDS SUMMARY | 2025-04-17 16:22 | XMS_ITS | Encounter Summary ---
Author Organization [employer] Address [address] [place] [address] Care Team Providers Care Clip And Hanger Attacher Name Role Phone Janine Wheatley APRN Primary Care Provider [phone]- [phone] Encounter Details Date Type Department Care Team (Late st Contact Info) Description 04/12/2025 Orders Only [facility] [address] [place] [address] Heather Rosas DO [address] [place], [place] [id number] Social History Tobacco Use Types Packs/Day Years [...] on filedocumented in this encounter Care Teams Clip And Hanger Attacher Relationship Specialty Start Date End Date Janine Wheatley APRN [address] [place] [address] PCP - General Emergency Medicine 04/11/25 documented as of this encounter
--- OUTSIDE RECORDS SUMMARY | 2025-04-17 16:22 | XMS_ITS | Encounter Summary ---
Author Organization [employer] Address [address] [place] [address] Care Team Providers Care Cricket Coach Name Role Phone [facility], Provider Not In The System Primary Care Provider Unavailable Encounter Details Date Type Department Care Team (Latest Contact Info) Description 04/08/2025 Travel Social History Tobacco Use Types Packs/Day [...] on filedocumented in this encounter Care Teams Cricket Coach Relationship Specialty Start Date End Date Vicente, Provider Not In The System, [place] [address] PCP - General 04/08/25 04/10/25 documented as of this encounter
--- OUTSIDE RECORDS SUMMARY | 2025-04-17 16:22 | XMS_ITS | Clinical Summary ---
Author Organization [facility] Address [address] [facility] [place] [address] Phone Care Team Providers Care Filter Tender Jelly Name Role Phone Unavailable Primary Care Provider Unavailabl e Allergies No known active allergies Medications No known medications Surgical History Surgery Date Site/Laterality Comments CHOLECYSTECTOMY SECTION x 3 DENTAL SURGERY wisdom teeth extracted TUBAL LIGATION FOOT TENDON SURGERY 12/05/2019 Right POSTERIOR TIBIAL TENDON REPAIR WITH EXCISION BONE SPUR RIGHT ANKLE; Surgeon: Hernesto Winston DPM; Location: [facility]; Service: Podiatry Medical devices from this surgery are in the Medical Devices section. MA HALLUX RIGIDUS W/CHEILECT LORENZA 1ST MP JT W/O IMPLT 12/05/2019 Right Right Surgeon: Hernesto Winston DPM; Location: [facility]; Service: Podiatry Medical devices from [...] this topic Medical Devices Implanted Type Area Freelance Director Device Identifier Shelf Expiration Date Model / Serial / Lot Berne Reelx Stt 4.5mm Knotless - [id number] Implanted:Qty: 1 on 12/05/2019 by Hernesto Winston DPM at [facility] Right: Foot NAVYA:ENDOSCO PY [id number] 02/01/2021 [id number] / / [id number] Graft Allogen Liquid Large 1.00ml - [id number] Implanted:Qty: 1 on 12/05/2019 by Hernesto Winston DPM at [facility] Right: [facility] ER:TISSUE BANK 12/19/2020 [id number] / / [id number] Graft Bone Intergro Demineralized Bone Matrix 5 Cc Paste - [id number] Implanted:Qty: 1 on 12/05/2019 by Hernesto Winston DPM at [facility] Right: [facility] ER:TISSUE BANK 07/30/2021 [id number] / / [id number] Insurance O
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
--- OUTSIDE RECORDS SUMMARY | 2025-04-17 16:22 | XMS_ITS | Encounter Summary ---
Author Organization [employer] Address [address] [place] [address] Care Team Providers Care Admissions Director Name Role Phone Janine Wheatley APRN Primary Care Provider Encounter Details Date Type Department Care Team (Late st Contact Info) Description 04/12/2025 Surgery Prep [facility] [address] [place] [address] [place] [address] Margaux Deluna CMA Social History Tobacco Use Types Packs/Day Years [...] on filedocumented in this encounter Care Teams Admissions Director Relationship Specialty Start Date End Date Janine Wheatley APRN [address] [place] [address] PCP - General Emergency Medicine 04/11/25 documented as of this encounter
--- OUTSIDE RECORDS SUMMARY | 2025-04-17 16:22 | XMS_ITS | Encounter Summary ---
Author Organization [employer] Address [address] [place] [address] Care Team Providers Care Telegraph Dispatcher Name Role Phone Janine Wheatley APRN Primary Care Provider Encounter Details Date Type Department Care Team (Late st Contact Info) Description 04/12/2025 Surgery Prep [facility] [address] [place] [address] [place] [address] Margaux Deluna CMA Social History Tobacco [...] on filedocumented in this encounter Care Teams Telegraph Dispatcher Relationship Specialty Start Date End Date Janine Wheatley APRN [address] [place] [address] PCP - General Emergency Medicine 04/11/25 documented as of this encounter
--- OUTSIDE RECORDS SUMMARY | 2025-04-17 16:23 | XMS_ITS | Clinical Summary ---
Author Organization [email or web address] Address [address] [place] [address] Care Team Providers Care Industrial Equipment Wirer Name Role Phone Janine Wheatley APRN Primary Care Provider [phone] Allergies No known active allergies Medications lamoTRIgine (LaMICtal) 25 MG tablet Take 1 tablet (25 mg total) by mouth nightly. 5 Active montelukast (SINGULAIR) 10 mg tablet Take 1 tablet (10 mg total) by mouth daily. 5 Active albuterol 90 mcg/actuation inhaler Inhale 1 puff by mouth every 4 (four) hours as needed for shortness of breath. 5 Active nicotine (NICODERM CQ) 14 mg/[address] 1 patch on the skin daily as needed (nicotine withdrawal) for up to 30 days. 28 patch 5 05/02/20 25 Active HYDROcodone-acet aminophen (NORCO) 5-325 mg per tablet Take 1 tablet by mouth every 6 (six) hours as needed for up to 3 days. Max Daily Amount: 4 tablets 12 tablet 5 04/05/20 25 ibuprofen (MOTRIN) 800 MG tabletIndication s:Abdominal mass, unspecified abdominal location Take 1 tablet (800 mg total) by mouth every 8 (eight) hours as needed for pain for up to 5 days. 15 tablet 5 04/09/20 25 meloxicam (MOBIC) 15 MG tablet Take 1 tablet (15 mg total) by mouth daily for 7 days. 7 tablet 5 04/15/20 25 HYDROcodone-acet aminophen (NORCO) 5-325 mg per tablet Take 1 tablet by mouth every 6 (six) hours as needed for pain for up to 3 days. Max Daily Amount: 4 tablets 10 tablet 5 04/11/20 25 Active Problems Problem Noted Date Diagnosed Date Mass of anterior abdominal wall 04/11/2025 Endometrioma 04/11/2025 Tumor 04/02/2025 Abdominal mass 03/31/2025 Encounters Date Type Department Care Team Description 04/12/2025 Surgery Prep [facility] [address] [place] [address] [phone] Margaux Deluna CMA 04/12/2025 Surgery Prep [facility] [address] [address] Margaux Deluna CMA 04/12/2025 Orders Only [facility] [address] [place] [address] [address] Ralph, Heather, 04/12/2025 Orders Only [facility] [address] [place] [address] [address] Ralph, Heather, DO 04/12/2025 Orders Only [facility] [address] [address] Ralph, Heather, 04/11/2025 9:20 AM EDT Office Visit [facility] [address] [address] Ralph, Heather, DO Endometriosis of the anterior abdominal wall, fascia and muscular layers (Primary Dx); Mass of anterior abdominal wall; Endometrioma; Other elevated white blood cell (WBC) count 04/11/2025 Orders Only [facility] [address] [address] Ralph, Heather, 04/11/2025 Travel 04/08/2025 3:16 PM EDT - 04/08/2025 6:38 PM EDT Emergency [facility] [address] [place] [address] Joaquim Perdomo MD Lower abdominal pain (Primary Dx); Endometriosis of anterior abdominal wall; Leukocytosis, unspecified type; Abdominal wall hematoma, initial encounter Discharge Disposition: Home or Self Care 04/08/2025 Travel 04/04/2025 Orders Only [facility] [address] [place] [address] Heather Rosas DO Abdominal mass, unspecified abdominal location (Primary Dx) 03/31/2025 9:50 AM EDT - 04/02/2025 3:29 PM EDT Hospital Encounter [facility] [address] [place] [phone] Chiqui Marcum MD Edie, Joseph A, PA-C Huffman, Joshua B, MD Brammell, Korey, Mass in the abdomen Discharge Disposition: Home or Self Care from Last 3 Months Social History Tobacco Use Types Packs/Day Years [...] on file Sexual Orientation Not on file Last Filed Vital Signs Vital Sign Reading Time Taken Comments Blood Pressure 129/86 04/11/2025 9:13 AM EDT Pulse 85 04/11/2025 9:13 AM EDT Temperature 36.6 C (97.8 F) 04/08/2025 2:55 PM EDT Respiratory Rate 20 04/08/2025 2:55 PM EDT Oxygen Saturation 96% 04/08/2025 6:36 PM EDT Inhaled Oxygen Concentration - - Weight 108 kg (238 lb) 04/11/2025 9:13 AM EDT Height 162.6 cm (5' 4 ) 04/11/2025 9:13 AM EDT Body Mass Index 40.85 04/11/2025 9:13 AM EDT Plan of Treatment Health Maintenance Due Date Last Done Comments Depression Screening (12+) 2001 HIV Screening 2004 Pneumococcal Vaccine: 0-49 Y ears (1 of 2 - PCV) 2008 Lipid Panel 2009 Pap Smear 2010 COVID-19 VACCINE (3 - season) 2024, 05/14/2021 DTAP/TDAP/TD VACCINES (2 - Td or Tdap) 05/09/2025 Influenza Vaccine (Season Ended) 2025 Tobacco Cessation Counseling and Screening (12+) 04/02/2026 04/02/2025 Hepatitis C Screening Completed 04/02/2025 Procedures Procedure Name Priority Date/Time Associated Diagnosis Comments CT ABDOMEN/PELVIS WITH IV CONTRAST STAT 04/08/2025 5:20 PM EDT MANUAL DIFFERENTIAL Routine 04/08/2025 3 :28 PM EDT CBC W/ AUTO DIFF STAT 04/08/2025 3:28 PM EDT COMPREHENSIVE METABOLIC PANEL STAT 04/08/2025 3:[address] BIOPSY SITE ABDOMEN Routine 04/02/2025 9:15 AM EDT TISSUE EXAM [facility] AP Routine 04/02/2025 8:24 AM EDT Mass in the abdomen HEPATITIS PANEL, ACUTE Add-On 04/02/2025 4:40 AM EDT COMPREHENSIVE METABOLIC PANEL Routine 04/02/2025 4:40 AM EDT CBC HEMOGRAM (SJ-BKR) Routine 04/02/2025 4:40 AM EDT MAGNESIUM Routine 04/02/2025 4:40 AM EDT COMPREHENSIVE METABOLIC PANEL Routine 04/01/2025 3:50 AM EDT CBC HEMOGRAM (SJ-BKR) Routine 04/01/2025 3:50 AM EDT MAGNESIUM Routine 04/01/2025 3:50 AM EDT COMPREHENSIVE METABOLIC PANEL Routine 03/31/2025 12:06 PM EDT CBC W/ AUTO DIFF Routine 03/31/2025 12:0 6 PM EDT from Last 3 Months Results * CT ABDOMEN/PELVIS WITH IV CONTRAST [...] CT ORDERABLES Final Res ult * (ABNORMAL) CBC with automated diff (04/08/2025 3:28 PM EDT) Only the most recent of2 resultswithin the time period is included. WBC 20.7(H) 4.0 - 10.0 K/ L 04/08/2025 4:00 PM EDT [facility] RBC 5.02 3.93 - 5.22 M/ L 04/08/2025 4:00 PM EDT [facility] Hemoglobin 14.6 11.2 - 15.7 GM/DL 04/08/2025 4:00 PM EDT [facility] Hematocrit 44.1 34.1 - 44.9 % 04/08/2025 4:00 PM EDT [facility] MCV 88 79 - 95 fL 04/08/2025 4:00 PM EDT [facility] MCH 29.1 25.6 - 32.2 pg 04/08/2025 4:00 PM EDT [facility] MCHC 33.1 32.2 - 35.5 GM/DL 04/08/2025 4:00 PM EDT [facility] RDW 13.6 11.7 - 14.4 % 04/08/2025 4:00 PM EDT [facility] Platelets 418(H) 140 - 375 K/CU MM 04/08/2025 4:00 PM EDT [facility] MPV 10.3 9.4 - 12.3 fL 04/08/2025 4:00 PM EDT [facility] NRBC Absolute <0.01 0 - 0.012 K/ul 04/08/2025 4:00 PM EDT [facility] Blood Venipuncture / Unknown 04/08/2025 3:28 PM EDT 04/08/2025 3:35 PM EDT Narrative [facility] - 04/08/2025 4:00 PM [...] Flag noted Atypical Lymph flag noted us Jaoquim Perdomo MD LAB BLOOD ORDERABLES Final Result Performing Organization Address City/State/[facility] Co de Phone Number [facility] [address] [phone] * (ABNORMAL) Manual Differential (04/08/2025 3:28 PM EDT) Total Counted 100 04/08/2025 5:53 PM EDT [facility] % Neutros (manual) 60 50 - 65 % 04/08/2025 5:53 PM EDT [facility] % Lymphs (manual) 29 24 - 44 % 04/08/2025 5:53 PM EDT [facility] % Monos (manual) 5 4 - 5 % 04/08/2025 5:53 PM EDT [facility] % Eos (manual) 5(H) 0 - 3 % 04/08/2025 5:53 PM EDT [facility] % Baso (manual) 1 0 - 1 % 5:53 PM EDT [facility] RBC Morphology abnormal( A) Normal 04/08/2025 5:53 PM EDT [facility] Platelet Estimate Increased (A) Adequate 04/08/2025 5:53 PM EDT [facility] Hypochromia 1+ 04/08/2025 5:53 PM EDT [facility] ANC# 12.42 K/ L 04/08/2025 5:53 PM EDT [facility] Blood Venipuncture / Unknown 04/08/2025 3:28 PM EDT 04/08/2025 3:35 PM EDT us Joaquim Perdomo MD LAB BLOOD ORDERABLES Final Result [facility] [address] [phone] * (ABNORMAL) Comprehensive metabolic panel (04/08/2025 3:28 PM EDT) Only the most recent of4 resultswithin the time period is included. Sodium 140 136 - 145 meq/L 04/08/2025 4:09 PM EDT [facility] Potassium 4.6 3.4 - 5.1 meq/L 04/08/2025 4:09 PM EDT [facility] Chloride 106 98 - 112 meq/L 04/08/2025 4:09 PM EDT [facility] CO2 23 22 - 29 meq/L 04/08/2025 4:09 PM EDT [facility] Calcium 9.4 8.4 - 10.2 mg/dL 04/08/2025 4:09 PM EDT [facility] Glucose 94 74 - 100 mg/dL 04/08/2025 4:09 PM EDT [facility] BUN 12.2 7.0 - 18.7 mg/dL 04/08/2025 4:09 PM EDT [facility] Creatinine 0.80 0.57 - 1.11 mg/dL 04/08/2025 4:09 PM EDT [facility] BUN/Creatinine 15 8 - 20 04/08/2025 4:09 PM EDT [facility] eGFR (mL/min/1.73m2) 99 >=60 mL/min/1. 73m2 04/08/2025 4:09 PM EDT [facility] Albumin 4.0 3.5 - 5.0 g/dL 04/08/2025 4:09 PM EDT [facility] Alkaline Phosphatase 101 40 - 150 U/L 04/08/2025 4:09 PM EDT [facility] ALT 24 <=34 U/L 04/08/2025 4:09 PM EDT [facility] Comment: ALT2 reagent used for testing does not contain P5P supplementation and therefore may miss ALT elevations in patients with B6 deficiency. This population may be as high as 10% in the [place], with risk factors including malabsorption, drug interactions, and alcoholic hepatitis. AST 23 11 - 34 U/L 04/08/2025 4:09 PM EDT [facility] Comment: AST2 reagent used for testing does not contain P5P supplementation and therefore may miss AST elevations in patients with B6 deficiency. This population may be as high as 10% in the [place], with risk factors including malabsorption, drug interactions, and alcoholic hepatitis. Total Bilirubin 0.4 0.2 - 1.2 mg/dL 04/08/2025 4:09 PM EDT [facility] Protein, Total 8.2 6.4 - 8.3 g/dL 04/08/2025 4:09 PM EDT [facility] Globulin 4.2(H) 2.5 - 4.1 g/dL 04/08/2025 4:09 PM T [facility] Anion Gap 16(H) 4 - 12 04/08/2025 4:09 PM EDT [facility] A/G Ratio 1.0 0.7 - 1.9 04/08/2025 4:09 PM EDT [facility] Osmolality Calc 279.0 mOsm/kg 4:09 PM EDT [facility] Blood Venipuncture / Unknown 04/08/2025 3:28 PM EDT 04/08/2025 3:35 PM EDT us Joaquim Perdomo MD LAB BLOOD ORDERABLES Final Result [facility] [address] [phone] * CT BIOPSY SITE ABDOMEN (04/02/2025 9:15 [...] wall mass. ATTENDING PHYSICIAN: Dr. Montano PHYSICIAN LABELING ASSOCIATE: Candido Camacho PA-C PROCEDURE: This study was [...] wall mass. ATTENDING PHYSICIAN: Dr. Montano PHYSICIAN LABELING ASSOCIATE: Candido Camacho PA-C PROCEDURE: This study was [...] Alli Montano. Transcribed by Candido Camacho PA-C. us Alla Cedillo PA-C IMG CT ORDERABLES Final Res ult * Tissue Exam (04/02/2025 8:24 AM EDT) AP RESULT See Note: [facility] Comment: [facility] [address] [place] [address] or [phone] Sheldon Navarrete M.D., Right Of Way Worker PATIENT NAME [facility]ATORY [facility] [address] [id number] AGE SEX SSN CLIENT REF # [facility] 34 1990 F [id number] 1 [facility] REQUESTING Alice. [place] [address] ALLA CEDILLO JOSHUA DATE COLLECTED DATE RECEIVED [...] rendered by Tena Waldrop M.D., F.C.A.P. at [employer] [employer], [address] [place] [address], [place] [address]. GROSS DESCRIPTION: Received in formalin labeled abdominal wall biopsy are multiple core biopsies of núñez-white soft tissue averaging 1.9 cm in length and 0.1 cm in diameter, submitted entirely in blocks A1-2. MTS Immediate evaluation: Not adequate. The patient ID is verified, stain good, verbal to DAYAMI Rey by JACINDA Marroquin at [facility] REVIEWED, DIAGNOSED AND ELECTRONICALLY SIGNED BY: Tena Waldrop M.D., F.C.A.P. CPT CODES: 41617, [id number] Tissue ABDOMEN / Unknown 04/02/2025 8:24 AM EDT us Alla Cedillo PA-C PATHOLOGY/CYTOLOGY ORDERABL ES Final Result [facility] [address] [place] [address] * (ABNORMAL) CBC - Hemogram (-BKR) (04/02/2025 4:40 AM EDT) Only the most recent of2 resultswithin the time period is included. WBC 12.0(H) 4.0 - 10.0 K/ L 04/02/2025 5:19 AM EDT [facility] RBC 4.22 3.93 - 5.22 M/ L 04/02/2025 5:19 AM EDT [facility] Hemoglobin 12.1 11.2 - 15.7 GM/DL 04/02/2025 5:19 AM EDT [facility] Hematocrit 37.9 34.1 - 44.9 % 04/02/2025 5:19 AM EDT [facility] MCV 90 79 - 95 fL 04/02/2025 5:19 AM EDT [facility] MCH 28.7 25.6 - 32.2 pg 04/02/2025 5:19 AM EDT [facility] MCHC 31.9(L) 32.2 - 35.5 GM/DL 04/02/2025 5:19 AM EDT [facility] RDW 13.3 11.7 - 14.4 % 04/02/2025 5:19 AM EDT [facility] Platelets 347 140 - 375 K/CU MM 04/02/2025 5:19 AM EDT [facility] MPV 10.2 9.4 - 12.3 fL 04/02/2025 5:19 AM EDT [facility] Blood Venipuncture / Unknown 04/02/2025 4:40 AM EDT 04/02/2025 5:07 AM EDT Marvin Ordaz PA-C LAB BLOOD ORDERABLES Final Re sult [facility] [address] [phone] * Hepatitis panel, acute (04/02/2025 4:40 AM EDT) Hep A IgM Nonreactive Nonreactive 04/02/2025 2:04 PM EDT [facility] Hep B C IgM Nonreactive Nonreactive 04/02/2025 2:04 PM EDT [facility] Hepatitis B surface antigen Nonreactive Nonreactive 04/02/2025 2:04 PM EDT [facility] Hepatitis C Ab Nonreactive Nonreactive 04/02/20 2:04 PM EDT [facility] Comment: Devulcanizer Tender recommends confirmatory testing on all reactives and equivocals. Blood Venipuncture / Unknown 04/02/2025 4:40 AM EDT 04/02/2025 5:05 AM EDT Aden Nickerson MD LAB BLOOD ORDERABLES Final R esult [facility] [address] [phone] * Magnesium (04/02/2025 4:40 AM EDT) Only the most recent of2 resultswithin the time period is included. Magnesium 1.8 1.6 - 2.6 mg/dL 04/02/2025 5:42 AM EDT [facility] Blood Venipuncture / Unknown 04/02/2025 4:40 AM EDT 04/02/2025 5:05 AM EDT Marvin Ordaz PA-C LAB BLOOD ORDERABLES Final Re sult [facility] [address] [place] [address], [facility] [phone] from Last 3 Months [employer] [facility] Advance Directives For more information, please contact: [phone] * Full Code (Latest Code Status on File) Date Activated Date Inactivated Comments 03/31/2025 9:25 AM 04/02/2025 4:29 PM Care Teams Industrial Equipment Wirer Relationship Specialty Start Date End Date Janine Wheatley APRN [address] [place] [address] PCP - General Emergency Medicine 04/11/25
--- OUTSIDE RECORDS SUMMARY | 2025-04-17 16:23 | XMS_ITS | Referral Summary ---
Author Organization [employer] Address [address] [place] [address] Care Team Providers Care Furniture Decals Inspector Name Role Phone RosachineduJanine APRN Primary Care Provider [phone] Encounters Date Type Department Care Team Description 04/12/2025 Surgery Prep [facility] [address] [place] [address] [address] Margaux Deluna, [facility] 04/12/2025 Surgery Prep [facility] [address] [place] [address] [address] Margaux Deluna, [facility] 04/12/2025 Orders Only [facility] [address] [place] [address] [phone] Ralph Heather, 04/12/2025 Orders Only [facility] [address] [place] [address] [address] Ralph Heather, 04/12/2025 Orders Only [facility] [address] [place] [address] [address] Ralph Heather, 04/11/2025 Orders Only [facility] [address] [place] [address] [address] Ralph Heather, DO 04/11/2025 Travel 04/11/2025 9:20 AM EDT Office Visit [facility] [address] [facility] [address] [place] [phone] Heather Rosas DO Endometriosis of the anterior abdominal wall, fascia and muscular layers (Primary Dx); Mass of anterior abdominal wall; Endometrioma; Other elevated white blood cell (WBC) count 04/08/2025 Travel 04/08/2025 3:16 PM EDT - 04/08/2025 6:38 PM EDT Emergency [facility] [address] [phone] Joaquim Perdomo MD Lower abdominal pain (Primary Dx); Endometriosis of anterior abdominal wall; Leukocytosis, unspecified type; Abdominal wall hematoma, initial encounter Discharge Disposition: Home or Self Care 04/04/2025 Orders Only [facility] [address] [facility] [address] [address] Heather Rosas DO Abdominal mass, unspecified abdominal location (Primary Dx) 03/31/2025 9:50 AM EDT - 04/02/2025 3:29 PM EDT Hospital Encounter [facility] Cardiac Telemetry [address] [phone] Chiqui Marcum MD Edie, Joseph A, Aden Logan MD Brammell, Korey, Mass in the abdomen Discharge Disposition: Home or Self Care from Last 3 Months Allergies No known active allergies Medications lamoTRIgine (LaMICtal) 25 MG tablet Take 1 tablet (25 mg total) by mouth nightly. Active montelukast (SINGULAIR) 10 mg tablet Take 1 tablet (10 mg total) by mouth daily. Active albuterol 90 mcg/actuation inhaler Inhale 1 puff by mouth every 4 (four) hours as needed for shortness of breath. Active nicotine (NICODERM CQ) 14 mg/24 hr [...] Endometrioma 04/11/2025 Tumor 04/02/2025 Abdominal mass 03/31/2025 Social History Tobacco Use Types Packs/Day Years [...] 04/11/2025 9:13 AM EDT Plan of Treatment Not on file Procedures Procedure Name Priority Date/Time Associated Diagnosis Comments CT ABDOMEN/PELVIS WITH IV CONTRAST STAT 04/08/2025 5:20 PM EDT MANUAL DIFFERENTIAL Routine 04/08/2025 3 :28 PM EDT CBC W/ AUTO DIFF STAT 04/08/2025 3:28 PM EDT COMPREHENSIVE METABOLIC PANEL STAT 04/08/2025 3:[address] BIOPSY SITE ABDOMEN Routine 04/02/2025 9:15 [address] [facility] AP Routine 04/02/2025 8:24 AM EDT Mass [...] 10.0 K/ L 04/08/2025 4:00 PM EDT [facility] RBC 5.02 3.93 - 5.22 M/ L 04/08/2025 4:00 PM EDT [facility] Hemoglobin 14.6 11.2 - 15.7 GM/DL 04/08/2025 4:00 PM EDT [facility] Hematocrit 44.1 34.1 - 44.9 % 04/08/2025 4:00 PM EDT [facility] MCV 88 79 - 95 fL 04/08/2025 4:00 PM EDT [facility] MCH 29.1 25.6 - 32.2 pg 04/08/2025 4:00 PM EDT [facility] MCHC 33.1 32.2 - 35.5 GM/DL 04/08/2025 4:00 PM EDT [facility] RDW 13.6 11.7 - 14.4 % 04/08/2025 4:00 PM EDT [facility] Platelets 418(H) 140 - 375 K/CU MM 04/08/2025 4:00 PM EDT [facility] MPV 10.3 9.4 - 12.3 fL 04/08/2025 4:00 PM EDT [facility] NRBC Absolute <0.01 0 - 0.012 K/ul 04/08/2025 4:00 PM EDT [facility] Blood Venipuncture / Unknown 04/08/2025 3:28 PM EDT 04/08/2025 3:35 PM EDT Narrative [facility] - 04/08/2025 4:00 PM EDT [...] BLOOD ORDERABLES Final Result Performing Organization Address City/[facility]/ZIP Co de Phone Number [facility] [address] [phone] * (ABNORMAL) Manual Differential (04/08/2025 3:28 PM EDT) Total Counted 100 04/08/2025 5:53 PM EDT [facility] % Neutros (manual) 60 50 - 65 % 04/08/2025 5:53 PM EDT [facility] % Lymphs (manual) 29 24 - 44 % 04/08/2025 5:53 PM EDT [facility] % Monos (manual) 5 4 - 5 % 04/08/2025 5:53 PM EDT [facility] % Eos (manual) 5(H) 0 - 3 % 04/08/2025 5:53 PM EDT [facility] % Baso (manual) 1 0 - 1 % 5:53 PM EDT [facility] RBC Morphology abnormal( A) Normal 04/08/2025 5:53 PM EDT [facility] Platelet Estimate Increased (A) Adequate 04/08/2025 5:53 PM EDT [facility] Hypochromia 1+ 04/08/2025 5:53 PM EDT [facility] ANC# 12.42 K/ L 04/08/2025 5:53 PM EDT [facility] Blood Venipuncture / Unknown 04/08/2025 3:28 PM EDT 04/08/2025 3:35 PM EDT us Joaquim Perdomo MD LAB BLOOD ORDERABLES Final Result Performing Organization Address City/[facility]/ZIP Co de Phone Number [facility] [address] [phone] * (ABNORMAL) Comprehensive metabolic panel (04/08/2025 3:28 PM EDT) Only the most recent of4 resultswithin the time period is included. Sodium 140 136 - 145 meq/L 04/08/2025 4:09 PM [facility] Potassium 4.6 3.4 - 5.1 meq/L 04/08/2025 4:09 PM [facility] Chloride 106 98 - 112 meq/L 04/08/2025 4:09 PM [facility] CO2 23 22 - 29 meq/L 04/08/2025 4:09 PM [facility] Calcium 9.4 8.4 - 10.2 mg/dL 04/08/2025 4:09 PM [facility] Glucose 94 74 - 100 mg/dL 04/08/2025 4:09 PM [facility] BUN 12.2 7.0 - 18.7 mg/dL 04/08/2025 4:09 PM [facility] Creatinine 0.80 0.57 - 1.11 mg/dL 04/08/2025 4:09 PM [facility] BUN/Creatinine 15 8 - 20 04/08/2025 4:09 PM [facility] eGFR (mL/min/1.73m2) 99 >=60 mL/min/1. 73m2 04/08/2025 4:09 PM [facility] Albumin 4.0 3.5 - 5.0 g/dL 04/08/2025 4:09 PM [facility] Alkaline Phosphatase 101 40 - 150 U/L 04/08/2025 4:09 PM [facility] ALT 24 <=34 U/L 04/08/2025 4:09 PM [facility] Comment: ALT2 reagent used for testing does not contain P5P supplementation and therefore may miss ALT elevations in patients with B6 deficiency. This population may be as high as 10% in the [place], with risk factors including malabsorption, drug interactions, and alcoholic hepatitis. AST 23 11 - 34 U/L 04/08/2025 4:09 PM [facility] Comment: AST2 reagent used for testing does not contain P5P supplementation and therefore may miss AST elevations in patients with B6 deficiency. This population may be as high as 10% in the [place], with risk factors including malabsorption, drug interactions, and alcoholic hepatitis. Total Bilirubin 0.4 0.2 - 1.2 mg/dL 04/08/2025 4:09 PM EDT [facility] Protein, Total 8.2 6.4 - 8.3 g/dL 04/08/2025 4:09 PM EDT [facility] Globulin 4.2(H) 2.5 - 4.1 g/dL 04/08/2025 4:09 PM EDT [facility] Anion Gap 16(H) 4 - 12 04/08/2025 4:09 PM EDT [facility] A/G Ratio 1.0 0.7 - 1.9 04/08/2025 4:09 PM EDT [facility] Osmolality Calc 279.0 mOsm/kg 4:09 PM EDT [facility] Blood Venipuncture / Unknown 04/08/2025 3:28 PM EDT 04/08/2025 3:35 PM EDT us Joaquim Perdomo MD LAB BLOOD ORDERABLES Final Result Performing Organization Address City/State/[facility] Co de Phone Number [facility] [address] [phone] * CT BIOPSY SITE ABDOMEN (04/02/2025 9:15 [...] wall mass. ATTENDING PHYSICIAN: Dr. Montano PHYSICIAN TUBE MAN: Candido Camacho PA-C PROCEDURE: This study was [...] wall mass. ATTENDING PHYSICIAN: Dr. Montano PHYSICIAN TUBE MAN: Candido Camacho PA-C PROCEDURE: This study was [...] [facility] Comment: [facility] [address] [place] [address] or [phone] Sheldon Navarrete M.D., Centrifugal Machine Tender PATIENT NAME [facility] [id number] AGE SEX SSN CLIENT REF # [facility] 34 [id number] F [id number] 1 [facility] REQUESTING M.D. [place]ING [place] [address] ALLA CEDILLO JOSHUA DATE COLLECTED DATE RECEIVED [...] rendered by Tena Waldrop M.D., F.C.A.P. at [employer], [employer], [address] [place] [address], [place] [address]. GROSS DESCRIPTION: Received in formalin labeled abdominal wall biopsy are multiple core biopsies of núñez-white soft tissue averaging 1.9 cm in length and 0.1 cm in diameter, submitted entirely in blocks A1-2. MTS Immediate evaluation: Not adequate. The patient ID is verified, stain good, verbal to DAYAMI Rey by JACINDA Marroquin at [facility] REVIEWED, DIAGNOSED AND ELECTRONICALLY SIGNED BY: Tena Waldrop M.D., F.C.A.P. CPT CODES: [id number], [id number] Tissue ABDOMEN / Unknown 04/02/2025 8:24 AM EDT us Alla Cedillo PA-C PATHOLOGY/CYTOLOGY ORDERABL ES Final Result [facility] [address] * (ABNORMAL) CBC - Hemogram (SJ-BKR) (04/02/2025 4:40 AM EDT) Only the most recent of2 resultswithin the time period is included. WBC 12.0(H) 4.0 - 10.0 K/ L 04/02/2025 5:19 AM EDT [facility] RBC 4.22 3.93 - 5.22 M/ L 04/02/2025 5:19 AM EDT [facility] Hemoglobin 12.1 11.2 - 15.7 GM/DL 04/02/2025 5:19 AM EDT [facility] Hematocrit 37.9 34.1 - 44.9 % 04/02/2025 5:19 AM EDT [facility] MCV 90 79 - 95 fL 04/02/2025 5:19 AM EDT [facility] MCH 28.7 25.6 - 32.2 pg 04/02/2025 5:19 AM EDT [facility] MCHC 31.9(L) 32.2 - 35.5 GM/DL 04/02/2025 5:19 AM EDT [facility] RDW 13.3 11.7 - 14.4 % 04/02/2025 5:19 AM EDT [facility] Platelets 347 140 - 375 K/CU MM 04/02/2025 5:19 AM EDT [facility] MPV 10.2 9.4 - 12.3 fL 04/02/2025 5:19 AM EDT [facility] Blood Venipuncture / Unknown 04/02/2025 4:40 AM EDT 04/02/2025 5:07 AM EDT us Marvin Ordaz PA-C LAB BLOOD ORDERABLES Final Re sult [facility] [address] [phone] * Hepatitis panel, acute (04/02/2025 4:40 AM EDT) Hep A IgM Nonreactive Nonreactive 04/02/2025 2:04 PM EDT [facility] Hep B C IgM Nonreactive Nonreactive 04/02/2025 2:04 PM EDT [facility] Hepatitis B surface antigen Nonreactive Nonreactive 04/02/2025 2:04 PM EDT [facility] Hepatitis C Ab Nonreactive Nonreactive 04/02/20 2:04 PM EDT [facility] Comment: Winder Fixer recommends confirmatory testing on all reactives and equivocals. Blood Venipuncture / Unknown 04/02/2025 4:40 AM EDT 04/02/2025 5:05 AM EDT Aden Nickerson MD LAB BLOOD ORDERABLES Final R esult Performing Organization Address [facility] Co de Phone Number [facility] [address] [phone] * Magnesium (04/02/2025 4:40 AM EDT) Only the most recent of2 resultswithin the time period is included. Magnesium 1.8 1.6 - 2.6 mg/dL 04/02/2025 5:42 AM EDT [facility] Blood Venipuncture / Unknown 04/02/2025 4:40 AM EDT 04/02/2025 5:05 AM EDT us Marvin Ordaz PA-C LAB BLOOD ORDERABLES Final Re sult Performing Organization Address City/[facility]/ZIP Co de Phone Number [facility] [address] [phone] from Last [address] [place] [place] [address] Advance Directives For more information, please contact: [phone] * Full Code (Latest Code Status on File) Date Activated Date Inactivated Comments 03/31/2025 9:25 AM 04/02/2025 4:29 PM Care Teams 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
[2025-04-17 16:32] VITALS: BP 128/71; PULSE 87; RESP 19; TEMP 36.8; O2SAT 98; BMI 39.4
--- NOTE | 2025-04-17 16:39 | CT_ITS ---
PROCEDURE INFORMATION: Exam: CT Abdomen And Pelvis With Contrast Exam date and time: 04/17/2025 5:53 PM Age: 34 years old Clinical indication: Abdominal pain; Additional info: Fell on abdomen yesterday. Severe lower abd pain TECHNIQUE: Imaging protocol: Computed tomography of the abdomen and pelvis with contrast. Radiation optimization: All CT scans at this facility use at least one of these dose optimization techniques: automated exposure control; mA and/or kV adjustment per patient size (includes targeted exams where dose is matched to clinical indication); or iterative reconstruction. Contrast material: ISOVUE; Contrast volume: 75 ml; Contrast route: IV; COMPARISON: CT ABDOMEN PELVIS W CON 03/31/2025 2:46 AM FINDINGS: Lungs: Right middle lobe and bibasilar calcified nodules compatible with granulomas. Liver: Normal. No mass. Gallbladder and biliary ducts: There are surgical clips within the gallbladder fossa. Pancreas: Normal. No ductal dilation. Spleen: Normal. No splenomegaly. Adrenal glands: Normal. No mass. Kidneys and ureters: Normal. No hydronephrosis. Stomach and bowel: Unremarkable. No obstruction. No mucosal thickening. Appendix: No evidence of appendicitis. Intraperitoneal space: Unremarkable. No free air. No significant fluid collection. Vasculature: Unremarkable. No abdominal aortic aneurysm. Lymph nodes: Unremarkable. No enlarged lymph nodes. Urinary bladder: Unremarkable as visualized. Reproductive: The uterus appears surgically absent. Bones/joints: Unremarkable. No acute fracture. Soft tissues: Inferior right rectus abdominis hematoma measuring 2.5 x 5.7 x 3.7 cm. IMPRESSION: Inferior right rectus abdominis hematoma measuring 2.5 x 5.7 x 3.7 cm.
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
[2025-04-17 16:56] LABS: Basophils # 0.1 K/mm3 (0-0.2); Basophils % 0.4 % (0.1-2.0); Eosinophils # 0.9 Kmm3 (0.0-0.4); Eosinophils % 4.7 % (0.1-12.0); Hematocrit 39.7 % (37.0-47.0); Hemoglobin 13.4 g/dL (12.2-16.2); Immature Granulocytes # 0.09 10^3uL; Immature Granulocytes % 0.5 %; Lymphocytes # 4.6 K/mm3 (0.7-4.5); Lymphocytes % 24.3 % (10-50); Mean Corpuscular HGB Conc 33.8 g/dL (31.8-35.4); Mean Corpuscular Hemoglobin 29.6 pg (27.0-31.2); Mean Corpuscular Volume 87.6 fl (81-99); Mean Platelet Volume 10.1 fl (7.4-10.4); Monocytes # 1.6 K/mm3 (0.1-1.0); Monocytes % 8.3 % (1.7-9.3); Neutrophils # 11.6 K/mm3 (1.8-7.8); Neutrophils % 61.8 % (37.0-80.0); Nucleated Red Blood Cells # 0 10^3/uL; Nucleated Red Blood Cells % 0 %; Platelet Count 425 K/mm3 (142-424); Red Blood Count 4.53 M/mm3 (4.20-5.40); Red Cell Distribution Width 13.5 % (11.5-17.5); Red Cell Distribution Width-SD 43.5 fL; White Blood Count 18.8 K/mm3 (4.8-10.8)
[2025-04-17 16:59] LABS: MANUAL DIFFERENTIAL MANUAL DIFFERENTIAL (MANUAL DIFF)
[2025-04-17] MEDS: KETOROLAC 30MG/ML VIAL 15 MG IV (17:00)
[2025-04-17] MEDS: ACETAMINOPHEN 500MG TAB 1000 MG PO (17:00)
[2025-04-17] MEDS: ONDANSETRON 4MG/2ML VIAL 4 MG IV (17:00)
[2025-04-17] MEDS: LACTATED RINGERS 1000ML 1,000 ML 999 ML IV (17:01)
[2025-04-17 17:12] LABS: Alanine Aminotransferase 18 U/L (12-78); Albumin Level 4.3 g/dl (3.5-5.0); Albumin/Globulin Ratio 1.3 (1.1-1.8); Alkaline Phosphatase 76 U/L (38-126); Anion Gap 10.7 mEq/L (5-15); Aspartate Amino Transferase 26 U/L (14-36); Bilirubin,Total 0.3 mg/dl (0.2-1.3); Blood Urea Nitrogen 15 mg/dl (7-17); Calcium 9.7 mg/dl (8.4-10.2); Carbon Dioxide 26 mmol/L (22.0-30.0); Chloride 104 mmol/L (98-107); Creatinine Clearance Estimated 162 mL/min (50-200); Estimated Glomerular Filt Rate 82 ml/min (>60); GFR (African American) 99 ML/MIN (>60); Globulin 3.3 g/dL (1.3-3.2); Glucose 90 mg/dl (74-100); Lipase 80 U/L (23-300); Potassium 3.7 mmoL/L (3.5-5.1); Sodium 137 mmol/L (136-145); Total Protein,Serum 7.6 g/dl (6.3-8.2)
[2025-04-17 17:21] LABS: Eosinophils % 4 % (0-3); Lymphocytes % 23 % (10-50); Monocytes % 7 % (2-9); Neutrophils % 65 % (42-76); Total Cells Counted 100
[2025-04-17 17:24] LABS: Platelet Estimate Slight Increase
[2025-04-17 17:27] LABS: RBC Morphology Normal
[2025-04-17] MEDS: SODIUM CHLORIDE 0.9% 10ML SYR (RAD ONLY) 10 ML IV (17:59)
[2025-04-17] MEDS: IOPAMIDOL-370 (76%);100ML BOTTLE 75 ML IV (17:59)
[2025-04-17 18:03] LABS: Microscopic, Urine URINE MICROSCOPIC (MICROSCOPIC)
[2025-04-17 18:05] VITALS: BP 103/72; PULSE 86; RESP 18; O2SAT 100
[2025-04-17 18:09] LABS: Appearance,Urine SL CLOUDY (Clear); Bilirubin,Urine Negative (Negative); Blood, Urine Negative (Negative); Color,Urine YELLOW (Yellow); Glucose,Urine (UA) Negative (Negative); Ketones,Urine Negative (Negative); Leukocyte Esterase,Urine Negative (Negative); Nitrate,Urine Negative (Negative); Protein,Urine Negative (Negative); Specific Gravity, Urine 1.025 (1.005-1.030); Urobilinogen,Urine 0.2 EU/dl (0.2)
[2025-04-17 18:33] LABS: Bacteria,Urine 2+ /lpf; Mucus,Urine 1+ /lpf; Squamous Epithelial Cell,Urine 20-50 #/hpf (0-5)
[2025-04-17] MEDS: MORPHINE 4MG/ML SYRINGE 4 MG IV (19:14)
[2025-04-17 19:30] VITALS: BP 112/54; PULSE 76; RESP 16; TEMP 36.7; O2SAT 98
--- NOTE | 2025-04-20 08:42 | PC.NURSE ---
Urine culture results reviewed by Dr. Kimble. No new orders received at this time.
== END 2025-04-17 19:31 | disposition home or self-care (01) ==
PROVIDERS: Emergency Provider Emergency Medicine; PCP Nurse Practitioner
DX: R10.30 Lower abdominal pain, unspecified (principal); S30.1XXA Contusion of abdominal wall, initial encounter; D72.829 Elevated white blood cell count, unspecified; R19.09 Other intra-abdominal and pelvic swelling, mass and lump; F17.210 Nicotine dependence, cigarettes, uncomplicated
CPT/HCPCS: 74177; 80053; 81001; 83690; 85007; 85025; 85027; 87086; 96361; 96374; 96375; 99285; J1885; J2270; J2405; J7120; Q9967

== ENCOUNTER 2025-05-27 20:14 | Emergency (ER) | payer MEDICAID, SELFPAY ==
--- OUTSIDE RECORDS SUMMARY | 2025-03-31 09:50 | XMS_ITS | Encounter Summary ---
Author Organization [employer] ([place], [place], [place], [place]) Address [address] [place] [address] Care Team Providers Care Felt Hat Inspector And Packer Name Role Phone Unavailable Primary Care Provider Unavailabl e Reason for Visit * Auth/Cert (Routine) Specialty Diagnoses / Procedures Referred By Emely cisneros Referred To Contact Diagnoses Abdominal mass RECTUS MUSCLE TUMOR [facility] Cardiac Telemetry [address] [place] [address] Phone: tel: fax: [facility] Cardiac Telemetry [address] [place] [address] Phone: tel: fax: Referral ID Status Reason Start Date Expiration Date Visits Re quested Visits Authorized [id number] 1 1 Encounter Details Date Type Department Care Team (Late st Contact Info) Description 03/31/2025 9:50 AM EDT - 04/02/2025 3:29 PM EDT Hospital Encounter [facility] Cardiac Telemetry [address] [place] [address] Chiqui Macrum MD [address] [facility] [address] [place] [address] Marvin Ordaz PA-Abdiaziz [address] [place] [address] [phone] Aden Nickerson MD [address] [place] [facility] [address] [id number] Danial Campbell DO [address] [place] [facility] [address] [address] Mass in the abdomen Discharge Disposition: Home or Self Care Social History Tobacco Use Types Packs/Day Years Used Date Smoking Tobacco: Never Assessed Comments Unknown Sex and Gender Information Value Date Recorded Sex Assigned at Not on file Legal Sex Female 1:58 PM CDT Gender Identity Not on file Sexual Orientation Not on file documented as of this encounter Last Filed Vital Signs Vital Sign Reading Time Taken Comments Blood Pressure 117/70 04/02/2025 11:50 AM EDT Pulse 56 04/02/2025 11:50 AM EDT Temperature 36.8 C (98.2 F) 04/02/2025 11:50 AM EDT Respiratory Rate 17 04/02/2025 11:50 AM EDT Oxygen Saturation 96% 04/02/2025 11:50 AM EDT Inhaled Oxygen Concentration - - Weight 104.3 kg (230 lb) 03/31/2025 10:09 AM EDT Height 162.6 cm (5' 4 ) 03/31/2025 10:09 AM EDT Body Mass Index 39.48 03/31/2025 10:09 AM EDT documented in this encounter Discharge Summaries * Aden Nickerson MD - 04/02/2025 3:29 PM EDT Patient Name: Shawnee Nagy : 1990 Date of Admission: 03/31/2025 Date of Discharge: 04/02/2025 3:29 PM Primary Care Physician: Provider Not In The System MD Sol Consultations: General surgery Discharge Diagnoses: Rectus muscle mass status post biopsy Abnormal LFTs Anxiety/depression Hypertension Tobacco abuse Seizure disorder Reason for Admission: Abdominal pain with abnormal CT scan Hospital Course: Patient was admitted for workup of lower abdominal mass which has been present for several months. CT scan at outside facility demonstrated a rectus muscle tumor which had progressed in size from October. The patient was transferred here for further evaluation. She has a past medical history significant for uterine cancer, status post partial hysterectomy. General surgery was consulted. And arrange for IR guided biopsy. Labs were notable for WBC 12.8, AST 148, ALT 99, negative hepatitis panel. The patient underwent biopsy without complication. She is medically stable for discharge. I have encouraged her of the importance of follow-up on the pathology results. General surgery will contact her with the pathology results when available, in the next 3-5 business days. Studies Performed: Procedures Performed: CT-guided biopsy of pelvic/abdominal wall lymph node on 04/02 Discharge Medications: Your medication list START taking these medications Instructions Comments Quantity Refills HYDROcodone-acetaminophen 5-325 mg per tablet Commonly known as: NORCO Take 1 tablet by mouth every 6 (six) hours as needed for up to 3 days. Max Daily Amount: 4 tablets 12 tablet 0 nicotine 14 mg/24 hr patch Commonly known as: NICODERM CQ Place 1 patch on the skin daily as needed (nicotine withdrawal) for up to 30 days. 28 patch 0 CONTINUE taking these medications Instructions Comments Quantity Refills albuterol 90 mcg/actuation inhaler Inhale 1 puff by mouth every 4 (four) hours as needed for shortness of breath. 0 lamoTRIgine 25 MG tablet Commonly known as: LaMICtal Take 1 tablet (25 mg total) by mouth nightly. 0 montelukast 10 mg tablet Commonly known as: SINGULAIR Take 1 tablet (10 mg total) by mouth daily. 0 Where to Get Your Medications These medications were sent to [facility] at [address] [facility] [address], [facility] [address] HYDROcodone-acetaminophen 5-325 mg per tablet nicotine 14 mg/24 hr patch Physical Exam Heart RRR Lungs CTAB Abdomen obese, minimal lower abdominal discomfort, no rebound or guarding Discharge Instructions Surgery will contact the patient with pathology results in the next 3-5 days Follow-up with PCP this week with repeat labs: CMP Discharge Diet: Regular Discharge Activity: As tolerated Discharge Follow UP: Contact information for follow-up Provider Not In The System MD Sol Relationship: PCP - General [place] [phone] Next Steps: Follow up in 3 day(s) Instructions: Hosp F/U Heather Rosas DO Specialty: General Surgery [address] [facility] [address] [place] [address] Next Steps: Follow up in 3 week(s) Instructions: Hosp F/U Time Spent: 25 minutes Electronically signed by Aden Nickerson MD, 04/02/25, 6:43 PM EDT documented in this encounter Discharge Instructions * Attachments The following attachments cannot be sent through Care Everywhere. * Pelvic Mass Female (Japanese) * Acetaminophen; Hydrocodone Capsules or Tablets (Japanese) * Nicotine Patches (Japanese) * Needle Biopsy Care After Knla-yt-Iuuw (Japanese) documented in this encounter Medications at Time of Discharge albuterol 90 mcg/actuation inhaler Inhale 1 puff by mouth every 4 (four) hours as needed for shortness of breath. 03/26/2025 lamoTRIgine (LaMICtal) 25 MG tablet Take 1 tablet (25 mg total) by mouth nightly. 03/26/2025 montelukast (SINGULAIR) 10 mg tablet Take 1 tablet (10 mg total) by mouth daily. 03/26/2025 HYDROcodone-acet aminophen (NORCO) 5-325 mg per tablet Take 1 tablet by mouth every 6 (six) hours as needed for up to 3 days. Max Daily Amount: 4 tablets 12 tablet 04/02/2025 nicotine (NICODERM CQ) 14 mg/[address] 1 patch on the skin daily as needed (nicotine withdrawal) for up to 30 days. 28 patch 04/02/2025 documented as of this encounter Progress Notes * Tayla Jackson RN - 04/02/2025 2:52 PM EDT Discharge instructions and paperwork given to patient, verbalizes understanding. Family will transport. * Heather Rosas DO - 04/02/2025 9:09 AM EDT Surgery Progress Note Date of Service: 04/02/2025 Subjective No new complaints. Abdominal pain about the same in her lower abdomen. Objective BP 109/63 Pulse 56 Temp 97.3 ??F (36.3 ??C) (Oral) Resp 19 Ht 1.626 m (5' 4 ) Wt 104.3 kg(230 lb) SpO2 97% BMI 39.48 kg/m?? No intake or output data in the 24 hours ending 04/02/25 0909 General: comfortable, no distress Cardiovascular: regular rate and rhythm Pulmonary: normal work of breathing, lungs clear Abdomen: soft, minimally tender in lower abdomen, nondistended Assessment and Plan 34 y.o. female with history of uterine cancer s/p partial hysterectomy who presents secondary to abdominal pain and rectus mass. - CT abdomen/pelvis showed abdominal wall mass that was unchagned since 2021. - Plan for IR CT guided core biopsy today. - OK for diet after procedure. Attending attestation: Patient seen and examined. She underwent her biopsy this morning. White count 12 from 11. Does have some pain at the site of biopsy but otherwise no new complaints. 34 y.o. female with history of uterine cancer s/p partial hysterectomy who presents secondary to abdominal pain and rectus mass. - Labs reviewed - Procedure note from IR reviewed - No acute surgical needs this admission. Will await pathology. - Patient to follow-up in my office in 2 to 3 weeks for discussion on pathology and surgical planning. Discussed with patient and mother at bedside. - All questions answered. Heather Rosas DO * Edgar Mendosa RN - 04/02/2025 2:19 AM EDT Sepsis Zone Tool provided to patient and/or family at bedside using the Teach- Back and Explanation method, Verbalizes Understanding. * Edgar Mendosa RN - 04/02/2025 2:18 AM EDT Patient Activity Documentation What activity took place?: Up for toileting If patient ambulated, how far did they walk? 20 Patient ambulated to the restroom Was an assistive device used?: No Level of assistance: Independent Signed by: Edgar Mendosa RN * BERNARDO Aiken/Malu - 04/01/2025 3:02 PM EDT Images from the original note were not included. Inpatient Occupational Therapy Screen Patient Name: Shawnee Nagy Birthday: 1990 Date of OT Screen: 04/01/2025 Pt supine in bed with mother present, agreeable to services. Pt states she resides in a trailer with her 3 kids and ex-. Independent at baseline, no AE. Pt is performing ADL's at baseline, skilled services not indicated at this time. Pt only performance deficits is increased pain, however, she is still able to ambulate to bathroom, get dressed, and perform ADL's safely and independently. OT will sign off on orders. Time spent in room: 1:44-1:57. Electronically signed by BERNARDO Aiken/Malu - 04/01/2025 - 3:02 PM EDT * Marvin Ordaz PA-C - 04/01/2025 12:00 PM EDT [facility] Progress Note Patient: Shawnee Nagy Subjective Chief Complaint / Reason for Follow-Up Shawnee Nagy is a 34 y.o. female on hospital day 1. The principal reason for today's follow up visit is Abdominal mass. Interval History Patient seen and evaluated this morning No acute events overnight Hemodynamics and labs for past 24 hours reviewed Patient reports as long as she lays still she has no abdominal pain. States that she has severe pain even if she tries to roll over in bed. No dysuria or frequency. Denied fevers or chills. Denied nausea or vomiting. Afebrile. White blood cell count down to 11,400. Hemoglobin hematocrit are stable 12.7 and 39.5% respectively with platelets now normal 351,000. Her chemistries normal BUN 12.2 normal creatinine 0.68. Normal potassium 4.0. Normal sodium 136. Liver enzymes ALT 76, AST 69 both have decreased versus yesterday. Total bilirubin remains normal 0.5. Still no access to outside radiology images. Review of Systems Complete 12 system review was performed with pertinent positives as above, otherwise negative. Objective Vitals: Temp: [97.5 ??F (36.4 ??C)-98.4 ??F (36.9 ??C)] 97.7 ??F (36.5 ??C) Pulse: [63-71] 70 Resp: [18] 18 BP: (97-107)/(60-72) 107/72 Intake/Output: No intake or output data in the 24 hours ending 04/01/25 1200 Physical exam: Awake, alert, no acute distress. Oriented x 3. Head atraumatic and normocephalic. Neck is supple without lymphadenopathy. Heart regular rate and rhythm without rub murmur or gallop. No JVD. No HJR. Lungs are clear to auscultation bilaterally. No rhonchi, rales, wheezes. No retractions. No accessory muscle use. Abdomen soft, nontender, nondistended. Bowel sounds positive x 4. No rebound or guarding. Does havetenderness with guarding in the suprapubic region. Extremities no edema. No shakes, tremors, seizures. Medications: Scheduled Meds: heparin 5,000 Units subcutaneous Q8H 5,000 Units at 03/31/251814 melatonin 3 mg oral Every Night 3 mg at 03/31/252022 pantoprazole 40 mg oral Daily 40 mg at 04/01/25815 prazosin 1 mg oral Every Night 1 mg at 03/31/252119 sertraline 150 mg oral Daily 150 mg at 04/01/25815 traZODone 50 mg oral Every Night 50 mg at 03/31/252022 Continuous Infusions: Current Facility-Administered Medications Medication Dose Route Frequency Provider Last Rate Last Admin acetaminophen (TYLENOL) tablet 1,000 mg 1,000 mg oral Q6H PRN Marvin Ordaz PA-C albuterol 2.5 mg /3 mL (0.083 %) nebulizer solution 2.5 mg 2.5 mg nebulization Q4H PRN Marvin Ordaz PA-C docusate sodium (COLACE) capsule 100 mg 100 mg oral BID PRN Marvin Ordaz PA-C glycerin (laxative) suppository 1 suppository 1 suppository rectal Daily PRN Marvin Ordaz PA-C heparin injection 5,000 Units 5,000 Units subcutaneous Q8H Marvin Ordaz PA-C 5,000 Units at 03/31/251814 hydrALAZINE (APRESOLINE) injection 5 mg 5 mg intravenous Q6H PRN Marvin Ordaz PA-C HYDROcodone-acetaminophen (NORCO) 5-325 mg per tablet 1 tablet 1 tablet oral Q6H PRN Gerald Ann PA-C 1 tablet at 04/01/25 0947 HYDROmorphone (DILAUDID) injection 0.5 mg 0.5 mg intravenous Q4H PRN Marvin Ordaz PA-C 0.5 mg at 04/01/25 0621 LORazepam (ATIVAN) tablet 1 mg 1 mg oral Q8H PRN Marvin Ordaz PA-C magnesium sulfate IVPB 2 g in sterile water 50 mL (premix) 2 g intravenous Daily PRN Marvin Ordaz PA-C magnesium sulfate IVPB 2 g in sterile water 50 mL (premix) 2 g intravenous BID PRN Marvin Ordaz PA-C melatonin tablet 3 mg 3 mg oral Every Night Marvin Ordaz PA-C 3 mg at 03/31/252022 naloxone (NARCAN) injection 0.2 mg 0.2 mg intravenous Q2 Min PRN Marvin Ordaz PA-C naloxone (NARCAN) injection 0.2 mg 0.2 mg intravenous Q2 Min PRN Marvin Ordaz PA-C nicotine (NICODERM CQ) 14 mg/24 hr patch 1 patch 1 patch transdermal Daily PRN Marvin Ordaz PA-C 1 patch at 03/31/251814 nicotine polacrilex (NICORETTE) gum 4 mg 4 mg oral Q1H PRN Marvin Ordaz PA-C ondansetron (ZOFRAN-ODT) disintegrating tablet 4 mg 4 mg oral Q4H PRN Marvin Ordaz PA-C 4 mg at 04/01/25 1137 pantoprazole (PROTONIX) EC tablet 40 mg 40 mg oral Daily Marvin Ordaz PA-C 40 mg at 04/01/25 0816 polyethylene glycol (GLYCOLAX) packet 17 g 17 g oral Daily PRN Marvin Ordaz PA-C potassium chloride (KLOR-CON) ER tablet 40 mEq 40 mEq oral 4x Daily PRN Marvin Ordaz PA-C prazosin (MINIPRESS) capsule 1 mg 1 mg oral Every Night Marvin Ordaz PA-C 1 mg at 03/31/250 promethazine (PHENERGAN) 12.5 mg in sodium chloride 0.9 % (NS) 50 mL IVPB (Immediate Use Only) 12.5mg intravenous Q6H PRN Marvin Ordaz PA-C sertraline (ZOLOFT) tablet 150 mg 150 mg oral Daily Marvin Ordaz PA-C 150 mg at 04/01/25 0816 sodium chloride 0.9 % infusion 100 mL/hr intravenous Continuous Marvin Ordaz PA-C 100 mL/hr at 03/31/25 1144 100 mL/hr at 03/31/25 1144 sodium chloride flush 10 mL 10 mL intravenous PRN Marvin Ordaz PA-C traZODone (DESYREL) tablet 50 mg 50 mg oral Every Night Marvin Ordaz PA-C 50 mg at 03/31/252022 Radiology: Assessment and Plan Primary Diagnosis: Abdominal pain with abdominal mass. Secondary Diagnosis: Principal Problem: Abdominal mass Abdominal pain Rectus muscle mass - General Surgery consulted. Await imaging to develop plan.. - Continue current pain regimen. Mild transaminitis. - Continue to follow. - If remains elevated consider hepatitis workup. - Review CT when available. Anxiety/depression. - Restart her home Zoloft and trazodone. Hypertension - On prazosin. - Has been having some hypotension. - Hold for now. Diet: Orders Placed This Encounter Procedures Regular Diet DVT ppx: Subcu heparin Code Status: Full Code Discharge Planning: Barriers to discharge: Pending medical improvement Expected (tentative) discharge in 3-5 days Expected discharge disposition (home, SNF/Rehab, etc): TBD Signed: Danielle Ordaz PA-C [facility] * Godfrey Cas Lee, PT - 04/01/2025 11:36 AM EDT Images from the original note were not included. Inpatient Physical Therapy Initial Evaluation Patient Name: Shawnee Nagy Date of : 1990 Date of Evaluation: 04/01/25 In Time 1136 Out Time 1200 Session Duration 24 minutes Time spent for nursing collaboration, chart and systems review, and clinical reasoning. 5 minutes Total Time 29 minutes Pt is a 34 y.o. female admitted on 03/31/2025 with Abdominal mass [R19.00]. No past medical history on file. No past surgical history on file. General Visit Type: Initial Evaluation Approved By: Nurse Boland Patient Disposition Upon Entry: Supine in bed, Call Light/Pull Cord in reach, HOB >30 degrees Patient Verified By: Name and Date of Precautions Weight-Bearing Status: No Restrictions Precautions: None Isolation Precautions: Standard Subjective Subjective: Patient agreeable to physical therapy evaluation and treatment. Pain Yes. 0-10 SCALE Pain location: Lower abdomen 1/10 Cognition Overall cognitive status: Patient is awake and alert, attending to directions appropriately, demonstrating good problem solving skills, and aware of any deficits or impairments, if present. Arousal/Alertness: Appropriate response to stimuli Orientation Level: Oriented x4 Following commands: Follows all commands and directions without difficulty Home Living Pt reports was living at home with and independent. No AD and no hx of falls in last 6mo Objective Vitals Did not assess Basic Strength Assessment BLE WFL Range of Motion Assessment BLE WNL Sensation Intact to light touch to BLE dermatome L4-S1 Coordination Tapping (foot): LLE (4) Normal performance, RLE (4) Normal performance Functional Mobility Bed Mobility Supine to Sit: independent Sit to Supine: independent Transfers Sit to Stand: independent Stand to Sit: independent Gait ~180ft with RW Rebecca Use of RW for comfort only but not necessary for gait training Stair Management Worked on transfers, gait training only Wheelchair Mobility Worked on transfers, gait training only Outcome Measures AM-PAC Basic Mobility Inpatient Short Form How much difficulty does the patient currently have: Turning over in bed (including adjusting bedclothes, sheets, and blankets)? (3) A little (can do the activity without assistive devices or help from another person, but requires A LITTLE more time and effort) Sitting down on and standing up from a chair with arms (e.g., wheelchair, bedside commode, etc.)? (3) A little (can do the activity without assistive devices or help from another person, but requiresA LITTLE more time and effort) Moving from lying on back to sitting on side of bed? (3) A little (can do the activity without assistive devices or help from another person, but requires A LITTLE more time and effort) How much help from another person does the patient currently need: Moving to and from a bed to a chair (including a wheelchair)? (4) None (Modified independent/Independent) Need to walk in hospital room? (4) None (Modified independent/Independent) Climbing 3-5 steps with a railing? (3) A little (Minimal/Contact guard/Supervision/Setup) Score Raw score=20 t-Scale score=47.67 Standard error=4.06 [facility] 0-100%=35.83% MDC=4.72 A raw score of >= 16 is significantly associated with increased odds of discharge to home in addition to consideration made for the patient's cognition and social determinants of health. Balance Static/dynamic sitting and static/dynamic standing balance grades Balance Grade Sitting Static Normal - patient able to maintain steady balance without handhold support Sitting Dynamic Normal - patient accepts maximal challenge and can shift weight easily within full range in all directions Standing Static Normal - patient able to maintain steady balance without handhold support Standing Dynamic Good - patient accepts moderate challenge; able to maintain balance while picking object off floor Activity Tolerance Patient tolerated activity/intervention well with no complaints or adverse events. Treatment Pt reports some rigidity and pain to lower abdomen but good tolerance for functional mobility. Encouraged cont amb with RN notification for safety Assessment Pt admitted for possible abdominal rectus mass and noted some pain but good tolerance for functional mobiltiy ambulating ~180ft with RW modified independent. RW only used for comfort at this time. Nofurther skilled PT services needed at this time Problems: Pain Rehab potential: Skilled physical therapy services are not indicated at this time. Plan Treatment Plan: No skilled physical therapy services are indicated at this time. PT Frequency/Duration: Discontinue Recommendations Discharge recommendations: Discharge home/prior living situation with no further follow-up. Patientat baseline level of functioning. DME recommendations: Patient has no DME/adaptive equipment discharge needs at this time. Education Patient educated on safety and role of physical therapy and following, they were able to verbalize understanding. No further questions or concerns stated. Patient Disposition Upon Leaving Supine in bed, Call Light/Pull Cord in reach, Nursing aware/notified, HOB >30 degrees, Visitor/Family present If this patient discharges prior to next therapy session, this note serves as the patient's discharge summary. Electronically signed by Godfrey Lee, PT - 04/01/25 - 12:39 PM EDT PT Evaluation Completed * Heather Rosas, DO - 04/01/2025 11:04 AM EDT Surgery Progress Note Date of Service: 04/01/2025 Subjective No new complaints. Abdominal pain about the same in her lower abdomen. Objective BP 107/72 Pulse 70 Temp 97.7 ??F (36.5 ??C) Resp 18 Ht 1.626 m (5' 4 ) Wt 104.3 kg (230 lb) SpO2 94% BMI 39.48 kg/m?? No intake or output data in the 24 hours ending 04/01/25 1104 General: comfortable, no distress Cardiovascular: regular rate and rhythm Pulmonary: normal work of breathing, lungs clear Abdomen: soft, minimally tender in lower abdomen, nondistended Assessment and Plan 34 y.o. female with history of uterine cancer s/p partial hysterectomy who presents secondary to abdominal pain and rectus mass. - CT images not loading with disc, discussed with radiology. Will attempt to have images pushed from OSH. If not able, will need to repeat CT abdomen/pelvis - No acute surgical intervention warranted today. Unable to palpate mass on exam. Will await imaging before making formal plan regarding rectus mass. Alla Cedillo PA-C Agree with above. Images were able to be pushed through. Reviewed this CT along with her CT imagingfrom 2021 with radiology. Unchanged in size since that time. Possibly a desmoid tumor but would like biopsy prior to excision, especially with patients malignancy history. Plan for core biopsy by IR this admission. Discussed with them and order placed. Once obtained, will await path and then surgery as outpatient once path results. All questions answered. Heather Rosas DO documented in this encounter H&P Notes * Marvin Ordaz PA-C - 03/31/2025 10:48 AM EDT [facility] Physician History & Physical Patient Name: Shawnee Nagy : 1990 Primary Care Physician: Provider Not In The System MD Sol Date of Admission: 03/31/2025 Subjective Chief Complaint: No chief complaint on file. History Of Present Illness 34-year-old female who reports a past medical history significant for seizure disorder, stroke, panic attacks, hypertension, asthma and history of uterine cancer status post hysterectomy who presented to outside hospital secondary to abdominal pain. A CT scan demonstrated a rectus muscle tumor thathad gotten larger since October. Subsequently transferred to [facility] for higher level of care. Patient states she has been aware of her lower abdominal mass for several months. She states that 2days ago she was walking around [facility] when she developed severe sharp stabbing lower abdominal pain that prevented her from walking. She separately presented to the outside hospital emergency department. CT scan done with results as above. Patient reports sharp stabbing pain and points to her suprapubic region. States that the pain at its worst is 7/10 and morphine brings it down 3-5/10.Patient states pain is antagonized by movement. Pain does not radiate. She denied any fever or chills. No coughing wheezing or shortness of air. States that she does have history of asthma and uses albuterol inhaler as needed. No chest pain. Patient describes her CVA as blacking out . States that the only sequela from her stroke is difficulty with her memory. Same with her seizure disorder and notes witnesses have told her she has jerking movements during her seizure. Does not take any medication. Reports night terrors and panic attacks. Patient with white count 12,800. Neutrophil predominant. Hemoglobin and hematocrit normal 13.4 and 40.3% respectively. Platelets elevated 396,000. Chemistries normal/unremarkable. Noted elevation in ALT to 99 and AST 148 which are only minor elevations. CT report, images not available to evaluate liver for any lesions. ED course: At outside hospital, patient received morphine for pain relief. We contacted transfer center. No beds at . Subsequently transferred here. ROS: Full 10 point ROS performed and negative unless mentioned in above HPI Past Medical History She has no past medical history on file. Surgical History She has no past surgical history on file. Family History She family history is not on file. Social History She has no history on file for tobacco use, alcohol use, and drug use. Allergies Patient has no known allergies. Medications Current Outpatient Medications Medication Instructions albuterol 90 mcg/actuation inhaler 1 puff, Every 4 hours PRN lamoTRIgine (LAMICTAL) 25 mg, Every Night montelukast (SINGULAIR) 10 mg, Daily Objective Assessment Last Recorded Vitals Blood pressure 115/70, pulse 68, temperature 98.4 ??F (36.9 ??C), height 1.626 m (5' 4 ), weight 104.3 kg (230 lb). Body mass index is 39.48 kg/m??. Physical Exam Awake, alert, mild to moderate distress. Oriented x 3. Head atraumatic and normocephalic. Neck is supple without lymphadenopathy. Heart regular rate and rhythm without rub murmur or gallop. No JVD. No HJR. Lungs are clear to auscultation bilaterally. No rhonchi, rales, wheezes. No retractions. No accessory muscle use. Abdomen soft, bowel sounds positive x 4. No tenderness in the abdominal quadrants but does have tenderness in the suprapubic region. No rebound, guarding. Extremities no edema. Cranial nerves II through XII grossly intact. No shakes, tremors, seizures. Imaging: Not available for viewing at this time. Labs: Assessment/Plan Abdominal pain Rectus muscle mass - General Surgery consult. - Pain medication. Mild transaminitis. - Continue to follow. - If remains elevated consider hepatitis workup. - Review CT when available. Anxiety/depression. - Restart her home Zoloft and trazodone. Hypertension - On prazosin. Will restart. Patient will require inpatient admission for greater than 2 midnights for work- up and stabilizationof their condition Medical Decision Making: Patient presenting with abdominal pain Case discussed with ED provider, decision made to admit to hospital Patient with 1 or more chronic illnesses with severe exacerbation or 1 acute or chronic illness or injury that poses a threat to life or bodily function Lab results above reviewed independently, AM labs ordered, independent interpretation of imaging asnoted above Diet: Regular Diet DVT prophylaxis: Heparin, Therapeutic anticoagulation, and SCD Code Status: Full Code Electronically signed by: Marvin Ordaz PA-C, 03/31/2025 at 10:48 AM Cosigned by Markie Barrera MD at 04/04/2025 5:15 PM EDT documented in this encounter Procedure Notes * Kevon Camacho PA-C - 04/02/2025 9:18 AM EDT Pre-Op/Procedure Diagnosis: Abnormal pelvic wall mass Post-Op Diagnosis: Same Procedure Performed: CT guided biopsy Procedural PA: Kevon Camacho PA-C Supervising Radiologist: Satya Montano MD Sedation: Versed and Fentanyl Findings: Technically successful biopsy of pelvic and abdominal wall lymph node. Complications: No immediate complications EBL: Trace/ not significant Specimen(s) removed: 5 - 18 gauge Core Bx(s) Full report to follow. Cosigned by Alexis Montano MD at 04/02/2025 9:57 AM EDT * Kevon Camacho PA-C - 04/02/2025 8:49 AM EDT ASA Mallampati score: Immediately prior to the procedure, I performed an ASA and or Mallampati assessment. ASA 2 - Patient with mild systemic disease with no functional limitations Mallampati score: II (hard and soft palate, upper portion of tonsils anduvula visible) Kevon Camacho PA-C 8:50 AM documented in this encounter Consult Notes * Heather Rosas, - 03/31/2025 1:41 PM EDTAssociated Order(s): FS_MODEL_IP IP CONSULT TO GENERAL SURGERY General Surgery Consult Note Reason for Consult Rectus mass Chief Complaint Right groin pain History of Present Illness 34 year old female who presents due to right rectus mass. Significant history of seizure disorder, stroke, panic attacks, hypertension, asthma and history of uterine cancer status post partial hysterectomy. Patient presents due to worsening abdominal pain. She has had a lower abdominal mass for some time. She reports a partial hysterectomy 6 years ago. During that, they noted an abnormality on anovary and wanted further workup. They report due to insurance issues and rescheduling this was not completed. She has had pain in her lower abdomen for months but this worsened the past few days. This is worse with movement. Of note, also notes spinal mass where she underwent radiation treatment at a few years ago. Past Medical History Seizure disorder, stroke, panic attacks, hypertension, asthma and history of uterine cancer status post hysterectomy Past Surgical History Partial hysterectomy Family History Patient's family history is not on file. Allergies Patient has No Known Allergies. Medications Patient has a current medication list which includes the following prescription(s): albuterol, lamotrigine, and montelukast, and the following Facility-Administered Medications: acetaminophen, albuterol, docusate sodium, glycerin (laxative), heparin, hydralazine, hydromorphone, lorazepam, magnesium sulfate, magnesium sulfate, melatonin, naloxone, naloxone, nicotine, nicotine polacrilex, pantoprazole, polyethylene glycol, potassium chloride, prazosin, promethazine, sertraline (ZOLOFT) tablet 150mg, sodium chloride 0.9 % (ns), Insert Peripheral IV AND Saline Lock IV AND sodium chloride, and trazodone. Review of Systems 10 point ROS performed and negative unless listed above in HPI Physical Exam BP 115/70 Pulse 68 Temp 98.4 ??F (36.9 ??C) Ht 1.626 m (5' 4 ) Wt 104.3 kg (230 lb) BMI 39.48 kg/m?? Constitutional: comfortable HEENT: atraumatic, anicteric Cardiovascular: regular rate and rhythm Respiratory: normal work of breathing GI: abdomen soft, morbidly obese, minimal right groin tenderness, no evidence of hernia, no palpable mass. Musculoskeletal: extremities warm, no cyanosis or edema, Skin: free of rashes, lesions, ulcers or wounds Psych: A&Ox3, appropriate affect, cooperative Neuro: normal strength and sensation No results found for: CBC Recent Labs 03/31/25 1206 WBC 12.8* HGB 13.4 HCT 40.3 PLT 396* Recent Labs 03/31/25 1206 NA 136 K 3.8 CL 104 CO2 25 CREATININE 0.82 BUN 14.8 CALCIUM 8.7 Recent Labs 03/31/25 1206 PROT 7.3 ALBUMIN 3.6 BILITOT 0.8 ALT 99* AST 148* ALKPHOS 113 No results for input(s): PROTIME , PTT , INR in the last 72 hours. No results for input(s): GLU , POCGLUC in the last 72 hours. Radiology Results (last day) No results found for the last 24 hours. Assessment/Plan 34 y.o. female with history of uterine cancer s/p partial hysterectomy who presents secondary to abdominal pain and rectus mass. - Reviewed outside facility note. - CT images not loading with disc, discussed with radiology. Will have to obtain and cloud from outside facility vs repeat imaging here tomorrow. - No acute surgical intervention warranted today. Unable to palpate mass on exam. Will await imaging before making formal plan regarding rectus mass. - All questions answered. Heather Rosas DO documented in this encounter Miscellaneous Notes * Documentation Clarification - Aden Nickerson MD - 04/02/2025 3:29 PM EDT CLINICAL DOCUMENTATION CLARIFICATION FORM: Dear Provider: Aden Nickerson MD Date / Time: 04/04/2025 10:08 AM Please exercise your independent, professional judgment in responding to the clarification form. Clinical indicators are provided on the bottom of this form for your review Please check appropriate box(es): Based on the pathological findings Endometriosis of abdominal wall , is this a confirmed diagnosis for this patient? [x] Yes, this is a Primary diagnosis for this patient [] Other: (please enter/write your response) [] Unable to determine Provider Signature: Date/Time: For continuity of documentation, please document condition throughout progress notes and discharge summary. Thank You. To be completed by CDI/Coding staff for Provider review: Present Clinical Indicators - Signs / Symptoms / Labs Results and Location in Medical Record [x] Presented to outside hospital secondary to abdominal pain - As per H&P on 03/31 by Marvin Rodriguez PA-C [x] Rectus muscle mass - As per consult on 03/31 by Heather Rosas DO [x] Surgery will contact the patient with pathology results in the next 3-5 days - As per dischargesummary on 04/02 by Aden Nickerson MD [x] Fibromuscular tissue containing deposits of endometriosis - As per path report on 04/02 Present Risk Factors Results and Location in Medical Record [x] Outside facility demonstrated a rectus muscle tumor - As per discharge summary on 04/02 by Aden Nickerson MD [x] Age - As per H&P on 03/31 by Marvin Ordaz PA-C Present Treatments Results and Location in Medical Record [x] General Surgery consult - As per H&P on 03/31 by Marvin Ordaz PA-C [x] Hydromorphone (DILAUDID) injection 0.5 mg - As per medication orders on (03/31, 04/02) CDS/Chemical Dependency Therapist Signature: Gela Fish Email ID #: [email or web address] Date/Time: 04/04/2025 10:08 AM This is a permanent part of the Medical Record 2021 [facility] Reviewed: 11/2023 * Plan of Care - Edgar Mendosa RN - 04/02/2025 2:14 AM EDT Problem: Knowledge Deficit Goal: Patient/family/caregiver demonstrates understanding of disease process, treatment plan, medications, and discharge instructions Description: Complete learning assessment and assess knowledge base. Outcome: Progressing Problem: Insufficient Fluid Volume Goal: Fluid and electrolyte balance are achieved/maintained Description: Assess and monitor vital signs (orthostatic vitals if applicable), fluid intake and output, urine color, labs, skin turgor, mucous membranes, mental status, and gastrointestinal system for nausea, vomiting and diarrhea. Monitor for signs and symptoms of hypovolemia (tachycardia, rapid breathing, decreased urine output, postural hypotension, confusion, syncope). Collaborate with interdisciplinary team and initiate plan and interventions as ordered. Outcome: Progressing Problem: Infection Goal: Signs and symptoms of infections are decreased or avoided Description: Assess and monitor patient for signs and symptoms of infection such as redness, warmth, discharge, and increased body temperature. Monitor and report abnormal lab values (ex-CBC and diff, serum protein, serum albumin, and cultures). Wash hands properly before and after each patient care activity. Utilize standard precautions and use personal protective equipment (PPE) as indicated. Ensure aseptic care of all intravenous lines and invasive tubes/drains. Obtain immunization and exposure to communicable diseases history. Collaborate with interdisciplinary team and initiate plan and interventions as ordered. Outcome: Progressing Problem: Pain Goal: Patient's pain/discomfort is manageable Description: Assess and monitor patient's pain using appropriate pain scale. Collaborate with interdisciplinary team and initiate plan and interventions as ordered. Re-assess patient's pain level after pain management intervention. Outcome: Progressing Problem: Potential for Developing a Blood Clot Goal: Tissue perfusion is adequate - venous Description: Assess and monitor skin color and temperature, skin integrity, pulses, capillary refill, edema, pain in extremities, Homans' sign, labs (D- dimer), and diagnostic tests (ultrasound, CT scan, VQ scan). Monitor for signs and symptoms of deep vein thrombosis (swelling of calf/thigh, redness, pain, tenderness). Monitor for signs and symptoms of pulmonary embolism (dyspnea, tachypnea, tachycardia). Collaborate with interdisciplinary team and initiate plans and interventions as needed Outcome: Progressing Problem: Potential for Infection Goal: Remains infection free Description: Assess and monitor vital signs, skin (color, moisture, integrity, turgor), respiratorystatus, urinary and gastrointestinal status, and labs (WBC, cultures). Administer antibiotics and antipyretics as ordered. Ensure aseptic care of all intravenous lines, invasive tubes/drains and wounds. Monitor for signs and symptoms of infection (redness, warmth, discharge, increased body temperature). Wash hands properly before and after each patient care activity. Follow isolation guidelines per hospital protocol/policy. Collaborate with interdisciplinary team and initiate plan and interventions as ordered. Outcome: Progressing Problem: Anxiety Goal: Anxiety is at manageable level Description: Assess and monitor patient's anxiety level. Monitor for signs and symptoms of anxiety both physical and emotional (heart palpitations, chest pain, shortness of breath, headaches, nausea,feeling jumpy, restlessness, irritable, apprehensive). Collaborate with interdisciplinary team and initiate plan and interventions as ordered. Outcome: Progressing Problem: Inadequate Coping Goal: Demonstrates ability to cope effectively Description: Patient is able to verbalize feelings related to emotional state. Outcome: Progressing * ACP (Advance Care Planning) - Marvin Ordaz PA-C - 03/31/2025 12:32 PM EDT Patient with past medical history of seizure disorder, stroke, panic attack, hypertension, asthma, and a history of uterine cancer status post hysterectomy who presented to an outside hospital secondary to severe abdominal pain. 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 Prior to this, patient had been enjoying relatively good health. She has 1 daughter and 2 sons at home. We discussed advanced directives. If her heart stops beating she wishes for measures to be performed to restart her heart. She also would want to be put on mechanical ventilation should she stop breathing. Based on above discussion with the patient, who is awake alert and oriented enough to make her own medical decisions, order for full code has been entered into the medical record. documented in this encounter Plan of Treatment Upcoming Encounters Date Type Department Care Team (Late st Contact Info) Description 06/04/2025 10:40 AM EDT Office Visit [facility] [address] [place] [address] [id number] Heather Rosas, DO [address] [facility] [address] [place] [address] documented as of this encounter Procedures Procedure Name Priority Date/Time Associated Diagnosis Comments CT BIOPSY SITE ABDOMEN Routine 04/02/2025 9:15 AM EDT TISSUE EXAM (TAMMY AR) AP Routine 04/02/2025 8 :24 AM EDT Mass in the abdomen CBC HEMOGRAM (SJ-BKR) Routine 04/02/2025 4:40 AM EDT HEPATITIS PANEL, ACUTE Add-On 04/02/2025 4:40 AM EDT MAGNESIUM Routine 04/02/2025 4:40 AM EDT COMPREHENSIVE METABOLIC PANEL Routine 04/02/2025 4:40 AM EDT CBC HEMOGRAM (SJ-BKR) Routine 04/01/2025 3:50 AM EDT MAGNESIUM Routine 04/01/2025 3:50 AM EDT COMPREHENSIVE METABOLIC PANEL Routine 04/01/2025 3:50 AM EDT CBC W/ AUTO DIFF Routine 03/31/2025 12:0 6 PM EDT COMPREHENSIVE METABOLIC PANEL Routine 03/31/2025 12:06 PM EDT documented in this encounter Results * CT BIOPSY SITE ABDOMEN (04/02/2025 9:15 AM EDT) Anatomical Region Laterality Modality Abdomen Computed Tomogra phy (CT) 04/02/2025 4:16 PM EDT Impressions 04/02/2025 4:19 PM EDT Status post CT guided biopsy of an anterior pelvic wall mass without immediate complication. PROCEDURAL SEDATION: 1 mg of IV Versed and 50 mcg of Fentanyl were administered. Continuous vital sign monitoring was used. An RN was present during the sedation process. Overall sedation time was 15 minutes. Images reviewed, interpreted, and dictated by Dr. Alli Montano. Transcribed by Candido Camacho PA-C. Narrative 04/02/2025 4:[address] GUIDED ANTERIOR PELVIC WALL MASS BIOPSY HISTORY: Anterior pelvic wall mass. ATTENDING PHYSICIAN: Dr. Montano PHYSICIAN FOIL CUTTER: Candido Camacho PA-C PROCEDURE: This study was performed with techniques to keep radiation doses as low as reasonably achievable, (ALARA). Individualized dose reduction techniques using automated exposure control or adjustment of mA and/or kV according to the patient size were employed. After informed consent was obtained and a timeout was performed, the patient was prepped and draped in usual sterile fashion over the anterior pelvis. Utilizing local anesthesia and sterile technique with a coaxial system, access to lesion was obtained. 5 18-gauge core biopsy passes were made. Diagnostic material was confirmed by pathology. Post biopsy films demonstrate no evidence of acute complication. The patient received mild procedural sedation. The patient tolerated the procedure well and left the department in good condition. Procedure Note Alexis Montano MD - 04/02/2025 CT GUIDED ANTERIOR PELVIC WALL MASS BIOPSY HISTORY: Anterior pelvic wall mass. ATTENDING PHYSICIAN: Dr. Montano PHYSICIAN FOIL CUTTER: Candido Camacho PA-C PROCEDURE: This study was performed with techniques to keep radiation doses as low as reasonably achievable, (ALARA). Individualized dose reduction techniques using automated exposure control or adjustment of mA and/or kV according to the patient size were employed. After informed consent was obtained and a timeout was performed, the patient was prepped and draped in usual sterile fashion over the anterior pelvis. Utilizing local anesthesia and sterile technique with a coaxial system, access to lesion was obtained. 5 18-gauge core biopsy passes were made. Diagnostic material was confirmed by pathology. Post biopsy films demonstrate no evidence of acute complication. The patient received mild procedural sedation. The patient tolerated the procedure well and left the department in good condition. IMPRESSION: Status post CT guided biopsy of an anterior pelvic wall mass without immediate complication. PROCEDURAL SEDATION: 1 mg of IV Versed and 50 mcg of Fentanyl were administered. Continuous vital sign monitoring was used. An RN was present during the sedation process. Overall sedation time was 15 minutes. Images reviewed, interpreted, and dictated by Dr. Alli Montano. Transcribed by Candido Camacho PA-C. Alla Cedillo PA-C IMG CT ORDERABLES Final Res ult * Tissue Exam (04/02/2025 8:24 AM EDT) AP RESULT See Note: [facility] Comment: [facility] [address] [place] [address] or [phone] Sheldon Navarrete M.D., Mortgage Field Inspector PATIENT NAME LABORATORY NO. [id number] GOMES [id number] AGE SEX SSN CLIENT REF # [place] [id number] 1990 F [id number] 1 [facility] REQUESTING Kristopher [place] [address] ALLA CEDILLO JOSHUA DATE COLLECTED DATE RECEIVED DATE REPORTED 04/02/2025 04/02/2025 04/03/2025 DIAGNOSIS: SOFT TISSUE, ABDOMINAL WALL MASS: Fibromuscular tissue containing deposits of endometriosis Negative for malignancy CLINICAL HISTORY: Intra-abdominal and pelvic swelling, mass and lump, unspecified site SPECIMENS RECEIVED: SOFT TISSUE, ABDOMINAL WALL MASS MICROSCOPIC DESCRIPTION: Tissue blocks are prepared and slides are examined microscopically on all specimens. See diagnosis for details. Professional interpretation rendered by Tena Waldrop M.D., F.C.A.P. at [facility], [address] [place] [address]. GROSS DESCRIPTION: Received in formalin labeled abdominal wall biopsy are multiple core biopsies of núñez-white soft tissue averaging 1.9 cm in length and 0.1 cm in diameter, submitted entirely in blocks A1-2. MTS Immediate evaluation: Not adequate. The patient ID is verified, stain good, verbal to DAYAMI Rey by JACINDA Marroquin at [facility] REVIEWED, DIAGNOSED AND ELECTRONICALLY SIGNED BY: Tena Waldrop M.D., F.C.A.P. CPT CODES: [id number], [id number] Tissue ABDOMEN / Unknown 04/02/2025 8:24 AM EDT us Alla Cedillo PA-C PATHOLOGY/CYTOLOGY ORDERABL ES Final Result Performing Organization Address [facility] Co de Phone Number [facility] [address] * Hepatitis panel, acute (04/02/2025 4:40 AM EDT) Hep A IgM Nonreactive Nonreactive 04/02/2025 2:04 PM EDT [facility] Hep B C IgM Nonreactive Nonreactive 04/02/2025 2:04 PM EDT [facility] Hepatitis B surface antigen Nonreactive Nonreactive 04/02/2025 2:04 PM EDT [facility] Hepatitis C Ab Nonreactive Nonreactive 04/02/20 2:04 PM EDT [facility] Comment: Envelope Addresser recommends confirmatory testing on all reactives and equivocals. Blood Venipuncture / Unknown 04/02/2025 4:40 AM EDT 04/02/2025 5:05 AM EDT us Aden Nickerson MD LAB BLOOD ORDERABLES Final R esult Performing Organization Address [facility]/ZIP Co de Phone Number [facility] [address] [phone] * (ABNORMAL) Comprehensive metabolic panel (04/02/2025 4:40 AM EDT) Sodium 142 136 - 145 meq/L 04/02/2025 5:46 AM EDT [facility] Potassium 4.1 3.4 - 5.1 meq/L 04/02/2025 5:46 AM EDT [facility] Chloride 109 98 - 112 meq/L 04/02/2025 5:46 AM EDT [facility] CO2 26 22 - 29 meq/L 04/02/2025 5:46 AM EDT [facility] Calcium 8.4 8.4 - 10.2 mg/dL 04/02/2025 5:46 AM EDT [facility] Glucose 86 74 - 100 mg/dL 04/02/2025 5:46 AM [facility] BUN 9.0 7.0 - 18.7 mg/dL 04/02/2025 5:46 AM [facility] Creatinine 0.80 0.57 - 1.11 mg/dL 04/02/2025 5:46 AM [facility] BUN/Creatinine 11 8 - 20 04/02/2025 5:46 AM [facility] eGFR (mL/min/1.73m2) 99 >=60 mL/min/1. 73m2 04/02/2025 5:46 AM [facility] Albumin 3.1(L) 3.5 - 5.0 g/dL 04/02/2025 5:46 AM [facility] Alkaline Phosphatase 91 40 - 150 U/L 04/02/2025 5:46 AM [facility] ALT 48(H) <=34 U/L 04/02/2025 5:46 AM [facility] Comment: ALT2 reagent used for testing does not contain P5P supplementation and therefore may miss ALT elevations in patients with B6 deficiency. This population may be as high as 10% in the [place], with risk factors including malabsorption, drug interactions, and alcoholic hepatitis. AST 31 11 - 34 U/L 04/02/2025 5:46 AM [facility] Comment: AST2 reagent used for testing does not contain P5P supplementation and therefore may miss AST elevations in patients with B6 deficiency. This population may be as high as 10% in the [place], with risk factors including malabsorption, drug interactions, and alcoholic hepatitis. Total Bilirubin 0.2 0.2 - 1.2 mg/dL 04/02/2025 5:46 AM [facility] Protein, Total 6.4 6.4 - 8.3 g/dL 04/02/2025 5:46 AM [facility] Globulin 3.3 2.5 - 4.1 g/dL 04/02/2025 5:46 AM [facility] Anion Gap 11 4 - 12 04/02/2025 5:46 AM [facility] A/G Ratio 0.9 0.7 - 1.9 04/02/2025 5:46 AM EDT [facility] Osmolality Calc 281.1 mOsm/kg 5:46 AM EDT [facility] Blood Venipuncture / Unknown 04/02/2025 4:40 AM EDT 04/02/2025 5:05 AM EDT Marvin Ordaz PA-C LAB BLOOD ORDERABLES Final Re sult [facility] [address] [phone] * (ABNORMAL) CBC - Hemogram (SJ-BKR) (04/02/2025 4:40 AM EDT) WBC 12.0(H) 4.0 - 10.0 K/ L 04/02/2025 5:19 AM EDT [facility] RBC 4.22 3.93 - 5.22 M/ L 04/02/2025 5:19 AM EDT [facility] Hemoglobin 12.1 11.2 - 15.7 GM/DL 04/02/2025 5:19 AM EDT [facility] Hematocrit 37.9 34.1 - 44.9 % 04/02/2025 5:19 AM EDT [facility] MCV 90 79 - 95 fL 04/02/2025 5:19 AM EDT [facility] MCH 28.7 25.6 - 32.2 pg 04/02/2025 5:19 AM EDT [facility] MCHC 31.9(L) 32.2 - 35.5 GM/DL 04/02/2025 5:19 AM EDT [facility] RDW 13.3 11.7 - 14.4 % 04/02/2025 5:19 AM EDT [facility] [facility] Platelets 347 140 - 375 K/CU MM 04/02/2025 5:19 AM EDT [facility] MPV 10.2 9.4 - 12.3 fL 04/02/2025 5:19 AM EDT [facility] Blood Venipuncture / Unknown 04/02/2025 4:40 AM EDT 04/02/2025 5:07 AM EDT us Wong Alexis STOCK-Abdiaziz LAB BLOOD ORDERABLES Final Re sult Performing Organization Address City/[facility]/ZIP Co de Phone Number [facility] [address] [phone] * Magnesium (04/02/2025 4:40 AM EDT) Magnesium 1.8 1.6 - 2.6 mg/dL 04/02/2025 5:42 AM EDT [facility] Blood Venipuncture / Unknown 04/02/2025 4:40 AM EDT 04/02/2025 5:05 AM EDT us Wong Alexis STOCK-C LAB BLOOD ORDERABLES Final Re sult Performing Organization Address [facility] Co de Phone Number [facility] [address] [phone] * (ABNORMAL) Comprehensive metabolic panel (04/01/2025 3:50 AM EDT) Sodium 136 136 - 145 meq/L 04/01/2025 5:31 AM EDT [facility] Potassium 4.0 3.4 - 5.1 meq/L 04/01/2025 5:31 AM EDT [facility] Chloride 107 98 - 112 meq/L 04/01/2025 5:31 AM EDT [facility] CO2 23 22 - 29 meq/L 04/01/2025 5:31 AM EDT [facility] Calcium 8.3(L) 8.4 - 10.2 mg/dL 04/01/2025 5:31 AM EDT [facility] Glucose 103(H) 74 - 100 mg/dL 04/01/2025 5:31 AM EDT [facility] BUN 12.2 7.0 - 18.7 mg/dL 04/01/2025 5:31 AM EDT [facility] Creatinine 0.68 0.57 - 1.11 mg/dL 04/01/2025 5:31 AM [facility] BUN/Creatinine 18 8 - 20 04/01/2025 5:31 AM [facility] eGFR (mL/min/1.73m2) 117 >=60 mL/min/1. 73m2 04/01/2025 5:31 AM [facility] Albumin 3.3(L) 3.5 - 5.0 g/dL 04/01/2025 5:31 AM [facility] Alkaline Phosphatase 100 40 - 150 U/L 04/01/2025 5:31 AM [facility] ALT 76(H) <=34 U/L 04/01/2025 5:31 AM [facility] Comment: ALT2 reagent used for testing does not contain P5P supplementation and therefore may miss ALT elevations in patients with B6 deficiency. This population may be as high as 10% in the [place], with risk factors including malabsorption, drug interactions, and alcoholic hepatitis. AST 69(H) 11 - 34 U/L 04/01/2025 5:31 AM [facility] Comment: AST2 reagent used for testing does not contain P5P supplementation and therefore may miss AST elevations in patients with B6 deficiency. This population may be as high as 10% in the [place], with risk factors including malabsorption, drug interactions, and alcoholic hepatitis. Total Bilirubin 0.5 0.2 - 1.2 mg/dL 04/01/2025 5:31 AM [facility] Protein, Total 6.6 6.4 - 8.3 g/dL 04/01/2025 5:31 AM [facility] Globulin 3.3 2.5 - 4.1 g/dL 04/01/2025 5:31 AM [facility] Anion Gap 10 4 - 12 04/01/2025 5:31 AM [facility] A/G Ratio 1.0 0.7 - 1.9 04/01/2025 5:31 AM [facility] Osmolality Calc 272.0 mOsm/kg 5:31 AM [facility] Blood Venipuncture / Unknown 04/01/2025 3:50 AM EDT 04/01/2025 4:24 AM EDT Marvin Ordaz PA-C LAB BLOOD ORDERABLES Final Re sult [facility] [address] [phone] * (ABNORMAL) CBC - Hemogram (SJ-BKR) (04/01/2025 3:50 AM EDT) WBC 11.4(H) 4.0 - 10.0 K/ L 04/01/2025 4:31 AM EDT [facility] RBC 4.47 3.93 - 5.22 M/ L 04/01/2025 4:31 AM EDT [facility] Hemoglobin 12.7 11.2 - 15.7 GM/DL 04/01/2025 4:31 AM EDT [facility] Hematocrit 39.5 34.1 - 44.9 % 04/01/2025 4:31 AM EDT [facility] MCV 88 79 - 95 fL 04/01/2025 4:31 AM EDT [facility] MCH 28.4 25.6 - 32.2 pg 04/01/2025 4:31 AM EDT [facility] MCHC 32.2 32.2 - 35.5 GM/DL 04/01/2025 4:31 AM EDT [facility] RDW 13.2 11.7 - 14.4 % 04/01/2025 4:31 AM EDT [facility] Platelets 351 140 - 375 K/CU MM 04/01/2025 4:31 AM EDT [facility] MPV 10.2 9.4 - 12.3 fL 04/01/2025 4:31 AM EDT [facility] Blood Venipuncture / Unknown 04/01/2025 3:50 AM EDT 04/01/2025 4:22 AM EDT Marvin Ordaz PA-C LAB BLOOD ORDERABLES Final Re sult [facility] [address] [phone] * Magnesium (04/01/2025 3:50 AM EDT) Magnesium 1.9 1.6 - 2.6 mg/dL 04/01/2025 5:13 AM EDT [facility] Blood Venipuncture / Unknown 04/01/2025 3:50 AM EDT 04/01/2025 4:24 AM EDT us Marvin Ordaz PA-C LAB BLOOD ORDERABLES Final Re alont [facility] [address] [phone] * (ABNORMAL) Comprehensive metabolic panel (03/31/2025 12:06 PM EDT) Pathologist [facility] Sodium 136 136 - 145 meq/L 03/31/2025 12:46 PM EDT [facility] Potassium 3.8 3.4 - 5.1 meq/L 03/31/2025 12:46 PM EDT [facility] Chloride 104 98 - 112 meq/L 03/31/2025 12:46 PM EDT [facility] CO2 25 22 - 29 meq/L 03/31/2025 12:46 PM EDT [facility] Calcium 8.7 8.4 - 10.2 mg/dL 03/31/2025 12:46 PM EDT [facility] Glucose 104(H) 74 - 100 mg/dL 03/31/2025 12:46 PM EDT [facility] BUN 14.8 7.0 - 18.7 mg/dL 03/31/2025 12:46 PM EDT [facility] Creatinine 0.82 0.57 - 1.11 mg/dL 03/31/2025 12:46 PM EDT [facility] BUN/Creatinine 18 8 - 20 03/31/2025 12:46 PM EDT [facility] eGFR (mL/min/1.73m2) 96 >=60 mL/min/1. 73m2 03/31/2025 12:46 PM EDT [facility] Albumin 3.6 3.5 - 5.0 g/dL 03/31/2025 12:46 PM EDT [facility] Alkaline Phosphatase 113 40 - 150 U/L 03/31/2025 12:46 PM EDT [facility] ALT 99(H) <=34 U/L 03/31/2025 12:46 PM EDT [facility] Comment: ALT2 reagent used for testing does not contain P5P supplementation and therefore may miss ALT elevations in patients with B6 deficiency. This population may be as high as 10% in the [place], with risk factors including malabsorption, drug interactions, and alcoholic hepatitis. AST 148(H) 11 - 34 U/L 03/31/2025 12:46 PM EDT [facility] Comment: AST2 reagent used for testing does not contain P5P supplementation and therefore may miss AST elevations in patients with B6 deficiency. This population may be as high as 10% in the [place], with risk factors including malabsorption, drug interactions, and alcoholic hepatitis. Total Bilirubin 0.8 0.2 - 1.2 mg/dL 03/31/2025 12:46 PM EDT [facility] Protein, Total 7.3 6.4 - 8.3 g/dL 03/31/2025 12:46 PM EDT [facility] Globulin 3.7 2.5 - 4.1 g/dL 03/31/2025 12:46 PM EDT [facility] Anion Gap 11 4 - 12 03/31/2025 12:46 PM EDT [facility] A/G Ratio 1.0 0.7 - 1.9 03/31/2025 12:46 PM EDT [facility] Osmolality Calc 273.0 mOsm/kg 12:46 PM EDT [facility] Blood Venipuncture / Unknown 03/31/2025 12:06 PM EDT 03/31/2025 12:23 PM EDT Marvin Ordaz PA-C LAB BLOOD ORDERABLES Final Re sult [facility] [address] [place] [address], [facility] [phone] * (ABNORMAL) CBC with automated diff (03/31/2025 12:06 PM EDT) WBC 12.8(H) 4.0 - 10.0 K/ L 03/31/2025 12:26 PM EDT [facility] RBC 4.67 3.93 - 5.22 M/ L 03/31/2025 12:26 PM EDT [facility] Hemoglobin 13.4 11.2 - 15.7 GM/DL 03/31/2025 12:26 PM EDT [facility] Hematocrit 40.3 34.1 - 44.9 % 03/31/2025 12:26 PM EDT [facility] MCV 86 79 - 95 fL 03/31/2025 12:26 PM EDT [facility] MCH 28.7 25.6 - 32.2 pg 03/31/2025 12:26 PM EDT [facility] MCHC 33.3 32.2 - 35.5 GM/DL 03/31/2025 12:26 PM EDT [facility] RDW 13.5 11.7 - 14.4 % 03/31/2025 12:26 PM EDT [facility] Platelets 396(H) 140 - 375 K/CU MM 03/31/2025 12:26 PM EDT [facility] MPV 10.1 9.4 - 12.3 fL 03/31/2025 12:26 PM EDT [facility] % Neutros 59 34 - 71 % 03/31/2025 12:26 PM EDT [facility] % Lymphs 26 19 - 52 % 03/31/2025 12:26 PM EDT [facility] % Monos 10 5 - 13 % 03/31/2025 12:26 PM EDT [facility] % Eos 5 1 - 6 % 03/31/2025 12:26 PM EDT [facility] % Baso 1 0 - 1 % 03/31/2025 12:26 PM EDT [facility] NRBC Absolute <0.01 0 - 0.012 K/ul 03/31/2025 12:26 PM EDT [facility] # Neutros 7.50(H) 1.56 - 6.13 K/ L 03/31/2025 12:26 PM EDT [facility] # Lymphs 3.29 1.18 - 3.74 K/ L 03/31/2025 12:26 PM EDT [facility] # Monos 1.24(H) 0.24 - 0.86 K/ L 03/31/2025 12:26 PM EDT [facility] # Eos 0.61(H) 0.04 - 0.36 K/ L 03/31/2025 12:26 PM EDT [facility] # Baso 0.08 0.01 - 0.08 K/ L 03/31/2025 12:26 PM EDT [facility] Immature Granulocytes-Re lative 0.50(H) 0.01 - 0.43 % 03/31/2025 12:26 PM EDT [facility] # IG 0.06(H) 0.00 - 0.03 K/uL 03/31/2025 12:26 PM EDT [facility] Blood Venipuncture / Unknown 03/31/2025 12:06 PM EDT 03/31/2025 12:23 PM EDT Narrative [facility] - 03/31/2025 12:26 PM EDT When CBC w/ Auto Diff is ordered the lab will add a Manual Differential as a quality check at no additional charge if: Lymphocytes greater than seventy five percent with normal or increased WBC Monocytes greater than Fifteen percent Basophil greater than four percent Bands >10% or several immature myeloids are seen on scan Blast? Flag noted Atypical Lymph flag noted Marvin Ordaz PA-C LAB BLOOD ORDERABLES Final Re sult [facility] [address] [phone] documented in this encounter Visit Diagnoses Diagnosis Abdominal mass- Primary Abdominal or pelvic swelling, mass or lump, unspecified site Mass in the abdomen Abdominal or pelvic swelling, mass or lump, unspecified site Tumor documented in this encounter Admitting Diagnoses Diagnosis Abdominal mass Abdominal or pelvic swelling, mass or lump, unspecified site Tumor documented in this encounter Administered Medications Inactive Administered Medications - up to 3 most recent administrations Medication Order MAR Action Action Date Dose Rate Site acetaminophen (TYLENOL) tablet 1,000 mg 1,000 mg Every 6 hours PRN, oral, mild pain (1-3), and severe pain (7-10), Starting on Tue03/31/25 at 1020, Recommended maximum dose of acetaminophen is 4000 mg from all sources in 24 hours albuterol 2.5 mg /3 mL (0.083 %) nebulizer solution 2.5 mg 2.5 mg Every 4 hours PRN, nebulization, wheezing, shortness of breath, Starting on Tue03/31/25 at 1048, RESPIRATORY THERAPY TREATMENT , What is the respiratory therapy Modality? Small volume Nebulization docusate sodium (COLACE) capsule 100 mg 100 mg 2 times daily PRN, oral, constipation, Starting on Tue03/31/25 at 1020, Bowel Regimen - for prevention of constipation. fentaNYL PF (SUBLIMAZE) injection IMG once as needed, intravenous, Starting on Tue04/02/25 at 0903, Intra-op Given 04/02/2025 9:03 AM EDT 50 mcg glycerin (laxative) suppository 1 suppository 1 suppository Daily as needed, rectal, constipation, constipation, Starting on Tue03/31/25 at 1020, 2nd line for treatment of constipation - give scheduled (in addition to 1st line agent) if no bowel movement in past 48 hours heparin injection 5,000 Units 5,000 Units Every 8 hours scheduled, subcutaneous, First dose on Tue03/31/25 at 1300 Given 04/02/2025 1:13 PM EDT 5,000 Units Abdominal Tissue Given 04/02/2025 5:49 AM EDT 5,000 Units A bdominal Tissue Given 04/01/2025 9:13 PM EDT 5,000 Units A bdominal Tissue hydrALAZINE (APRESOLINE) injection 5 mg 5 mg Every 6 hours PRN, intravenous, hypertension (specify sbp/dbp in prn comments), SBP > 180, Starting on Tue03/31/25 at 1020, Hold if SBP < 100 mmHg, DBP < 50 mmHg, or patient is on pressor. Look-alike/Sound-alike medication HYDROcodone-acetaminophen (NORCO) 5-325 mg per tablet 1 tablet 1 tablet Every 6 hours PRN, oral, moderate pain (4-6), Starting on 03/31/25 at 2253, Recommended maximum dose of acetaminophen is 4000 mg from all sources in 24 hours Given 04/02/2025 10:19 AM EDT 1 tablet Given 04/01/2025 5:35 PM EDT 1 tablet Given 04/01/2025 9:47 AM EDT 1 tablet HYDROmorphone (DILAUDID) injection 0.5 mg 0.5 mg Every 4 hours PRN, intravenous, moderate pain (4-6), severe pain (7-10), Starting on 03/31/25 at 1020, 3rd line analgesic. Give only if inadequate response (less than 50% reduction in pain score) 60 minutes after administration of 2nd line agent. May give in addition to 1st + 2nd line analgesics (+ adjuvants if ordered) Given 04/02/2025 1:12 PM EDT 0.5 mg Given 04/02/2025 3:53 AM EDT 0.5 mg Given 04/01/2025 9:08 PM EDT 0.5 mg LORazepam (ATIVAN) tablet 1 mg 1 mg Every 8 hours PRN, oral, anxiety, Starting on 03/31/25 at 1023 magnesium sulfate IVPB 2 g in sterile water 50 mL (premix) at 25 mL/hr, Administer over 120 Minutes, intravenous, Daily as needed, for magnesium level 1.3 to 1.7 mg/dL, Starting on 03/31/25 at 1020, If magnesium is replaced per protocol order, recheck 1 hour after replacement and the next morning. magnesium sulfate IVPB 2 g in sterile water 50 mL (premix) at 25 mL/hr, Administer over 120 Minutes, intravenous, 2 times daily PRN, for magnesium level less than 1.3 mg/dL, Starting on 03/31/25 at 1020, Total dose of 4 g for each low magnesium result. If magnesium is replaced per protocol order, recheck 1 hour after replacement and the next morning. melatonin tablet 3 mg 3 mg Every Night, oral, First dose on 03/31/25 at 2100 Given 04/01/2025 9:13 PM EDT 3 mg Given 03/31/2025 8:23 PM EDT 3 mg midazolam (PF) (VERSED) injection IMG once as needed, intravenous, Starting on Tue04/02/25 at 0903, Intra-op Given 04/02/2025 9:03 AM EDT 1 mg naloxone (NARCAN) injection 0.2 mg 0.2 mg Every 2 min PRN, intravenous, opioid reversal, respiratory depression, Starting on Tue03/31/25 at 1020, Give for respiratory rate less than 10 breaths/min or if patient is difficult to arouse. Max dose = 10 mg. Call provider. naloxone (NARCAN) injection 0.2 mg 0.2 mg Every 2 min PRN, intravenous, opioid reversal, respiratory depression,, Starting on Tue03/31/25 at 1020, Give for respiratory rate less than 10 breaths/min or if patient is difficult to arouse. Max dose = 10mg. Call provider. nicotine (NICODERM CQ) 14 mg/24 hr patch 1 patch 1 patch Daily as needed, transdermal, Administer over 24 Hours, nicotine withdrawal, Starting on Tue03/31/25 at 1020, For 14 days Patch Applied 03/31/2025 6:15 PM EDT 1 patch Left Arm nicotine polacrilex (NICORETTE) gum 4 mg 4 mg Every hour PRN, oral, smoking cessation, nicotine craving, urge to smoke, Starting on 03/31/25 at 1020, Instruct patient to chew into gum, then place between the cheek and gum to enhance absorption. To increase chances of quitting, recommended to chew and park at least 9 pieces per day in the first 6 weeks of cessation. ondansetron (ZOFRAN-ODT) disintegrating tablet 4 mg 4 mg Every 4 hours PRN, oral, nausea, vomiting, Starting on 04/01/25 at 1118 Given 04/01/2025 5:35 PM EDT 4 mg Given 04/01/2025 11:37 AM EDT 4 mg pantoprazole (PROTONIX) EC tablet 40 mg 40 mg Daily, oral, First dose on 03/31/25 at 1130, * DO NOT CRUSH THIS DOSAGE FORM * Given 04/02/2025 8:19 AM EDT 40 m g Given 04/01/2025 8:16 AM EDT 40 mg Given 03/31/2025 11:47 AM EDT 40 mg polyethylene glycol (GLYCOLAX) packet 17 g 17 g Daily as needed, oral, constipation, Starting on Tue03/31/25 at 1020, Bowel Regimen - for prevention of constipation. potassium chloride (KLOR-CON) ER tablet 40 mEq 40 mEq 4 times daily PRN, oral, for potassium less than or EQUAL to 3.4 mmol/L, Starting on 03/31/25 at 1020, Do not crush KCl tablets. If potassium is replaced per protocol order, recheck potassium 2 hour after replacement and the next morning. prazosin (MINIPRESS) capsule 1 mg 1 mg Every Night, oral, First dose on 03/31/25 at 2100, On hold since 04/01/2025 at 1204 until manually unheld Given 03/31/2025 9:20 PM EDT 1 mg promethazine (PHENERGAN) 12.5 mg in sodium chloride 0.9 % (NS) 50 mL IVPB (Immediate Use Only) 12.5 mg Every 6 hours PRN, intravenous, at 150 mL/hr, nausea, vomiting, Starting on Tue03/31/25 at 1020, 1st line. Give IV if patient is unable to take orally. If inadequate response within 60 minutes, proceed to next line-agent for same PRN Reason or contact provider if no further options ordered. sertraline (ZOLOFT) tablet 150 mg 150 mg Daily, oral, First dose on Tue03/31/25 at 1130 Given 04/02/2025 8:19 AM EDT 150 mg Given 04/01/2025 8:16 AM EDT 150 mg Given 03/31/2025 11:47 AM EDT 150 mg sodium chloride 0.9 % infusion 100 mL/hr Continuous, intravenous, Starting on Tue03/31/25 at 1100 New Bag 04/02/2025 8:20 AM EDT 100 mL/hr 100 mL/hr New Bag 04/01/2025 2:04 PM EDT 100 mL/hr 100 mL/hr New Bag 03/31/2025 11:44 AM EDT 100 mL/hr 100 mL/hr sodium chloride flush 10 mL 10 mL As needed, intravenous, line care, Starting on Tue03/31/25 at 1020, Every 8 hours and PRN to flush traZODone (DESYREL) tablet 50 mg 50 mg Every Night, oral, First dose on 03/31/25 at 2100 Given 04/01/2025 9:13 PM EDT 50 mg Given 03/31/2025 8:23 PM EDT 50 mg documented in this encounter Active and Recently Administered Medications Times are shown in EDT. Scheduled Medication Order 03/31/2025 04/01/2025 04/02/2025 heparin injection 5,000 Units 5,000 Units Every 8 hours scheduled, subcutaneous, First dose on 03/31/25 at 1300 1815 (Given - Provider: Kristy Carvajal RN) 0129 (Not Given - Provider: Peyton Torres - Reason: Patient/family refused)0413 (Not Given - Provider: Peyton Torres - Reason: Patient/family refused)1318 (Given - Provider: Kya Domínguez RN)211 (Given - Provider: Edgar Mendosa, KAROL) 0549 (Given - Provider: Edgar Mendosa RN)131 (Given - Provider: Tayla Jackson RN) melatonin tablet 3 mg 3 mg Every Night, oral, First dose on 03/31/25 at 2100 2022 (Given - Provider: Peyton Torres) 2112 (Given - Provider: Edgar Mendosa RN) pantoprazole (PROTONIX) EC tablet 40 mg 40 mg Daily, oral, First dose on 03/31/25 at 1130, * DO NOT CRUSH THIS DOSAGE FORM * 1147 (Given - Provider: Kristy Carvajal RN) 0816 (Given - Provider: Kya Domínguez RN) 0819 (Given - Provider: Tayla Jackson RN) prazosin (MINIPRESS) capsule 1 mg 1 mg Every Night, oral, First dose on 03/31/25 at 2100, On hold since Tue04/01/2025 at 1204 until manually unheld 2119 (Given - Provider: Peyton Torres) 1204 (Held by provider - Provider: Marvin Ordaz PA-C)2099 (Not Given - Provider: Edgar Mendosa RN - Reason: Per MD Order) 1559 (Unheld by provider - Provider: Automatic Discharge Provider) sertraline (ZOLOFT) tablet 150 mg 150 mg Daily, oral, First dose on 03/31/25 at 1130 1147 (Given - Provider: Kristy Carvajal, KAROL) 0816 (Given - Provider: Kya Domínguez RN) 0819 (Given - Provider: Tayla Jackson RN) traZODone (DESYREL) tablet 50 mg 50 mg Every Night, oral, First dose on Tue03/31/25 at 2100 2022 (Given - Provider: Peyton Torres) 2113 (Given - Provider: Edgar Mendosa RN) Continuous Medication Order 03/31/2025 04/01/2025 04/02/2025 sodium chloride 0.9 % infusion (CANCELED) 100 mL/hr Continuous, intravenous, Starting on Tue03/31/25 at 1100 1144 (New Bag - Provider: Kristy Carvajal RN) 1404 (New Bag - Provider: Kya Domínguez RN) 0820 (New Bag - Provider: Tayla Jackson RN) PRN Medication Order 03/31/2025 04/01/2025 04/02/2025 acetaminophen (TYLENOL) tablet 1,000 mg 1,000 mg Every 6 hours PRN, oral, mild pain (1-3), and severe pain (7-10), Starting on Tue03/31/25 at 1020, Recommended maximum dose of acetaminophen is 4000 mg from all sources in 24 hours albuterol 2.5 mg /3 mL (0.083 %) nebulizer solution 2.5 mg 2.5 mg Every 4 hours PRN, nebulization, wheezing, shortness of breath, Starting on Tue03/31/25 at 1048, RESPIRATORY THERAPY TREATMENT , What is the respiratory therapy Modality? Small volume Nebulization docusate sodium (COLACE) capsule 100 mg 100 mg 2 times daily PRN, oral, constipation, Starting on Tue03/31/25 at 1020, Bowel Regimen - for prevention of constipation. fentaNYL PF (SUBLIMAZE) injection (COMPLETED) IMG once as needed, intravenous, Starting on Tue04/02/25 at 0903, Intra-op 0903 (Given - Provider: Roel Tomas RN) glycerin (laxative) suppository 1 suppository 1 suppository Daily as needed, rectal, constipation, constipation, Starting on 03/31/25 at 1020, 2nd line for treatment of constipation - give scheduled (in addition to 1st line agent) if no bowel movement in past 48 hours hydrALAZINE (APRESOLINE) injection 5 mg 5 mg Every 6 hours PRN, intravenous, hypertension (specify sbp/dbp in prn comments), SBP > 180, Starting on 03/31/25 at 1020, Hold if SBP < 100 mmHg, DBP < 50 mmHg, or patient is on pressor. Look-alike/Sound-alike medication HYDROcodone-acetaminophen (NORCO) 5-325 mg per tablet 1 tablet 1 tablet Every 6 hours PRN, oral, moderate pain (4-6), Starting on Tue03/31/25 at 2253, Recommended maximum dose of acetaminophen is 4000 mg from all sources in 24 hours 2257 (Given - Provider: Peyton Torres) 0947 (Given - Provider: Kya Domínguez RN)1735 (Given - Provider: Kya Domínguez RN) 1019 (Given - Provider: Tayla Jackson, KAROL) HYDROmorphone (DILAUDID) injection 0.5 mg 0.5 mg Every 4 hours PRN, intravenous, moderate pain (4-6), severe pain (7-10), Starting on 03/31/25 at 1020, 3rd line analgesic. Give only if inadequate response (less than 50% reduction in pain score) 60 minutes after administration of 2nd line agent. May give in addition to 1st + 2nd line analgesics (+ adjuvants if ordered) 1144 (Given - Provider: Kristy Carvajal RN)1815 (Given - Provider: Kristy Carvajal RN) 0129 (Given - Provider: Peyton Torres)0621 (Given - Provider: Peyton Torres)1403 (Given - Provider: Kya Domínguez RN)2108 (Given - Provider: Edgar Mendosa RN) 0353 (Given - Provider: Nicolasa Redman RN)1312 (Given - Provider: Tayla Jackson RN) LORazepam (ATIVAN) tablet 1 mg 1 mg Every 8 hours PRN, oral, anxiety, Starting on 03/31/25 at 1023 magnesium sulfate IVPB 2 g in sterile water 50 mL (premix) at 25 mL/hr, Administer over 120 Minutes, intravenous, Daily as needed, for magnesium level 1.3 to 1.7 mg/dL, Starting on Tue03/31/25 at 1020, If magnesium is replaced per protocol order, recheck 1 hour after replacement and the next morning. magnesium sulfate IVPB 2 g in sterile water 50 mL (premix) at 25 mL/hr, Administer over 120 Minutes, intravenous, 2 times daily PRN, for magnesium level less than 1.3 mg/dL, Starting on Tue03/31/25 at 1020, Total dose of 4 g for each low magnesium result. If magnesium is replaced per protocol order, recheck 1 hour after replacement and the next morning. midazolam (PF) (VERSED) injection (COMPLETED) IMG once as needed, intravenous, Starting on Tue04/02/25 at 0903, Intra-op 0903 (Given - Provider: Roel Tomas, KAROL) naloxone (NARCAN) injection 0.2 mg 0.2 mg Every 2 min PRN, intravenous, opioid reversal, respiratory depression, Starting on Tue03/31/25 at 1020, Give for respiratory rate less than 10 breaths/min or if patient is difficult to arouse. Max dose = 10 mg. Call provider. naloxone (NARCAN) injection 0.2 mg 0.2 mg Every 2 min PRN, intravenous, opioid reversal, respiratory depression,, Starting on Tue03/31/25 at 1020, Give for respiratory rate less than 10 breaths/min or if patient is difficult to arouse. Max dose = 10mg. Call provider. nicotine (NICODERM CQ) 14 mg/24 hr patch 1 patch 1 patch Daily as needed, transdermal, Administer over 24 Hours, nicotine withdrawal, Starting on Tue03/31/25 at 1020, For 14 days 1814 (Patch Applied - Provider: Kristy Carvajal RN) 1744 (Patch Removed - Provider: Kya Domínguez RN) nicotine polacrilex (NICORETTE) gum 4 mg 4 mg Every hour PRN, oral, smoking cessation, nicotine craving, urge to smoke, Starting on Tue03/31/25 at 1020, Instruct patient to chew into gum, then place between the cheek and gum to enhance absorption. To increase chances of quitting, recommended to chew and park at least 9 pieces per day in the first 6 weeks of cessation. ondansetron (ZOFRAN-ODT) disintegrating tablet 4 mg 4 mg Every 4 hours PRN, oral, nausea, vomiting, Starting on 04/01/25 at 1118 1137 (Given - Provider: Kya Domínguez, RN)1735 (Given - Provider: Kya Domínguez, RN) polyethylene glycol (GLYCOLAX) packet 17 g 17 g Daily as needed, oral, constipation, Starting on 03/31/25 at 1020, Bowel Regimen - for prevention of constipation. potassium chloride (KLOR-CON) ER tablet 40 mEq 40 mEq 4 times daily PRN, oral, for potassium less than or EQUAL to 3.4 mmol/L, Starting on 03/31/25 at 1020, Do not crush KCl tablets. If potassium is replaced per protocol order, recheck potassium 2 hour after replacement and the next morning. promethazine (PHENERGAN) 12.5 mg in sodium chloride 0.9 % (NS) 50 mL IVPB (Immediate Use Only) 12.5 mg Every 6 hours PRN, intravenous, at 150 mL/hr, nausea, vomiting, Starting on 03/31/25 at 1020, 1st line. Give IV if patient is unable to take orally. If inadequate response within 60 minutes, proceed to next line-agent for same PRN Reason or contact provider if no further options ordered. sodium chloride flush 10 mL(Linked Group 1) 10 mL As needed, intravenous, line care, Starting on 03/31/25 at 1020, Every 8 hours and PRN to flush Linked Groups Order Group 1: Insert Peripheral IV (CANCELED) STAT, Once, On 03/31/25 at 1021, For 1 occurrence And Saline Lock IV (CANCELED) Routine, Once, On 03/31/25 at 1021, For 1 occurrence And sodium chloride flush 10 mLJump to med 10 mL As needed, intravenous, line care, Starting on 03/31/25 at 1020, Every 8 hours and PRN to flush documented in this encounter
--- OUTSIDE RECORDS SUMMARY | 2025-04-08 15:16 | XMS_ITS | Encounter Summary ---
Author Organization [employer] ([place], [place], [place], [place]) Address [address] [place] [address] Care Team Providers Care Any Commodity Buyer Name Role Phone [facility], Provider Not In The System MD Primary Care Provider Unavailable Reason for Visit [...] EDT - 04/08/2025 6:[address] [facility] Emergency Department [address] [place] [phone] Joaquim Perdomo MD [address] [place] [address] Lower abdominal pain (Primary Dx); Endometriosis of [...] [facility] has a referral service called [facility] [employer]. You may call the number during business hours at [phone] for assistance in finding a primary care [...] be sent through Care Everywhere. * Hematoma ([place]) documented in this encounter Medications at Time of Discharge albuterol 90 mcg/actuation inhaler Inhale 1 puff by mouth every 4 (four) hours as needed for shortness of breath. 03/26/2025 lamoTRIgine (LaMICtal) 25 MG tablet Take 1 tablet (25 mg total) by mouth nightly. 03/26/2025 montelukast (SINGULAIR) 10 mg tablet Take 1 tablet (10 mg total) by mouth daily. 03/26/2025 HYDROcodone-aceta minophen (NORCO) 5-325 mg per tablet [...] for 7 days. 7 tablet 04/08/2025 5 nicotine (NICODERM CQ) 14 mg/[address] 1 patch on the skin daily as needed (nicotine withdrawal) for up to 30 days. 28 patch 04/02/2025 5 documented as of this encounter ED Notes * Nahum Silva RN - 04/08/2025 6:37 PM EDT Discharge instructions reviewed with patient. No further questions at this time. Patient advised tofollow up with surgeon as scheduled and return to the ED with any new or worsening symptoms. Patient ambulated out of the ED without distress. Nahum Silva RN 04/08/25 1838 * Joaquim Perdomo MD - 04/08/2025 2:57 [...] Description 06/04/2025 10:40 AM EDT Office Visit [facility] [address] [place] [address] [phone] Heather Rosas, [address] [facility] [address] [place] [address] documented as of this encounter Procedures Procedure [...] Heri Vizcarra M.D. Transcribed by Zoila James Joaquim Perdomo MD IMG CT ORDERABLES Final Res ult * (ABNORMAL) Manual Differential (04/08/2025 3:28 PM EDT) Total Counted 100 04/08/2025 5:53 PM EDT [facility] % Neutros (manual) 60 50 - 65 % 04/08/2025 5:53 PM EDT [facility] % Lymphs (manual) 29 24 - 44 % 04/08/2025 5:53 PM EDT [facility] % Monos (manual) 5 4 - 5 % 04/08/2025 5:53 PM EDT [facility] % Eos (manual) 5(H) 0 - 3 % 04/08/2025 5:53 PM EDT [facility] % Baso (manual) 1 0 - 1 % 5:53 PM EDT [facility] RBC Morphology abnormal( A) Normal 04/08/2025 5:53 PM EDT [facility] Platelet Estimate Increased (A) Adequate 04/08/2025 5:53 PM EDT [facility] Hypochromia 1+ 04/08/2025 5:53 PM EDT [facility] ANC# 12.42 K/ L 04/08/2025 5:53 PM EDT [facility] Blood Venipuncture / Unknown 04/08/2025 3:28 PM EDT 04/08/2025 3:35 PM EDT Joaquim Perdomo MD LAB BLOOD ORDERABLES Final Result [facility] [address] [phone] * (ABNORMAL) CBC with automated diff (04/08/2025 3:28 PM EDT) WBC 20.7(H) 4.0 - 10.0 K/ L 04/08/2025 4:00 PM EDT [facility] RBC 5.02 3.93 - 5.22 M/ L 04/08/2025 4:00 PM EDT [facility] Hemoglobin 14.6 11.2 - 15.7 GM/DL 04/08/2025 4:00 PM EDT [facility] Hematocrit 44.1 34.1 - 44.9 % 04/08/2025 4:00 PM EDT [facility] MCV 88 79 - 95 fL 04/08/2025 4:00 PM EDT [facility] MCH 29.1 25.6 - 32.2 pg 04/08/2025 4:00 PM EDT [facility] MCHC 33.1 32.2 - 35.5 GM/DL 04/08/2025 4:00 PM EDT [facility] RDW 13.6 11.7 - 14.4 % 04/08/2025 4:00 PM EDT [facility] Platelets 418(H) 140 - 375 K/CU MM 04/08/2025 4:00 PM EDT [facility] MPV 10.3 9.4 - 12.3 fL 04/08/2025 4:00 PM EDT [facility] NRBC Absolute <0.01 0 - 0.012 K/ul 04/08/2025 4:00 PM EDT [facility] Blood Venipuncture / Unknown 04/08/2025 3:28 PM EDT 04/08/2025 3:35 PM EDT Narrative [facility] - 04/08/2025 4:00 PM EDT When [...] Perdomo MD LAB BLOOD ORDERABLES Final Result [facility] [address] [phone] * (ABNORMAL) Comprehensive metabolic panel (04/08/2025 3:28 PM EDT) Sodium 140 136 - 145 meq/L 04/08/2025 4:09 PM EDT [facility] Potassium 4.6 3.4 - 5.1 meq/L 04/08/2025 4:09 PM EDT [facility] Chloride 106 98 - 112 meq/L 04/08/2025 4:09 PM EDT [facility] CO2 23 22 - 29 meq/L 04/08/2025 4:09 PM EDT [facility] Calcium 9.4 8.4 - 10.2 mg/dL 04/08/2025 4:09 PM EDT [facility] Glucose 94 74 - 100 mg/dL 04/08/2025 4:09 PM EDT [facility] BUN 12.2 7.0 - 18.7 mg/dL 04/08/2025 4:09 PM EDT [facility] Creatinine 0.80 0.57 - 1.11 mg/dL 04/08/2025 4:09 PM EDT [facility] BUN/Creatinine 15 8 - 20 04/08/2025 4:09 PM EDT [facility] eGFR (mL/min/1.73m2) 99 >=60 mL/min/1. 73m2 04/08/2025 4:09 PM EDT [facility] Albumin 4.0 3.5 - 5.0 g/dL 04/08/2025 4:09 PM EDT [facility] Alkaline Phosphatase 101 40 - 150 U/L 04/08/2025 4:09 PM EDT [facility] ALT 24 <=34 U/L 04/08/2025 4:09 PM T [facility] Comment: ALT2 reagent used for testing does not contain P5P supplementation and therefore may miss ALT elevations in patients with B6 deficiency. This population may be as high as 10% in the [place], with risk factors including malabsorption, drug interactions, and alcoholic hepatitis. AST 23 11 - 34 U/L 04/08/2025 4:09 PM EDT [facility] Comment: AST2 reagent used for testing does not contain P5P supplementation and therefore may miss AST elevations in patients with B6 deficiency. This population may be as high as 10% in the [place], with risk factors including malabsorption, drug interactions, and alcoholic hepatitis. Total Bilirubin 0.4 0.2 - 1.2 mg/dL 04/08/2025 4:09 PM EDT [facility] Protein, Total 8.2 6.4 - 8.3 g/dL 04/08/2025 4:09 PM EDT [facility] Globulin 4.2(H) 2.5 - 4.1 g/dL 04/08/2025 4:09 PM EDT [facility] Anion Gap 16(H) 4 - 12 04/08/2025 4:09 PM EDT [facility] A/G Ratio 1.0 0.7 - 1.9 04/08/2025 4:09 PM EDT [facility] Osmolality Calc 279.0 mOsm/kg 4:09 PM EDT [facility] Blood Venipuncture / Unknown 04/08/2025 3:28 PM EDT 04/08/2025 3:35 PM EDT us Joaquim Perdomo MD LAB BLOOD ORDERABLES Final Result Performing Organization Address City/State/[facility] [[email or web address]] Co de Phone Number [facility] [address] [phone] documented in this encounter Visit Diagnoses Diagnosis [...] 0.5 mg 0.5 mg Once, intravenous, On 04/08/25 at 1815, For 1 dose Given 04/08/2025 [...] On Tue04/08/25 at 1530, For 1 dose 152 (Given - Provid er: Dominga Velásquez RN) ondansetron (ZOFRAN) injection 4 mg (COMPLETED) 4 mg Once, intravenous, On Tue04/08/25 at 1815, For 1 dose, For IV push, give over 2 - 5 minutes. 183 (Given - Provid er: Nahum Silva RN) sodium chloride 0.9% (NS) bolus (COMPLETED) 500 mL Once, intravenous, Administer over 30 Minutes, On Tue04/08/25 at 1530, For 1 dose 152 (New Bag - Prov ider: Dominga Velásquez RN)1558 (Stopped - Provider: Nahum Sliva RN) PRN Medication Order 04/06/2025 04/07/2025 04/08/2025 [...] minutes. documented in this encounter Care Teams Any Commodity Buyer Relationship Specialty Start Date End Date [facility], Provider Not In The System, [place] [address] PCP - General 04/08/25 04/10/25 documented as of this encounter
--- OUTSIDE RECORDS SUMMARY | 2025-04-11 09:20 | XMS_ITS | Encounter Summary ---
Author Organization [employer] ([place], [place], [place], [place]) Address [address] [place] [address] Care Team Providers Care Wig Dresser Name Role Phone Janine Wheatley APRN Primary Care Provider Reason for Visit * Reason Comments New patient New patient here for follow up from the hospital with endometriosis. Patient states that she is having some lower abdominal/pelvic pain, nausea and blood in her stool as of yesterday. Denies vomiting. Encounter Details Date Type Department Care Team (Late st Contact Info) Description 04/11/2025 9:20 AM EDT Office Visit [facility] [address] [place] [address] [address] [place] [address] [place] [address] [address] [place] [id number] Endometriosis of the anterior abdominal wall, fascia [...] documented in this encounter Progress Notes * Errol Rosas, DO - 04/11/2025 9:20 AM EDT [...] the same site. She has been taking [place], ibuprofen, muscle relaxer. This does help some but then her pain returns. She denies other complaints. She does report a history of seizures. served as independent historian for some of her history. I have reviewed the PMH, , FH, Meds and allergies. Current Outpatient Medications: [...] seizures, she has seen a neurologist in [place] but last time was at least 1 [...] with her that I am not an ENERGY AUDITOR but a general surgeon, so I recommend that she does follow-up with ENERGY AUDITOR for any additional management of endometriosis/endometriomas and she could discuss this surgery with them or continue with myself as this is within the abdominal wall. Patientstated she will follow-up with ENERGY AUDITOR in her hometown and proceed with surgery [...] control discussed. -All questions answered. Await clearance. Errol Rosas DO documented in this encounter Miscellaneous Notes * Addendum Note - Errol Rosas DO - 04/11/2025 9:20 AM EDTAddended by: ERROL ROSAS on: 05/03/2025 11:12 AM Modules accepted: Orders documented in this encounter Plan of Treatment Upcoming Encounters Date Type Department Care Team (Late st Contact Info) Description 06/04/2025 10:40 AM EDT Office Visit [facility] [address] [place] [address] [address] Errol Rosas DO [address] [facility] [address] [address] documented as of this encounter Visit Diagnoses Diagnosis Endometriosis of the anterior abdominal wall, fascia and muscular layers- Primary Mass of anterior abdominal wall Endometrioma Endometriosis, site unspecified Other elevated white blood cell (WBC) count documented in this encounter Care Teams Wig Dresser Relationship Specialty Start Date End Date Janine Wheatley APRN [address] [phone] PCP - General Emergency Medicine 04/11/25 documented as of this encounter
--- OUTSIDE RECORDS SUMMARY | 2025-05-13 09:01 | XMS_ITS | Encounter Summary ---
Author Organization [employer] ([place], [place], [place], [place]) Address [address] [place] [address] Care Team Providers Care Print Developer Name Role Phone Janine Wheatley APRN Primary Care Provider Reason for Visit * Auth/Cert (Routine) Specialty Diagnoses / Procedures Referred By Emely t Referred To Contact Diagnoses Endometrioma Endometrioma of Abdominal Wall Procedures [place] EXC TUMOR SOFT TISSUE ABDOMINAL WALL SUBQ 3 CM/> EXCISION, NEOPLASM, ABDOMINAL WALL [facility] Operating Room [address] [place] [address] Phone: tel: fax: [facility] Operating Room [address] [place] [address] Phone: tel: fax: Referral ID Status Reason Start Date Expiration Date Visits Re quested Visits Authorized [id number] 1 3 Encounter Details Date Type Department Care Team (Late st Contact Info) Description 05/13/2025 9:01 AM EDT - 05/13/2025 11:59 PM EDT Hospital Encounter [facility] Preadmission Testing [address] [place] [address] Heather Rosas, [address] [facility] [address] [place] [address] Preop testing (Primary Dx); Smoker; Obesity (BMI 30-39.9); Preoperative evaluation to rule out surgical contraindication; Leukocytosis Discharge Disposition: Home or Self Care Anesthesia Record Procedure Summary Procedure Name Responsible Anesthesiologist Anesthesia Start Time Anesthesia Stop Time Excision of Abdominal Wall Mass (Abdomen) Jadiel Sotomayor MD 05/20/25 0729 05/20/25 0935 Events Date Time Event Comment 05/20/2025 0729 An Start Patient identif ied and chart reviewed. 0729 An Start Data Anesthesia mac gary and monitors checked. 0732 Pre-Induction Eval FDA anest hesia machine pre-use checkout completed. Patient status reassessed prior to start of anesthesia care. 0738 An Induction 0739 An Intubation 0741 Anesthesia Ready 0803 Quick Note Surgical time o ut 0826 Intraop Handoff Handoff Perf ormed per Protocol: 1) Pt Name 2) ASA/Allergies 3) Anesthetic Type 4) Procedure/Surgeon/Anesthesiologist 5) Prior History 6) Isolation status 7) Intra-op Problems/Meds 8) Airway Description/Difficulty 9) IVs/Fluids/I&O 10) Anesthesia Concerns/Surgeon Requests 11) Pre-op Sedation/Antibiotics Administered 12) Post-op Plan/Orders 13) Questions and Concerns Addressed 0926 An Extubation 0928 an stop data 0933 Handoff to Receiving I compl eted my handoff to the receiving clinician during which we: 1. Identified the patient. 2. Identified the responsible provider. 3. Reviewed the pertinent medical history. 4. Discussed the surgical course. 5. Reviewed intra-op anesthesia management and issues during anesthesia. 6. Set expectations for post-procedure period. 7. Allowed opportunity for questions and acknowledgement of understanding. 0935 An Stop Meds * Agents No agents on file. * Blood No blood administrations on file. Lines, Drains, and Airways Type Details Placement Removal Wound 05/20/25; 0903; Inci connor; Abdomen; Not applicable 05/20/25 09 by Ana Luisa Koo RN Peripheral IV Placement Date: 04/24 06/17; Placement Time: 624; Size: 20 G; Orientation: Anterior, Right; Location: Forearm; Site Prep: Chlorhexidine ; Inserted by: gay barron rn; Insertion attempts: 1; Securement Method: Taped; Removal Date: 05/22/25; Removal Time: 95205/20/25 06 by Julia Barrera RN 05/22/25 0953 by Muna Arango RN ETT Placement Date 05/20; Placement Time 738 (created via procedure documentation); Airway Size 7.5; Airway Cuffed Yes; Removal Date 05/20/25; Removal Time 92505/20/25 0739 by Gay Doty CRNA 05/20/25 09 by Gay Doty CRNA documented in this encounter Social History Tobacco Use Types Packs/Day Years Used Date Smoking Tobacco: Every Day Cigarettes Smokeless Tobacco: Never Tobacco Cessation:Ready to Q uit: Not Asked; Counseling Given: Not Answered Alcohol Use Standard Drinks/Week Comments Not Currently 0 (1 standard drink = 0.6 oz pur e alcohol) Comments No Sex and Gender Information Value Date Recorded Sex Assigned at Not on file Legal Sex Female 1:58 PM CDT Gender Identity Not on file Sexual Orientation Not on file documented as of this encounter Last Filed Vital Signs Vital Sign Reading Time Taken Comments Blood Pressure 123/79 05/13/2025 9:59 AM EDT Pulse 75 05/13/2025 9:59 AM EDT Temperature 36.5 C (97.7 F) 05/13/2025 9:59 AM EDT Respiratory Rate 18 05/13/2025 9:59 AM EDT Oxygen Saturation 100% 05/13/2025 9:59 AM EDT Inhaled Oxygen Concentration - - Weight 105.7 kg (233 lb) 05/13/2025 9:59 AM EDT Height 163.8 cm (5' 4.5 ) 05/13/2025 9:59 AM EDT Body Mass Index 39.38 05/13/2025 9:59 AM EDT documented in this encounter Discharge Instructions * Discharge Instructions* Taylor Sevilla RN - 05/13/2025 9:49 AM EDT Please arrive to the hospital on: 05-20-25 Please arrive by: To be notified Day of Surgery Instructions: Please arrive at the hospital on time. If you are unable to arrive at your designated time, call the Outpatient Surgery Department at [phone] or ext [phone] Arrive at the hospital at your designated time, and park in the main visitor parking area. GO TO ADMITTING TO REGISTER FOR SURGERY. You will be notified by outpatient surgery staff, the afternoon before surgery, regarding the time of your arrival the morning of surgery. If you have any questions, please call the above phone number. If you are going home the same day as your surgery, you MUST have a responsible adult over the age of [address] you home, and REMAIN with you 24 hours after surgery. PLEASE NOTE: If you do not have a responsible adult with you the day of surgery, your surgery may be cancelled. DO NOT EAT OR DRINK ANYTHING AFTER MIDNIGHT: the night before your surgery unless otherwise indicated. This includes water, coffee, gum, mints, tobacco, etc. You may brush your teeth the morning of surgery. Try not to smoke for 2 weeks prior to surgery. DO NOT chew tobacco or use any form of tobacco 24 hours before surgery. DO NOT drink alcohol or take illicit drugs 24 hours before surgery. On the day of surgery, please take only the medications you are instructed to take. Please bring inhalers with you on the day of surgery. Please DO NOT take any NSAIDS (Ibuprofen, Blood thinners, Aspirin, Motrin, Aleve, Celebrex, etc) unless approved by your physician. DO NOT wear any jewelry (including rings and body piercings), hair pins, makeup or nail belizean on fingers or toes on the day of surgery. If you wear contact lenses, please bring a case and solution to put them in. If you wear glasses orhearing aids, please bring a case to put those in. DIABETICS: please check your blood sugar the morning of surgery. Follow instructions given to you by the nurse. If your blood sugar is high, do what you would normally do. If you are admitted, please leave belongings in the car and have family bring them to your room later. Leave valuables such as money, credit cards or jewelry at home. Please contact your surgeon for any physical changes such as cold, flu, fever, or if you're unable to come for surgery. If you suspect you may be , please notify your physician. Bring a copy of any healthcare directives, and legal documents such as a living will, healthcare surrogate, power of criminal attorney, or legal guardianship verification to the hospital on the day of surgery. GENERAL INSTRUCTIONS FOR POST OP CARE: -For the next 24 hours: Have a responsible adult (over the age of 18) with you for your safety and protection Do NOT drive, work around machines, or use any type of power equipment Do NOT smoke Do NOT drink alcohol or while on pain medication Do NOT make any important decisions, or sign any important paperwork -After surgery, you may have a sore throat, muscle aches, dizziness, and feel tired or sleepy - You may resume medications unless directed not to by your doctor. - Your first meal after surgery should be light, and gradually increase your diet to what is normalfor you. In case of nausea, avoid solid food and take only clear liquids as tolerated. - After surgery, please plan to spend a quiet, relaxed evening at home. Resume your normal activityas prescribed by your doctor, and as tolerated. Instructed patient to do the following: In the days and weeks prior to surgery: Increase protein intake to aide in strength and healing post-operatively. Stay well hydrated with healthy fluids (ie. Water, juices, Gatorade) until instructed to have nothing by mouth prior to surgery. Evening prior to surgery: Shower, change bed linens, wear clean pajamas and avoid sleeping with pets. Use antiseptic soap/wipes, noting to be sure to avoid sensitive areas. Morning of surgery: Use antiseptic soap/wipes * Attachments The following attachments cannot be sent through Care Everywhere. * General Anesthesia Adult (Angolan) documented in this encounter Medications at Time of Discharge albuterol 90 mcg/actuation inhaler Inhale 1 puff by mouth every 4 (four) hours as needed for shortness of breath. 03/26/2025 docusate sodium (COLACE) 100 MG capsule Take 1 capsule (100 mg total) by mouth daily for 10 days. 10 capsule 05/20/2025 folic acid/multivit,iron,m iner (ONE DAILY FOR WOMEN ORAL) Take 1 tablet by mouth daily. ibuprofen (MOTRIN) 800 MG tablet Take 1 tablet (800 mg total) by mouth every 6 (six) hours as needed for pain. lamoTRIgine (LaMICtal) 25 MG tablet Take 1 tablet (25 mg total) by mouth nightly. 03/26/2025 methocarbamoL (ROBAXIN) 500 MG tablet Take 1 tablet (500 mg total) by mouth 3 (three) times daily as needed for muscle spasms for up to 7 days. 20 tablet 05/20/2025 montelukast (SINGULAIR) 10 mg tablet Take 1 tablet (10 mg total) by mouth daily. 03/26/2025 ondansetron (ZOFRAN-ODT) 4 MG disintegrating tablet Take 1 tablet (4 mg total) by mouth every 4 (four) hours as needed for nausea or vomiting for up to 7 days. 10 tablet 05/20/2025 oxyCODONE (ROXICODONE) 5 MG immediate release tablet Take 1 tablet (5 mg total) by mouth every 4 (four) hours as needed for pain for up to 3 days Look-alike/S ound-alike medication. Max Daily Amount: 30 mg 10 tablet 05/20/2025 5 documented as of this encounter Plan of Treatment Upcoming Encounters Date Type Department Care Team (Late st Contact Info) Description 06/04/2025 10:40 AM EDT Office Visit [facility] [address] [place] [phone] [place] [address] [place] [address] [place] [address] documented as of this encounter Procedures Procedure Name Priority Date/Time Associated Diagnosis Comments CBC HEMOGRAM (SJ-BKR) STAT 05/13/2025 11:00 AM EDT Preop testing documented in this encounter Results * (ABNORMAL) CBC - Hemogram (SJ-BKR) (05/13/2025 11:00 AM EDT) WBC 15.7(H) 4.0 - 10.0 K/ L 05/13/2025 11:10 AM EDT [facility] RBC 4.59 3.93 - 5.22 M/ L 05/13/2025 11:10 AM EDT [facility] Hemoglobin 13.5 11.2 - 15.7 GM/DL 05/13/2025 11:10 AM EDT [facility] Hematocrit 40.6 34.1 - 44.9 % 05/13/2025 11:10 AM EDT [facility] MCV 89 79 - 95 fL 05/13/2025 11:10 AM EDT [facility] MCH 29.4 25.6 - 32.2 pg 05/13/2025 11:10 AM EDT [facility] MCHC 33.3 32.2 - 35.5 GM/DL 05/13/2025 11:10 AM EDT [facility] RDW 13.2 11.7 - 14.4 % 05/13/2025 11:10 AM EDT [facility] Platelets 365 140 - 375 K/CU MM 05/13/2025 11:10 AM EDT [facility] MPV 10.1 9.4 - 12.3 fL 05/13/2025 11:10 AM EDT [facility] Blood Venipuncture / Unknown 05/13/2025 11:00 AM EDT 05/13/2025 11:08 AM EDT us Vickey Vega MD LAB BLOOD ORDERABLES Final Res ult [facility] [address] [phone] documented in this encounter Visit Diagnoses Diagnosis Preoperative evaluation to rule out surgical contraindication- Primary Preop testing Unspecified pre-operative examination Smoker Tobacco use disorder Obesity (BMI 30-39.9) Preoperative evaluation to rule out surgical contraindication Leukocytosis Leukocytosis, unspecified Mass of anterior abdominal wall Endometrioma Endometriosis, site unspecified Smoker Tobacco use disorder Leukocytosis Leukocytosis, unspecified documented in this encounter Care Teams Print Developer Relationship Specialty Start Date End Date Janine Wheatley APRN [address] [place] [address] PCP - General Emergency Medicine 04/11/25 documented as of this encounter
--- OUTSIDE RECORDS SUMMARY | 2025-05-20 05:10 | XMS_ITS | Encounter Summary ---
Author Organization [employer] ([place], [place], [place], [place]) Address [address] [place] [address] Care Team Providers Care Duralumin Mechanic Name Role Phone Janine Wheatley APRN Primary Care Provider [phone] Reason for Visit * Auth/Cert (Routine) Specialty Diagnoses / Procedures Referred By Emely t Referred To Contact Diagnoses Endometrioma Endometrioma of Abdominal Wall Procedures [place] EXC TUMOR SOFT TISSUE ABDOMINAL WALL SUBQ 3 CM/> EXCISION, NEOPLASM, ABDOMINAL WALL [facility] Operating [address] [place] [address] Phone: tel: fax: [facility] Operating [address] [place] [address] Phone: tel: fax: Referral ID Status Reason Start Date Expiration Date Visits Re quested Visits Authorized [id number] 1 3 Encounter Details Date Type Department Care Team (Late st Contact Info) Description 05/20/2025 5:10 AM EDT - 05/22/2025 12:47 PM EDT Hospital Encounter [facility] [address] [place] [address] Heather Rosas DO [address] [facility] [address] [place] [address] Endometrioma Discharge Disposition: Home or Self Care Social History Tobacco Use Types Packs/Day Years Used Date Smoking Tobacco: Every Day Cigarettes Smokeless Tobacco: Never Alcohol Use Standard Drinks/Week Comments Not Currently [...] Sign Reading Time Taken Comments Blood Pressure 127/80 05/22/2025 10:50 AM EDT Pulse 68 05/22/2025 10:50 AM EDT Temperature 36.7 C (98.1 F) 05/22/2025 10:50 AM EDT Respiratory Rate 18 05/22/2025 10:5 0 AM EDT Oxygen Saturation 99% 05/22/2025 10: 50 AM EDT Inhaled Oxygen Concentration - - Weight 105.5 kg (232 lb 9.4 oz) 05/20/2025 6:19 AM EDT Height 163.8 cm (5' 4.49 ) 05/20/2025 6:19 AM ED T Body Mass Index 39.32 05/20/2025 6:19 AM EDT documented in this encounter Discharge Summaries * Lyle Howell PA-C - 05/21/2025 10:08 AM EDT Patient ID: Shawnee Nagy [id number] 35 y.o. 1990 Admit date: 05/20/2025 Discharge date and time: 05/22/25 Admitting Physician: Heather Rosas DO Discharge Physician: Lyle Howell PA-C Admission Diagnoses: Endometrioma [N80.129];Abdominal wall mass [R22.2];Endometriosis of the anterior abdominal wall, fascia and muscular layers [N80.C11] Discharge Diagnoses: Same Discharged Condition: Good Indication for Admission: Patient presented for excision of subfascial abdominal wall mass. Hospital Course: Patient admitted after surgery. Pain controlled. Diet advanced as tolerated. Readyfor discharge home. Disposition: Home Patient Instructions: Current Discharge Medication List START taking these medications Details docusate sodium (COLACE) 100 MG capsule Take 1 capsule (100 mg total) by mouth daily for 10 days. Qty: 10 capsule, Refills: 0 methocarbamoL (ROBAXIN) 500 MG tablet Take 1 tablet (500 mg total) by mouth 3 (three) times daily as needed for muscle spasms for up to 7 days. Qty: 20 tablet, Refills: 0 ondansetron (ZOFRAN-ODT) 4 MG disintegrating tablet Take 1 tablet (4 mg total) by mouth every 4 (four) hours as needed for nausea or vomiting for up to 7 days. Qty: 10 tablet, Refills: 0 oxyCODONE (ROXICODONE) 5 MG immediate release tablet Take 1 tablet (5 mg total) by mouth every 4 (four) hours as needed for pain for up to 3 days Look-alike/Sound-alike medication. Max Daily Amount: 30 mg Qty: 10 tablet, Refills: 0 CONTINUE these medications which have NOT CHANGED Details albuterol 90 mcg/actuation inhaler Inhale 1 puff by mouth every 4 (four) hours as needed for shortness of breath. folic acid/multivit,iron,digital forensics examiner (ONE DAILY FOR WOMEN ORAL) Take 1 tablet by mouth daily. ibuprofen (MOTRIN) 800 MG tablet Take 1 tablet (800 mg total) by mouth every 6 (six) hours as needed for pain. lamoTRIgine (LaMICtal) 25 MG tablet Take 1 tablet (25 mg total) by mouth nightly. montelukast (SINGULAIR) 10 mg tablet Take 1 tablet (10 mg total) by mouth daily. Activity: No heavy lifting for 6 weeks Diet: Soft diet as discussed Can shower Follow up in 2 weeks. Signed: Lyle Howell PA-C 05/21/2025 10:08 AM documented in this encounter Discharge Instructions * Discharge Instructions* Heather Rosas DO - 05/20/2025 9:12 AM EDT Intramuscular mass excision discharge instructions: Thank you for choosing [facility] for your surgery. We will receive your pathology resultsfrom this within the next week and we will call you with those results. It is important that if youhave any concerns or questions, to contact your doctors office. Activity level: - No pushing, pulling, lifting more than 20 pounds for 6 weeks after surgery. - You may shower 2 days after surgery and let water run over your incisions. Do not take a bath until at least 2 weeks after surgery. - You may return to work pending your restrictions for your occupation as well as being off narcotics for at least 24 hours. - Stairs are okay. - You may not drive until you are off narcotics for over 24 hours. - If you were provided with an abdominal binder, you may wear this for comfort Incision care: - If you have wm or external sutures, these will be removed at your postoperative visit. - Remove your dressings 2 days after surgery. You do not have to replace these but if you would like to, just cover with gauze. - You may allow water to run over your incision at least 48 hours after surgery, do not scrub at your incisions. Contact your surgeon if: - You develop consistent bleeding from your incision(s) that will not stop with light pressure - Increasing redness at the site of your incision, foul-smelling drainage from your incision - Fever greater than 100.5 ??F - Uncontrolled pain, but is not controlled with your prescription medications. - Uncontrolled nausea and vomiting - If you develop chest pain or shortness of breath after surgery, you should report to the emergency department. - Additional concerns/questions Pain control regimen: - If you were provided with a prescription for pain medicine, follow that as recommended. It is also recommended that you take Tylenol and ibuprofen as needed based off of bottle directions. If you have been told to not take Tylenol or ibuprofen/other NSAIDs, in the past, avoid these medications. You will have a follow-up appointment with Dr. Rosas in approximately 1 to 2 weeks. If you have questions or concerns, please contact her office [phone]. Her office address is: [address] [place], [place] [id number] [place] [address] If you need FMLA paperwork filled out, please give this to the office staff at Dr. Rosas's office. We will get this done within 14 days of receiving the paperwork but will try to get it done as soon as possible. * Discharge Instr - Diet* Muna Arango RN - 05/22/2025 10:21 AM EDT Resume diet as tolerated documented in this encounter Medications at Time [...] up to 7 days. 20 tablet 05/20/2025 5 montelukast (SINGULAIR) 10 mg tablet Take 1 tablet (10 mg total) by mouth daily. 03/26/2025 ondansetron (ZOFRAN-ODT) 4 MG disintegrating tablet Take 1 tablet (4 mg total) by mouth every 4 (four) hours as needed for nausea or vomiting for up to 7 days. 10 tablet 05/20/2025 5 oxyCODONE (ROXICODONE) 5 MG immediate release tablet Take 1 tablet (5 mg total) by mouth every 4 (four) hours as needed for pain for up to 3 days Look-alike/S ound-alike medication. Max Daily Amount: 30 mg 10 tablet 05/20/2025 5 documented as of this encounter Progress Notes * Muna Arango RN - 05/22/2025 12:31 PM EDT Dc'd patient home per MD order, verbalized understanding. IV removed. She does not want to wait forthe walker. Informed case management. * Chaplain Amadeo - 05/22/2025 12:03 PM EDT Spiritual Care Progress Note 05/22/25 1203 Clinical Encounter Type Visited With Patient Routine Visit Introduction Referral From Rolling Mill Operator Helper Consult Patient care Holiness Encounters Holiness Needs Prayer Comments: Visit completed by Spiritual Scale Tester Chaplain Marsha 05/22/2025 12:03 PM * Delores Dong RN - 05/22/2025 10:07 AM EDT 05/22/25 1007 Final Discharge Plan Does the patient have the ability to fill and receive their discharge medications? Yes Patient returning to prior living situation? Yes Support Systems Family members Patient is discharging home today. [facility] delivering a rolling walker to the hospital room prior to discharge. Family transport. Update: Patient did not want to wait for the walker to be delivered to the hospital. CM called the patient and also called [employer]. Henri with [employer] confirmed they would contact the patient and deliver to her home. * Lyle Howell PA-C - 05/22/2025 9:13 AM EDT Surgery Progress Note Date of Service: 05/22/2025 Subjective Pain worsened prior to discharge yesterday so patient stayed overnight. Pain is now controlled. Tolerating reg diet. Objective BP 116/73 (BP Location: Right arm, Patient Position: Lying) Pulse 70 Temp 97.7 ??F (36.5 ??C) (Oral) Resp 18 Ht 1.638 m (5' 4.49 ) Wt 105.5 kg (232 lb 9.4 oz) SpO2 94% BMI 39.32 kg/m?? Intake/Output Summary (Last 24 hours) at 05/22/2025 0913 Last data filed at 05/21/2025 2145 Gross per 24 hour Intake 450 ml Output -- Net 450 ml General: comfortable, no distress Cardiovascular: regular rate and rhythm Pulmonary: normal work of breathing, lungs clear Abdomen: soft, dressings c/d/I Assessment and Plan S/p excision of subfascial abdominal wall mass. Doing well. Ready for discharge home today. Instructions given. * Lyle Howell PA-C - 05/21/2025 8:48 AM EDT Surgery Progress Note Date of Service: 05/21/2025 Subjective No acute events. Pain is controlled. Tolerating reg diet. Objective BP 105/61 Pulse 66 Temp 97.7 ??F (36.5 ??C) Resp 18 Ht 1.638 m (5' 4.49 ) Wt 105.5 kg (232 lb 9.4 oz) SpO2 98% BMI 39.32 kg/m?? Intake/Output Summary (Last 24 hours) at 05/21/2025 0848 Last data filed at 05/21/2025 0600 Gross per 24 hour Intake 1540 ml Output 238 ml Net 1302 ml General: comfortable, no distress Cardiovascular: regular rate and rhythm Pulmonary: normal work of breathing, lungs clear Abdomen: soft, dressings c/d/I Assessment and Plan S/p excision of subfascial abdominal wall mass. Doing well. Should be ready for discharge home today. Cosigned by Heather Rosas DO at 05/21/2025 10:07 AM EDT * Chaplain Fidel - 05/20/2025 6:38 AM EDT Spiritual Care Progress Note Surgery referral Provided pre-surgery visit and prayer with patient and mother in law. Chaplain Fidel 05/20/2025 7:32 AM * Nancy Lacey PA-C - 05/14/2025 11:07 AM EDT Received note from Dr. Gerald Beebe's office for hematology clearance for upcoming surgery. Pt has chronic elevated WBC since at least 2017. Other blood counts were unremarkable per their note. No further workup or follow up needed. documented in this encounter H&P Notes * Heather Rosas DO - 05/20/2025 7:12 AM EDT H&P History Of Present Illness Shawnee Nagy is a 35 y.o. female presenting for perioperative clearance for session of abdominal wall mass, possible mesh with Dr. Rosas in setting of endometrioma. Patient has lower abdominal mass that is very uncomfortable for her. Imaging from 04/08/2025 showed small area of asymmetry in the lower right rectus abdominis musculature that may reflect an intramuscular hematoma. Pertinent negative: no hx of PE or DVT. No personal or family hx of malignant hyperthermia. No difficult intubation Past Medical History She has a past medical history of Acid reflux, Anxiety and depression, Asthma, Cancer (HCC), Migraines, KEN (obstructive sleep apnea), and Seizure (HCC). Surgical History She has a past surgical history that includes Hysterectomy; section; Foot surgery (Bilateral); and Gallbladder surgery. Social History She reports that she has been smoking cigarettes. She has never used smokeless tobacco. She reportsthat she does not currently use alcohol. She reports that she does not use drugs. Family History Her family history is not on file. Allergies Patient has no known allergies. Medications Current Outpatient Medications Medication Instructions albuterol 90 mcg/actuation inhaler 1 puff, Every 4 hours PRN folic acid/multivit,iron,digital forensics examiner (ONE DAILY FOR WOMEN ORAL) 1 tablet, Daily ibuprofen (MOTRIN) 800 mg, Every 6 hours PRN lamoTRIgine (LAMICTAL) 25 mg, Every Night montelukast (SINGULAIR) 10 mg, Daily Review of Systems 14 point ROS completed and non-contributory except as listed above Physical Exam Blood pressure 127/59, pulse 84, temperature 97.1 ??F (36.2 ??C), temperature source Tympanic, resp. rate 13, height 1.638 m (5' 4.49 ), weight 105.5 kg (232 lb 9.4 oz), SpO2 97%. GEN: Alert, awake, NAD HEENT: NCAT, no icterus, no thrush, nares patent, CV: S1S2, no murmur. No LE edema Resp: CTAB, NL Abd: Soft, NT, ND +BS Skin: no rashes on inspection and palpation. Ext: No LE edema. No joint edema, erythema. Neuro: A&O x 3, CN grossly intact Diagnostic Results Admission on 05/20/2025 Component Date Value Ref Range Status POC, URINE HCG 05/20/2025 Negative Negative Final INTERNAL QC (VALID/INVALID) 05/20/2025 Valid Final Kit Lot Number 05/20/2025 [id number] Final Expiration Date 05/20/2025 [id number] Final POC-GLUCOSE 05/20/2025 117 (H) 70 - 110 mg/dL Final Manager Mobility 05/20/[id number] ABDOMEN/PELVIS WITH IV CONTRAST Standard Protocol Narrative: CT SCAN OF THE ABDOMEN AND PELVIS [...] body wall hernias. Bones: No acute fracture. Impression: There is a small area of asymmetry in the lower right rectus abdominis musculature, that may reflect the presence of an intramuscular hematoma. No other acute abnormality is identified in the abdomen or pelvis. Images personally reviewed, interpreted and dictated by Heri Vizcarra M.D. Transcribed by Zoila James Assessment & Plan Principal Problem: Endometrioma History of seizure activity, has not been worked up. History of CVA at age 19 Preop evaluation: Patient underwent preoperative laboratory workup and diagnostic studies as above. Leukocytosis: - Patient recently saw Dr. Gerald Beebe MD with hematology in [facility] for this. States it fluctuates up and down often. -WBC better today at 15.7. Possible seizure History of CVA at age 19 - Last possible seizure was 3 to 4 months ago. Prior to that had been about 4 months. She has appointment in June with neurology for evaluation. -Patient is on Lamictal for mood disorder. She follows with Traci Burton NP at [facility] in [place] -D/w Dr. Ahn Proceed with surgery as scheduled on 05/20/[address] Rosas. Electronically signed by: Heather Rosas DO, 05/20/2025 at 10:45 AM documented in this encounter OR Notes * Op Note - Heather Rosas DO - 05/20/2025 9:11 AM EDT Operative/Procedure Note Shawnee Nagy 05/20/2025 Pre-Procedure Diagnosis: Endometrioma of Abdominal Wall Post-Procedure Diagnosis: Intramuscular mass, Endometrioma of Abdominal Wall Procedure Performed: Procedure(s): Excision of subfascial (intramuscular) abdominal wall mass(5.1 cm x 2.5 cm) [cpt: 93427] Surgeons and Role: * Heather Rosas DO - Primary Anesthesia/Sedation: General Specimens: ID Type Source Tests Collected by Time Destination 1 : ABDOMINAL WALL MASS Tissue Abdomen TISSUE EXAM [facility] Heather Rosas DO 05/20/2025 0828 Estimated Blood Loss: 10 cc Blood Administered: None Grafts or Implants: * No implants in log * Complications: None Condition: Stable Findings: 5.1 x 2.5 cm intramuscular mass excised. Multilayer closure performed. Narrative: Patient was seen in preoperative holding and site was confirmed. This was marked. She was taken to the operating room and placed supine on the operating table. She was intubated by the department of anesthesia. Cardona catheter was placed. She was prepped and draped in typical sterile fashion. A generous Pfannenstiel incision was marked at the previous site of her scar. 15 blade scalpel was used to incise the skin. Bovie electrocautery was used to carry through the subcutaneous tissue and fascia. Palpable firm mass was noted below the level of the fascia intramuscularly. With a mix of blunt and electrocautery dissection this was circumferentially dissected away from the mu scle. Bovie cautery was used to divide this from the anterior fascia. Bovie electrocautery was thenused to undermine the mass. Preperitoneal fat was noted. Mass was measured and noted to be 5.1 x 2.5 cm. This was sent to the Department of pathology for further examination. Multilayer closure of muscle and scar was reapproximated with an 0 Vicryl in an interrupted fashion. Naya hemostatic agentwas placed. Hemostasis was assured to be complete. Fascia was reapproximated with #1 PDS in a smallbites fashion, running fashion. Deep dermis and subcutaneous tissue was reapproximated with a 3-0 Vicryl in a running fashion. Skin was reapproximated with wm. Patient tolerated procedure well was transferred to PACU in stable condition. I will try to discharge the patient home but if her pain is too severe, she may require overnight admission. Discussed with PACU. Discussed with family. Heather Rosas DO Physician: Heather Rosas DO Date: 05/20/2025 Time: 9:10 AM * Brief Op Note - Heather Rosas DO - 05/20/2025 9:10 AM EDT Operative/Procedure Note Shawnee Nagy 05/20/2025 Pre-Procedure Diagnosis: Endometrioma of Abdominal Wall Post-Procedure Diagnosis: Intramuscular mass, Endometrioma of Abdominal Wall Procedure Performed: Procedure(s): Excision of intramuscular abdominal wall mass (5.1 cm x 2.5 cm) Surgeons and Role: * Heather Rosas DO - Primary Anesthesia/Sedation: General Specimens: ID Type Source Tests Collected by Time Destination 1 : ABDOMINAL WALL MASS Tissue Abdomen TISSUE EXAM [facility] Heather Rosas DO 05/20/2025 0828 Estimated Blood Loss: 10 cc Blood Administered: None Grafts or Implants: * No implants in log * Complications: None Condition: Stable Findings: 5.1 x 2.5 cm intramuscular mass excised. Multilayer closure performed. Physician: Heather Rosas DO Date: 05/20/2025 Time: 9:10 AM documented in this encounter Miscellaneous Notes * Plan of Care - Vane Monge RN - 05/21/2025 10:00 PM EDT Problem: Pain Goal: Patient's pain/discomfort is manageable Description: Assess and monitor patient's pain using appropriate pain scale. Collaborate with interdisciplinary team and initiate plan and interventions as ordered. Re-assess patient's pain level after pain management intervention. Outcome: Progressing * Plan of Care - Vane Monge RN - 05/20/2025 9:45 PM EDT Problem: Pain Goal: Patient's pain/discomfort is manageable Description: Assess and monitor patient's pain using appropriate pain scale. Collaborate with interdisciplinary team and initiate plan and interventions as ordered. Re-assess patient's pain level after pain management intervention. Outcome: Progressing documented in this encounter Plan of Treatment Upcoming Encounters Date Type Department Care Team (Late st Contact Info) Description 06/04/2025 10:40 AM EDT Office Visit [facility] [address] [place] [address] [phone] Heather Rosas DO [address] [facility] [address] [id number] documented as of this encounter Procedures Procedure Name Priority Date/Time Associated Diagnosis Comments CBC HEMOGRAM (SJ-BKR) Routine 05/21/2025 7:18 AM EDT BASIC METABOLIC PANEL Routine 05/21/2025 7:18 AM EDT TISSUE EXAM ([place]) AP Routine 05/20/2025 8:28 AM EDT Endometrioma AZ EXC TUMOR SOFT TISSUE ABDOMINAL WALL SUBQ 3 CM/> 05/20/2025 7:29 AM EDT Abdominal wall mass Case Notes IN , 1h (R), PASS NOVA GLUCOSE POC Routine 05/20/2025 6:29 AM EDT FS_MODEL_IP POCT , URINE Routine 05/20/2025 6:22 AM EDT documented in this encounter Results * (ABNORMAL) Basic Metabolic Panel (05/21/2025 7:18 AM EDT) Sodium 138 136 - 145 meq/L 05/21/2025 7:58 AM EDT [facility] Potassium 4.4 3.4 - 5.1 meq/L 05/21/2025 7:58 AM EDT [facility] CO2 21(L) 22 - 29 meq/L 05/21/2025 7:58 AM EDT [facility] Chloride 106 98 - 112 meq/L 05/21/2025 7:58 AM EDT [facility] Glucose 125(H) 74 - 100 mg/dL 05/21/2025 7:58 AM EDT [facility] BUN 10.8 7.0 - 18.7 mg/dL 05/21/2025 7:58 AM EDT [facility] Creatinine 0.74 0.57 - 1.11 mg/dL 05/21/2025 7:58 AM EDT [facility] BUN/Creatinine 15 8 - 20 05/21/2025 7:58 AM EDT [facility] Calcium 8.6 8.4 - 10.2 mg/dL 05/21/2025 7:58 AM EDT [facility] Anion Gap 15(H) 4 - 12 05/21/2025 7:58 AM EDT [facility] eGFR (mL/min/1.73m2) 108 >=60 mL/min/1.7 3m2 05/21/2025 7:58 AM EDT [facility] Osmolality Calc 276.5 mOsm/kg 7:58 AM EDT [facility] Blood Venipuncture / Unknown 05/21/2025 7:18 AM EDT 05/21/2025 7:34 AM EDT us Lyle Howell PA-C LAB BLOOD ORDERABLES Final Result [facility] [address] [phone] * (ABNORMAL) CBC - Hemogram (SJ-BKR) (05/21/2025 7:18 AM EDT) WBC 25.8(H) 4.0 - 10.0 K/ L 05/21/2025 7:44 AM EDT [facility] RBC 4.25 3.93 - 5.22 M/ L 05/21/2025 7:44 AM EDT [facility] Hemoglobin 12.2 11.2 - 15.7 GM/DL 05/21/2025 7:44 AM EDT [facility] Hematocrit 38.3 34.1 - 44.9 % 05/21/2025 7:44 AM EDT [facility] MCV 90 79 - 95 fL 05/21/2025 7:44 AM EDT [facility] MCH 28.7 25.6 - 32.2 pg 05/21/2025 7:44 AM EDT [facility] MCHC 31.9(L) 32.2 - 35.5 GM/DL 05/21/2025 7:44 AM EDT [facility] RDW 13.1 11.7 - 14.4 % 05/21/2025 7:44 AM EDT [facility] Platelets 402(H) 140 - 375 K/CU MM 05/21/2025 7:44 AM EDT [facility] MPV 10.1 9.4 - 12.3 fL 05/21/2025 7:44 AM EDT [facility] Blood Venipuncture / Unknown 05/21/2025 7:18 AM EDT 05/21/2025 7:33 AM EDT Lyle Howell PA-C LAB BLOOD ORDERABLES Final Result [facility] [address] [phone] * Tissue Exam (05/20/2025 8:28 AM EDT) Pathologist [facility] AP RESULT See Note: [facility]Y [facility]Y [facility] Comment: PATHOLOGY REPORT DIAGNOSIS: A. SOFT TISSUE, MASS ; ABDOMINAL WALL, EXCISION: Endometriosis with chronic inflammation Final Reviewed, Diagnosed and Electronically Signed By: POOJA ARCHIBALD MD CLINICAL HISTORY: Deep endometriosis of ovary, unspecified ovary; endometrioma of abdominal wall MICROSCOPIC DESCRIPTION: Tissue blocks are prepared and slides examined microscopically on all specimens. See diagnosis for details. GROSS DESCRIPTION: A. Received in formalin labeled abdominal wall mass is a 5.2 x 3.1 x 2.5 cm red-brown, shaggy, unoriented soft tissue fragment. The external surface is inked blue, and sectioning reveals pierson-white, fibrotic, focally hemorrhagic cut surfaces with no distinct lesions or masses grossly identified. Shoe Cobbler sections are submitted in cassettes A1-A2. [facility] Tissue ABDOMEN / Unknown 05/20/2025 8:28 AM EDT us Heather Rosas DO PATHOLOGY/CYTOLOGY ORDERABLE S Final Result Performing Organization Address City/State/[facility] Co de Phone Number [facility]Y [facility] [address] [place] [address] * (ABNORMAL) Glucose, Nova Meter (05/20/2025 6:29 AM EDT) POC-GLUCOSE 117(H) 70 - 110 mg/dL 05/20/2025 6:30 AM EDT [facility] Comment: In the event of poor peripheral blood flow, venous or arterial blood should be used due to the potential of erroneous results. No action Require Manager Mobility [id number] 05/20/2025 6:30 AM EDT [facility] Blood WHOLE BLOOD / Unknown 05/20/2025 6:29 AM EDT 05/20/2025 6:30 AM EDT Narrative [facility] - 05/20/2025 6:30 AM EDT Manager Mobility ID is - [id number] Heather Rossa DO POINT OF CARE TEST ORDERABLE S Final Result [facility] [address] [id number], [facility] [phone] * POCT , urine (05/20/2025 6:22 AM EDT) POC, URINE HCG Negative Negative INTERNAL QC (VALID/INVALID) Valid Kit Lot Number [id number] Expiration Date 05/20/2025 6:22 AM EDT Angel Fay MD FS_MODEL_IP_POINT OF CARE TEST ENTER/EDIT ORDERABLES Final Result documented in this encounter Visit Diagnoses Diagnosis Endometrioma- Primary Endometriosis, site unspecified Abdominal wall mass Abdominal or pelvic swelling, mass or lump, unspecified site Endometriosis of the anterior abdominal wall, fascia and muscular layers documented in this encounter Admitting Diagnoses Diagnosis Endometrioma Endometriosis, site unspecified Abdominal wall mass Abdominal or pelvic swelling, mass or lump, unspecified site Endometriosis of the anterior abdominal wall, fascia and muscular layers documented in this encounter Administered Medications Inactive Administered Medications - up to 3 most recent administrations Medication Order MAR Action Action Date Dose Rate Site acetaminophen (TYLENOL) tablet 1,000 mg 1,000 mg Every 6 hours interval, oral, First dose on Tue05/20/25 at 1200, 1st line analgesic Given 05/22/2025 6:08 AM EDT 1,000 mg Given 05/22/2025 12:05 AM EDT 1,000 mg Given 05/21/2025 4:24 PM EDT 1,000 mg albuterol 2.5 mg /3 mL (0.083 %) nebulizer solution 2.5 mg 2.5 mg Every 4 hours PRN, nebulization, wheezing, shortness of breath, Starting on Tue05/20/25 at 1804, RESPIRATORY THERAPY TREATMENT , What is the respiratory therapy Modality? Small volume Nebulization famotidine (PEPCID) tablet 20 mg 20 mg Once, oral, On Tue05/20/25 at 0630, For 1 dose, Pharmacist to renally dose if CrCl is less than 50 mL/min or on CRRT., Pre-op Given 05/20/2025 6:29 AM EDT 20 m g fentaNYL PF (SUBLIMAZE) injection 25 mcg 25 mcg Every 5 min PRN, intravenous, moderate to severe pain (4-10), Starting on Tue05/20/25 at 0906, Maximum cumulative dose 100 mcg, PACU Given 05/20/2025 9:50 AM EDT 25 mcg Given 05/20/2025 9:45 AM EDT 25 mcg Given 05/20/2025 9:40 AM EDT 25 mcg HYDROmorphone (DILAUDID) injection 0.5 mg 0.5 mg Every 10 min PRN, intravenous, moderate pain (4-6), severe pain (7-10), 2nd Line agent after max dose Fentanyl given if ordered., Starting on Tue05/20/25 at 0906, For 4 doses, Maximum cumulative dose 2 mg, PACU Given 05/20/2025 10:56 AM EDT 0.5 mg Given 05/20/2025 10:45 AM EDT 0.5 mg Given 05/20/2025 10:17 AM EDT 0.5 mg HYDROmorphone (DILAUDID) injection 0.5 mg 0.5 mg Every 4 hours PRN, intravenous, moderate pain (4-6), severe pain (7-10), Starting on Tue05/20/25 at 1139, 3rd line analgesic. Give only if inadequate response (less than 50% reduction in pain score) 60 minutes after administration of 2nd line agent. May give in addition to 1st + 2nd line analgesics (+ adjuvants if ordered) Given 05/22/2025 6:09 AM EDT 0.5 mg Given 05/22/2025 2:18 AM EDT 0.5 mg Given 05/21/2025 10:44 PM EDT 0.5 mg ketorolac (TORADOL) injection 30 mg 30 mg Every 6 hours PRN, intravenous, moderate pain (4-6), Starting on Tue05/20/25 at 1139, For 6 doses, 1st line analgesic Given 05/22/2025 9:41 AM EDT 30 mg Given 05/21/2025 4:23 PM EDT 30 mg Given 05/21/2025 11:05 AM EDT 30 mg lactated Ringer's infusion 100 mL/hr Continuous, intravenous, Starting on Tue05/20/25 at 0630, Pre-op New Bag 05/20/2025 9:45 AM EDT 100 mL/hr 100 mL/ hr Restarted 05/20/2025 9:12 AM EDT Continued by Anesthesia 05/20/2025 7:29 AM EDT 100 mL/hr lamoTRIgine (LaMICtal) tablet 25 mg 25 mg Every Night, oral, First dose on Tue05/20/25 at 2100 Given 05/21/2025 8:35 PM EDT 25 mg Given 05/20/2025 8:31 PM EDT 25 mg methocarbamoL (ROBAXIN) tablet 500 mg 500 mg 4 times daily PRN, oral, muscle spasms, Starting on Tue05/20/25 at 1656 Given 05/22/2025 9:32 AM EDT 500 mg Given 05/21/2025 8:35 PM EDT 500 mg Given 05/21/2025 11:05 AM EDT 500 mg montelukast (SINGULAIR) tablet 10 mg 10 mg Daily, oral, First dose on Tue05/20/25 at 1200 Given 05/22/2025 9:32 AM EDT 10 mg Given 05/21/2025 8:36 AM EDT 10 mg Given 05/20/2025 11:56 AM EDT 10 mg nicotine (NICODERM CQ) 21 mg/24 hr patch 1 patch 1 patch Daily, transdermal, Administer over 24 Hours, First dose on Tue05/21/25 at 1130 Patch Applied 05/22/2025 9:32 AM EDT 1 patch Left Arm Patch Applied 05/21/2025 11:05 AM EDT 1 patch Chest ondansetron (ZOFRAN) injection 4 mg 4 mg Every 15 min PRN, intravenous, nausea, Starting on Tue05/20/25 at 0906, For 2 doses, 1st line for nausea For IV push, give over 2 - 5 minutes., PACU Given 05/20/2025 9:45 AM EDT 4 mg ondansetron (ZOFRAN) injection 4 mg 4 mg Every 8 hours PRN, intravenous, nausea, vomiting, Starting on Tue05/20/25 at 1139, Give IV if patient is unable to take orally. 1st line If inadequate response within 60 minutes, proceed to next-line agent for same PRN reason or contact provider if no further options ordered. For IV push, give over 2 - 5 minutes. Given 05/21/2025 4:24 PM EDT 4 mg ondansetron (ZOFRAN-ODT) disintegrating tablet 4 mg 4 mg Every 8 hours PRN, oral, nausea, vomiting, Starting on Tue05/20/25 at 1139, 1st line. If inadequate response within 60 minutes, proceed to next-line agent for same PRN reason or contact provider if no further options ordered. oxyCODONE (ROXICODONE) immediate release tablet 5 mg 5 mg Once as needed, oral, moderate pain (4-6), severe pain (7-10), For patients going home if they have not received hydromorphone or morphine., Starting on Tue05/20/25 at 0906, For 1 dose, Look-alike/Sound-alike medication, PACU Given 05/20/2025 10:00 AM EDT 5 mg oxyCODONE (ROXICODONE) immediate release tablet 5 mg 5 mg Every 4 hours PRN, oral, moderate pain (4-6), Starting on Tue05/20/25 at 1139, 2nd line analgesic. Give only if inadequate response (less than 50% reduction in pain score) 60 minutes after administration of 1st line analgesics + adjuvants (if ordered). Look-alike/Sound-alike medication Given 05/21/2025 8:35 PM EDT 5 mg Given 05/21/2025 1:33 PM EDT 5 mg Given 05/21/2025 8:36 AM EDT 5 mg sodium chloride 0.9 % infusion 50 mL/hr Continuous, intravenous, Starting on Tue05/20/25 at 1200 New Bag 05/20/2025 11:59 AM EDT 50 mL/hr 50 mL/hr documented in this encounter Active and Recently Administered Medications Times are shown in EDT. Scheduled Medication Order 05/20/2025 05/21/2025 05/22/2025 acetaminophen (TYLENOL) tablet 1,000 mg(Linked Group 1) 1,000 mg Every 6 hours interval, oral, First dose on Tue05/20/25 at 1200, 1st line analgesic 1156 (Given - Provider: Maddy Favian, RN)1719 (Given - Provider: Maddy Ballesteros RN)2340 (Given - Provider: Vane Monge, KAROL) 0549 (Given - Provider: Vane Monge RN)1426 (Not Given - Provider: Marcio Oreilly - Reason: Duplicate Order)1624 (Given - Provider: Gin Drake)1800 (Due) 0005 (Given - Provider: Vane Monge RN)0608 (Given - Provider: Vane Monge RN)1230 (Not Given - Provider: Muna Arango, KAROL - Reason: Other (with Comment) - Comment: DC) ceFAZolin (ANCEF) 2 g in sodium chloride 0.9 % (NS) MBP 50 mL IVPB (COMPLETED) 2 g Once, intravenous, Administer over 30 Minutes, On Tue05/20/25 at 0630, For 1 dose, Pre-op, Please choose an indication: Surgical Prophylaxis 0755 (New Bag - Provider: Gay Doty CRNA) famotidine (PEPCID) tablet 20 mg (COMPLETED) 20 mg Once, oral, On Tue05/20/25 at 0630, For 1 dose, Pharmacist to renally dose if CrCl is less than 50 mL/min or on CRRT., Pre-op 0629 (Given - Provider: Julia Barrera RN) lamoTRIgine (LaMICtal) tablet 25 mg 25 mg Every Night, oral, First dose on Tue05/20/25 at 2100 2031 (Given - Provider: Vane Monge, KAROL) 2035 (Given - Provider: Vane Monge RN) montelukast (SINGULAIR) tablet 10 mg 10 mg Daily, oral, First dose on Tue05/20/25 at 1200 1156 (Given - Provider: Maddy Ballesteros RN) 0836 (Given - Provider: Gin Drake) 0932 (Given - Provider: Muna Arango, KAROL) nicotine (NICODERM CQ) 21 mg/24 hr patch 1 patch 1 patch Daily, transdermal, Administer over 24 Hours, First dose on Tue05/21/25 at 1130 1105 (Patch Applied - Provider: Marcio Oreilly) 0845 (Patch Removed - Provider: Muna Arango, KAROL)0932 (Patch Applied - Provider: Muna Arango, RN)1247 (Due: Patch Removed - Provider: Automatic Discharge Provider - Comment: Time automatically adjusted from order being discontinued) Continuous Medication Order 05/20/2025 05/21/2025 05/22/2025 lactated Ringer's infusion (CANCELED) 100 mL/hr Continuous, intravenous, Starting on Tue05/20/25 at 0630, Pre-op 0629 (New Bag - Provider: Julia Barrera RN)0729 (Continued by Anesthesia - Provider: Gay Doty CRNA)0911 (Paused - Provider: Gay Doty CRNA - Comment: Switch to gravity)0912 (Restarted - Provider: Gay Doty CRNA)0945 (New Bag - Provider: Lesly Amado RN) sodium chloride 0.9 % infusion 50 mL/hr Continuous, intravenous, Starting on Tue05/20/25 at 1200 1159 (New Bag - Provider: Maddy Ballesteros RN) PRN Medication Order 05/20/2025 05/21/2025 05/22/2025 albuterol 2.5 mg /3 mL (0.083 %) nebulizer solution 2.5 mg 2.5 mg Every 4 hours PRN, nebulization, wheezing, shortness of breath, Starting on Tue05/20/25 at 1804, RESPIRATORY THERAPY TREATMENT , What is the respiratory therapy Modality? Small volume Nebulization fentaNYL PF (SUBLIMAZE) injection 25 mcg (CANCELED) 25 mcg Every 5 min PRN, intravenous, moderate to severe pain (4-10), Starting on Tue05/20/25 at 0906, Maximum cumulative dose 100 mcg, PACU 0935 (Given - Provider: Lesly Amado RN)0940 (Given - Provider: Lesly Amado RN)0945 (Given - Provider: Lesly Amado, RN)0950 (Given - Provider: Lesly Amado RN) HYDROmorphone (DILAUDID) injection 0.5 mg (COMPLETED) 0.5 mg Every 10 min PRN, intravenous, moderate pain (4-6), severe pain (7-10), 2nd Line agent after max dose Fentanyl given if ordered., Starting on Tue05/20/25 at 0906, For 4 doses, Maximum cumulative dose 2 mg, PACU 1000 (Given - Provider: Lesly Amado RN)1017 (Given - Provider: Lesly Amado RN)1045 (Given - Provider: Lesly Amado RN)1056 (Given - Provider: Lesly Amado RN) HYDROmorphone (DILAUDID) injection 0.5 mg 0.5 mg Every 4 hours PRN, intravenous, moderate pain (4-6), severe pain (7-10), Starting on Tue05/20/25 at 1139, 3rd line analgesic. Give only if inadequate response (less than 50% reduction in pain score) 60 minutes after administration of 2nd line agent. May give in addition to 1st + 2nd line analgesics (+ adjuvants if ordered) 1340 (Given - Provider: Maddy Ballesteros RN)2034 (Given - Provider: Vane Monge RN) 0410 (Given - Provider: Vane Monge RN)0922 (Given - Provider: Marcio Oreilly)1405 (Given - Provider: Marcio Oreilly)2244 (Given - Provider: Vane Monge RN) 0218 (Given - Provider: Vane Monge RN)0609 (Given - Provider: Vane Monge RN) ibuprofen (MOTRIN) tablet 800 mg 800 mg Every 6 hours PRN, oral, mild pain (1-3) use first line, Starting on Tue05/20/25 at 1139 ketorolac (TORADOL) injection 30 mg(Linked Group 1) 30 mg Every 6 hours PRN, intravenous, moderate pain (4-6), Starting on Tue05/20/25 at 1139, For 6 doses, 1st line analgesic 2340 (Given - Provider: Vane Monge RN) 1105 (Given - Provider: Marcio Oreilly)1623 (Given - Provider: Gin Drake) 0941 (Given - Provider: Muna Arango, KAROL) methocarbamoL (ROBAXIN) tablet 500 mg 500 mg 4 times daily PRN, oral, muscle spasms, Starting on Tue05/20/25 at 1656 2034 (Given - Provider: Vane Monge RN) 1105 (Given - Provider: Marcio Oreilly)2035 (Given - Provider: Vane Monge RN) 0932 (Given - Provider: Muna Arango, RN) naloxone (NARCAN) injection 0.2 mg 0.2 mg Every 2 min PRN, intravenous, opioid reversal, respiratory depression, Starting on Tue05/20/25 at 1139, Give for respiratory rate less than 10 breaths/min or if patient is difficult to arouse. Max dose = 10 mg. Call provider. naloxone (NARCAN) injection 0.2 mg 0.2 mg Every 2 min PRN, intravenous, opioid reversal, respiratory depression,, Starting on Tue05/20/25 at 1139, Give for respiratory rate less than 10 breaths/min or if patient is difficult to arouse. Max dose = 10mg. Call provider. ondansetron (ZOFRAN) injection 4 mg (CANCELED) 4 mg Every 15 min PRN, intravenous, nausea, Starting on Tue05/20/25 at 0906, For 2 doses, 1st line for nausea For IV push, give over 2 - 5 minutes., PACU 0945 (Given - Provider: Lesly Amado, KAROL) ondansetron (ZOFRAN) injection 4 mg(Linked Group 2) 4 mg Every 8 hours PRN, intravenous, nausea, vomiting, Starting on Tue05/20/25 at 1139, Give IV if patient is unable to take orally. 1st line If inadequate response within 60 minutes, proceed to next-line agent for same PRN reason or contact provider if no further options ordered. For IV push, give over 2 - 5 minutes. 1624 (Given - Provider: Gin Drake) ondansetron (ZOFRAN-ODT) disintegrating tablet 4 mg(Linked Group 2) 4 mg Every 8 hours PRN, oral, nausea, vomiting, Starting on Tue05/20/25 at 1139, 1st line. If inadequate response within 60 minutes, proceed to next-line agent for same PRN reason or contact provider if no further options ordered. 1624 (See Alternative - Provider: Gin Drake) oxyCODONE (ROXICODONE) immediate release tablet 5 mg (COMPLETED) 5 mg Once as needed, oral, moderate pain (4-6), severe pain (7-10), For patients going home if they have not received hydromorphone or morphine., Starting on Tue05/20/25 at 0906, For 1 dose, Look-alike/Sound-alike medication, PACU 1000 (Given - Provider: Lesly Amado RN) oxyCODONE (ROXICODONE) immediate release tablet 5 mg 5 mg Every 4 hours PRN, oral, moderate pain (4-6), Starting on Tue05/20/25 at 1139, 2nd line analgesic. Give only if inadequate response (less than 50% reduction in pain score) 60 minutes after administration of 1st line analgesics + adjuvants (if ordered). Look-alike/Sound-alike medication 1156 (Given - Provider: Maddy Ballesteros RN)1719 (Given - Provider: Maddy Ballesteros RN) 0118 (Given - Provider: Vane Monge, KAROL)0836 (Given - Provider: Gin Drake)1333 (Given - Provider: Marcio Oreilly)2034 (Given - Provider: Vane Monge, KAROL) Linked Groups Order Group 1: acetaminophen (TYLENOL) tablet 1,000 mgJump to med 1,000 mg Every 6 hours interval, oral, First dose on Tue05/20/25 at 1200, 1st line analgesic And ketorolac (TORADOL) injection 30 mgJump to med 30 mg Every 6 hours PRN, intravenous, moderate pain (4-6), Starting on Tue05/20/25 at 1139, For 6 doses, 1st line analgesic Group 2: ondansetron (ZOFRAN-ODT) disintegrating tablet 4 mgJump to med 4 mg Every 8 hours PRN, oral, nausea, vomiting, Starting on Tue05/20/25 at 1139, 1st line. If inadequate response within 60 minutes, proceed to next-line agent for same PRN reason or contact provider if no further options ordered. Or ondansetron (ZOFRAN) injection 4 mgJump to med 4 mg Every 8 hours PRN, intravenous, nausea, vomiting, Starting on Tue05/20/25 at 1139, Give IV if patient is unable to take orally. 1st line If inadequate response within 60 minutes, proceed to next-line agent for same PRN reason or contact provider if no further options ordered. For IV push, give over 2 - 5 minutes. 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
--- OUTSIDE RECORDS SUMMARY | 2025-05-20 07:29 | XMS_ITS | Encounter Summary ---
Author Organization [employer] ([place], [place], [place], [place]) Address [address] [place] [address] Care Team Providers Care Luggage Liner Name Role Phone Janine Wheatley APRN Primary Care Provider [phone] Reason for Visit * Auth/Cert (Routine) Specialty Diagnoses / Procedures Referred By Emely t Referred To Contact Diagnoses Endometrioma Endometrioma of Abdominal Wall Procedures MI EXC TUMOR SOFT TISSUE ABDOMINAL WALL SUBQ 3 CM/> EXCISION, NEOPLASM, ABDOMINAL WALL [facility] [place] [address] Phone: tel: fax: [facility] [address] [place] [address] Phone: tel: fax: Referral ID Status Reason Start Date Expiration Date Visits Re quested Visits Authorized [id number] 1 3 Encounter Details Date Type Department Care Team (Late st Contact Info) Description 05/20/2025 7:29 AM EDT Anesthesia Event [facility] [place] [address] Jadiel Sotomayor MD [address] [place] [address] Anesthesia Record Procedure Summary Procedure Name Responsible Anesthesiologist Anesthesia Start Time Anesthesia Stop Time Excision of Abdominal Wall Mass (Abdomen) Jadiel Sotomayor MD 05/20/25 0729 05/20/25 0935 Events Date Time Event Comment 05/20/2025 0729 An Start Patient identif ied and chart reviewed. 07 An Start Data Anesthesia mac gary and [...] Post-op Plan/Orders 13) Questions and Concerns Addressed 09 An Extubation 0928 an stop data 0933 [...] acknowledgement of understanding. 0935 An Stop Meds Name Total dexamethasone (DECADRON) injection 4 mg/ mL 6 mg fentaNYL (SUBLIMAZE) injection 200 mcg glycopyrrolate (ROBINUL) injection 0.8 m g lidocaine (XYLOCAINE) injection 1% 50 mg neostigmine (PROSTIGMINE) 1 mg/mL inject ion 5 mg ondansetron (ZOFRAN) injection vial 4 mg propofol (DIPRIVAN) injection 10 mg/mL b olus 200 mg rocuronium (ZEMURON) 100 mg/10 mL inject ion 40 mg dexmedetomidine (PRECEDEX) injection 100 mcg/mL 20 mcg ceFAZolin (ANCEF) 2 g in sodium chloride 0.9 % (NS) MBP 50 mL IVPB 2 g Lidocaine (BDXEVC-M-CWZ KIT) laryngotrac heal topical soln 4% 1 Application magnesium sulfate injection 2 g lactated Ringer's infusion 800 mL * Agents Name O2 N2O Air SEVOFLURANE * Blood No blood administrations on file. Lines, Drains, and Airways Type Details Placement Removal Wound 05/20/25; 09; Inci connor; Abdomen; Not applicable 05/20/25 09 by Ana Luisa Koo RN Peripheral IV Placement Date: 04/24 06/17; Placement Time: 624; Size: 20 G; Orientation: Anterior, Right; Location: Forearm; Site Prep: Chlorhexidine ; Inserted by: gay barron rn; Insertion attempts: 1; Securement Method: Taped; Removal Date: 05/22/25; Removal Time: 95205/20/25 06 by Julia Barrera RN 05/22/25 09 by Muna Arango RN ETT Placement Date 05/20; Placement Time 738 (created via procedure documentation); Airway Size 7.5; Airway Cuffed Yes; Removal Date 05/20/25; Removal Time 0905/20/25 0739 by Gay Doty CRNA 05/20/25 09 [...] on file documented as of this encounter OR Notes * Anesthesia Postprocedure Evaluation - Gay Doty CRNA - 05/20/2025 9:34 AM EDT Patient: Shawnee Nagy Procedure Summary Date: 05/20/25 Room / Location: [facility] Anesthesia Start: 728 Anesthesia Stop: Procedure: Excision of Abdominal Wall Mass (Abdomen) Diagnosis: 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 Anesthesia Post Evaluation Patient location during evaluation: PACU Patient participation: complete - patient participated Level of consciousness: sleepy but conscious Pain score: 2 Pain management: adequate Multimodal analgesia pain management approach Airway patency: patent Two or more strategies used to mitigate risk of obstructive sleep apnea Cardiovascular status: stable Respiratory status: face mask Hydration status: stable Color: [place] Activity: Moves 4 extremities Inotropes/Vasopressors: N/A No notable events documented. Gay Doty CRNA 05/20/2025 9:34 AM EDT * Anesthesia Procedure Notes - Gay Doty CRNA - 05/20/2025 7:52 AM EDTAssociated Order(s): Intubation Intubation Authorized by: Jadiel Sotomayor MD Performed by: Gay Doty CRNA Date/Time: 05/20/2025 7:39 AM Urgency: elective Indications and Patient Condition Indications for airway management: anesthesia and airway protection Spontaneous Ventilation: absent Sedation level: general anesthesia Preoxygenated: yes Mask difficulty assessment: 1 - vent by mask Planned trial extubation: yes Final Airway Details Final airway type: endotracheal airway Endotracheal tube type: ETT Cuffed: yes Successful intubation technique: direct laryngoscopy Facilitating devices/methods: intubating stylet Endotracheal tube insertion site: oral Blade: Chano Blade size: #3 ETT size (mm): 7.5 Cormack-Lehane Classification: grade I - full view of glottis Placement verified by: chest auscultation and capnometry Measured from: lips ETT to lips (cm): 20 Number of attempts at approach: 1 Number of other approaches attempted: 0 Additional Comments Atraumatic intubation keeping c-spine neutral. Dentition same as preop baseline. * Anesthesia Preprocedure Evaluation - Jadiel Sotomayor MD - 05/13/2025 2:22 PM EDT ANESTHESIA PREOPERATIVE EVALUATION Patient: Shawnee Nagy Date/Time: 05/20/25 0730 Procedure: (Excision of Abdominal Wall Mass, Possible Mesh) (Abdomen) Location: [facility] OR [facility] Surgeons: Heather Rosas, DO Vitals: 05/13/25 0959 BP: 123/79 Pulse: 75 Resp: 18 Temp: 97.7 ??F (36.5 ??C) SpO2: 100% Weight: 105.7 kg (233 lb) Height: 1.638 m (5' 4.5 ) Body mass index is 39.38 kg/m??. No Known Allergies Current Outpatient Medications Medication Instructions albuterol 90 mcg/actuation inhaler 1 puff, Every 4 hours PRN ibuprofen (MOTRIN) 800 mg, Every 6 hours PRN lamoTRIgine (LAMICTAL) 25 mg, Every Night montelukast (SINGULAIR) 10 mg, Daily Relevant Problems RESPIRATORY SYSTEM (+) Smoker Other (+) Mass of anterior abdominal wall (+) Obesity (BMI 30-39.9) Problem List as of 05/13/2025 Other Abdominal mass Tumor Mass of anterior abdominal wall Endometrioma Past Surgical History: Procedure Laterality Date SECTION x 3 FOOT SURGERY Bilateral GALLBLADDER SURGERY HYSTERECTOMY partial Social History Tobacco Use Smoking status: Every Day Current packs/day: 0.50 Types: Cigarettes Smokeless tobacco: Never Substance Use Topics Alcohol use: Not Currently Drug use: Never Chemistry Component Value Date/Time NA 140 04/08/2025 1528 K 4.6 04/08/2025 1528 CL 106 04/08/2025 1528 CO2 23 04/08/2025 1528 BUN 12.2 04/08/2025 1528 CREATININE 0.80 04/08/2025 1528 Component Value Date/Time CALCIUM 9.4 04/08/2025 1528 ALKPHOS 101 04/08/2025 1528 AST 23 04/08/2025 1528 ALT 24 04/08/2025 1528 BILITOT 0.4 04/08/2025 1528 Lab Results Component Value Date WBC 15.7 (H) 05/13/2025 HGB 13.5 05/13/2025 HCT 40.6 05/13/2025 MCV 89 05/13/2025 PLT 365 05/13/2025 No data recorded Physical Exam Airway Mallampati: II TM distance: >3 FB Neck ROM: full Cardiovascular - normal exam Dental Pulmonary - normal exam Abdominal - normal exam Anesthesia Plan ASA 2 general intravenous induction Anesthetic plan and risks discussed with patient. Plan discussed with CLAMP CARRIER OPERATOR. documented in this encounter Plan of Treatment Upcoming Encounters Date Type Department Care Team (Late st Contact Info) Description 06/04/2025 10:40 AM EDT Office Visit [facility] [address] [place] [address] [address] Heather Rosas DO [address] [facility] [address] [id number] documented as of this encounter Procedures Procedure Name Priority Date/Time Associated Diagnosis Comments ANESTHESIA INTUBATION Routine 05/20/2025 7:39 AM EDT documented in this encounter Results * AN SINGLE LUMEN INTUBATION (05/20/2025 7:39 AM EDT) Gay Mayo CRNA - 05/20/2025 7:39 AM EDT Gay Doty CRNA 05/20/2025 7:53 AM Intubation Authorized by: Jadiel Sotomayor MD Performed by: Gay Doty CRNA Date/Time: 05/20/2025 7:39 AM Urgency: elective Indications and Patient Condition Indications for airway management: anesthesia and airway protection Spontaneous Ventilation: absent Sedation level: general anesthesia Preoxygenated: yes Mask difficulty assessment: 1 - vent by mask Planned trial extubation: yes Final Airway Details Final airway type: endotracheal airway Endotracheal tube type: ETT Cuffed: yes Successful intubation technique: direct laryngoscopy Facilitating devices/methods: intubating stylet Endotracheal tube insertion site: oral Blade: Chano Blade size: #3 ETT size (mm): 7.5 Cormack-Lehane Classification: grade I - full view of glottis Placement verified by: chest auscultation and capnometry Measured from: lips ETT to lips (cm): 20 Number of attempts at approach: 1 Number of other approaches attempted: 0 Additional Comments Atraumatic intubation keeping c-spine neutral. Dentition same as preop baseline. us Jadiel Sotomayor MD ANESTHESIA ORDERABLES Final Resu lt documented in this encounter Visit Diagnoses Not on filedocumented in this encounter Administered Medications Inactive Administered Medications - up to 3 most recent administrations Medication Order MAR Action Action Date Dose Rate Site ceFAZolin (ANCEF) 2 g in sodium chloride 0.9 % (NS) MBP 50 mL IVPB 2 g Once, intravenous, Administer over 30 Minutes, On Tue05/20/25 at 0630, For 1 dose, Pre-op, Please choose an indication: Surgical Prophylaxis New Bag 05/20/2025 7:55 AM EDT 2 g dexAMETHasone (DECADRON) injection As needed, intravenous, Starting on Tue05/20/25 at 0743, Anesthesia Intra-op Given 05/20/2025 7:43 AM EDT 6 mg dexmedeTOMIDine (PRECEDEX) injection As needed, intravenous, Starting on Tue05/20/25 at 0747, Anesthesia Intra-op Given 05/20/2025 9:02 AM EDT 4 mcg Given 05/20/2025 8:36 AM EDT 4 mcg Given 05/20/2025 8:22 AM EDT 4 mcg fentaNYL PF (SUBLIMAZE) injection As needed, intravenous, Starting on Tue05/20/25 at 0738, Anesthesia Intra-op Given 05/20/2025 9:26 AM EDT 50 mcg Given 05/20/2025 9:10 AM EDT 50 mcg Given 05/20/2025 8:15 AM EDT 50 mcg glycopyrrolate (ROBINUL) injection As needed, intravenous, Starting on Tue05/20/25 at 0908, Anesthesia Intra-op Given 05/20/2025 9:08 AM EDT 0.8 mg lactated Ringer's infusion 100 mL/hr Continuous, intravenous, Starting on Tue05/20/25 at 0630, Pre-op New Bag 05/20/2025 9:45 AM EDT 100 mL/hr 100 mL/ hr Restarted 05/20/2025 9:12 AM EDT Continued by Anesthesia 05/20/2025 7:29 AM EDT 100 mL/hr lidocaine (LTA) 4 % solution As needed, laryngotracheal, Starting on Tue05/20/25 at 0738, Anesthesia Intra-op Given 05/20/2025 7:38 AM EDT 1 Application lidocaine (XYLOCAINE) injection 1% As needed, intravenous, Starting on Tue05/20/25 at 0738, Anesthesia Intra-op Given 05/20/2025 7:38 AM EDT 50 mg magnesium sulfate 500 mg/mL (50 %) injection As needed, intravenous, Starting on Tue05/20/25 at 0809, Anesthesia Intra-op Given 05/20/2025 8:09 AM EDT 2 g neostigmine methylsulfate (PROSTIGMINE) injection As needed, intravenous, Starting on Tue05/20/25 at 0908, Anesthesia Intra-op Given 05/20/2025 9:08 AM EDT 5 mg ondansetron (ZOFRAN) injection As needed, intravenous, Starting on Tue05/20/25 at 0841, Anesthesia Intra-op Given 05/20/2025 8:41 AM EDT 4 mg propofol (DIPRIVAN) injection 10 mg/mL bolus As needed, intravenous, Starting on Tue05/20/25 at 0738, Anesthesia Intra-op Given 05/20/2025 7:38 AM EDT 200 mg rocuronium (ZEMURON) injection As needed, intravenous, Starting on Tue05/20/25 at 0738, Anesthesia Intra-op Given 05/20/2025 7:38 AM EDT 40 mg documented in this encounter Care Teams Luggage Liner Relationship Specialty Start Date End Date Janine Wheatley APRN [address] [id number] PCP - General Emergency Medicine 04/11/25 documented as of this encounter
--- OUTSIDE RECORDS SUMMARY | 2025-05-20 07:30 | XMS_ITS | Encounter Summary ---
Author Organization [employer] ([place], [place], [place], [place]) Address [address] [place] [address] Care Team Providers Care Pancake Professional Name Role Phone Janine Wheatley APRN Primary Care Provider [phone] Reason for Visit * Auth/Cert (Routine) Specialty Diagnoses / Procedures Referred By Emely t Referred To Contact Diagnoses Endometrioma Endometrioma of Abdominal Wall Procedures [place] EXC TUMOR SOFT TISSUE ABDOMINAL WALL SUBQ 3 CM/> EXCISION, NEOPLASM, ABDOMINAL WALL [facility] 1 [place] [address] Phone: tel: fax: [facility] [place] [address] Phone: tel: fax: Referral ID Status Reason Start Date Expiration Date Visits Re quested Visits Authorized [id number] 1 3 Encounter Details Date Type Department Care Team (Late st Contact Info) Description 05/20/2025 7:30 AM EDT - 05/20/2025 8:56 AM EDT Surgery [facility] [address] [place] [address] Heather Rosas DO [address] [facility] [address] [place] [address] Excision of Abdominal Wall Mass Social History Tobacco Use Types Packs/Day Years [...] Sign Reading Time Taken Comments Blood Pressure 127/59 05/20/2025 6:19 AM EDT Pulse 84 05/20/2025 6:19 AM EDT Temperature 36.2 C (97.1 F) 05/20/2025 6:19 AM EDT Respiratory Rate 13 05/20/2025 6:19 AM EDT Oxygen Saturation 97% 05/20/2025 6:19 AM EDT Inhaled Oxygen Concentration - - Weight 105.5 kg (232 lb 9.4 oz) 05/20/2025 6:19 AM EDT Height 163.8 cm (5' 4.49 ) 05/20/2025 6:19 AM ED T Body Mass Index 39.32 05/20/2025 6:19 AM EDT documented in this encounter Discharge Summaries * Lyle Howell PA-C - 05/21/2025 10:08 AM EDT Patient ID: Shawnee Nagy [id number] y.o. 1990 Admit date: 05/20/2025 Discharge [...] as needed for shortness of breath. folic acid/multivit,iron,disability examiner (ONE DAILY FOR WOMEN ORAL) Take [...] excision discharge instructions: Thank you for choosing [facility] for your surgery. We will receive your [...] questions or concerns, please contact her office [phone]. Her office address is: [facility] [address] [address] If you need FMLA paperwork filled out, [...] daily for 10 days. 10 capsule 05/20/2025 5 folic acid/multivit,iron,m iner (ONE DAILY FOR WOMEN [...] With Patient Routine Visit Introduction Referral From Mobile Ui Developer Consult Patient care Zoroastrianism Encounters Zoroastrianism Needs Prayer Comments: Visit completed by Spiritual Print Graphic Designer Chaplain Marsha 05/22/2025 12:03 PM * Delores [...] has chronic elevated WBC since at least 2016. Other blood counts were unremarkable per their [...] 1 puff, Every 4 hours PRN folic acid/multivit,iron,disability examiner (ONE DAILY FOR WOMEN ORAL) 1 [...] 117 (H) 70 - 110 mg/dL Final Watershed Program Manager 05/20/[id number] ABDOMEN/PELVIS WITH IV CONTRAST Standard [...] Dr. Gerald Beebe MD with hematology in [facility] for this. States it fluctuates up and down often. -WBC better today at 15.7. Possible seizure History of CVA at age 19 - Last possible seizure was 3 to 4 months ago. Prior to that had been about 4 months. She has appointment in June with neurology for evaluation. -Patient is on Lamictal for mood disorder. She follows with Traci Burton NP at [facility] in [place] -D/w Dr. Ahn Proceed with surgery as [...] wall mass(5.1 cm x 2.5 cm) [cpt: 04357] Surgeons and Role: * Heather Rosas DO - Primary Anesthesia/Sedation: General Specimens: ID Type Source Tests Collected by Time Destination 1 : ABDOMINAL WALL MASS Tissue Abdomen TISSUE EXAM [facility] Heather Rosas DO 05/20/2025 0828 Estimated Blood [...] ABDOMINAL WALL MASS Tissue Abdomen TISSUE EXAM [facility] Heather Rosas DO 05/20/2025 0828 Estimated Blood [...] Description 06/04/2025 10:40 AM EDT Office Visit [facility] [address] [facility] [address] [address] Heather Rosas DO [address] [facility] [address] [address] documented as of this encounter Procedures Procedure Name Priority Date/Time Associated Diagnosis Comments CBC HEMOGRAM (SJ-BKR) Routine 05/21/2025 7:18 AM EDT BASIC METABOLIC PANEL Routine 05/21/2025 7:18 AM EDT TISSUE EXAM ([place]) AP Routine 05/20/2025 8:28 AM EDT Endometrioma [place] EXC TUMOR SOFT TISSUE ABDOMINAL WALL SUBQ [...] - 145 meq/L 05/21/2025 7:58 AM EDT [facility] Potassium 4.4 3.4 - 5.1 meq/L 05/21/2025 7:58 AM EDT [facility] CO2 21(L) 22 - 29 meq/L 05/21/2025 7:58 AM EDT [facility] Chloride 106 98 - 112 meq/L 05/21/2025 7:58 AM EDT [facility] Glucose 125(H) 74 - 100 mg/dL 05/21/2025 7:58 AM EDT [facility] BUN 10.8 7.0 - 18.7 mg/dL 05/21/2025 7:58 AM EDT [facility] Creatinine 0.74 0.57 - 1.11 mg/dL 05/21/2025 7:58 AM EDT [facility] BUN/Creatinine 15 8 - 20 05/21/2025 7:58 AM EDT [facility] Calcium 8.6 8.4 - 10.2 mg/dL 05/21/2025 7:58 AM EDT [facility] Anion Gap 15(H) 4 - 12 05/21/2025 7:58 AM EDT [facility] eGFR (mL/min/1.73m2) 108 >=60 mL/min/1.7 3m2 05/21/2025 7:58 AM EDT [facility] Osmolality Calc 276.5 mOsm/kg 7:58 AM EDT [facility] Blood Venipuncture / Unknown 05/21/2025 7:18 AM EDT 05/21/2025 7:34 AM EDT us Lyle Howell PA-C LAB BLOOD ORDERABLES Final Result [facility] [address] [id number] [phone] * (ABNORMAL) CBC - Hemogram (SJ-BKR) (05/21/2025 7:18 AM EDT) WBC 25.8(H) 4.0 - 10.0 K/ L 05/21/2025 7:44 AM EDT [facility] RBC 4.25 3.93 - 5.22 M/ L 05/21/2025 7:44 AM EDT [facility] Hemoglobin 12.2 11.2 - 15.7 GM/DL 05/21/2025 7:44 AM EDT [facility] Hematocrit 38.3 34.1 - 44.9 % 05/21/2025 7:44 AM EDT [facility] MCV 90 79 - 95 fL 05/21/2025 7:44 AM EDT [facility] MCH 28.7 25.6 - 32.2 pg 05/21/2025 7:44 AM EDT [facility] MCHC 31.9(L) 32.2 - 35.5 GM/DL 05/21/2025 7:44 AM EDT [facility] RDW 13.1 11.7 - 14.4 % 05/21/2025 7:44 AM EDT [facility] Platelets 402(H) 140 - 375 K/CU MM 05/21/2025 7:44 AM EDT [facility] MPV 10.1 9.4 - 12.3 fL 05/21/2025 7:44 AM EDT [facility] Blood Venipuncture / Unknown 05/21/2025 7:18 AM EDT 05/21/2025 7:33 AM EDT Lyle Howell PA-C LAB BLOOD ORDERABLES Final Result Performing Organization Address City/State/[facility] Co de Phone Number [facility] [address] [phone] * Tissue Exam (05/20/2025 8:28 AM EDT) AP RESULT See Note: PATHOLOGY [...] no distinct lesions or masses grossly identified. Insurance Sales Assistant sections are submitted in cassettes A1-A2. [facility] Tissue ABDOMEN / Unknown 05/20/2025 8:28 AM EDT us Heather Rosas DO PATHOLOGY/CYTOLOGY ORDERABLE S Final Result Performing Organization Address City/State/[facility] Co de Phone Number [facility] [address] [place] [address] * (ABNORMAL) Glucose, Nova Meter (05/20/2025 6:29 AM EDT) POC-GLUCOSE 117(H) 70 - 110 mg/dL 05/20/2025 6:30 AM EDT [facility] Comment: In the event of poor peripheral blood flow, venous or arterial blood should be used due to the potential of erroneous results. No action Require Watershed Program Manager [phone] 05/20/2025 6:30 AM EDT [facility] Blood WHOLE BLOOD / Unknown 05/20/2025 6:29 AM EDT 05/20/2025 6:30 AM EDT Narrative [facility] - 05/20/2025 6:30 AM EDT Watershed Program Manager ID is - [id number] Heather Rosas DO POINT OF CARE TEST ORDERABLE S Final Result [facility] [address] [place], [place] [address] [phone] * POCT , urine (05/20/2025 6:22 AM EDT) POC, URINE HCG Negative Negative INTERNAL QC (VALID/INVALID) Valid Kit Lot Number [id number] Expiration Date 05/20/2025 6:22 AM EDT Angel Fay MD FS_MODEL_IP_POINT OF CARE TEST ENTER/EDIT ORDERABLES Final Result documented in this encounter Visit Diagnoses Diagnosis Endometrioma- Primary Endometriosis, site unspecified Abdominal wall mass Abdominal or pelvic swelling, mass or lump, unspecified site documented in this encounter Admitting Diagnoses Diagnosis [...] line analgesic 1156 (Given - Provider: Maddy Ballesteros RN)1719 (Given - Provider: Maddy Ballesteros RN)2340 (Given - Provider: Vane Monge RN) 0549 (Given - Provider: Vane Monge RN)1426 (Not Given - Provider: Marcio Oreilly - Reason: Duplicate Order)1624 (Given - Provider: Gin Drake)1800 (Due) 0005 (Given - Provider: Vane Monge RN)0608 (Given - Provider: Vane Monge RN)1230 (Not Given - Provider: Muna Arango, RN - Reason: Other (with Comment) - Comment: [...] Monge, KAROL) 2035 (Given - Provider: Vane Monge, KAROL) montelukast (SINGULAIR) tablet 10 mg 10 mg Daily, oral, First dose on Tue05/20/25 at 1200 1156 (Given - Provider: Maddy Ballesteros RN) 0836 (Given - Provider: Gin Drake) 0932 (Given - Provider: Muna Arango, RN) nicotine (NICODERM CQ) 21 mg/24 hr patch 1 patch 1 patch Daily, transdermal, Administer over 24 Hours, First dose on Tue05/21/25 at 1130 1105 (Patch Applied - Provider: Marcio Oreilly) 0845 (Patch Removed - Provider: Muna Arango, RN)0932 (Patch Applied - Provider: Muna Arango, RN)1247 [...] Lesly Amado, RN)0950 (Given - Provider: Lesly Amado, RN) HYDROmorphone (DILAUDID) injection 0.5 mg (COMPLETED) 0.5 mg Every 10 min PRN, intravenous, moderate pain (4-6), severe pain (7-10), 2nd Line agent after max dose Fentanyl given if ordered., Starting on Tue05/20/25 at 0906, For 4 doses, Maximum cumulative dose 2 mg, PACU 1000 (Given - Provider: Lesly Amado RN)1017 (Given - Provider: Lesly Amado, RN)1045 (Given - Provider: Lesly Amado RN)1056 [...] minutes., PACU 0945 (Given - Provider: Lesly Amado RN) ondansetron (ZOFRAN) injection 4 mg(Linked Group 2) [...] Provider: Gin Drake)1333 (Given - Provider: Marcio Oreilly)2035 (Given - Provider: Vane Monge, KAROL) Linked [...] minutes. documented in this encounter Care Teams Pancake Professional Relationship Specialty Start Date End Date Janine Wheatley, FURNACE CHARGER [address] [place] [address] PCP - General Emergency Medicine 04/11/25 documented as of this encounter
[2025-05-27] VITALS (18 sets, daily range): BP systolic 101–131; BP diastolic 66–84; PULSE 71–89; RESP 14; TEMP 36.8; O2SAT 95–99; BMI 39.4
--- OUTSIDE RECORDS SUMMARY | 2025-05-27 20:19 | XMS_ITS | Encounter Summary ---
Author Organization [employer] ([place], [place], [place], [place]) Address [address] [place] [address] Care Team Providers Care Firer Glost Kiln Name Role Phone Janine Wheatley APRN Primary Care Provider Encounter Details Date Type Department Care Team (Latest Contact Info) Description 05/20/2025 Travel Social History Tobacco Use Types Packs/Day [...] Description 06/04/2025 10:40 AM EDT Office Visit [facility] [address] [facility] [address] [address] Heather Rosas DO [address] [facility] [address] [place] [address] documented as of this encounter Visit Diagnoses Not on filedocumented in this encounter Care Teams Firer Glost Kiln Relationship Specialty Start Date End Date Janine Wheatley APRN [address] [place] [address] PCP - General Emergency Medicine 04/11/25 documented as of this encounter
--- OUTSIDE RECORDS SUMMARY | 2025-05-27 20:19 | XMS_ITS | Encounter Summary ---
Author Organization [employer] ([place], [place], [place], [place]) Address [address] [place] [address] Care Team Providers Care Yam Curer Name Role Phone Janine Wheatley APRN Primary Care Provider [phone] Encounter Details Date Type Department Care Team (Latest Contact Info) Description 05/13/2025 Travel Social History Tobacco Use Types Packs/Day [...] Description 06/04/2025 10:40 AM EDT Office Visit [facility] [address] [facility] [address] [address] Heather Rosas DO [address] [facility] [address] [place] [address] documented as of this encounter Visit Diagnoses Not on filedocumented in this encounter Care Teams Yam Curer Relationship Specialty Start Date End Date Janine Wheatley APRN [address] [place] [address] PCP - General Emergency Medicine 04/11/25 documented as of this encounter
--- OUTSIDE RECORDS SUMMARY | 2025-05-27 20:19 | XMS_ITS | Encounter Summary ---
Author Organization [employer] ([place], [place], [place], [place]) Address [address] [place] [address] Care Team Providers Care Grain Shoveler Name Role Phone Rosachinedu Janine APRN Primary Care Provider Encounter Details Date Type Department Care Team (Late st Contact Info) Description 05/15/2025 Orders Only [facility] [address] [place] [address] Provider, MD Gume [address] [place] [address] Social History Tobacco Use Types Packs/Day Years [...] Description 06/04/2025 10:40 AM EDT Office Visit [facility] [address] [place] [address] [address] Heather Rosas DO [address] [place] [address] [address] [address] documented as of this encounter Procedures Procedure Name Priority Date/Time Associated Diagnosis Comments EXTERNAL LAB - MISC Routine 04/17/2025 10:12 AM EDT documented in this encounter Results * EXTERNAL LAB - MISC (04/17/2025 10:12 AM EDT) us Historical Provider LAB BLOOD ORDERABLES Liat l Result documented in this encounter Visit Diagnoses Not on filedocumented in this encounter Care Teams Grain Shoveler Relationship Specialty Start Date End Date Janine Wheatley, BENJY [address] [place] [address] PCP - General Emergency Medicine 04/11/25 documented as of this encounter
--- OUTSIDE RECORDS SUMMARY | 2025-05-27 20:20 | XMS_ITS | Clinical Summary ---
Author Organization [facility] Address [address] [place] [address] Care Team Providers Care Director Digital Advertising Name Role Phone Mathew Cisneros MD Primary Care Provider [phone] Allergies No known active allergies Medications ibuprofen 800 MG tablet 02/01/2017 Active Active Problems Problem Noted Date Diagnosed Date Crushing injury of finger, left 06/08/2023 Family History Medical History Relation Name Comments COPD Father COPD Mother COPD Paternal Grandmother Relation Name Status Comments Father Mother Paternal Grandmother Social History Tobacco Use Types Packs/Day Years Used Date Smoking Tobacco: Every Day Cigarettes Smokeless Tobacco: Never Alcohol Use Standard Drinks/Week Comments No 0 (1 standard drink = 0.6 oz pur e alcohol) PHQ-2 Answer Date Recorded Patient Health Questionnaire-2 Score 0 06/08/2023 PHQ-2A Answer Date Recorded Patient Health Questionnaire-2 Score 0 06/08/2023 Comments Unknown Sex and Gender Information Value Date Recorded Sex Assigned at Not on file Legal Sex Female 8:48 PM EDT Gender Identity Not on file Sexual Orientation Not on file Last Filed Vital Signs Vital Sign Reading Time Taken Comments Blood Pressure 106/73 06/08/2023 1:09 PM EDT Pulse 80 06/08/2023 1:09 PM EDT Temperature - - Respiratory Rate - - Oxygen Saturation 97% 06/08/2023 1:09 PM EDT Inhaled Oxygen Concentration - - Weight 86.6 kg (191 lb) 06/08/2023 1:09 PM EDT Height 162.6 cm (5' 4 ) 06/08/2023 1:09 PM EDT Body Mass Index 32.79 06/08/2023 1:09 PM EDT Plan of Treatment Health Maintenance Due Date Last Done Comments [facility]-/Child/Adol SDOH Screenings 1989 [facility]-Varicella Vaccines (1 of 2 - 13+ 2-dose series) 2002 HPV Vaccines (1 - 3-dose series) 2004 [facility]- SDOH Screenings 2007 [facility]-Adult SDOH Screenings 2007 [facility]-Hepatitis B Vaccines (1 of 3 - 19+ 3-dose series) 2008 [facility]-Pap Smear 2010 [facility]-Cervical Cancer Screening 2019 [facility]-HPV/Cotest 2019 [facility]-Depression Screening 06/08/2024 06/08/2023 [id number]-18 Vaccine (3 - 2023- season) 2024 06/19/2021, 05/14/2021 [facility]-DTaP,Tdap,and Td Vaccine s (2 - Td or Tdap) 05/09/2025 05/09/2015 [facility]-Influenza Vaccine (#1) 2025 10/04/2014 [facility]-Zoster Vaccines (1 of 2) 2039 [facility]-HIV Screening Completed 11/03/2020 [facility]-Hepatitis C Screening Completed 11/03/2020 [facility]-Obesity Intervention Completed 06/08/2023 [facility]-HIB Vaccines Aged Out No longer e ligible based on patient's age to complete this topic [facility]-Hepatitis A Vaccines Aged Out No longer eligible based on patient's age to complete this topic [facility]-IPV Vaccines Aged Out No longer e ligible based on patient's age to complete this topic [facility]-Pneumococcal Vaccine: Pediatrics (0 to 5 Years) and At-Risk Patients (6 to 49 Years) Aged Out No longer eligible b ased on patient's age to complete this topic [facility]-Rotavirus Vaccines Aged Out No lo nger eligible based on patient's age to complete this topic Procedures Procedure Name Priority Date/Time Associated Diagnosis Comments HEPATITIS C ANTIBODY - ED W/REFLEX TO HCV QUANT PCR Routine 11/03/2020 12:59 AM EST HIV 1/2 ANTIBODY/ANTIGEN SCREEN WITH REFLEX TO HIV I/II DIFFERENTIATION Routine 11/03/2020 12:59 AM EST from Last 3 Months or Most Recently Relevant to Health Maintenance Results * HIV 1 & 2 Antibody/Antigen Screen (11/03/2020 12:59 AM EST) HIV 1 Result NONREACTIVE Screening for HIV 1 and 2 antibodies is NONREACTIVE. No confirmatory testing is required. SUNQUEST 11/03/2020 12:5 9 AM EST 11/03/2020 1:15 AM EST Jadiel Kimble LAB BLOOD ORDERABLES Final Resul t SUNQUEST * Herman Hepatitis C Antibody (11/03/2020 12:59 AM EST) Pathologist [facility] Herman Hepatitis C Ab NEGATIVE Reference Range: Negative SUNQUEST 11/03/2020 12:5 9 AM EST 11/03/2020 1:15 AM EST Ernestina Jackson MD LAB BLOOD ORDERABLES Final R esult Performing Organization Address City/[facility]/ZIP Co de Phone Number SUNQUEST from Last 3 Months or Most Recently Relevant to Health Maintenance Insurance [employer] [address] [facility] Care Teams Director Digital Advertising Relationship Specialty Start Date End Date Mathew Cisneros MD [address] [place] [address] PCP - General 03/06/21
--- OUTSIDE RECORDS SUMMARY | 2025-05-27 20:21 | XMS_ITS | Encounter Summary ---
Author Organization [employer] ([place], [place], [place], [place]) Address [address] [place] [address] Care Team Providers Care Federal Aid Coordinator Name Role Phone Janine Wheatley APRN Primary Care Provider Reason for Visit * Reason Onset Date Comments Procedure 05/03/2025 Encounter Details Date Type Department Care Team (Late st Contact Info) Description 05/03/2025 Telephone [facility] [address] [place] [address] [address] Heather Rosas DO [address] [facility] [address] [place] [address] Procedure Social History Tobacco Use Types Packs/Day Years [...] on file documented as of this encounter Miscellaneous Notes * Telephone Encounter - Xochilt Gallardo - 05/03/2025 12:08 PM EDT Pt called wanting to check status of scheduling surgery, her PCP called us and said they would clear her and will fax a letter, I told patient she is TENTATIVELY scheduled for surgery on 05/20/25 with an arrival at [facility] of 530 am and pre admission testing is scheduled for 05/13/25 @ [facility] at 930 am. Jose Guadalupekarina again told patient that the dates are tentative upon receiving clearance letter from PCP. Patient understood and agreed. I verbalized surgery instructions and emailed them to patient. documented in this encounter Plan of Treatment Upcoming Encounters Date Type Department Care Team (Late st Contact Info) Description 06/04/2025 10:40 AM EDT Office Visit [facility] [address] [facility] [address] [address] Heather Rosas DO [address] [facility] [address] [address] documented as of this encounter Visit Diagnoses Not on filedocumented in this encounter Care Teams Federal Aid Coordinator Relationship Specialty Start Date End Date Janine Wheatley APRN [address] [place] [id number] PCP - General Emergency Medicine 04/11/25 documented as of this encounter
--- OUTSIDE RECORDS SUMMARY | 2025-05-27 20:21 | XMS_ITS | Encounter Summary ---
Author Organization [employer] ([place], [place], [place], [place]) Address [address] [place] [address] Care Team Providers Care Material Movers Name Role Phone Janine Wheatley APRN Primary Care Provider [phone] Encounter Details Date Type Department Care Team [...] Office Visit [facility] [address] [place] [address] [address] Heather Rosas DO [address] [facility] [address] [place] [address] documented as of this encounter Visit Diagnoses Not on filedocumented in this encounter Care Teams Material Movers Relationship Specialty Start Date End Date Janine Wheatley APRN [address] [place] [address] PCP - General Emergency Medicine 04/11/25 documented as of this encounter
--- OUTSIDE RECORDS SUMMARY | 2025-05-27 20:21 | XMS_ITS | Encounter Summary ---
Author Organization [employer] ([place], [place], [place], [place]) Address [address] [place] [address] Care Team Providers Care Operating Room Orderly Name Role Phone Janine Wheatley APRN Primary Care Provider [phone] Encounter Details Date Type Department Care Team (Late st Contact Info) Description 04/11/[address] [facility] [address] [place] [address] [address] Heather Rosas DO [address] [place] [address] [address] [address] Social History Tobacco Use Types Packs/Day Years [...] Description 06/04/2025 10:40 AM EDT Office Visit [facility] [address] [place] [address] [address] Heather Rosas DO [address] [place] [address] [address] [place] [address] documented as of this encounter Visit Diagnoses Not on filedocumented in this encounter Care Teams Operating Room Orderly Relationship Specialty Start Date End Date Janine Wheatley APRN [address] [place] [address] PCP - General Emergency Medicine 04/11/25 documented as of this encounter
--- OUTSIDE RECORDS SUMMARY | 2025-05-27 20:21 | XMS_ITS | Encounter Summary ---
Author Organization [employer] ([place], [place], [place], [place]) Address [address] [place] [address] Care Team Providers Care Retail Experience Specialist Name Role Phone Unavailable Primary Care Provider Unavailabl e Encounter Details Date Type Department Care Team (Late st Contact Info) Description 04/04/2025 Orders Only [facility] [address] [address] Heather Rosas DO [address] [place] [address] [address] [id number] Abdominal mass, unspecified abdominal location (Primary Dx) [...] Description 06/04/2025 10:40 AM EDT Office Visit [facility] [address] [address] Heather Rosas DO [address] [place] [address] [address] documented as of this encounter Visit Diagnoses Diagnosis Abdominal mass, unspecified abdominal location- Primary documented in this encounter
--- OUTSIDE RECORDS SUMMARY | 2025-05-27 20:21 | XMS_ITS | Clinical Summary ---
Author Organization [facility] Address [facility] [place] [address] Phone Care Team Providers Care Advertising Copy Writer Name Role Phone Unavailable Primary Care Provider Unavailabl e Allergies No known active allergies Medications No known medications Surgical History Surgery Date Site/Laterality Comments CHOLECYSTECTOMY SECTION x 3 DENTAL SURGERY wisdom teeth extracted TUBAL LIGATION FOOT TENDON SURGERY 12/05/2019 Right POSTERIOR TIBIAL TENDON REPAIR WITH EXCISION BONE SPUR RIGHT ANKLE; Surgeon: Hernesto Winston DPM; Location: [facility] MAIN OR; Service: Podiatry Medical devices from this surgery are in the Medical Devices section. NE HALLUX RIGIDUS W/CHEILECT LORENZA 1ST MP JT W/O IMPLT 12/05/2019 Right Right Surgeon: Hernesto Winston DPM; Location: [facility] MAIN OR; Service: Podiatry Medical devices from [...] - 2023-2 5 season) 2024 Influenza Vaccine (#1) 2025 Meningococcal B Vaccine Aged Out No l onger eligible based on patient's age to complete this topic Pneumococcal Vaccine 0-49 Aged Out No longer eligible based on patient's age to complete this topic Medical Devices Implanted Type Area Fork Lift Technician Device Identifier Shelf Expiration Date Model / Serial / Lot [place] Reelx Stt 4.5mm Knotless - [id number] Implanted:Qty: 1 on 12/05/2019 by Hernesto Winston DPM at [facility] Right: Foot NAVYA:ENDOSCO PY [id number] 02/01/2021 [id number] / / [id number] Graft Allogen Liquid Large 1.00ml - [id number] Implanted:Qty: 1 on 12/05/2019 by Hernesto Winston DPM at [facility] Right: [facility]:TISSUE BANK 12/19/2020 [id number] / / [id number] Graft Bone Intergro Demineralized Bone Matrix 5 Cc Paste - [id number] Implanted:Qty: 1 on 12/05/2019 by Hernesto Winston DPM at [facility] Right: [facility]:TISSUE BANK 07/30/2021 [id number] / / [id number] Insurance O
--- OUTSIDE RECORDS SUMMARY | 2025-05-27 20:21 | XMS_ITS | Encounter Summary ---
Author Organization [employer] ([place], [place], [place], [place]) Address [address] [place] [address] Care Team Providers Care Sales Stock Associate Name Role Phone [facility], Provider Not In The System Primary Care [...] Description 06/04/2025 10:40 AM EDT Office Visit [facility] [address] [place] [address] [address] [place] [address] [place] [address] [address] [address] documented as of this encounter Visit Diagnoses Not on filedocumented in this encounter Care Teams Sales Stock Associate Relationship Specialty Start Date End Date [facility], Provider Not In The System, [place] [address] PCP - General 04/08/25 04/10/25 documented as of this encounter
--- OUTSIDE RECORDS SUMMARY | 2025-05-27 20:23 | XMS_ITS | Encounter Summary ---
Author Organization [employer] ([place], [place], [place], [place]) Address [address] [place] [address] Care Team Providers Care Flatwork Catcher Name Role Phone RosachineduMarkyJanine APRN Primary Care Provider [phone] Encounter Details Date Type Department Care Team (Late st Contact Info) Description 04/24/2025 Abstract [facility] [address] [place] [address] [address] Gerald Beebe MD [address] [address] Social History Tobacco Use Types Packs/Day Years [...] Description 06/04/2025 10:40 AM EDT Office Visit [facility] [address] [place] [address] [address] [place] [address] [place] [address] [address] [address] documented as of this encounter Visit Diagnoses Not on filedocumented in this encounter Care Teams Flatwork Catcher Relationship Specialty Start Date End Date Janine Wheatley APRN [address] [place] [address] PCP - General Emergency Medicine 04/11/25 documented as of this encounter
--- OUTSIDE RECORDS SUMMARY | 2025-05-27 20:23 | XMS_ITS | Encounter Summary ---
Author Organization [employer] ([place], [place], [place], [place]) Address [address] [place] [address] Care Team Providers Care Repairer Finished Metal Name Role Phone Janine Wheatley APRN Primary Care Provider [phone] Encounter Details Date Type Department Care Team (Late st Contact Info) Description 04/12/2025 Orders Only [facility] [address] [place] [address] [address] Heather Rosas DO [address] [place] [address] [address] [address] Social History Tobacco Use Types [...] Description 06/04/2025 10:40 AM EDT Office Visit [facility] [address] [place] [address] [address] Heather Rosas DO [address] [place] [address] [address] [place] [address] documented as of this encounter Visit Diagnoses Not on filedocumented in this encounter Care Teams Repairer Finished Metal Relationship Specialty Start Date End Date Janine Wheatley APRN [address] [place] [address] PCP - General Emergency Medicine 04/11/25 documented as of this encounter
--- OUTSIDE RECORDS SUMMARY | 2025-05-27 20:23 | XMS_ITS | Encounter Summary ---
Author Organization [employer] ([place], [place], [place], [place]) Address [address] [place] [address] Care Team Providers Care Tower Hoist Operator Name Role Phone Janine Wheatley APRN Primary Care Provider [phone] Encounter Details Date Type Department Care Team (Late st Contact Info) Description 04/12/2025 Orders Only [facility] [address] [place] [address] [address] Heather Rosas DO [address] [place] [address] [address] [address] Social History Tobacco Use Types [...] Description 06/04/2025 10:40 AM EDT Office Visit [facility] [address] [place] [address] [address] Heather Rosas DO [address] [place] [address] [address] [place] [address] documented as of this encounter Visit Diagnoses Not on filedocumented in this encounter Care Teams Tower Hoist Operator Relationship Specialty Start Date End Date Janine Wheatley APRN [address] [place] [address] PCP - General Emergency Medicine 04/11/25 documented as of this encounter
--- OUTSIDE RECORDS SUMMARY | 2025-05-27 20:24 | XMS_ITS | Encounter Summary ---
Author Organization [employer] ([place], [place], [place], [place]) Address [address] [place] [address] Care Team Providers Care Final Canoe Inspector Name Role Phone Rosachinedu Janine APRN Primary Care Provider Encounter Details Date Type Department Care Team (Late st Contact Info) Description 04/12/2025 Surgery Prep [facility] [address] [place] [address] [address] Margaux Deluna CMA Social History Tobacco [...] Description 06/04/2025 10:40 AM EDT Office Visit [facility] [address] [place] [address] [address] Heather Rosas DO [address] [place] [address] [address] [address] documented as of this encounter Visit Diagnoses Not on filedocumented in this encounter Care Teams Final Canoe Inspector Relationship Specialty Start Date End Date Janine Wheatley, BENJY [address] [place] [address] PCP - General Emergency Medicine 04/11/25 documented as of this encounter
--- OUTSIDE RECORDS SUMMARY | 2025-05-27 20:24 | XMS_ITS | Encounter Summary ---
Author Organization [employer] ([place], [place], [place], [place]) Address [address] [place] [address] Care Team Providers Care Production Clerk Name Role Phone Janine Wheatley APRN Primary Care Provider Encounter Details Date Type Department Care Team (Late st Contact Info) Description 04/12/2025 Orders Only [facility] [address] [place] [address] [address] Heather Rosas DO [address] [place] [address] [address] [address] Social History Tobacco Use Types [...] Description 06/04/2025 10:40 AM EDT Office Visit [facility] [address] [place] [address] [address] Heathre Rosas DO [address] [place] [address] [address] [place] [address] documented as of this encounter Visit Diagnoses Not on filedocumented in this encounter Care Teams Production Clerk Relationship Specialty Start Date End Date Janine Wheatley APRN [address] [place] [address] PCP - General Emergency Medicine 04/11/25 documented as of this encounter
--- OUTSIDE RECORDS SUMMARY | 2025-05-27 20:25 | XMS_ITS | Encounter Summary ---
Author Organization [employer] ([place], [place], [place], [place]) Address [address] [place] [address] Care Team Providers Care Curtain Stitcher Name Role Phone Rosachinedu Janine APRN Primary Care Provider Encounter Details Date Type Department Care Team (Late st Contact Info) Description 04/12/2025 Surgery Prep [facility] [address] [place] [address] [address] Margaux Deluna CMA Social [...] Description 06/04/2025 10:40 AM EDT Office Visit [facility] [address] [place] [address] [address] Heather Rosas DO [address] [place] [address] [address] [address] documented as of this encounter Visit Diagnoses Not on filedocumented in this encounter Care Teams Curtain Stitcher Relationship Specialty Start Date End Date Janine Wheatley, BENJY [address] [place] [address] PCP - General Emergency Medicine 04/11/25 documented as of this encounter
--- OUTSIDE RECORDS SUMMARY | 2025-05-27 20:25 | XMS_ITS | Clinical Summary ---
Author Organization [employer] ([place], [place], [place], [place]) Address [address] [place] [address] Care Team Providers Care Surgical Corsetier Name Role Phone Janine Wheatley APRN Primary Care Provider Allergies No known active allergies Medications lamoTRIgine (LaMICtal) 25 MG tablet Take 1 tablet (25 mg total) by mouth nightly. 5 Active montelukast (SINGULAIR) 10 mg tablet Take 1 tablet (10 mg total) by mouth daily. 5 Active albuterol 90 mcg/actuation inhaler Inhale 1 puff by mouth every 4 (four) hours as needed for shortness of breath. 5 Active ibuprofen (MOTRIN) 800 MG tablet Take 1 tablet (800 mg total) by mouth every 6 (six) hours as needed for pain. Active folic acid/multivit,iron ,compliance examiner (ONE DAILY FOR WOMEN ORAL) Take 1 tablet by mouth daily. Active methocarbamoL (ROBAXIN) 500 MG tablet Take 1 tablet (500 mg total) by mouth 3 (three) times daily as needed for muscle spasms for up to 7 days. 20 tablet 5 025 Active ondansetron (ZOFRAN-ODT) 4 MG disintegrating tablet Take 1 tablet (4 mg total) by mouth every 4 (four) hours as needed for nausea or vomiting for up to 7 days. 10 tablet 5 025 Active docusate sodium (COLACE) 100 MG capsule Take 1 capsule (100 mg total) by mouth daily for 10 days. 10 capsule 5 025 Active nicotine (NICODERM CQ) 14 mg/[address] 1 patch on the skin daily as needed (nicotine withdrawal) for up to 30 days. 28 patch 5 025 oxyCODONE (ROXICODONE) 5 MG immediate release tablet Take 1 tablet (5 mg total) by mouth every 4 (four) hours as needed for pain for up to 3 days Look-alike/ Sound-alike medication. Max Daily Amount: 30 mg 10 tablet 5 025 Active Problems Problem Noted Date Diagnosed Date Abdominal wall mass 05/20/2025 Endometriosis of the anterio r abdominal wall, fascia and muscular layers 05/20/2025 Smoker 05/13/2025 Obesity (BMI 30-39.9) 05/13/2025 Preoperative evaluation to r ule out surgical contraindication 05/13/2025 Leukocytosis 05/13/2025 Mass of anterior abdominal wall 04/11/2025 Endometrioma 04/11/2025 Tumor 04/02/2025 Abdominal mass 03/31/2025 Encounters Date Type Department Care Team Description 05/20/2025 7:30 AM EDT - 05/20/2025 8:56 AM EDT Surgery [facility] Operating Room 1 [place] [address] Heather Rosas DO Excision of Abdominal Wall Mass 05/20/2025 7:29 AM EDT Anesthesia Event [facility] Operating Room 1 [place] [address] Jadiel Sotomayor MD Graff, Wayne B, MD 05/20/2025 5:10 AM EDT - 05/22/2025 12:47 PM EDT Hospital Encounter [facility] [address] [place] [address] Heather Rosas DO Endometrioma Discharge Disposition: Home or Self Care 05/20/2025 Travel 05/15/2025 Orders Only [facility] [address] [facility] [address] [place] [address] Gume Romo MD 05/13/2025 9:01 AM EDT - 05/13/2025 11:59 PM EDT Hospital Encounter [facility] Preadmission Testing [address] [place] [address] Ralph Heather, DO Preop testing (Primary Dx); Smoker; Obesity (BMI 30-39.9); Preoperative evaluation to rule out surgical contraindication; Leukocytosis Discharge Disposition: Home or Self Care 05/13/2025 Travel 05/03/2025 Telephone [facility] [address] [place] [address] [place] [phone] Heather Rosas, Procedure 05/03/2025 Orders Only [facility] [address] [place] [address] [address] Heather Rosas, Endometrioma (Primary Dx) 04/24/2025 Abstract [facility] [address] [place] [address] [place] [phone] Gerald Beebe MD 04/12/2025 Surgery Prep [facility] [address] [place] [address] [place] [phone] Margaux Deluna, [facility] [address] 04/12/2025 Surgery Prep [facility] [address] [place] [address] [place] [phone] Margaux Deluna, [facility] [address] 04/12/2025 Orders Only [facility] [address] [place] [address] [place] [phone] Mira Rosasca, 04/12/2025 Orders Only [facility] [address] [place] [address] [address] [place] [address] Ralph Heather, 04/12/2025 Orders Only [facility] [address] [place] [address] [address] Heather Rosas DO 04/11/2025 9:20 AM EDT Office Visit [facility] [address] [place] [address] [address] Heather Rosas, Endometriosis of the anterior abdominal wall, fascia and muscular layers (Primary Dx); Mass of anterior abdominal wall; Endometrioma; Other elevated white blood cell (WBC) count 04/11/2025 Orders Only [facility] [address] [place] [address] [address] Heather Rosas DO 04/11/2025 Travel 04/08/2025 3:16 PM EDT - 04/08/2025 6:38 PM EDT Emergency [facility] Emergency Department [address] [phone] Joaquim Perdomo MD Lower abdominal pain (Primary Dx); Endometriosis of anterior abdominal wall; Leukocytosis, unspecified type; Abdominal wall hematoma, initial encounter Discharge Disposition: Home or Self Care 04/08/2025 Travel 04/04/2025 Orders Only [facility] [address] [place] [phone] Heather Rosas, Abdominal mass, unspecified abdominal location (Primary Dx) 03/31/2025 9:50 AM EDT - 04/02/2025 3:29 PM EDT Hospital Encounter [facility] Cardiac Telemetry 1 [place] [address] Chiqui Marcum MD Edie, Joseph A, PA-C [...] Mass Index 39.32 05/20/2025 6:19 AM EDT Plan of Treatment Upcoming Encounters Date Type Department Care Team (Late st Contact Info) Description 06/04/2025 10:40 AM EDT Office Visit [facility] [address] [place] [address] [address] [place] [address] [place] [address] [address] [address] Health Maintenance Due Date Last Done Comments Depression Screening (12+) 2001 HIV Screening 2004 Pneumococcal Vaccine: 0-49 Y ears (1 of 2 - PCV) 2008 Lipid Panel 2009 Pap Smear 2010 COVID-19 VACCINE (3 - season) 2024, 05/14/2021 DTAP/TDAP/TD VACCINES (2 - Td or Tdap) 05/09/2025 Influenza Vaccine (#1) 2025 Tobacco Cessation Counseling and Screening (12+) 05/21/2026 05/21/2025 Hepatitis C Screening Completed 04/02/2025 Procedures Procedure Name Priority Date/Time Associated Diagnosis Comments BASIC METABOLIC PANEL Routine 05/21/2025 7:18 AM EDT CBC HEMOGRAM (SJ-BKR) Routine 05/21/2025 7:18 AM EDT TISSUE EXAM ([place] AR) AP Routine 05/20/2025 8 :28 AM EDT Endometrioma ANESTHESIA INTUBATION Routine 05/20/2025 7:39 AM EDT WA EXC TUMOR SOFT TISSUE ABDOMINAL WALL SUBQ 3 CM/> 05/20/2025 7:29 AM EDT Abdominal wall mass Case Notes IN , 1h (R), PASS NOVA GLUCOSE POC Routine 05/20/2025 6:29 AM EDT FS_MODEL_IP POCT , URINE Routine 05/20/2025 6:22 AM EDT CBC HEMOGRAM (SJ-BKR) STAT 05/13/2025 11:00 AM EDT Preop testing EXTERNAL LAB - MISC Routine 04/17/2025 1 0:[address] ABDOMEN/PELVIS WITH IV CONTRAST STAT 04/08/2025 5:20 PM EDT MANUAL DIFFERENTIAL Routine 04/08/2025 3 :28 PM EDT CBC W/ AUTO DIFF STAT 04/08/2025 3:28 PM EDT COMPREHENSIVE METABOLIC PANEL STAT 04/08/2025 3:[address] BIOPSY SITE ABDOMEN Routine 04/02/2025 9:15 AM EDT TISSUE EXAM ([place]) AP Routine 04/02/2025 8 :24 AM EDT Mass in the abdomen HEPATITIS [...] EDT from Last 3 Months Results * (ABNORMAL) CBC - Hemogram (SJ-BKR) (05/21/2025 7:18 AM EDT) Only the most recent of4 resultswithin the time period is included. WBC 25.8(H) 4.0 - 10.0 K/ L [...] 7:18 AM EDT 05/21/2025 7:33 AM EDT us Lyle Howell PA-C LAB BLOOD ORDERABLES Final Result [facility] [address] [phone] * (ABNORMAL) Basic Metabolic Panel (05/21/2025 7:18 [...] Result [facility] [address] [place] [address], [facility] [phone] * Tissue Exam (05/20/2025 8:28 AM EDT) Only the most recent of2 resultswithin the time period is included. AP RESULT See Note: PATHOLOGY AND CYTOLOGY [...] no distinct lesions or masses grossly identified. Log Rafter sections are submitted in cassettes [id number]. [facility] Tissue ABDOMEN / Unknown 05/20/2025 8:28 AM EDT Heather Rosas DO PATHOLOGY/CYTOLOGY ORDERABLE S Final Result [facility] [address] * AN SINGLE LUMEN INTUBATION (05/20/2025 7:39 AM EDT) Narrative Gay Doty CRNA - 05/20/2025 7:39 AM EDT Gay [...] Sotomayor MD ANESTHESIA ORDERABLES Final Resu lt * (ABNORMAL) Glucose, Nova Meter (05/20/2025 6:29 AM EDT) POC-GLUCOSE 117(H) 70 - 110 mg/dL 05/20/2025 6:30 AM EDT [facility] Comment: In the event of poor peripheral blood flow, venous or arterial blood should be used due to the potential of erroneous results. No action Require Clother In [id number] 05/20/2025 6:30 AM EDT [facility] Blood WHOLE BLOOD / Unknown 05/20/2025 6:29 AM EDT 05/20/2025 6:30 AM EDT Narrative [facility] - 05/20/2025 6:30 AM EDT Clother In ID is - [id number] Heather Rosas DO POINT OF CARE TEST ORDERABLE S Final Result [facility] [address] [phone] * POCT , urine (05/20/2025 6:22 AM EDT) POC, URINE HCG Negative Negative INTERNAL QC (VALID/INVALID) Valid Kit Lot Number [id number] Expiration Date , 05/20/2025 6:22 AM EDT Angel Fay MD FS_MODEL_IP_POINT OF CARE TEST ENTER/EDIT ORDERABLES Final Result * EXTERNAL LAB - MISC (04/17/2025 10:12 AM EDT) Historical Provider LAB BLOOD ORDERABLES Liat l Result * CT ABDOMEN/PELVIS WITH IV CONTRAST Standard [...] Heri Vizcarra M.D. Transcribed by Zoila James Narrative 04/08/2025 7:[address] SCAN OF [...] 10.0 K/ L 04/08/2025 4:00 PM EDT [facility] RBC 5.02 3.93 - 5.22 M/ L 04/08/2025 4:00 PM EDT [facility] Hemoglobin 14.6 11.2 - 15.7 GM/DL 04/08/2025 4:00 PM EDT [facility] Hematocrit 44.1 34.1 - 44.9 % 04/08/2025 4:00 PM EDT [facility] MCV 88 79 - 95 fL 04/08/2025 4:00 PM EDT [facility] MCH 29.1 25.6 - 32.2 pg 04/08/2025 4:00 PM EDT [facility] MCHC 33.1 32.2 - 35.5 GM/DL 04/08/2025 4:00 PM EDT [facility] RDW 13.6 11.7 - 14.4 % 04/08/2025 4:00 PM EDT [facility] Platelets 418(H) 140 - 375 K/CU MM 04/08/2025 4:00 PM EDT [facility] MPV 10.3 9.4 - 12.3 fL 04/08/2025 4:00 PM EDT [facility] NRBC Absolute <0.01 0 - 0.012 K/ul 04/08/2025 4:00 PM EDT [facility] Blood Venipuncture / Unknown 04/08/2025 3:28 PM EDT 04/08/2025 3:35 PM EDT Narrative [facility] - 04/08/2025 4:00 PM [...] Perdomo MD LAB BLOOD ORDERABLES Final Result [facility] [address] [phone] * (ABNORMAL) Manual Differential (04/08/2025 3:28 PM EDT) Total Counted 100 04/08/2025 5:53 PM EDT [facility] % Neutros (manual) 60 50 - 65 % 04/08/2025 5:53 PM EDT [facility] % Lymphs (manual) 29 24 - 44 % 04/08/2025 5:53 PM EDT [facility] % Monos (manual) 5 4 - 5 % 04/08/2025 5:53 PM EDT [facility] % Eos (manual) 5(H) 0 - 3 % 04/08/2025 5:53 PM EDT [facility] % Baso (manual) 1 0 - 1 % 5:53 PM EDT [facility] RBC Morphology abnormal( A) Normal 04/08/2025 5:53 PM EDT [facility] Platelet Estimate Increased (A) Adequate 04/08/2025 5:53 PM EDT [facility] Hypochromia 1+ 04/08/2025 5:53 PM EDT [facility] ANC# 12.42 K/ L 04/08/2025 5:53 PM EDT [facility] Blood Venipuncture / Unknown 04/08/2025 3:28 PM EDT 04/08/2025 3:35 PM EDT us Joaquim Perdomo MD LAB BLOOD ORDERABLES Final Result Performing Organization Address City/State/[facility] Co de Phone Number [facility] [address] [phone] * (ABNORMAL) Comprehensive metabolic panel (04/08/2025 3:28 PM EDT) Only the most recent of4 resultswithin the time period is included. Sodium 140 136 - 145 meq/L 04/08/2025 4:09 PM EDT [facility] Potassium 4.6 3.4 - 5.1 meq/L 04/08/2025 4:09 PM EDT [facility] Chloride 106 98 - 112 meq/L 04/08/2025 4:09 PM EDT [facility] CO2 23 22 - 29 meq/L 04/08/2025 4:09 PM EDT [facility] Calcium 9.4 8.4 - 10.2 mg/dL 04/08/2025 4:09 PM [facility] Glucose 94 74 - 100 mg/dL 04/08/2025 4:09 PM [facility] BUN 12.2 7.0 - 18.7 mg/dL 04/08/2025 4:09 PM [facility] Creatinine 0.80 0.57 - 1.11 mg/dL 04/08/2025 4:09 PM [facility] BUN/Creatinine 15 8 - 20 04/08/2025 4:09 PM [facility] eGFR (mL/min/1.73m2) 99 >=60 mL/min/1. 73m2 04/08/2025 4:09 PM [facility] Albumin 4.0 3.5 - 5.0 g/dL 04/08/2025 4:09 PM [facility] Alkaline Phosphatase 101 40 - 150 U/L 04/08/2025 4:09 PM [facility] ALT 24 <=34 U/L 04/08/2025 4:09 PM [facility] Comment: ALT2 reagent used for testing does not contain P5P supplementation and therefore may miss ALT elevations in patients with B6 deficiency. This population may be as high as 10% in the [place], with risk factors including malabsorption, drug interactions, and alcoholic hepatitis. AST 23 11 - 34 U/L 04/08/2025 4:09 PM [facility] Comment: AST2 reagent used for testing does not contain P5P supplementation and therefore may miss AST elevations in patients with B6 deficiency. This population may be as high as 10% in the [place], with risk factors including malabsorption, drug interactions, and alcoholic hepatitis. Total Bilirubin 0.4 0.2 - 1.2 mg/dL 04/08/2025 4:09 PM [facility] Protein, Total 8.2 6.4 - 8.3 g/dL 04/08/2025 4:09 PM [facility] Globulin 4.2(H) 2.5 - 4.1 g/dL 04/08/2025 4:09 PM [facility] Anion Gap 16(H) 4 - 12 04/08/2025 4:09 PM [facility] A/G Ratio 1.0 0.7 - 1.9 04/08/2025 4:09 PM EDT [facility] Osmolality Calc 279.0 mOsm/kg 4:09 PM EDT [facility] Blood Venipuncture / Unknown 04/08/2025 3:28 PM EDT 04/08/2025 3:35 PM EDT Joaquim Perdomo MD LAB BLOOD ORDERABLES Final Result [facility] [address] [phone] * CT BIOPSY SITE ABDOMEN (04/02/2025 9:15 [...] wall mass. ATTENDING PHYSICIAN: Dr. Montano PHYSICIAN TRIM MOUNTER: Candido Camacho PA-C PROCEDURE: This study was [...] wall mass. ATTENDING PHYSICIAN: Dr. Montano PHYSICIAN TRIM MOUNTER: Candido Camacho PA-C PROCEDURE: This study was [...] Alli Montano. Transcribed by Candido Camacho PA-C. Lyle Howell PA-C IMG CT ORDERABLES Final Res ult * Hepatitis panel, acute (04/02/2025 4:40 AM EDT) Hep A IgM Nonreactive Nonreactive 04/02/2025 2:04 PM EDT [facility] Hep B C IgM Nonreactive Nonreactive 04/02/2025 2:04 PM EDT [facility] Hepatitis B surface antigen Nonreactive Nonreactive 04/02/2025 2:04 PM EDT [facility] Hepatitis C Ab Nonreactive Nonreactive 04/02/20 2:04 PM EDT [facility] Comment: Stock Dealer recommends confirmatory testing on all reactives and equivocals. Blood Venipuncture / Unknown 04/02/2025 4:40 AM EDT 04/02/2025 5:05 AM EDT Aden Nickerson MD LAB BLOOD ORDERABLES Final R esult Performing Organization Address City/[facility]/ZIP Co de Phone Number [facility] [address] [phone] * Magnesium (04/02/2025 4:40 AM EDT) Only the most recent of2 resultswithin the time period is included. Magnesium 1.8 1.6 - 2.6 mg/dL 04/02/2025 5:42 AM EDT [facility] Blood Venipuncture / Unknown 04/02/2025 4:40 AM EDT 04/02/2025 5:05 AM EDT us Marvin Ordaz PA-C LAB BLOOD ORDERABLES Final Re sult Performing Organization Address City/[facility]/ZIP Co de Phone Number [facility] [address] [phone] from Last 3 Months Insurance [id number] (Home) [address] [address] [facility] Advance Directives For more information, please contact: [phone] * Full Code (Latest Code Status on File) Date Activated Date Inactivated Comments 05/20/2025 8:06 AM 05/22/2025 1:48 PM * Full Code Date Activated Date Inactivated Comments 03/31/2025 9:25 AM 04/02/2025 4:29 PM Healthcare Agents on File Name Relationship Healthcare Agent Relationship Communication Gerald Nagy Spouse Healthcare Decision-[facility] Care Teams Surgical Corsetier Relationship Specialty Start Date End Date Janine Wheatley APRN [address] [phone] PCP - General Emergency Medicine 04/11/25
--- OUTSIDE RECORDS SUMMARY | 2025-05-27 20:25 | XMS_ITS | Encounter Summary ---
Author Organization [employer] ([place], [place], [place], [place]) Address [address] [place] [address] Care Team Providers Care Dry Transfer Man Name Role Phone RosachineduJanine APRN Primary Care Provider Encounter Details Date Type Department Care Team (Late st Contact Info) Description 05/03/2025 Orders Only [facility] [address] [place] [address] [address] Heather Rosas DO [address] [place] [address] [address] [id number] Endometrioma (Primary Dx) Social History Tobacco Use Types [...] Description 06/04/2025 10:40 AM EDT Office Visit [facility] [address] [place] [address] [address] Heather Rosas DO [address] [facility] [address] [place] [address] documented as of this encounter Visit Diagnoses Diagnosis Endometrioma- Primary Endometriosis, site unspecified documented in this encounter Care Teams Dry Transfer Man Relationship Specialty Start Date End Date Janine Wheatley APRN [address] [place] [address] PCP - General Emergency Medicine 04/11/25 documented as of this encounter
--- OUTSIDE RECORDS SUMMARY | 2025-05-27 20:25 | XMS_ITS | Referral Summary ---
Author Organization [employer] ([place], [place], [place], [place]) Address [address] [place] [address] Care Team Providers Care Medical Doctor Md/Medical Director Name Role Phone Janine Wheatley APRN Primary Care Provider Encounters Date Type Department Care Team Description 05/20/2025 5:10 AM EDT - 05/22/2025 12:47 PM EDT Hospital Encounter [facility] [address] [place] [address] Heather Rosas DO Endometrioma Discharge Disposition: Home or Self Care 05/20/2025 Travel 05/20/2025 7:30 AM EDT - 05/20/2025 8:56 AM EDT Surgery [facility] Operating Room 1 [place] [address] Heather Rosas DO Excision of Abdominal Wall Mass 05/20/2025 7:29 AM EDT Anesthesia Event [facility] Operating Room 1 [place] [address] Jadiel Sotomayor MD Graff, Wayne B, MD 05/15/2025 Orders Only [facility] [address] [facility] [address] [place] [address] Gume Romo MD 05/13/2025 Travel 05/13/2025 9:01 AM EDT - 05/13/2025 11:59 PM EDT Hospital Encounter [facility] Preadmission Testing [address] [place] [address] Ralph, Heather, DO Preop testing (Primary Dx); Smoker; Obesity (BMI 30-39.9); Preoperative evaluation to rule out surgical contraindication; Leukocytosis Discharge Disposition: Home or Self Care 05/03/2025 Telephone [facility] [address] [facility] [address] [place] [phone] [place], Heather, DO Procedure 05/03/2025 Orders Only [facility] [address] [place] [address] [address] Heather Rosas, Endometrioma (Primary Dx) 04/24/2025 Abstract [facility] [address] [place] [address] [address] Gerald Beebe MD 04/12/2025 Surgery Prep [facility] [address] [place] [address] [place] [phone] Margaux Deluna, [facility] 04/12/2025 Surgery Prep [facility] [address] [place] [address] [address] Margaux Deluna, [facility] 04/12/2025 Orders Only [facility] [address] [place] [address] [address] [place], Heather, DO 04/12/2025 Orders Only [facility] [address] [place] [address] [place] [phone] [place], Heather, DO 04/12/2025 Orders Only [facility] [address] [place] [address] [address] Ralph, Heathre, DO 04/11/2025 Orders Only [facility] [address] [place] [address] [address] Heather Rosas DO 04/11/2025 Travel 04/11/2025 9:20 AM EDT Office Visit [facility] [address] [place] [address] [address] Heather Rosas DO Endometriosis of the anterior abdominal wall, fascia and muscular layers (Primary Dx); Mass of anterior abdominal wall; Endometrioma; Other elevated white blood cell (WBC) count 04/08/2025 Travel 04/08/2025 3:16 PM EDT - 04/08/2025 6:38 PM EDT Emergency [facility] Emergency Department [address] [place] [phone] Joaquim Perdomo MD Lower abdominal pain (Primary Dx); Endometriosis of anterior abdominal wall; Leukocytosis, unspecified type; Abdominal wall hematoma, initial encounter Discharge Disposition: Home or Self Care 04/04/2025 Orders Only [facility] [address] [place] [address] [address] Heather Rosas DO Abdominal mass, unspecified abdominal location (Primary Dx) 03/31/2025 9:50 AM EDT - 04/02/2025 3:29 PM EDT Hospital Encounter [facility] Cardiac Telemetry [address] [place] [phone] Chiqui Marcum MD Edie, Joseph A, Aden [...] as needed for shortness of breath. Active ibuprofen (MOTRIN) 800 MG tablet Take 1 tablet (800 mg total) by mouth every 6 (six) hours as needed for pain. 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 (ONE DAILY FOR WOMEN ORAL) Take [...] Description 06/04/2025 10:40 AM EDT Office Visit [facility] [address] [place] [address] [address] Heather Rosas, [address] [place] [address] [place] [address] Procedures Procedure Name Priority Date/Time Associated Diagnosis Comments BASIC METABOLIC PANEL Routine 05/21/2025 7:18 AM EDT CBC HEMOGRAM (SJ-BKR) Routine 05/21/2025 7:18 AM EDT TISSUE EXAM ([place]) AP Routine 05/20/2025 8 :28 AM EDT Endometrioma ANESTHESIA INTUBATION Routine 05/20/2025 7:[address] EXC TUMOR SOFT TISSUE ABDOMINAL WALL SUBQ [...] EDT CBC W/ AUTO DIFF STAT 04/08/2025 3:2 8 PM EDT COMPREHENSIVE METABOLIC PANEL STAT 04/08/2025 [...] 10.0 K/ L 05/21/2025 7:44 AM EDT [facility] RBC 4.25 3.93 - 5.22 M/ L 05/21/2025 7:44 AM EDT [facility] Hemoglobin 12.2 11.2 - 15.7 GM/DL 05/21/2025 7:44 AM EDT [facility] Hematocrit 38.3 34.1 - 44.9 % 05/21/2025 7:44 AM EDT [facility] MCV 90 79 - 95 fL 05/21/2025 7:44 AM EDT [facility] MCH 28.7 25.6 - 32.2 pg 05/21/2025 7:44 AM EDT [facility] MCHC 31.9(L) 32.2 - 35.5 GM/DL 05/21/2025 7:44 AM EDT [facility] RDW 13.1 11.7 - 14.4 % 05/21/2025 7:44 AM EDT [facility] Platelets 402(H) 140 - 375 K/CU MM 05/21/2025 7:44 AM EDT [facility] MPV 10.1 9.4 - 12.3 fL 05/21/2025 7:44 AM EDT [facility] Blood Venipuncture / Unknown 05/21/2025 7:18 AM EDT 05/21/2025 7:33 AM EDT us Lyle Howell PA-C LAB BLOOD ORDERABLES Final Result [facility] [address] [phone] * (ABNORMAL) Basic Metabolic Panel (05/21/2025 7:18 AM EDT) Sodium 138 136 - 145 meq/L 05/21/2025 7:58 AM EDT [facility] Potassium 4.4 3.4 - 5.1 meq/L 05/21/2025 7:58 AM EDT [facility] CO2 21(L) 22 - 29 meq/L 05/21/2025 7:58 AM EDT [facility] Chloride 106 98 - 112 meq/L 05/21/2025 7:58 AM EDT [facility] Glucose 125(H) 74 - 100 mg/dL 05/21/2025 7:58 AM EDT [facility] BUN 10.8 7.0 - 18.7 mg/dL 05/21/2025 7:58 AM EDT [facility] Creatinine 0.74 0.57 - 1.11 mg/dL 05/21/2025 7:58 AM EDT [facility] BUN/Creatinine 15 8 - 20 05/21/2025 7:58 AM EDT [facility] Calcium 8.6 8.4 - 10.2 mg/dL 05/21/2025 7:58 AM EDT [facility] Anion Gap 15(H) 4 - 12 05/21/2025 7:58 AM EDT [facility] eGFR (mL/min/1.73m2) 108 >=60 mL/min/1.7 3m2 05/21/2025 7:58 AM EDT [facility] Osmolality Calc 276.5 mOsm/kg 7:58 AM EDT [facility] Blood Venipuncture / Unknown 05/21/2025 7:18 AM EDT 05/21/2025 7:34 AM EDT us Lyle Howell PA-C LAB BLOOD ORDERABLES Final Result [facility] [address] [phone] * Tissue Exam (05/20/2025 8:28 AM EDT) [...] no distinct lesions or masses grossly identified. Hemstitching Machine Operator sections are submitted in cassettes A1-A2. [facility] Tissue ABDOMEN / Unknown 05/20/2025 8:28 AM EDT us Heather oRsas DO PATHOLOGY/CYTOLOGY ORDERABLE S Final Result [facility] [address] [place] [address] * AN SINGLE LUMEN INTUBATION (05/20/2025 7:39 [...] - 110 mg/dL 05/20/2025 6:30 AM EDT [facility] Comment: In the event of poor peripheral blood flow, venous or arterial blood should be used due to the potential of erroneous results. No action Require Internal Medicine Physician Assistant [phone] 05/20/2025 6:30 AM EDT [facility] Blood WHOLE BLOOD / Unknown 05/20/2025 6:29 AM EDT 05/20/2025 6:30 AM EDT Narrative [facility] - 05/20/2025 6:30 AM EDT Internal Medicine Physician Assistant ID is - [id number] us Heather Rosas DO POINT OF CARE TEST ORDERABLE S Final Result [facility] [address] [phone] * POCT , urine (05/20/2025 6:22 AM EDT) POC, URINE HCG Negative Negative INTERNAL QC (VALID/INVALID) Valid Kit Lot Number [id number] Expiration Date [id number] 05/20/2025 6:22 AM EDT Angel Fay MD [...] 10.0 K/ L 04/08/2025 4:00 PM EDT [facility] RBC 5.02 3.93 - 5.22 M/ L 04/08/2025 4:00 PM EDT [facility] Hemoglobin 14.6 11.2 - 15.7 GM/DL 04/08/2025 4:00 PM EDT [facility] Hematocrit 44.1 34.1 - 44.9 % 04/08/2025 4:00 PM EDT [facility] MCV 88 79 - 95 fL 04/08/2025 4:00 PM EDT [facility] MCH 29.1 25.6 - 32.2 pg 04/08/2025 4:00 PM EDT [facility] MCHC 33.1 32.2 - 35.5 GM/DL 04/08/2025 4:00 PM EDT [facility] RDW 13.6 11.7 - 14.4 % 04/08/2025 4:00 PM EDT [facility] Platelets 418(H) 140 - 375 K/CU MM 04/08/2025 4:00 PM EDT [facility] MPV 10.3 9.4 - 12.3 fL 04/08/2025 4:00 PM EDT [facility] NRBC Absolute <0.01 0 - 0.012 K/ul 04/08/2025 4:00 PM EDT [facility] Blood Venipuncture / Unknown 04/08/2025 3:28 PM EDT 04/08/2025 3:35 PM EDT Narrative [facility] - 04/08/2025 4:00 PM EDT When [...] BLOOD ORDERABLES Final Result Performing Organization Address City/State/[facility] Co de Phone Number [facility] [address] [phone] * (ABNORMAL) Manual Differential (04/08/2025 3:28 PM EDT) Total Counted 100 04/08/2025 5:53 PM EDT [facility] % Neutros (manual) 60 50 - 65 % 04/08/2025 5:53 PM EDT [facility] % Lymphs (manual) 29 24 - 44 % 04/08/2025 5:53 PM EDT [facility] % Monos (manual) 5 4 - 5 % 04/08/2025 5:53 PM EDT [facility] % Eos (manual) 5(H) 0 - 3 % 04/08/2025 5:53 PM EDT [facility] % Baso (manual) 1 0 - 1 % 5:53 PM EDT [facility] RBC Morphology abnormal( A) Normal 04/08/2025 5:53 PM EDT [facility] Platelet Estimate Increased (A) Adequate 04/08/2025 5:53 PM EDT [facility] Hypochromia 1+ 04/08/2025 5:53 PM EDT [facility] ANC# 12.42 K/ L 04/08/2025 5:53 PM EDT [facility] Blood Venipuncture / Unknown 04/08/2025 3:28 PM EDT 04/08/2025 3:35 PM EDT us Joaquim Perdomo MD LAB BLOOD ORDERABLES Final Result [facility] [address] [phone] * (ABNORMAL) Comprehensive metabolic panel (04/08/2025 3:28 PM EDT) Only the most recent of4 resultswithin the time period is included. Sodium 140 136 - 145 meq/L 04/08/2025 4:09 PM EDT [facility] Potassium 4.6 3.4 - 5.1 meq/L 04/08/2025 4:09 PM EDT [facility] Chloride 106 98 - 112 meq/L 04/08/2025 4:09 PM EDT [facility] CO2 23 22 - 29 meq/L 04/08/2025 4:09 PM EDT [facility] Calcium 9.4 8.4 - 10.2 mg/dL 04/08/2025 4:09 PM EDT [facility] Glucose 94 74 - 100 mg/dL 04/08/2025 4:09 PM EDT [facility] BUN 12.2 7.0 - 18.7 mg/dL 04/08/2025 4:09 PM EDT [facility] Creatinine 0.80 0.57 - 1.11 mg/dL 04/08/2025 4:09 PM EDT [facility] BUN/Creatinine 15 8 - 20 04/08/2025 4:09 PM EDT [facility] eGFR (mL/min/1.73m2) 99 >=60 mL/min/1. 73m2 04/08/2025 4:09 PM EDT [facility] Albumin 4.0 3.5 - 5.0 g/dL 04/08/2025 4:09 PM EDT [facility] Alkaline Phosphatase 101 40 - 150 U/L 04/08/2025 4:09 PM EDT [facility] ALT 24 <=34 U/L 04/08/2025 4:09 PM EDT [facility] Comment: ALT2 reagent used for testing does not contain P5P supplementation and therefore may miss ALT elevations in patients with B6 deficiency. This population may be as high as 10% in the [place], with risk factors including malabsorption, drug interactions, and alcoholic hepatitis. AST 23 11 - 34 U/L 04/08/2025 4:09 PM EDT [facility] Comment: AST2 reagent used for testing does not contain P5P supplementation and therefore may miss AST elevations in patients with B6 deficiency. This population may be as high as 10% in the [place], with risk factors including malabsorption, drug interactions, and alcoholic hepatitis. Total Bilirubin 0.4 0.2 - 1.2 mg/dL 04/08/2025 4:09 PM EDT [facility] Protein, Total 8.2 6.4 - 8.3 g/dL 04/08/2025 4:09 PM EDT [facility] Globulin 4.2(H) 2.5 - 4.1 g/dL 04/08/2025 4:09 PM EDT [facility] Anion Gap 16(H) 4 - 12 04/08/2025 4:09 PM EDT [facility] A/G Ratio 1.0 0.7 - 1.9 04/08/2025 4:09 PM EDT [facility] Osmolality Calc 279.0 mOsm/kg 4:09 PM EDT [facility] Blood Venipuncture / Unknown 04/08/2025 3:28 PM EDT 04/08/2025 3:35 PM EDT us Joaquim Perdomo MD LAB BLOOD ORDERABLES Final Result [facility] [address] [phone] * CT BIOPSY SITE ABDOMEN (04/02/2025 9:15 [...] wall mass. ATTENDING PHYSICIAN: Dr. Montano PHYSICIAN FOLDER STITCHER OPERATOR: Candido Camacho PA-C PROCEDURE: This study was [...] wall mass. ATTENDING PHYSICIAN: Dr. Montano PHYSICIAN FOLDER STITCHER OPERATOR: Candido Camacho PA-C PROCEDURE: This study was [...] IgM Nonreactive Nonreactive 04/02/2025 2:04 PM EDT [facility] Hep B C IgM Nonreactive Nonreactive 04/02/2025 2:04 PM EDT [facility] Hepatitis B surface antigen Nonreactive Nonreactive 04/02/2025 2:04 PM EDT [facility] Hepatitis C Ab Nonreactive Nonreactive 04/02/20 2:04 PM EDT [facility] Comment: Crisis Specialist recommends confirmatory testing on all reactives and equivocals. Blood Venipuncture / Unknown 04/02/2025 4:40 AM EDT 04/02/2025 5:05 AM EDT Aden Nickerson MD LAB BLOOD ORDERABLES Final R esult [facility] [address] [phone] * Magnesium (04/02/2025 4:40 AM EDT) Only the most recent of2 resultswithin the time period is included. Magnesium 1.8 1.6 - 2.6 mg/dL 04/02/2025 5:42 AM EDT [facility] Blood Venipuncture / Unknown 04/02/2025 4:40 AM EDT 04/02/2025 5:05 AM EDT Marvin Ordaz PA-C LAB BLOOD ORDERABLES Final Re sult [facility] [address] [place] [address], [facility] [phone] from Last 3 Months Insurance [facility] Advance Directives For more information, please contact: [phone] * Full Code (Latest Code Status on File) Date Activated Date Inactivated Comments 05/20/2025 8:06 AM 05/22/2025 1:48 PM * Full Code Date Activated Date Inactivated Comments 03/31/2025 9:25 AM 04/02/2025 4:29 PM Healthcare Agents on File Name Relationship Healthcare Agent Relationship Communication Gerald Nagy Spouse Healthcare Decision-[facility] Care Teams Medical Doctor Md/Medical Director Relationship Specialty Start Date End Date Janine Wheatley APRN [address] [place] [address] PCP - General Emergency Medicine 04/11/25
[2025-05-27] MEDS: ONDANSETRON 4MG/2ML VIAL 4 MG IV (20:32)
[2025-05-27] MEDS: MORPHINE 4MG/ML SYRINGE 4 MG IV ×2 (20:32→22:24)
[2025-05-27] MEDS: 0.9 % SODIUM CHLORIDE 1000ML 1,000 ML 999 ML IV (20:32)
[2025-05-27 20:37] LABS: Hematocrit 39.3 % (37.0-47.0); Hemoglobin 12.9 g/dL (12.2-16.2); Immature Granulocytes % 0.6 %; Mean Corpuscular HGB Conc 32.8 g/dL (31.8-35.4); Mean Corpuscular Hemoglobin 28.9 pg (27.0-31.2); Mean Corpuscular Volume 88.1 fl (81-99); Nucleated Red Blood Cells % 0 %; Platelet Count 482 K/mm3 (142-424); Red Blood Count 4.46 M/mm3 (4.20-5.40); Red Cell Distribution Width-SD 42.6 fL; White Blood Count 21.6 K/mm3 (4.8-10.8)
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
[2025-05-27 20:42] LABS: Albumin Level 3.9 g/dl (3.5-5.0); Chloride 104 mmol/L (98-107); Potassium 4.0 mmoL/L (3.5-5.1); Sodium 135 mmol/L (136-145)
[2025-05-27 20:45] LABS: Alanine Aminotransferase 28 U/L (12-78); Albumin/Globulin Ratio 1.0 (1.1-1.8); Alkaline Phosphatase 112 U/L (38-126); Anion Gap 10.0 mEq/L (5-15); Aspartate Amino Transferase 24 U/L (14-36); Bilirubin,Total 0.3 mg/dl (0.2-1.3); Blood Urea Nitrogen 10 mg/dl (7-17); Calcium 9.6 mg/dl (8.4-10.2); Carbon Dioxide 25 mmol/L (22.0-30.0); Creatinine Clearance Estimated 183 mL/min (50-200); Creatinine,Serum 0.70 mg/dl (0.52-1.04); Estimated Glomerular Filt Rate 95 ml/min (>60); GFR (African American) 115 ML/MIN (>60); Globulin 4.0 g/dL (1.3-3.2); Glucose 121 mg/dl (74-100); Lipase 48 U/L (23-300); Total Protein,Serum 7.9 g/dl (6.3-8.2)
[2025-05-27 20:46] LABS: Magnesium 1.9 mg/dl (1.6-2.3)
[2025-05-27 21:11] LABS: Troponin I < 0.01 ng/ml (0.00-0.034)
[2025-05-27 21:16] LABS: Total Cells Counted 100
[2025-05-27] MEDS: HYDROMORPHONE 2MG/ML SYRINGE 0.5 MG IV (22:42)
== END 2025-05-28 | disposition home or self-care (01) ==
PROVIDERS: Emergency Provider Emergency Medicine; PCP Nurse Practitioner
DX: R10.9 Unspecified abdominal pain (principal); E11.9 Type 2 diabetes mellitus without complications; F17.210 Nicotine dependence, cigarettes, uncomplicated
CPT/HCPCS: 80053; 83605; 83690; 83735; 84484; 85007; 85025; 85027; 96361; 96374; 96375; 96376; 99285; J1171; J2270; J2405; J7030

== ENCOUNTER 2025-06-26 01:18 | Emergency (ER) | payer MEDICAID, SELFPAY ==
[2025-06-26 01:24] VITALS: BP 134/95; PULSE 85; RESP 16; TEMP 36.8; O2SAT 98; BMI 39.4
[2025-06-26 01:30] VITALS: BP 116/82; PULSE 79; O2SAT 98
--- OUTSIDE RECORDS SUMMARY | 2025-06-26 01:31 | XMS_ITS | Clinical Summary ---
Author Organization [facility] Address [address] [place] [address] Care Team Providers Care Scrubber Operator Name Role Phone Mathew Cisneros MD Primary Care Provider [phone] Allergies No known active allergies Medications ibuprofen [...] Health Maintenance Due Date Last Done Comments [facility]-Infant/Child/Adol SDOH Screenings 1989 [facility]-Varicella Vaccines (1 of 2 - 13+ 2-dose series) 2002 [facility]- SDOH Screenings 2007 [facility]-Adult SDOH Screenings 2007 [facility]-Hepatitis B Vaccines (1 of 3 - 19+ 3-dose series) 2008 [facility]-Pap Smear 2010 HPV Vaccines (1 - 3-dose SCD M series) 2016 [facility]-Cervical Cancer Screening 2019 [facility]-HPV/Cotest 2019 [facility]-Depression Screening 06/08/2024 06/08/2023 [id number] Vaccine (3 - 2023- season) 2024 06/19/2021, [...] [facility] LAB BLOOD ORDERABLES Final Resul t Performing Organization Address City/State/[facility] Co de Phone Number SUNQUEST * [place] Hepatitis C Antibody (11/03/2020 12:59 AM EST) Pathologist [facility] [place] Hepatitis C Ab NEGATIVE Reference Range: Negative SUNQUEST 11/03/2020 12:5 9 AM EST 11/03/2020 1:15 AM EST Ernestina Jackson MD LAB BLOOD ORDERABLES Final R esult Performing Organization Address City/[facility] Co de Phone Number SUNQUEST from Last 3 Months or Most Recently Relevant to Health Maintenance Insurance [employer] [facility] Care Teams Scrubber Operator Relationship Specialty Start Date End Date Mathew Cisneros MD [address] [place] [address] PCP - General 03/06/21
--- OUTSIDE RECORDS SUMMARY | 2025-06-26 01:31 | XMS_ITS | Clinical Summary ---
Author Organization [facility] Address [facility] [place] [address] Phone Care Team Providers Care Planogrammer Name Role Phone Unavailable Primary Care Provider Unavailabl e Allergies No known active allergies Medications No known medications Surgical History Surgery Date Site/Laterality Comments CHOLECYSTECTOMY SECTION x 3 DENTAL SURGERY wisdom teeth extracted TUBAL LIGATION FOOT TENDON SURGERY 12/05/2019 Right POSTERIOR TIBIAL TENDON REPAIR WITH EXCISION BONE SPUR RIGHT ANKLE; Surgeon: Hernesto Winston DPM; Location: [facility] OR; Service: Podiatry Medical devices from this surgery are in the Medical Devices section. MO HALLUX RIGIDUS W/CHEILECT LORENZA 1ST MP JT W/O IMPLT 12/05/2019 Right Right Surgeon: Hernesto Winston DPM; Location: [facility] OR; Service: Podiatry Medical devices [...] this topic Medical Devices Implanted Type Area Warehouse Order Puller Device Identifier Shelf Expiration Date Model / Serial / Lot [employer] Reelx Stt 4.5mm Knotless - [id number] Implanted:Qty: 1 on 12/05/2019 by Hernesto Winston DPM at [facility] Right: Foot NAVYA:ENDOSCO PY [id number] 02/01/2021 [id number] / / [id number] Graft Allogen Liquid Large 1.00ml - [id number] Implanted:Qty: 1 on 12/05/2019 by Hernesto Winston DPM at [facility] Right: [facility]:TISSUE BANK 12/19/2020 [id number] / / [id number] Graft Bone Intergro Demineralized Bone Matrix 5 Cc Paste - [id number] Implanted:Qty: 1 on 12/05/2019 by Hernesto Winston DPM at [facility] Right: [facility]:TISSUE BANK 07/30/2021 [id number] / / [id number] Insurance O
[2025-06-26 01:49] LABS: Coronavirus 19, PCR Not Detected (NotDetected); Influenza A, PCR Not Detected (NotDetected); Influenza B, PCR Not Detected (NotDetected)
[2025-06-26] MEDS: ACETAMINOPHEN 500MG TAB 1000 MG PO (01:50)
[2025-06-26] MEDS: IBUPROFEN 600 MG TABLET PO (01:51)
[2025-06-26 02:00] VITALS: BP 132/94; PULSE 78; O2SAT 98
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
[2025-06-26 02:31] VITALS: BP 127/96; PULSE 80; O2SAT 99
[2025-06-26 03:16] VITALS: BP 118/69; PULSE 101; RESP 20; TEMP 37; O2SAT 94
== END 2025-06-26 03:16 | disposition home or self-care (01) ==
PROVIDERS: Emergency Provider Emergency Medicine; PCP Nurse Practitioner
DX: R51.9 Headache, unspecified (principal); R09.81 Nasal congestion; F17.210 Nicotine dependence, cigarettes, uncomplicated
CPT/HCPCS: 87631; 99283

== ENCOUNTER 2025-06-27 14:46 | Outpatient (CLI) | payer MEDICAID, SELFPAY ==
--- OUTSIDE RECORDS SUMMARY | 2025-06-27 14:55 | XMS_ITS | Clinical Summary ---
Author Organization [facility] Address [address] [place] [address] Care Team Providers Care School Program Director Name Role Phone Mathew Cisneros MD Primary Care Provider [phone] Allergies No known active allergies Medications ibuprofen [...] 2019 [facility]-HPV/Cotest 2019 [facility]-Depression Screening 06/08/2024 06/08/2023 [id number] Vaccine (3 - 2023- season) 2024 06/19/2021, [...] ORDERABLES Final Resul t Performing Organization Address City/State/[facility] Co de Phone Number SUNQUEST * [place] Hepatitis C Antibody (11/03/2020 12:59 AM EST) Pathologist [facility] [place] Hepatitis C Ab NEGATIVE Reference Range: Negative SUNQUEST 11/03/2020 12:5 9 AM EST 11/03/2020 1:15 AM EST Ernestina Jackson MD LAB BLOOD ORDERABLES Final R esult Performing Organization Address City/[facility] Co de Phone Number SUNQUEST from Last 3 Months or Most Recently Relevant to Health Maintenance Insurance [place] [employer] [facility] [employer] Care Teams School Program Director Relationship Specialty Start Date End Date Mathew Cisneros MD [address] [place] [address] PCP - General 03/06/21
--- OUTSIDE RECORDS SUMMARY | 2025-06-27 14:55 | XMS_ITS | Clinical Summary ---
Author Organization [facility] Address [address] [place] [address] Phone Care Team Providers Care Shoe Handler Name Role Phone Unavailable Primary Care Provider Unavailabl e Allergies No known active allergies Medications No known medications Surgical History Surgery Date Site/Laterality Comments CHOLECYSTECTOMY SECTION x 3 DENTAL SURGERY wisdom teeth extracted TUBAL LIGATION FOOT TENDON SURGERY 12/05/2019 Right POSTERIOR TIBIAL TENDON REPAIR WITH EXCISION BONE SPUR RIGHT ANKLE; Surgeon: Hernesto Winston DPM; Location: [facility] MAIN OR; Service: Podiatry Medical devices from this surgery are in the Medical Devices section. [place] HALLUX RIGIDUS W/CHEILECT LORENZA 1ST MP JT W/O IMPLT 12/05/2019 Right Right Surgeon: Hernesto Winston DPM; Location: [facility] MAIN OR; Service: Podiatry Medical devices from [...] this topic Medical Devices Implanted Type Area Vice President Of Communications Device Identifier Shelf Expiration Date Model / Serial / Lot Fowler Reelx Stt 4.5mm Knotless - [id number] Implanted:Qty: 1 on 12/05/2019 by Hernesto Winston DPM at [facility] Right: Foot NAVYA:ENDOSCO PY [id number] 02/01/2021 [id number] / / [id number] Graft Allogen Liquid Large 1.00ml - [id number] Implanted:Qty: 1 on 12/05/2019 by Hernesto Winston DPM at [facility] Right: [facility]:TISSUE BANK 12/19/2020 ALB-0100S / / [id number] Graft Bone Intergro Demineralized Bone Matrix 5 Cc Paste - [id number] Implanted:Qty: 1 on 12/05/2019 by Hernesto Winston DPM at [facility] Right: [facility]:TISSUE BANK 07/30/2021 [id number] / / [id number] Insurance O
--- NOTE | 2025-06-27 15:14 | XR_ITS ---
FINAL REPORT TECHNIQUE: Chest PA & Lateral CLINICAL HISTORY: Shortness of breath and cough since 06/21/25, said she has tested positive for COVID COMPARISON: 03/31/2024 FINDINGS: 2 views of the chest were performed. The heart size is normal. The mediastinum is within normal limits. There is a calcified right paratracheal lymph node measuring 2.0 cm. Density in the right upper lobe was not seen on the previous exam. It is faint but well-circumscribed. There are no pleural effusions. There is no pneumothorax. The bony thorax appears intact. IMPRESSION: New right upper lobe density. Recommend infused thoracic CT for further evaluation. Reviewed, Interpreted and Dictated by Mariano Chan MD Transcribed by Yoon Koo Authenticated and [facility]
== END 2025-06-27 23:59 | disposition home or self-care (01) ==
LOC: RAD 14:53
PROVIDERS: PCP Nurse Practitioner Family; Visit Provider Nurse Practitioner Family
DX: R91.8 Other nonspecific abnormal finding of lung field (principal); R06.02 Shortness of breath
CPT/HCPCS: 71046

== ENCOUNTER 2025-07-24 08:05 | Outpatient (CLI) | payer MEDICAID, SELFPAY ==
--- OUTSIDE RECORDS SUMMARY | 2025-06-04 10:40 | XMS_ITS | Encounter Summary ---
Author Organization [facility] ([place], [place], [place], [place]) Address [address] [place] [address] Care Team Providers Care Store Grocery Merchandiser Name Role Phone Janine Wheatley APRN Primary Care Provider [phone] Reason for Referral * CAT Scan (Routine) - Closed Specialty Diagnoses / Procedures Referred By Emely cisneros Referred To Contact Radiology Diagnoses Post-op pain Procedures CT ABDOMEN/PELVIS WITH IV CONTRAST Standard Protocol Errol Rosas DO [address] [facility] [address] [place] [address] Phone: tel: fax: [facility] [address] [facility] [address] [place] [address] Phone: tel: fax: Referral ID Status Reason Start Date Expiration Date Visits Re quested Visits Authorized [id number] Closed 06/04/2025 06/04/2026 1 1 Reason for Visit * Reason Comments Post-Op Follow-up Ms. Nagy is he re in postop from excision of abdominal wall mass/endometriosis. Patient states that she is having soreness in her lower abdomen near her incision. She is having nausea daily and has had 2 episodes of vomiting. Bowel function is good. She states last week she ended up passing out and having to go to the hospital at [facility] she believes it was due to the pain. Encounter Details Date Type Department Care Team (Late st Contact Info) Description 06/04/2025 10:40 AM EDT Office Visit [facility] [address] [facility] [address] [address] Errol Rosas DO [address] [facility] [address] [address] Post-op pain (Primary Dx); Abdominal wall mass Social History Tobacco Use Types Packs/Day Years [...] Sign Reading Time Taken Comments Blood Pressure 126/80 06/04/2025 10:41 AM EDT Pulse 108 06/04/2025 10:41 AM EDT Temperature - - Respiratory Rate - - Oxygen Saturation - - Inhaled Oxygen Concentration - - Weight 103.4 kg (228 lb) 06/04/2025 10:41 AM EDT Height 162.6 cm (5' 4 ) 06/04/2025 10:41 AM EDT Body Mass Index 39.14 06/04/2025 10:41 AM EDT documented in this encounter Progress Notes * Errol Rosas, - 06/04/2025 10:40 AM EDT Subjective: Chief Complaint Patient presents with Post-Op Follow-up Ms. Nagy is here in postop from excision of abdominal wall mass/endometriosis. Patient statesthat she is having soreness in her lower abdomen near her incision. She is having nausea daily and has had 2 episodes of vomiting. Bowel function is good. She states last week she ended up passing out and having to go to the hospital at [facility] she believes it was due to the pain. Shawnee Nagy is a 35 y.o. female who presents after excision of mass. Patient states that she is having soreness in her lower abdomen near her incision. She is having nausea daily and hashad 2 episodes of vomiting. Bowel function is good. She states last week she ended up passing out and having to go to the hospital at [facility] she believes it was due to the pain. Denies fevers, chills. Taking pain meds. Review of Systems Constitutional: Negative. HENT: Negative. Eyes: Negative. Respiratory: Negative. Cardiovascular: Negative. Gastrointestinal: Negative. Endocrine: Negative. Genitourinary: Negative. Musculoskeletal: Negative. Skin: Negative. Allergic/Immunologic: Negative. Neurological: Negative. Hematological: Negative. Psychiatric/Behavioral: Negative. \ Objective: BP 126/80 Pulse 108 Ht 1.626 m (5' 4 ) Wt 103.4 kg (228 lb) BMI 39.14 kg/m?? Physical Exam Physical exam Constitutional: Crying, hyperventilating HEENT: PERRL, EOMI CV: Regular rate Lung: Equal rise and fall of chest wall, no distress Abdomen: Soft, obese, tender along incision Skin: Incision c/d/I with wm Neuro: AAOx3 Assessment: Assessment 1. Post-op pain 2. Abdominal wall mass Plan: With her significant pain - crying extensively - recommend CT to assess for issue at surgical site All questions answered. We will let her know what her results show and recommendations from there All questions answered. Follow up in 2-3 weeks. Gabapentin sent in for pain for 5 days. aDditionall will need to be obtained from pcp Errol Rosas DO documented in this encounter Miscellaneous Notes * Addendum Note - Errol Rosas DO - 06/04/2025 10:40 AM EDTAddended by: ERROL ROSAS on: 06/04/2025 04:19 PM Modules accepted: Orders documented in this encounter Plan of Treatment Not on file documented as of this encounter Results * CT ABDOMEN/PELVIS WITH IV CONTRAST Standard Protocol (06/04/2025 1:15 PM EDT) Anatomical Region Laterality Modality Abdomen, Pelvis Computed Tomogra phy (CT) 06/04/2025 1:37 PM EDT Impressions 06/04/2025 1:42 PM EDT Small fluid collection of the right inferior rectus muscle likely represents postoperative hematoma or seroma. Abscess is considered less likely. There are otherwise expected postsurgical changes. Narrative 06/04/2025 1:[address] abdomen and pelvis with IV contrast HISTORY: Severe lower abdominal and pelvic pain and pelvic surgery 2 weeks ago FINDINGS: Postcontrast imaging. Comparison date 04/08/2025. This study was performed with techniques to keep radiation doses as low as reasonably achievable (ALARA). Individualized dose reduction techniques using automated exposure control or adjustment of mA and/or kV according to the patient's size were employed. There are cholecystectomy clips. There is no significant bile duct dilatation. The liver, pancreas, adrenal glands, and spleen appear normal. The abdominal aorta is normal in size. There is no retroperitoneal or iliac chain adenopathy. Partially filled bladder appears normal. There has been a hysterectomy. There are no renal lesions or hydronephrosis. There is no free fluid. There are postoperative changes of the lower anterior abdominal wall with subcutaneous soft tissue stranding and edema. Previously seen mass in this location has been removed. There is a focal fluid collection in the right inferior rectus muscle measuring 56 x 11 mm on image #74 of series 2. There is no air within the fluid collection. There is no intraperitoneal inflammatory change. There is no large or small bowel dilatation. Procedure Note Makayla Palmer MD - 06/04/2025 CT abdomen and pelvis with IV contrast HISTORY: Severe lower abdominal and pelvic pain and pelvic surgery 2 weeks ago FINDINGS: Postcontrast imaging. Comparison date 04/08/2025. This study was performed with techniques to keep radiation doses as low as reasonably achievable (ALARA). Individualized dose reduction techniques using automated exposure control or adjustment of mA and/or kV according to the patient's size were employed. There are cholecystectomy clips. There is no significant bile duct dilatation. The liver, pancreas, adrenal glands, and spleen appear normal. The abdominal aorta is normal in size. There is no retroperitoneal or iliac chain adenopathy. Partially filled bladder appears normal. There has been a hysterectomy. There are no renal lesions or hydronephrosis. There is no free fluid. There are postoperative changes of the lower anterior abdominal wall with subcutaneous soft tissue stranding and edema. Previously seen mass in this location has been removed. There is a focal fluid collection in the right inferior rectus muscle measuring 56 x 11 mm on image #74 of series 2. There is no air within the fluid collection. There is no intraperitoneal inflammatory change. There is no large or small bowel dilatation. IMPRESSION: Small fluid collection of the right inferior rectus muscle likely represents postoperative hematoma or seroma. Abscess is considered less likely. There are otherwise expected postsurgical changes. Errol Rosas DO IMG CT ORDERABLES Final Resu lt documented in this encounter Visit Diagnoses Diagnosis Post-op pain- Primary Other acute postoperative pain Abdominal wall mass Abdominal or pelvic swelling, mass or lump, unspecified site Post-op pain Other acute postoperative pain documented in this encounter Care Teams Store Grocery Merchandiser Relationship Specialty Start Date End Date Janine Wheatley APRN [address] [place] [address] PCP - General Emergency Medicine 04/11/25 documented as of this encounter
--- OUTSIDE RECORDS SUMMARY | 2025-06-04 12:30 | XMS_ITS | Encounter Summary ---
Author Organization [facility] ([place], [place], [place], [place]) Address [address] [place] [address] Care Team Providers Care Hydraulic Lift Driver Name Role Phone Janine Wheatley APRN Primary Care Provider [phone] Reason for Referral * CAT Scan (Routine) - Closed Specialty Diagnoses / Procedures Referred By Emely t Referred To Contact Radiology Diagnoses Post-op pain Procedures CT ABDOMEN/PELVIS WITH IV CONTRAST Standard Protocol Heather Rosas DO [address] [facility] [address] [place] [address] Phone: tel: fax: [facility] [address] [facility] [address] [place] [address] Phone: tel: fax: Referral ID Status Reason Start Date Expiration Date Visits Re quested Visits Authorized [id number] Closed 06/04/2025 06/04/2026 1 1 Reason for Visit * CAT Scan (Routine) - Closed Specialty Diagnoses / Procedures Referred By Emely t Referred To Contact Radiology Diagnoses Post-op pain Procedures CT ABDOMEN/PELVIS WITH IV CONTRAST Standard Protocol Heather Rosas DO [address] [facility] [address] [place] [address] Phone: tel: fax: [facility] [address] [facility] [address] [place] [address] Phone: tel: fax: Referral ID Status Reason Start Date Expiration Date Visits Re quested Visits Authorized [id number] Closed 06/04/2025 06/04/2026 1 1 Encounter Details Date Type Department Care Team (Late st Contact Info) Description 06/04/2025 12:30 PM EDT - 06/04/2025 11:59 PM EDT Hospital Encounter [facility] [address] [facility] [address] [place] [address] Heather Rosas DO [address] [facility] [address] [place] [address] Post-op pain Discharge Disposition: Home or Self Care Social [...] on file documented as of this encounter Medications at Time of Discharge albuterol 90 mcg/actuation inhaler Inhale 1 puff by mouth every 4 (four) hours as needed for shortness of breath. 03/26/2025 folic acid/multivit,ir on,disability insurance claim examiner (ONE DAILY FOR WOMEN ORAL) Take 1 tablet by mouth daily. ibuprofen (MOTRIN) 800 MG tablet Take 1 tablet (800 mg total) by mouth every 6 (six) hours as needed for pain. lamoTRIgine (LaMICtal) 25 MG tablet Take 1 tablet (25 mg total) by mouth nightly. 03/26/2025 montelukast (SINGULAIR) 10 mg tablet Take 1 tablet (10 mg total) by mouth daily. 03/26/2025 gabapentin (NEURONTIN) 100 MG capsule Take 1 capsule (100 mg total) by mouth 3 (three) times daily for 5 days. Max Daily Amount: 300 mg 15 capsule 06/04/2025 documented as of this encounter Miscellaneous Notes * Result Encounter Note - Heather Rosas DO - 06/04/2025 12:35 PM EDT Please let her know there is likely a seroma/hematoma in this location. It will take time to resolve on its own, usually 6-8 weeks. This happens frequently when taking outmasses. If she develops fevers, chills, please have her let us know. Follow up in 2 weeks. documented in this encounter Plan of Treatment Not on file documented as of this encounter Procedures Procedure Name Priority Date/Time Associated Diagnosis Comments CT ABDOMEN/PELVIS WITH IV CONTRAST Routine 06/04/2025 1:15 PM EDT Post-op pain documented in this encounter Results * CT [...] likely. There are otherwise expected postsurgical changes. us Heather Rosas DO IMG CT ORDERABLES Final Resu lt documented in this encounter Visit Diagnoses Diagnosis Post-op pain Other acute postoperative pain documented in this encounter Administered Medications Inactive Administered Medications - up to 3 most recent administrations Medication Order MAR Action Action Date Dose Rate Site iopamidoL (ISOVUE-370) 370 mg iodine /mL (76 %) injection 75 mL 75 mL IMG once as needed, intravenous, contrast, Starting on Tue06/04/25 at 1315, For 1 dose, Intra-op Given 06/04/2025 1:15 PM EDT 75 mLs documented in this encounter Care Teams Hydraulic Lift Driver Relationship Specialty Start Date End Date Janine Wheatley, BENJY [address] [place] [address] PCP - General Emergency Medicine 04/11/25 documented as of this encounter
--- OUTSIDE RECORDS SUMMARY | 2025-07-24 08:07 | XMS_ITS | Encounter Summary ---
Author Organization [employer] ([place], [place], [place], [place]) Address [address] [place] [address] Care Team Providers Care County Program Technician Name Role Phone Janine Wheatley APRN Primary Care Provider Encounter Details Date Type Department Care Team (Latest Contact Info) Description 06/04/2025 Travel Social History Tobacco Use Types Packs/Day [...] on filedocumented in this encounter Care Teams County Program Technician Relationship Specialty Start Date End Date Janine Wheatley APRN [address] [place] [address] PCP - General Emergency Medicine 04/11/25 documented as of this encounter
--- OUTSIDE RECORDS SUMMARY | 2025-07-24 08:08 | XMS_ITS | Encounter Summary ---
Author Organization [employer] ([place], [place], [place], [place]) Address [address] [place] [address] Care Team Providers Care Technical Support 1 Software Engineer Name Role Phone Janine Wheatley APRN Primary Care Provider Encounter Details Date Type Department Care Team (Late st Contact Info) Description 04/24/2025 Abstract [facility] [address] [facility] [address] [place] [id number] Gerald Beebe MD [address] [address] Social History Tobacco Use Types Packs/Day Years [...] on filedocumented in this encounter Care Teams Technical Support 1 Software Engineer Relationship Specialty Start Date End Date Janine Wheatley APRN [address] [place] [address] PCP - General Emergency Medicine 04/11/25 documented as of this encounter
--- OUTSIDE RECORDS SUMMARY | 2025-07-24 08:08 | XMS_ITS | Clinical Summary ---
Author Organization [facility] Address [address] [place] [address] Phone Care Team Providers Care Director Of Parks And Recreation Name Role Phone Unavailable Primary Care Provider Unavailabl e Allergies No known active allergies Medications No known medications Surgical History Surgery Date Site/Laterality Comments CHOLECYSTECTOMY SECTION x 3 DENTAL SURGERY wisdom teeth extracted TUBAL LIGATION FOOT TENDON SURGERY 12/05/2019 Right POSTERIOR TIBIAL TENDON REPAIR WITH EXCISION BONE SPUR RIGHT ANKLE; Surgeon: Hernesto Winston DPM; Location: [facility] MAIN OR; Service: Podiatry Medical devices from this surgery are in the Medical Devices section. [place] HALLUX RIGIDUS W/CHEILECT LORENZA 1ST MP JT W/O IMPLT 12/05/2019 Right Right Surgeon: Hernesto Winston DPM; Location: [facility] MAIN OR; Service: Podiatry Medical devices [...] Smear 2010 HPV/Pap Cotest 2019 COVID-19 Vaccine (1 - 2023-2 5 season) 2025 Influenza Vaccine (#1) 2025 Meningococcal B Vaccine Aged Out No l onger eligible based on patient's age to complete this topic Pneumococcal Vaccine 0-49 Aged Out No longer eligible based on patient's age to complete this topic Medical Devices Implanted Type Area Cutting Tool Sharpener Device Identifier Shelf Expiration Date Model / Serial / Lot [place] Reelx Stt 4.5mm Knotless - [id number] Implanted:Qty: 1 on 12/05/2019 by Hernesto Winston DPM at [facility] Right: Foot NAVYA:ENDOSCO PY [id number] 02/01/2021 [id number] / / [id number] Graft Allogen Liquid Large 1.00ml - [id number] Implanted:Qty: 1 on 12/05/2019 by Hernesto Winston DPM at [facility] Right: [facility]:TISSUE BANK 12/19/2020 ALB-0100S / / [id number] Graft Bone Intergro Demineralized Bone Matrix 5 Cc Paste - [id number] Implanted:Qty: 1 on 12/05/2019 by Hernesto Winston DPM at [facility] Right: [facility]:TISSUE BANK 07/30/2021 [id number] / / [id number] Insurance O
--- OUTSIDE RECORDS SUMMARY | 2025-07-24 08:08 | XMS_ITS | Referral Summary ---
Author Organization [employer] ([place], [place], [place], [place]) Address [address] [place] [address] Care Team Providers Care Spring Intern Name Role Phone Janine Wheatley APRN Primary Care Provider [phone] Encounters Date Type Department Care Team Description 06/04/2025 Telephone [facility] [address] [place] [address] [address] [place] [address] Margaux Deluna CMA Results 06/04/2025 12:30 PM EDT - 06/04/2025 11:59 PM EDT Hospital Encounter [facility] CT [address] [facility] [address] [place] [phone] Heather Rosas DO Post-op pain Discharge Disposition: Home or Self Care 06/04/2025 Travel 06/04/2025 10:40 AM EDT Office Visit [facility] [address] [place] [address] [address] [place] [address] Heather Rosas DO Post-op pain (Primary Dx); Abdominal wall mass 05/20/2025 5:10 AM EDT - 05/22/2025 12:47 PM EDT Hospital Encounter [facility] [address] [place] [address] Heather Rosas DO Endometrioma Discharge Disposition: Home or Self Care 05/20/2025 Travel 05/20/2025 7:30 AM EDT - 05/20/2025 8:56 AM EDT Surgery [facility] Operating Room [address] [place] [phone] Heather Rosas DO Excision of Abdominal Wall Mass 05/20/2025 7:29 AM EDT Anesthesia Event [facility] Operating Room [address] [place] [phone] Jadiel Sotomayor MD Graff, Wayne B, MD 05/15/2025 Orders Only [facility] [address] [place] [address] [address] Gume Romo MD 05/13/2025 Travel 05/13/2025 9:01 AM EDT - 05/13/2025 11:59 PM EDT Hospital Encounter [facility] Preadmission Testing [address] [place] [phone] Heather Rosas DO Preop testing (Primary Dx); Smoker; Obesity (BMI 30-39.9); Preoperative evaluation to rule out surgical contraindication; Leukocytosis Discharge Disposition: Home or Self Care 05/03/2025 Telephone [facility] [address] [place] [address] [address] Heather Rosas DO Procedure 05/03/2025 Orders Only [facility] [address] [address] Heather Rosas DO Endometrioma (Primary Dx) 04/24/2025 Abstract [facility] [address] [place] [phone] Gerald Beebe MD from Last 3 Months Allergies No known [...] hours as needed for pain. Active folic acid/multivit,i freedom,skip miner blasting (ONE DAILY FOR WOMEN ORAL) Take 1 tablet by mouth daily. Active Active Problems Problem Noted Date Diagnosed [...] Pulse 108 06/04/2025 10:41 AM EDT Temperature 36.7 C (98.1 F) 05/22/2025 10:50 AM EDT Respiratory Rate 18 05/22/2025 10:50 AM EDT Oxygen Saturation 99% 05/22/2025 10:50 AM EDT Inhaled Oxygen Concentration - - Weight 103.4 kg (228 lb) 06/04/2025 10:41 AM EDT Height 162.6 cm (5' 4 ) 06/04/2025 10:41 AM EDT Body Mass Index 39.14 06/04/2025 10:41 AM EDT Plan of Treatment Not on file Procedures Procedure Name Priority Date/Time Associated Diagnosis Comments CT ABDOMEN/PELVIS WITH IV CONTRAST Routine 06/04/2025 1:15 PM EDT Post-op pain BASIC METABOLIC PANEL Routine 05/21/2025 7:18 AM EDT CBC HEMOGRAM (SJ-BKR) Routine 05/21/2025 7:18 AM EDT TISSUE EXAM ([place] AR) AP Routine 05/20/2025 8:28 AM EDT Endometrioma ANESTHESIA INTUBATION Routine 05/20/2025 7:39 AM EDT MT EXC TUMOR SOFT TISSUE ABDOMINAL WALL SUBQ 3 CM/> 05/20/2025 7:29 AM EDT Abdominal wall mass Case Notes IN , 1h (R), PASS NOVA GLUCOSE POC Routine 05/20/2025 6:29 AM EDT FS_MODEL_IP POCT , URINE Routine 05/20/2025 6:22 AM EDT CBC HEMOGRAM (SJ-BKR) STAT 05/13/2025 11:00 AM EDT Preop testing HEPATITIS PANEL, ACUTE Add-On 04/02/2025 4:40 AM EDT from Last 3 Months or Most Recently Relevant to Health Maintenance Results * CT ABDOMEN/PELVIS WITH IV CONTRAST [...] DO IMG CT ORDERABLES Final Resu lt * (ABNORMAL) CBC - Hemogram (SJ-BKR) (05/21/2025 7:18 AM EDT) Only the most recent of2 resultswithin the time period is included. WBC 25.8(H) 4.0 - 10.0 K/ L 05/21/2025 7:44 AM EDT [facility] RBC 4.25 3.93 - 5.22 M/ L 05/21/2025 7:44 AM EDT [facility] Hemoglobin 12.2 11.2 - 15.7 GM/DL 05/21/2025 7:44 AM EDT [facility] Hematocrit 38.3 34.1 - 44.9 % 05/21/2025 7:44 AM EDT [facility] MCV 90 79 - 95 fL 05/21/2025 7:44 AM EDT [facility] MCH 28.7 25.6 - 32.2 pg 05/21/2025 7:44 AM EDT [facility] MCHC 31.9(L) 32.2 - 35.5 GM/DL 05/21/2025 7:44 AM EDT [facility] RDW 13.1 11.7 - 14.4 % 05/21/2025 7:44 AM EDT [facility] Platelets 402(H) 140 - 375 K/CU MM 05/21/2025 7:44 AM EDT [facility] MPV 10.1 9.4 - 12.3 fL 05/21/2025 7:44 AM EDT [facility] Blood Venipuncture / Unknown 05/21/2025 7:18 AM EDT 05/21/2025 7:33 AM EDT us Lyle Howell PA-C LAB BLOOD ORDERABLES Final Result [facility] [address] [phone] * (ABNORMAL) Basic Metabolic Panel (05/21/2025 7:18 AM EDT) Sodium 138 136 - 145 meq/L 05/21/2025 7:58 AM EDT [facility] Potassium 4.4 3.4 - 5.1 meq/L 05/21/2025 7:58 AM EDT [facility] CO2 21(L) 22 - 29 meq/L 05/21/2025 7:58 AM EDT [facility] Chloride 106 98 - 112 meq/L 05/21/2025 7:58 AM EDT [facility] Glucose 125(H) 74 - 100 mg/dL 05/21/2025 7:58 AM EDT [facility] BUN 10.8 7.0 - 18.7 mg/dL 05/21/2025 7:58 AM EDT [facility] Creatinine 0.74 0.57 - 1.11 mg/dL 05/21/2025 7:58 AM EDT [facility] BUN/Creatinine 15 8 - 20 05/21/2025 7:58 AM EDT [facility] Calcium 8.6 8.4 - 10.2 mg/dL 05/21/2025 7:58 AM EDT [facility] Anion Gap 15(H) 4 - 12 05/21/2025 7:58 AM EDT [facility] eGFR (mL/min/1.73m2) 108 >=60 mL/min/1.7 3m2 05/21/2025 7:58 AM EDT [facility] Osmolality Calc 276.5 mOsm/kg 7:58 AM EDT [facility] Blood Venipuncture / Unknown 05/21/2025 7:18 AM EDT 05/21/2025 7:34 AM EDT us Lyle Howell PA-C LAB BLOOD ORDERABLES Final Result [facility] [address] [phone] * Tissue Exam (05/20/2025 8:28 AM EDT) [...] no distinct lesions or masses grossly identified. Waterproofer Helper sections are submitted in cassettes [id number]. [facility] Tissue ABDOMEN / Unknown 05/20/2025 8:28 AM EDT Heather Rosas DO PATHOLOGY/CYTOLOGY ORDERABLE S Final Result Performing Organization Address City/State/[facility] Co de Phone Number [facility] [address] [place] [address] * AN SINGLE LUMEN INTUBATION (05/20/2025 7:39 [...] Glucose, Nova Meter (05/20/2025 6:29 AM EDT) Pathologist [facility] POC-GLUCOSE 117(H) 70 - 110 mg/dL 05/20/2025 6:30 AM EDT [facility] Comment: In the event of poor peripheral blood flow, venous or arterial blood should be used due to the potential of erroneous results. No action Require Buckshot Swage Operator [id number] 05/20/2025 6:30 AM EDT [facility] Blood WHOLE BLOOD / Unknown 05/20/2025 6:29 AM EDT 05/20/2025 6:30 AM EDT Narrative [facility] - 05/20/2025 6:30 AM EDT Buckshot Swage Operator ID is - [id number] us Heather Rosas DO POINT OF CARE TEST ORDERABLE S Final Result [facility] [address] [phone] * POCT , urine (05/20/2025 6:22 AM EDT) POC, URINE HCG Negative Negative INTERNAL QC (VALID/INVALID) Valid Kit Lot Number [id number] Expiration Date 05/20/2025 6:22 AM EDT us Angel Fay MD FS_MODEL_IP_POINT OF CARE TEST ENTER/EDIT ORDERABLES Final Result * Hepatitis panel, acute (04/02/2025 4:40 AM EDT) Hep A IgM Nonreactive Nonreactive 04/02/2025 2:04 PM EDT [facility] Hep B C IgM Nonreactive Nonreactive 04/02/2025 2:04 PM EDT [facility] Hepatitis B surface antigen Nonreactive Nonreactive 04/02/2025 2:04 PM EDT [facility] Hepatitis C Ab Nonreactive Nonreactive 04/02/20 2:04 PM EDT [facility] Comment: Plant Breeder recommends confirmatory testing on all reactives and equivocals. Blood Venipuncture / Unknown 04/02/2025 4:40 AM EDT 04/02/2025 5:05 AM EDT Aden Nickerson MD LAB BLOOD ORDERABLES Final R esult [facility] [address] [phone] from Last 3 Months or Most Recently Relevant to Health Maintenance Insurance [facility] [place] [address] Advance Directives For more information, please contact: [phone] * Full Code (Latest Code Status on File) Date Activated Date Inactivated Comments 05/20/2025 8:06 AM 05/22/2025 1:48 PM * Full Code Date Activated Date Inactivated Comments 03/31/2025 9:25 AM 04/02/2025 4:29 PM Healthcare Agents on File Name Relationship Healthcare Agent Relationship Communication Gerald Nagy Spouse Healthcare Decision-[facility] Care Teams Spring Intern Relationship Specialty Start Date End Date Janine Wheatley, BENJY [address] [place] [address] PCP - General Emergency Medicine 04/11/25
--- OUTSIDE RECORDS SUMMARY | 2025-07-24 08:08 | XMS_ITS | Encounter Summary ---
Author Organization [facility] [facility] ([place], [place], [place], [place]) Address [address] [place] [address] Care Team Providers Care Assessment Nurse Practitioner Name Role Phone Janine Wheatley APRN Primary Care Provider Reason for Visit * Reason Onset Date Comments Results 06/04/2025 Encounter Details Date Type Department Care Team (Late st Contact Info) Description 06/04/2025 Telephone [facility] [address] [place] [address] [address] Margaux Deluna CMA Results Social History Tobacco Use Types Packs/Day Years [...] encounter Miscellaneous Notes * Telephone Encounter - Margaux Moody CMA - 06/04/2025 3:20 PM EDT Called Mrs. Nagy and let her know the results. She said she will call us back if she gets fever, chills or worsening pain. Made her a follow up appointment for 06/18/[address] office [address] Orlando back in clinic. Electronically signed by Margaux Moody CMA - 06/04/2025 - 3:21 PM EDT ----- Message from Heather Rosas sent at 06/04/2025 1:47 PM EDT ----- Please let her know there is likely [...] on filedocumented in this encounter Care Teams Assessment Nurse Practitioner Relationship Specialty Start Date End Date Janine Wheatley APRN [address] [place] [address] PCP - General Emergency Medicine 04/11/25 documented as of this encounter
--- OUTSIDE RECORDS SUMMARY | 2025-07-24 08:08 | XMS_ITS | Clinical Summary ---
Author Organization [employer] ([place], [place], [place], [place]) Address [address] [place] [address] Care Team Providers Care Director Of Food And Beverage Services Name Role Phone Janine Wheatley APRN Primary [...] as needed for pain. Active folic acid/multivit,i freedom,document examiner (ONE DAILY FOR WOMEN ORAL) Take [...] Date Type Department Care Team Description 06/04/2025 12:30 PM EDT - 06/04/2025 11:59 PM EDT Hospital Encounter [facility] [address] [facility] [address] [place] [address] Heather Rosas, Post-op pain Discharge Disposition: Home or Self Care 06/04/2025 10:40 AM EDT Office Visit [facility] [address] [facility] [address] [place] [phone] Heather Rosas DO Post-op pain (Primary Dx); Abdominal wall mass 06/04/2025 Telephone [facility] [address] [facility] [address] [address] Margaux Deluna CMA Results 06/04/2025 Travel 05/20/2025 7:30 AM EDT - 05/20/2025 8:56 AM EDT Surgery [facility] Operating Room [address] [place] [address] Heather Rosas DO Excision of Abdominal Wall Mass 05/20/2025 7:29 AM EDT Anesthesia Event [facility] Operating Room [address] [place] [address] Jadiel Sotomayor MD Graff, Wayne B, MD 05/20/2025 5:10 AM EDT - 05/22/2025 12:47 PM EDT Hospital Encounter [facility] [address] [place] [address] Heather Rosas, Endometrioma Discharge Disposition: Home or Self Care 05/20/2025 Travel 05/15/2025 Orders Only [facility] [address] [place] [address] [address] Gume Romo MD 05/13/2025 9:01 AM EDT - 05/13/2025 11:59 PM EDT Hospital Encounter [facility] Preadmission Testing [address] [place] [address] Heather Rosas DO Preop testing (Primary Dx); Smoker; Obesity (BMI 30-39.9); Preoperative evaluation to rule out surgical contraindication; Leukocytosis Discharge Disposition: Home or Self Care 05/13/2025 Travel 05/03/2025 Telephone [facility] [address] [place] [address] [address] Heather Rosas DO Procedure 05/03/2025 Orders Only [facility] [address] [place] [address] [address] Heather Rosas DO Endometrioma (Primary Dx) 04/24/2025 Abstract [facility] [address] [place] [address] [address] Gerald Beebe MD from Last 3 Months Social History Tobacco [...] 06/04/2025 10:41 AM EDT Plan of Treatment Health Maintenance Due Date Last Done Comments Depression Screening (12+) 2001 HIV Screening 2004 Pneumococcal Vaccine: 0-49 Y ears (1 of 2 - PCV) 2008 Lipid Panel 2009 Pap Smear 2010 DTAP/TDAP/TD VACCINES (2 - Td or Tdap) 05/09/2025 COVID-19 VACCINE (3 - season) 2025, 05/14/2021 Influenza Vaccine (#1) 2025 Tobacco Cessation Counseling [...] 10.0 K/ L 05/21/2025 7:44 AM EDT [facility] RBC 4.25 3.93 - 5.22 M/ L 05/21/2025 7:44 AM EDT [facility] Hemoglobin 12.2 11.2 - 15.7 GM/DL 05/21/2025 7:44 AM EDT [facility] Hematocrit 38.3 34.1 - 44.9 % 05/21/2025 7:44 AM EDT [facility] MCV 90 79 - 95 fL 05/21/2025 7:44 AM EDT [facility] MCH 28.7 25.6 - 32.2 pg 05/21/2025 7:44 AM EDT [facility] MCHC 31.9(L) 32.2 - 35.5 GM/DL 05/21/2025 7:44 AM EDT [facility] RDW 13.1 11.7 - 14.4 % 05/21/2025 7:44 AM EDT [facility] Platelets 402(H) 140 - 375 K/CU MM 05/21/2025 7:44 AM EDT [facility] MPV 10.1 9.4 - 12.3 fL 05/21/2025 7:44 AM EDT [facility] Blood Venipuncture / Unknown 05/21/2025 7:18 AM EDT 05/21/2025 7:33 AM EDT Lyle Howell PA-C LAB BLOOD ORDERABLES Final Result [facility] [address] [phone] * (ABNORMAL) Basic Metabolic Panel (05/21/2025 7:18 AM EDT) Sodium 138 136 - 145 meq/L 05/21/2025 7:58 AM EDT [facility] Potassium 4.4 3.4 - 5.1 meq/L 05/21/2025 7:58 AM EDT [facility] CO2 21(L) 22 - 29 meq/L 05/21/2025 7:58 AM EDT [facility] Chloride 106 98 - 112 meq/L 05/21/2025 7:58 AM EDT [facility] Glucose 125(H) 74 - 100 mg/dL 05/21/2025 7:58 AM EDT [facility] BUN 10.8 7.0 - 18.7 mg/dL 05/21/2025 7:58 AM EDT [facility] Creatinine 0.74 0.57 - 1.11 mg/dL 05/21/2025 7:58 AM EDT [facility] BUN/Creatinine 15 8 - 20 05/21/2025 7:58 AM EDT [facility] Calcium 8.6 8.4 - 10.2 mg/dL 05/21/2025 7:58 AM EDT [facility] Anion Gap 15(H) 4 - 12 05/21/2025 7:58 AM EDT [facility] eGFR (mL/min/1.73m2) 108 >=60 mL/min/1.7 3m2 05/21/2025 7:58 AM EDT [facility] Osmolality Calc 276.5 mOsm/kg 7:58 AM EDT [facility] Blood Venipuncture / Unknown 05/21/2025 7:18 AM EDT 05/21/2025 7:34 AM EDT Lyle Howell PA-C LAB BLOOD ORDERABLES Final Result [facility] [address] [phone] * Tissue Exam (05/20/2025 8:28 AM EDT) [...] no distinct lesions or masses grossly identified. Sql Engineer sections are submitted in cassettes [id number]. [facility] Tissue ABDOMEN / Unknown 05/20/2025 8:28 AM EDT Heather Rosas DO PATHOLOGY/CYTOLOGY ORDERABLE S Final Result [facility] [address] * AN SINGLE LUMEN INTUBATION (05/20/2025 [...] - 110 mg/dL 05/20/2025 6:30 AM EDT [facility] Comment: In the event of poor peripheral blood flow, venous or arterial blood should be used due to the potential of erroneous results. No action Require Manager Commission [id number] 05/20/2025 6:30 AM EDT [facility] Blood WHOLE BLOOD / Unknown 05/20/2025 6:29 AM EDT 05/20/2025 6:30 AM EDT Narrative [facility] - 05/20/2025 6:30 AM EDT Manager Commission ID is - [id number] us Heather Rosas DO POINT OF CARE TEST ORDERABLE S Final Result Performing Organization Address [facility] Co de Phone Number [facility] [address] [phone] * POCT , urine (05/20/2025 6:22 AM EDT) Pathologist [facility] POC, URINE HCG Negative Negative INTERNAL QC (VALID/INVALID) Valid Kit Lot Number [id number] Expiration Date 05/20/2025 6:22 AM EDT us Angel Fay MD FS_MODEL_IP_POINT OF CARE TEST ENTER/EDIT ORDERABLES Final Result * Hepatitis panel, acute (04/02/2025 4:40 AM EDT) [facility] Hep A IgM Nonreactive Nonreactive 04/02/2025 2:04 PM EDT [facility] Hep B C IgM Nonreactive Nonreactive 04/02/2025 2:04 PM EDT [facility] Hepatitis B surface antigen Nonreactive Nonreactive 04/02/2025 2:04 PM EDT [facility] Hepatitis C Ab Nonreactive Nonreactive 04/02/20 2:04 PM EDT [facility] Comment: Upholstery Instructor recommends confirmatory testing on all reactives and equivocals. Blood Venipuncture / Unknown 04/02/2025 4:40 AM EDT 04/02/2025 5:05 AM EDT us Aden Nickerson MD LAB BLOOD ORDERABLES Final R esult [facility] [address] [phone] from Last 3 Months or Most Recently Relevant to Health Maintenance Insurance [facility] Advance Directives For more information, please contact: [phone] * Full Code (Latest Code Status on File) Date Activated Date Inactivated Comments 05/20/2025 8:06 AM 05/22/2025 1:48 PM * Full Code Date Activated Date Inactivated Comments 03/31/2025 9:25 AM 04/02/2025 4:29 PM Healthcare Agents on File Name Relationship Healthcare Agent Relationship Communication Gerald Chaviraington Spouse Healthcare Decision-[facility] Care Teams Director Of Food And Beverage Services Relationship Specialty Start Date End Date Janine Wheatley APRN [address] [place] [address] PCP - General Emergency Medicine 04/11/25
--- OUTSIDE RECORDS SUMMARY | 2025-07-24 08:08 | XMS_ITS | Clinical Summary ---
Author Organization [facility] Address [address] [place] [address] Care Team Providers Care Licensed Veterinary Technician Name Role Phone Mathew Cisneros MD Primary Care Provider [phone] Allergies No known active allergies Medications ibuprofen [...] 2019 [facility]-HPV/Cotest 2019 [facility]-Depression Screening 06/08/2024 06/08/2023 [facility]-DTaP,Tdap,and Td Vaccine s (2 - Td or Tdap) 05/09/2025 05/09/2015 [id number] Vaccine (3 - season) 2025 06/19/2021, 05/14/2021 [facility]-Influenza Vaccine (#1) 2025 10/04/2014 [facility]-Zoster Vaccines [...] ORDERABLES Final Resul t Performing Organization Address City/State/[facility] Co de Phone Number SUNQUEST * [place] Hepatitis C Antibody (11/03/2020 12:59 AM EST) Pathologist [facility] [place] Hepatitis C Ab NEGATIVE Reference Range: Negative [facility]QUEST 11/03/2020 12:5 9 AM EST 11/03/2020 1:15 AM EST Ernestina Jackson MD LAB BLOOD ORDERABLES Final R esult Performing Organization Address City/[facility] Co de Phone Number SUNQUEST from Last 3 Months or Most Recently Relevant to Health Maintenance Insurance [employer] [facility] Care Teams Licensed Veterinary Technician Relationship Specialty Start Date End Date Mathew Cisneros MD [address] [place] [address] PCP - General 03/06/21
--- NOTE | 2025-07-24 08:30 | US_ITS ---
PROCEDURE: US TRANSVAGINAL CLINICAL INDICATION: suprapubic pain COMPARISON: CT CT ABDOMEN PELVIS W CON from 11/16/[address] ABDOMEN PELVIS W CON from 03/31/[address] ABDOMEN PELVIS W CON from 04/17/2025 FINDINGS: Transvaginal sonographic images of the pelvis were obtained. UTERUS: The uterus is surgically absent. Vaginal vault is intact. LEFT OVARY: 2.9 cmx2.2cmx1.6cm with a volume of 5.4ml. RIGHT OVARY: 2.9 cmx 1.7 cmx1.9 cm with a volume of 4.9ml. There are several small peripheral follicles. There is a cystic area adjacent to the right ovary measuring 4.1 cm x 1.4 cm x 2.0 cm. Likely hydrosalpinx. There is a follicle measuring 1.5 cm x 1.0 cm x 1.1 cm. Both ovaries are seen and appear normal. Doppler flow to both ovaries are seen. There is no fluid in the cul-de-sac. IMPRESSION: 1. The uterus is surgically absent. The vaginal cuff is intact. 2. Both ovaries are seen and appear normal. The right ovary has a small follicle measuring 1.5 cm. 3. Adjacent to the right ovary there is a slender cul cystic area measuring 4.1 x 2 cm. I suspect it is a hydrosalpinx. 4. No fluid in the cul-de-sac. Dictated by: Chele Cortez MD 07/24/2025 17:04 Chele Cortez MD in [place] 07/24/2025 17:04
== END 2025-07-24 23:59 | disposition home or self-care (01) ==
LOC: RAD 08:06
PROVIDERS: PCP Nurse Practitioner; Visit Provider Obstetrics & Gynecology
DX: N83.01 Follicular cyst of right ovary (principal); R93.89 Abnormal findings on diagnostic imaging of other specified body structures; G89.29 Other chronic pain; Z90.710 Acquired absence of both cervix and uterus
CPT/HCPCS: 76830

== ENCOUNTER 2025-09-11 11:13 | Outpatient (CLI) | payer MEDICAID, SELFPAY ==
[2025-09-11 11:40] VITALS: BMI 37.9
--- NOTE | 2025-09-11 11:56 | ECG_ITS ---
APPROVED REPORT Exam: Resting ECG HR:68 bpm ECG Measurements Heart Rate 68 AXES ND 148 P 53 QRSd 85 QRS 78 QT 388 T 42 QTc 406 Conclusion SINUS RHYTHM NORMAL ECG UNCONFIRMED REPORT Electronically signed by : Mathew Cisneros MD 09/12/2025 08:29:46
[2025-09-11 12:04] LABS: Hematocrit 43.3 % (37.0-47.0); Hemoglobin 14.1 g/dL (12.2-16.2); Immature Granulocytes % 0.4 %; Mean Corpuscular HGB Conc 32.6 g/dL (31.8-35.4); Mean Corpuscular Hemoglobin 28.8 pg (27.0-31.2); Mean Corpuscular Volume 88.4 fl (81-99); Nucleated Red Blood Cells % 0 %; Platelet Count 419 K/mm3 (142-424); Red Blood Count 4.90 M/mm3 (4.20-5.40); Red Cell Distribution Width-SD 44.2 fL; White Blood Count 16.8 K/mm3 (4.8-10.8)
[2025-09-11 12:12] LABS: Alanine Aminotransferase 20 U/L (12-78); Albumin Level 4.7 g/dl (3.5-5.0); Albumin/Globulin Ratio 1.6 (1.1-1.8); Alkaline Phosphatase 99 U/L (38-126); Anion Gap 10.9 mEq/L (5-15); Aspartate Amino Transferase 27 U/L (14-36); Bilirubin,Total 0.5 mg/dl (0.2-1.3); Blood Urea Nitrogen 9 mg/dl (7-17); Calcium 9.1 mg/dl (8.4-10.2); Carbon Dioxide 25 mmol/L (22.0-30.0); Chloride 103 mmol/L (98-107); Creatinine Clearance Estimated 176 mL/min (50-200); Creatinine,Serum 0.70 mg/dl (0.52-1.04); Estimated Glomerular Filt Rate 95 ml/min (>60); GFR (African American) 115 ML/MIN (>60); Globulin 3.0 g/dL (1.3-3.2); Glucose 91 mg/dl (74-100); Potassium 3.9 mmoL/L (3.5-5.1); Sodium 135 mmol/L (136-145); Total Protein,Serum 7.7 g/dl (6.3-8.2)
[2025-09-11 12:53] LABS: RBC Morphology Normal; Total Cells Counted 100
[2025-09-11 14:51] LABS: HCG Qualitative, Serum Negative (Negative)
== END 2025-09-11 23:59 | disposition home or self-care (01) ==
LOC: PREOP 11:14
PROVIDERS: PCP Nurse Practitioner; Visit Provider Obstetrics & Gynecology
DX: Z01.810 Encounter for preprocedural cardiovascular examination (principal); Z01.812 Encounter for preprocedural laboratory examination
CPT/HCPCS: 80053; 84703; 85007; 85025; 93005

== ENCOUNTER 2025-09-18 05:58 | Day surgery (SDC) | payer MEDICAID, SELFPAY ==
[2025-09-11 14:31] VITALS: BMI 37.9
[2025-09-18] VITALS (10 sets, daily range): BP systolic 108–135; BP diastolic 54–81; PULSE 69–91; RESP 14–18; TEMP 36.4–36.7; O2SAT 95–100; BMI 37.9
[2025-09-18] MEDS: ACETAMINOPHEN 500MG TAB 1000 MG PO (06:25)
[2025-09-18] MEDS: LACTATED RINGERS 1000ML 1,000 ML 25 ML IV (06:36)
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
[2025-09-18] MEDS: CEFAZOLIN 2GM VIAL 2 GM (07:30)
[2025-09-18] MEDS: BUPIVACAINE 0.5% 30ML VIAL 150 MG (07:52)
--- NOTE | 2025-09-18 08:28 | EXP.ANES.I ---
[facility] Anesthesia Record Part I Anesthesia Record I Intake, IV Amount: 850 Hydration: Adequate Estimated blood loss (mL): 10 Urine output (mL): 0 Blood Products used (#): none Blood Pressure: 135/81 SaO2: 96 Pulse Rate: 91 Airway Patency: Patent Respiratory Rate: 14 Temperature: 97.7 F Patient is:: Drowsy and Stable Stable to PACU at:: 08:22
--- NOTE | 2025-09-18 08:38 | P.OP_ITS ---
Date of procedure: 09/18/25 Pre-op Diagnosis:: 1. Anterior abdominal wall mass 2. Suprapubic pain Post-op Diagnosis:: 1. Anterior abdominal wall mass 2. Suprapubic pain Procedure performed:: 1. Exploratory incision of anterior abdominal wall with exam under anesthesia Surgeon:: Sindhu Austin DO Disability Examiner(s):: N/a SNAP ATTACHER:: Jadiel Baker Anesthesia: GETA Estimated blood loss (mL): 0 Clinical Note:: Ms Shawnee Nagy is a 35 yo who presents to [facility] for scheduled procedure. She complains of constant, chronic suprapubic pelvic pain. History of hysterectomy in [place] in 2020. She still has her ovaries. History of c- section x 3. Pelvic ultrasound 07/24/25 demonstrated uterus surgically absent. The vaginal cuff is intact. Both ovaries are seen and appear normal. The right ovary has a small follicle measuring 1.5 cm. Adjacent to the right ovary there is a slender cystic area measuring 4.1 x 2 cm. I suspect it is a hydrosalpinx. No fluid in the cul-de-sac. In review: CT abd/pelvis 10/2024 focal mass like enlargement within the lower aspect of the right rectus abdominis muscle just above the pubic symphysis with suggestion of a 3 cm isodense intramuscular mass best seen in the coronal plane similar in appearance to previous exam. It is unclear if this represents a recurrent intramuscular hematoma or stable benign intramuscular tumor such as a desmoid tumor or endometrioma. CT abd/pelvis 03/2025 showed inferior right rectus abdominis hematoma measuring 2.5 x 5.7 x 3.7 cm. Operative findings:: 1. On exam in preop, area of tenderness with superficial, subcutaneous mass measuring approximately 5 cm x 3 cm. Shawnee identified where the pain was during this exam and area was marked with skin marking pen 2. After skin incision was made, no obvious mass was palpated in the subcutaneous fat. Pubic bone was palpated. No mass appreciated under fascia overlying the pubic bone and under fascia superior to pubic bone Operative note:: Discussed risks, benefits, alternatives, expectations and possible complications of surgery. All questions addressed and answered. Patient wished to proceed with surgery. Patient was wheeled back to the operating room and placed under general anesthesia without difficulty. Cardona catheter was inserted and draining clear urine prior to the start of the procedure. A bimanual exam was performed. Then she was placed in the supine position. She was prepped and draped in normal sterile fashion. Attention was then turned to the abdomen. A 6 cm skin incision was made 2 cm below Pfannenstiel scar overlying pubic symphysis. This was carried through the subcutaneous fat. Exploration was performed and no mass was identified. Decision was made not to cut fascia overlying pubic symphysis. However, no mass was palpated below fascia. Pubic symphysis felt appropriate. The subcutaneous tissue was reapproximated with 2-0 Vicryl. The skin was reapproximated with Insorb wm. Steri strips and Telfa were placed over closed skin incision. Patient awoke from anesthesia without difficulty and was transferred to the recovery room in stable condition. Condition: stable Disposition: same day Specimens:: N/a Complications:: None
[2025-09-18] MEDS: MORPHINE 2MG/ML SYRINGE 2 MG IV (08:50)
[2025-09-18] MEDS: KETOROLAC 30MG/ML VIAL 30 MG IV (08:57)
--- NOTE | 2025-09-18 11:57 | EXP.ANES.II ---
[facility] Anesthesia Record Part II Anesthesia Record Part II Discharge Time: 08:52 Destination: Surgical Day Care (OP Surgery) PACU nurse assessment reviewed?: Yes Patient Condition:: Good Anesthesia Complications:: None Swallowing reflex intact?: Yes Airway Patency: Patent Cyanosis?: No Blood Pressure: 119/71 SaO2: 95 Respiratory Rate: 18 Pulse Rate: 69 Temperature: 97.7 F Mental Status: Alert & Oriented Pain level:: 8 Nausea and/or vomitting:: None Intake, IV Amount: 0 Hydration: Adequate
== END 2025-09-18 09:50 | disposition home or self-care (01) ==
PROVIDERS: PCP Nurse Practitioner; Visit Provider Obstetrics & Gynecology
PROC: (CPT 49999; principal; 2025-09-18 07:30)
DX: R19.00 Intra-abdominal and pelvic swelling, mass and lump, unspecified site (principal); N80.C10 Endometriosis of the anterior abdominal wall, subcutaneous tissue; J45.909 Unspecified asthma, uncomplicated; F32.A Depression, unspecified; Z90.710 Acquired absence of both cervix and uterus; Z90.49 Acquired absence of other specified parts of digestive tract; F17.210 Nicotine dependence, cigarettes, uncomplicated; Z56.0 Unemployment, unspecified
CPT/HCPCS: 49999; 96374; J0665; J0690; J1100; J1885; J2003; J2250; J2270; J2405; J2704; J3010; J7120